=== PATIENT | male | born 1935 | race Caucasian/White ===

== ENCOUNTER 2016-09-13 07:33 | Outpatient (CLI) ==
[2016-09-13 13:35] VITALS: BMI 26.4
== END 2016-09-13 07:34 | disposition home or self-care (01) ==
LOC: AMBL 07:33
PROVIDERS: ATTEND Internal Medicine
DX: R50.9 Fever, unspecified (principal); R11.0 Nausea; R60.0 Localized edema; I48.91 Unspecified atrial fibrillation

== ENCOUNTER 2016-09-13 08:05 | Inpatient (IN) | payer OTHER ==
[2016-09-13 08:40] LABS: BASOPHILS % (AUTO) 0.3 % (0.0-3.0); EOSINOPHILS % (AUTO) 0.3 % (0.0-7.0); HEMATOCRIT 33.7 % (42.0-52.0); HEMOGLOBIN 11.9 g/dl (14.0-18.0); IMMATURE GRANULOCYTE % (AUTO) 0.5 % (0.0-5.0); LYMPHOCYTES # (AUTO) 0.6 K/uL (0.60-3.4); LYMPHOCYTES % (AUTO) 7.7 (10.0-50.0); MEAN CORPUSCULAR HEMOGLOBIN 33.1 pg (27.0-31.0); MEAN CORPUSCULAR HGB CONC 35.3 (31.8-35.4); MEAN CORPUSCULAR VOLUME 93.6 fl (80.0-94.0); MONOCYTES # (AUTO) 0.9 K/uL (0.4-2.0); NEUTROPHILS # (AUTO) 6.4 K/ul (2.0-6.9); NEUTROPHILS % (AUTO) 80.2; PLATELET COUNT 264 10^3/uL (140-440); WHITE BLOOD COUNT 7.94 K/ul (4.2-10.2)
[2016-09-13 08:53] LABS: ABG PCO2 28.3 mmHg (35-45); ABG PH 7.435 (7.35-7.45)
[2016-09-13 08:54] LABS: ABG BASE EXCESS -5 (-2.0-2.0); ABG TCO2 20 (22.0-28.0)
[2016-09-13 09:04] LABS: PARTIAL THROMBOPLASTIN TIME 31.1 SEC (23.9-40.0); PROTHROMBIN TIME 11.3 SEC (9.3-11.0)
--- NOTE | 2016-09-13 09:13 | CT ---
EXAM: CT chest without contrast HISTORY: Cough, chills 1 week, shortness of breath COMPARISON: None TECHNIQUE: CT chest performed without intravenous contrast. Coronal and sagittal reformatted image s obtained. FINDINGS: Thyroid and thoracic inlet appear normal. Heart is mildly enlarged. Evaluation for lymp hadenopathy limited without contrast. No lymphadenopathy identified. Calcified right hilar lymph n odes, consistent with old granulomatous disease. Patulous esophagus. Moderate to large hiatal soraya ia. Aorta normal in caliber. Mild atherosclerosis. Coronary calcifications. Granulomatous calcif ications. No acute abnormalities of the bones. There is degenerative change in the spine. Advanced arthropathy of the shoulders. The central airway patent. Small left pleural effusion. Left lower lobe ground-glass infiltrates and consolidation. Mild right basilar atelectasis. No pneumothorax. Mild centrilobular emphysema. Granulomatous calcification left lung. Chronic elevation right kayla diaphragm. IMPRESSION: 1. Left lower lobe ground-glass infiltrates and consolidation most consistent with pneumonia. Recom mend radiographic follow-up. Small left pleural effusion. 2. Moderate to large hiatal hernia with patulous esophagus. 3. Mild emphysema. 4. Mild cardiomegaly.
[2016-09-13 09:17] LABS: ALBUMIN 2.9 g/dL (3.4-5.0); ALBUMIN/GLOBULIN RATIO 0.73; ANION GAP 15.4; BILIRUBIN,TOTAL 0.96 mg/dL (0.00-1.20); BUN/CREATININE RATIO 16.49; CALCIUM 8.7 mg/dL (8.2-10.2); CREATININE 0.97 mg/dL (0.60-1.10); POTASSIUM 3.4 mmol/L (3.5-5.1); TOTAL PROTEIN 6.9 g/dL (5.8-8.1); TROPONIN I 0.105 ng/ml (0.0000-0.4000)
[2016-09-13 09:18] LABS: CREATINE KINASE MB 2.1 ng/ml (0.0-3.6)
--- NOTE | 2016-09-13 11:21 | CT ---
EXAM: CTA chest for PE HISTORY: Shortness of breath COMPARISON: CT chest 09/13/2016 TECHNIQUE: CTA of the chest was performed from the lung apices to the upper abdomen after 75 ml of Omnipaque IV contrast was administered using PE protocol. 3-D imaging was also provided. FINDINGS: There is no filling defect in the pulmonary arteries to the level of the subsegmental pul monary arteries. The heart is mildly enlarged without signs of ventricular strain. The aorta demons trates mild atherosclerotic disease which is unchanged. There are mediastinal and hilar lymph nodes which are nonpathologically enlarged. The thyroid is unremarkable. There are no enlarged axillary lymph nodes. There is no pneumothorax. There is a small layering left pleural effusion. There is airway thicken ing to the left lower lobe with patchy ground-glass and consolidative opacities. There is scattered emphysematous disease with mild right lower lobe airway thickening. No new consolidation or nodules present. There is unchanged moderate hiatal hernia. The findings in the upper abdomen are unchanged. The os seous structures redemonstrate degenerative disease with no acute abnormality. IMPRESSION: 1. No pulmonary embolism. 2. Bilateral lower lobe airway thickening with ground-glass and consolidative opacities noted in th e left lower lobe suggestive of pneumonia. 3. Small left pleural effusion is redemonstrated. 4. Unchanged mild cardiomegaly, emphysema and hiatal hernia.
--- NOTE | 2016-09-13 11:42 | ED.PDOC ---
General ED Provider: Dr. ESTEE ANDERSON Chief Complaint: Fever Stated Complaint: FEVER , COUGH Time Seen by Physician: 08:00 Mode of Arrival: Ambulance Information Source: Patient Exam Limitations: No limitations Primary Care Provider: SHELBIE GALLOWAY Nursing and Triage Documentation Reviewed and Agree: Yes Respiratory Complaint Exam - Respiratory Complaint/Exam Onset/Duration: 3 DAYS Symptoms Are: Still present Timing: Constant Initial Severity: Moderate Current Severity: Moderate Location: Chest Character: Reports: Non-productive cough Aggravating: Reports: None Alleviating: Reports: Spontaneous resolution Associated Signs and Symptoms: Reports: Nasal congestion. Denies: Rapid breathing, Dyspnea, Fever, Chills, Chest pain, Pleuritic chest pain, Wheezing, Hemoptysis, Dizziness, Calf pain, Calf swelling, Edema, URI, Hoarseness, Sinus discomfort, Vomiting, Sore throat, Weight loss, Decreased oral intake, Increased thirst, Increased appetite, Increased urination History of Healthcare-Acquired Pneumonia: No Related Surgical History: Reports: None Pulmonary Embolism Risk Factors: Bedrest Cardiac Risk Factors: Reports: Hypertension Pseudomonas Risk Factors: Reports: Chronic Lung Disease Status Asthmaticus Risk Factors: Reports: None Home Oxygen Use: No Recent Stress Test: No Recent Echo/LV Function: No Current Antibiotic Use: No Current Asthma Medication Use: No Respiratory Distress: None Inadequate Respiratory Effort: No Dysphagia Present: No Stridor Present: No JVD Present: No Accessory Muscle Use: No Retractions: Not Present Diminished Breath Sounds: Yes (LLL) Sinus Tenderness: None Grunting Respirations: No Kussmaul Respirations: No Differential Diagnoses: Pulmonary Edema, COPD Exacerbation, Pneumonia, Pulmonary Embolism, Bronchitis Review of Systems - Review Of Systems Constitutional: Reports: No symptoms Eyes: Reports: No symptoms Ears, Nose, Mouth, Throat: Reports: No symptoms Respiratory: Reports: Cough Cardiac: Reports: No symptoms GI: Reports: No symptoms : Reports: No symptoms Musculoskeletal: Reports: No symptoms Skin: Reports: No symptoms Neurological: Reports: No symptoms Endocrine: Reports: No symptoms Hematologic/Lymphatic: Reports: No symptoms All Other Systems: Reviewed and Negative Past Medical History - Past Medical History Previously Healthy: No Endocrine: Reports: Hypothyroid, Dyslipidemia Cardiovascular: Reports: Hypertension Respiratory: Reports: None Hematological: Reports: None Gastrointestinal: Reports: None Genitourinary: Reports: None Neuro/Psych: Reports: None Musculoskeletal: Reports: None Cancer: Reports: None - Surgical History General Surgical History: Reports: Unknown - Family History Family History: Reports: Unknown - Social History Smoking Status: Never smoker Hx Substance Use: No Alcohol Screening: None Physical Exam - Physical Exam Appearance: Well-appearing, No pain distress, Well-nourished Eyes: SCAR, EOMI, Conjunctiva clear ENT: Ears normal, Nose normal, Oropharynx normal Respiratory: Airway patent, Breath sounds clear, Breath sounds equal, Respirations nonlabored Cardiovascular: RRR, Pulses normal, No rub, No murmur GI/: Soft, Nontender, No masses, Bowel sounds normal, No Organomegaly Musculoskeletal: Normal strength, ROM intact, No edema, No calf tenderness Skin: Warm, Dry, Normal color Neurological: Sensation intact, Motor intact, Reflexes intact, Cranial nerves intact, Alert, Oriented Psychiatric: Affect appropriate, Mood appropriate Critical Care Note - Critical Care Note Total Time (mins): 0 Course - Course Hematology/Chemistry: 09/13/16 08:25 09/13/16 08:25 Orders, Labs, Meds: Lab Review 09/13/16 09/13/16 08:25 08:50 WBC 7.94 RBC 3.60 L Hgb 11.9 L Hct 33.7 L MCV 93.6 MCH 33.1 H MCHC 35.3 RDW Coeff of Timmy 12.7 Plt Count 264 Immature Gran % (Auto) 0.5 Neut % (Auto) 80.2 Lymph % (Auto) 7.7 L [place] % (Auto) 11.0 H Eos % (Auto) 0.3 Baso % (Auto) 0.3 Immature Gran # (Auto) 0.0 Neut # 6.4 Lymph # 0.6 [place] # 0.9 Eos # 0.0 Baso # 0.0 PT 11.3 H INR 1.10 APTT 31.1 D-Dimer (Manual) 3471.28 Puncture Site R rad O2 Saturation 92.0 L ABG pH 7.435 ABG pCO2 28.3 L ABG pO2 62.0 L ABG HCO3 19.0 L ABG Total CO2 20 L ABG Base Excess -5 L Tyron Test + FiO2 % 21.0 Sodium 137 Potassium 3.4 L Chloride 106 Carbon Dioxide 19 L Anion Gap 15.4 BUN 16 Creatinine 0.97 Estimated GFR (MDRD) 74.00 BUN/Creatinine Ratio 16.49 Glucose 113 Lactic Acid 9.2 Calcium 8.7 Total Bilirubin 0.96 AST 29 ALT 14 Alkaline Phosphatase 78 Total Creatine Kinase 291 CK-MB (CK-2) 2.1 CK-MB (CK-2) % 0.73315 Troponin I 0.1050 Total Protein 6.9 Albumin 2.9 L Globulin 4.0 Albumin/Globulin Ratio 0.73 Procalcitonin 0.33 Orders Category Date Time Status ADMIT PATIENT INPATIENT .TO [facility] (MONITORED BED) ADMISSION 09/13/16 11: 35 Ordered ABG DRAW REQUEST Stat CARDIO 09/13/16 08:07 Completed EKG-(ED ONLY) Stat CARDIO 09/13/16 08:08 Completed EKG-(IP & OP ONLY) DAILY CARDIO 09/14/16 06:00 Ordered EKG-(IP & OP ONLY) DAILY CARDIO 09/15/16 06:00 Ordered EKG-(IP & OP ONLY) DAILY CARDIO 09/16/16 06:00 Ordered OXYGEN Routine CARDIO 09/13/16 11:36 Ordered ACTIVITY .Complete BR CARE 09/13/16 11:35 Ordered INTAKE & OUTPUT Q8HR CARE 09/13/16 11:35 Ordered NPO REMINDER: IMAGING ONCE CARE 09/13/16 10:19 Active TELEMETRY MONITORING TELE CARE 09/13/16 11:36 Ordered VITAL SIGNS Q8HR CARE 09/13/16 11:35 Ordered ABG Stat LAB 09/13/16 08:50 Completed BLOOD CULTURE Stat LAB 09/13/16 08:25 Received CBC W/ AUTO DIFF DAILY@0600 LAB 09/14/16 06:00 Ordered CBC W/ AUTO DIFF DAILY@0600 LAB 09/15/16 06:00 Ordered CBC W/ AUTO DIFF DAILY@0600 LAB 09/16/16 06:00 Ordered CBC W/ AUTO DIFF DAILY@0600 LAB 09/17/16 06:00 Ordered CBC W/ AUTO DIFF DAILY@0600 LAB 09/18/16 06:00 Ordered CBC W/ AUTO DIFF DAILY@0600 LAB 09/19/16 06:00 Ordered CBC W/ AUTO DIFF DAILY@0600 LAB 09/20/16 06:00 Ordered CBC W/ AUTO DIFF DAILY@0600 LAB 09/21/16 06:00 Ordered CBC W/ AUTO DIFF DAILY@0600 LAB 09/22/16 06:00 Ordered CBC W/ AUTO DIFF DAILY@0600 LAB 09/23/16 06:00 Ordered CBC W/ AUTO DIFF DAILY@0600 LAB 09/24/16 06:00 Ordered CBC W/ AUTO DIFF DAILY@0600 LAB 09/25/16 06:00 Ordered CBC W/ AUTO DIFF DAILY@0600 LAB 09/26/16 06:00 Ordered CBC W/ AUTO DIFF DAILY@0600 LAB 09/27/16 06:00 Ordered CBC W/ AUTO DIFF DAILY@0600 LAB 09/28/16 06:00 Ordered CBC W/ AUTO DIFF DAILY@0600 LAB 09/29/16 06:00 Ordered CBC W/ AUTO DIFF DAILY@0600 LAB 09/30/16 06:00 Ordered CBC W/ AUTO DIFF DAILY@0600 LAB 10/01/16 06:00 Ordered CBC W/ AUTO DIFF DAILY@0600 LAB 10/02/16 06:00 Ordered CBC W/ AUTO DIFF DAILY@0600 LAB 10/03/16 06:00 Ordered CBC W/ AUTO DIFF Stat LAB 09/13/16 08:25 Completed COMPREHENSIVE METABOLIC PANEL DAILY@0600 LAB 09/14/16 06:00 Ordered COMPREHENSIVE METABOLIC PANEL DAILY@0600 LAB 09/15/16 06:00 Ordered COMPREHENSIVE METABOLIC PANEL DAILY@0600 LAB 09/16/16 06:00 Ordered COMPREHENSIVE METABOLIC PANEL DAILY@0600 LAB 09/17/16 06:00 Ordered COMPREHENSIVE METABOLIC PANEL DAILY@0600 LAB 09/18/16 06:00 Ordered COMPREHENSIVE METABOLIC PANEL DAILY@0600 LAB 09/19/16 06:00 Ordered COMPREHENSIVE METABOLIC PANEL DAILY@0600 LAB 09/20/16 06:00 Ordered COMPREHENSIVE METABOLIC PANEL DAILY@0600 LAB 09/21/16 06:00 Ordered COMPREHENSIVE METABOLIC PANEL DAILY@0600 LAB 09/22/16 06:00 Ordered COMPREHENSIVE METABOLIC PANEL DAILY@0600 LAB 09/23/16 06:00 Ordered COMPREHENSIVE METABOLIC PANEL DAILY@0600 LAB 09/24/16 06:00 Ordered COMPREHENSIVE METABOLIC PANEL DAILY@0600 LAB 09/25/16 06:00 Ordered COMPREHENSIVE METABOLIC PANEL DAILY@0600 LAB 09/26/16 06:00 Ordered COMPREHENSIVE METABOLIC PANEL DAILY@0600 LAB 09/27/16 06:00 Ordered COMPREHENSIVE METABOLIC PANEL DAILY@0600 LAB 09/28/16 06:00 Ordered COMPREHENSIVE METABOLIC PANEL DAILY@0600 LAB 09/29/16 06:00 Ordered COMPREHENSIVE METABOLIC PANEL DAILY@0600 LAB 09/30/16 06:00 Ordered COMPREHENSIVE METABOLIC PANEL DAILY@0600 LAB 10/01/16 06:00 Ordered COMPREHENSIVE METABOLIC PANEL DAILY@0600 LAB 10/02/16 06:00 Ordered COMPREHENSIVE METABOLIC PANEL DAILY@0600 LAB 10/03/16 06:00 Ordered COMPREHENSIVE METABOLIC PANEL Stat LAB 09/13/16 08:25 Completed CREATINE KINASE Stat LAB 09/13/16 08:25 Completed D-DIMER Stat LAB 09/13/16 08:25 Completed LACTIC ACID Stat LAB 09/13/16 08:25 Completed PARTIAL THROMBOPLASTIN TIME Stat LAB 09/13/16 08:25 Completed PROCALCITONIN Stat LAB 09/13/16 08:25 Completed PT WITH INR Stat LAB 09/13/16 08:25 Completed TROPONIN I Stat LAB 09/13/16 08:25 Completed Atenolol [Atenolol] MEDS 09/14/16 09:00 Ordered 100 mg PO DAILY Azithromycin Inj [Zithromax] 500 mg MEDS 09/13/16 12:00 Ordered 0.9 % Sodium Chloride [Sodium Chloride] 250 ml IV ONCE Ceftriaxone Sodium [Rocephin] 1 gm MEDS 09/13/16 12:00 Ordered 0.9 % Sodium Chloride [Sodium Chloride] 50 ml IV DAILY Clonazepam [Klonopin] MEDS 09/13/16 21:00 Ordered 0.5 mg PO BEDTIME Furosemide [Lasix Tab] MEDS 09/14/16 06:30 Ordered 20 mg PO MOWEFRSA@0630 Levothyroxine Sodium [Synthroid] MEDS 09/14/16 06:30 Ordered 50 mcg PO QDAC Lisinopril [Zestril] MEDS 09/14/16 09:00 Ordered 20 mg PO DAILY Potassium Chloride [Klor-Con 10] MEDS 09/14/16 09:00 Ordered 10 meq PO MOWEFRSA@0900 Simvastatin [Zocor] MEDS 09/14/16 09:00 Ordered 40 mg PO DAILY Sodium Chloride 0.9% [Sodium Chloride] 1,000 ml MEDS 09/13/16 12:00 Ordered IV 75 mls/hr CHEST, 1V AP ONLY DAILY RADS 09/15/16 06:[address] CHEST PE PROTOCOL Stat RADS 09/13/16 10:[address] CHEST W/O CONTRAST Stat RADS 09/13/16 08:07 Completed Medications Generic Name Dose Route Start Last Admin Trade Name Freq PRN Reason Stop Dose Admin Clonazepam 0.5 mg 09/13/16 21:00 Klonopin PO BEDTIME SIDRA Furosemide 20 mg 09/14/16 06:30 Lasix Tab PO MOWEFRSA@0630 SIDRA Ceftriaxone Sodium 1 gm/ 50 mls @ 75 mls/hr 09/13/16 12:00 Sodium Chloride IV DAILY SIDRA Sodium Chloride 1,000 mls @ 75 mls/hr 09/13/16 12:00 Sodium Chloride IV .[id number] SIDRA Azithromycin 500 mg/ Sodium 250 mls @ 125 mls/hr 09/13/16 12:00 Chloride IV ONCE SIDRA Non-Formulary Medication 100 mg 09/14/16 09:00 Atenolol [Atenolol] PO DAILY SIDRA Non-Formulary Medication 20 mg 09/14/16 09:00 Lisinopril [Zestril] PO DAILY SIDRA Non-Formulary Medication 10 meq 09/14/16 09:00 Potassium Chloride [Klor-Con 10] PO MOWEFRSA@0900 SIDRA Simvastatin 40 mg 09/14/16 09:00 Zocor PO DAILY SIDRA Vital Signs: Temp Pulse Resp BP Pulse Ox 09/13/16 08:05 102.1 F H 85 20 134/99 H 95 Departure - Departure Time of Disposition: 11:43 Disposition: HOME SELF-CARE Discharge Problem: Fever Pneumonia Qualifiers: Pneumonia type: due to unspecified organism Laterality: left Lung location: lower lobe of lung Qualifier Code: (J18.1) Lobar pneumonia, unspecified organism Instructions: Pneumonitis (ED) Condition: Good Pt referred to PMD for follow-up: No Additional Instructions: Please call your Family Physician as soon as possible to schedule a follow-up appointment. Allergies/Adverse Reactions: Allergies morphine Adverse Reaction (Verified 09/13/16 08:08) Home Medications: Ambulatory Orders Furosemide [Lasix Tab] 20 mg PO MOWEFRSA@0630 02/19/13 Lisinopril [Zestril] 20 mg PO DAILY 02/19/13 Potassium Chloride [Klor-Con 10] 10 meq PO MOWEFRSA@0900 02/19/13 Simvastatin 40 mg PO DAILY 02/19/13 Clonazepam [Klonopin] 0.5 mg PO BEDTIME #30 tablet 02/23/13 Atenolol 100 mg PO DAILY 01/14/15 Levothyroxine Sodium [Synthroid] 50 mcg PO QDAC 01/14/15 Pantoprazole Sodium 40 mg PO BID 01/14/15 Ferrous Sulfate 325 mg PO DAILY 09/13/16
[2016-09-13] MEDS: ROCEPHIN 1 GM in SODIUM CHLORIDE 50 ML IV SCH (11:58)
[2016-09-13] MEDS ORDERED: ZITHROMAX 500 MG in SODIUM CHLORIDE 250 ML IV SCH (12:00)
[2016-09-13] MEDS ORDERED: SODIUM CHLORIDE 1,000 ML IV SCH (12:00)
[2016-09-13] MEDS ORDERED: ROCEPHIN ONE (12:12)
[2016-09-13] MEDS ORDERED: ZITHROMAX 500 MG in SODIUM CHLORIDE 250 ML IV STA (13:07)
[2016-09-13 13:35] VITALS: BMI 26.4
[2016-09-13] MEDS ORDERED: TORADOL IVP PRN (15:58)
[2016-09-13] MEDS: PROTONIX PO SCH (16:53)
[2016-09-13] MEDS: SOLU-MEDROL 40 MG IVP SCH (20:12)
[2016-09-13] MEDS: SODIUM CHLORIDE 1,000 ML IV SCH (20:13)
[2016-09-13] MEDS: KLONOPIN PO SCH (20:47)
[2016-09-13] MEDS: TYLENOL PO PRN (22:02)
[2016-09-14 04:54] LABS: BASOPHILS % (AUTO) 0.2 % (0.0-3.0); HEMATOCRIT 31.3 % (42.0-52.0); HEMOGLOBIN 10.9 g/dl (14.0-18.0); IMMATURE GRANULOCYTE % (AUTO) 0.4 % (0.0-5.0); LYMPHOCYTES # (AUTO) 0.7 K/uL (0.60-3.4); MEAN CORPUSCULAR HEMOGLOBIN 33.1 pg (27.0-31.0); MEAN CORPUSCULAR HGB CONC 34.8 (31.8-35.4); MEAN CORPUSCULAR VOLUME 95.1 fl (80.0-94.0); MONOCYTES # (AUTO) 0.2 K/uL (0.4-2.0); MONOCYTES % (AUTO) 3.9 (0-10); NEUTROPHILS # (AUTO) 3.8 K/ul (2.0-6.9); NEUTROPHILS % (AUTO) 81.5; PLATELET COUNT 227 10^3/uL (140-440); RED BLOOD COUNT 3.29 10^6/ul (4.70-6.10); WHITE BLOOD COUNT 4.64 K/ul (4.2-10.2)
[2016-09-14 05:12] LABS: ALBUMIN 2.5 g/dL (3.4-5.0); ALBUMIN/GLOBULIN RATIO 0.66; ANION GAP 14.8; BILIRUBIN,TOTAL 0.57 mg/dL (0.00-1.20); BUN/CREATININE RATIO 20.45; CALCIUM 8.5 mg/dL (8.2-10.2); CREATININE 0.88 mg/dL (0.60-1.10); POTASSIUM 3.8 mmol/L (3.5-5.1); TOTAL PROTEIN 6.3 g/dL (5.8-8.1)
[2016-09-14] MEDS: SOLU-MEDROL 40 MG IVP SCH ×3 (05:36→20:10)
[2016-09-14] MEDS: SYNTHROID PO SCH (06:29)
[2016-09-14] MEDS: PROTONIX PO SCH ×2 (06:29→16:41)
[2016-09-14] MEDS: LASIX TAB PO SCH (06:29)
[2016-09-14] MEDS ORDERED: NON-FORMULARY MEDICATION (Atenolol [Atenolol] 100 MG) PO SCH ×22 (09:00)
[2016-09-14] MEDS ORDERED: ZITHROMAX 250 MG in SODIUM CHLORIDE 250 ML IV SCH (09:00)
[2016-09-14] MEDS ORDERED: NON-FORMULARY MEDICATION (Lisinopril [Zestril] 20 MG) PO SCH ×22 (09:00)
[2016-09-14] MEDS ORDERED: NON-FORMULARY MEDICATION (Potassium Chloride [Klor-Con 10] 10 MEQ) PO SCH ×22 (09:00)
[2016-09-14] MEDS: ROCEPHIN 1 GM in SODIUM CHLORIDE 50 ML IV SCH (09:35)
[2016-09-14] MEDS: ZOCOR PO SCH (09:41)
[2016-09-14] MEDS: FERROUS SULFATE PO SCH (09:41)
[2016-09-14] MEDS: TENORMIN PO SCH (09:41)
[2016-09-14] MEDS: MICRO-K CAP PO SCH (09:42)
[2016-09-14] MEDS: ZESTRIL PO SCH (09:42)
[2016-09-14] MEDS: LOVENOX SUBCUT SCH (09:43)
[2016-09-14] MEDS: ZITHROMAX 500 MG in SODIUM CHLORIDE 250 ML IV SCH (10:21)
[2016-09-14] MEDS: DUONEB NEB SCH ×3 (12:45→19:35)
[2016-09-14 20:05] LABS: BILIRUBIN,URINE 1+ (NEGATIVE); KETONES,URINE 1+ (NEGATIVE); LEUKOCYTE ESTERASE ,URINE Negative (NEGATIVE); NITRITE,URINE Negative (NEGATIVE); PH,URINE 5.5 (5-9); PROTEIN,URINE 1+ (NEGATIVE); URINE, BLOOD Trace-lysed (NEGATIVE)
[2016-09-14 20:07] LABS: ADD URINE MICROSCOPIC YES
[2016-09-14] MEDS: KLONOPIN PO SCH (20:07)
[2016-09-14] MEDS: TYLENOL PO PRN (22:10)
[2016-09-15] MEDS ORDERED: SODIUM CHLORIDE 1,000 ML IV ONE (00:02)
[2016-09-15] MEDS: SODIUM CHLORIDE 1,000 ML IV SCH (00:02)
[2016-09-15 04:39] LABS: BASOPHILS % (AUTO) 0.1 % (0.0-3.0); HEMATOCRIT 33.3 % (42.0-52.0); HEMOGLOBIN 11.7 g/dl (14.0-18.0); IMMATURE GRANULOCYTE % (AUTO) 0.8 % (0.0-5.0); LYMPHOCYTES # (AUTO) 0.7 K/uL (0.60-3.4); LYMPHOCYTES % (AUTO) 8.2 (10.0-50.0); MEAN CORPUSCULAR HEMOGLOBIN 32.8 pg (27.0-31.0); MEAN CORPUSCULAR HGB CONC 35.1 (31.8-35.4); MEAN CORPUSCULAR VOLUME 93.3 fl (80.0-94.0); MONOCYTES # (AUTO) 0.4 K/uL (0.4-2.0); MONOCYTES % (AUTO) 4.5 (0-10); NEUTROPHILS # (AUTO) 7.2 K/ul (2.0-6.9); NEUTROPHILS % (AUTO) 86.4; PLATELET COUNT 319 10^3/uL (140-440); RED BLOOD COUNT 3.57 10^6/ul (4.70-6.10); WHITE BLOOD COUNT 8.39 K/ul (4.2-10.2)
[2016-09-15 05:05] LABS: ALBUMIN 2.5 g/dL (3.4-5.0); ALBUMIN/GLOBULIN RATIO 0.68; ANION GAP 13.9; BILIRUBIN,TOTAL 0.37 mg/dL (0.00-1.20); BUN/CREATININE RATIO 23.14; CALCIUM 8.5 mg/dL (8.2-10.2); CREATININE 1.08 mg/dL (0.60-1.10); POTASSIUM 3.9 mmol/L (3.5-5.1); TOTAL PROTEIN 6.2 g/dL (5.8-8.1)
[2016-09-15] MEDS: DUONEB NEB SCH ×4 (05:25→19:55)
[2016-09-15] MEDS: SYNTHROID PO SCH (05:54)
[2016-09-15] MEDS: PROTONIX PO SCH ×2 (05:55→16:31)
[2016-09-15] MEDS: SOLU-MEDROL 40 MG IVP SCH ×3 (05:55→20:47)
[2016-09-15] MEDS: LASIX TAB PO SCH (05:55)
[2016-09-15] MEDS: ZOCOR PO SCH (09:02)
[2016-09-15] MEDS: FERROUS SULFATE PO SCH (09:02)
[2016-09-15] MEDS: ZESTRIL PO SCH (09:02)
[2016-09-15] MEDS: TENORMIN PO SCH (09:03)
[2016-09-15] MEDS: MICRO-K CAP PO SCH (09:03)
[2016-09-15] MEDS: LOVENOX SUBCUT SCH (09:03)
[2016-09-15] MEDS: MUCINEX PO SCH ×2 (09:03→20:29)
[2016-09-15] MEDS: ROCEPHIN 1 GM in SODIUM CHLORIDE 50 ML IV SCH (09:04)
--- NOTE | 2016-09-15 09:25 | DI ---
EXAM: Single view of the chest. History: follow-up pneumonia Findings: Heart remains mildly enlarged. Hiatal hernia again noted. Elevated right hemidiaphragm again noted. Persistent but improving left lower lobe infiltrate. No pneumothorax. Visualized oss eous structures unchanged. Impression: Persistent but improving left lower lobe infiltrate.
[2016-09-15] MEDS: ZITHROMAX 500 MG in SODIUM CHLORIDE 250 ML IV SCH (09:56)
[2016-09-15] MEDS: KLONOPIN PO SCH (20:29)
[2016-09-15] MEDS: TYLENOL PO PRN (20:48)
[2016-09-16] MEDS: SODIUM CHLORIDE 1,000 ML IV SCH (01:43)
[2016-09-16] MEDS ORDERED: SODIUM CHLORIDE 1,000 ML IV ONE (01:43)
[2016-09-16 04:53] LABS: BASOPHILS % (AUTO) 0.2 % (0.0-3.0); HEMATOCRIT 32.9 % (42.0-52.0); HEMOGLOBIN 11.5 g/dl (14.0-18.0); IMMATURE GRANULOCYTE % (AUTO) 0.9 % (0.0-5.0); LYMPHOCYTES # (AUTO) 0.6 K/uL (0.60-3.4); LYMPHOCYTES % (AUTO) 6.2 (10.0-50.0); MEAN CORPUSCULAR VOLUME 94.3 fl (80.0-94.0); MONOCYTES # (AUTO) 0.3 K/uL (0.4-2.0); MONOCYTES % (AUTO) 3.2 (0-10); NEUTROPHILS # (AUTO) 8.5 K/ul (2.0-6.9); NEUTROPHILS % (AUTO) 89.5; PLATELET COUNT 330 10^3/uL (140-440); RED BLOOD COUNT 3.49 10^6/ul (4.70-6.10); WHITE BLOOD COUNT 9.54 K/ul (4.2-10.2)
[2016-09-16] MEDS: SOLU-MEDROL 40 MG IVP SCH ×2 (05:02→13:51)
[2016-09-16] MEDS: DUONEB NEB SCH ×4 (05:10→19:20)
[2016-09-16 05:13] LABS: ALBUMIN 2.5 g/dL (3.4-5.0); ALBUMIN/GLOBULIN RATIO 0.76; ANION GAP 13.8; BILIRUBIN,TOTAL 0.3 mg/dL (0.00-1.20); CALCIUM 8.2 mg/dL (8.2-10.2); CREATININE 1.08 mg/dL (0.60-1.10); POTASSIUM 3.8 mmol/L (3.5-5.1); TOTAL PROTEIN 5.8 g/dL (5.8-8.1)
[2016-09-16] MEDS: PROTONIX PO SCH ×2 (05:33→17:28)
[2016-09-16] MEDS: SYNTHROID PO SCH (05:33)
[2016-09-16] MEDS: FERROUS SULFATE PO SCH (08:11)
[2016-09-16] MEDS: MUCINEX PO SCH ×2 (08:11→20:33)
[2016-09-16] MEDS: ZESTRIL PO SCH (08:11)
[2016-09-16] MEDS: TENORMIN PO SCH (08:11)
[2016-09-16] MEDS: ZOCOR PO SCH (08:11)
[2016-09-16] MEDS: ROCEPHIN 1 GM in SODIUM CHLORIDE 50 ML IV SCH (08:12)
[2016-09-16] MEDS: LOVENOX SUBCUT SCH (08:12)
[2016-09-16] MEDS ORDERED: MEDROL DOSEPAK PO SCH ×4 (13:30→15:00)
[2016-09-16] MEDS: MEDROL DOSEPAK PO SCH ×2 (17:29→20:34)
[2016-09-16] MEDS: KLONOPIN PO SCH (20:33)
[2016-09-16] MEDS: KEFLEX PO SCH (20:33)
[2016-09-16] MEDS ORDERED: SOLU-MEDROL 40 MG IVP ONE (21:00)
[2016-09-17 04:35] LABS: BASOPHILS % (AUTO) 0.2 % (0.0-3.0); HEMOGLOBIN 11.6 g/dl (14.0-18.0); IMMATURE GRANULOCYTE % (AUTO) 2.8 % (0.0-5.0); LYMPHOCYTES # (AUTO) 0.6 K/uL (0.60-3.4); LYMPHOCYTES % (AUTO) 6.2 (10.0-50.0); MEAN CORPUSCULAR HGB CONC 35.2 (31.8-35.4); MONOCYTES # (AUTO) 0.4 K/uL (0.4-2.0); MONOCYTES % (AUTO) 4.5 (0-10); NEUTROPHILS # (AUTO) 7.7 K/ul (2.0-6.9); NEUTROPHILS % (AUTO) 86.3; PLATELET COUNT 339 10^3/uL (140-440); RED BLOOD COUNT 3.51 10^6/ul (4.70-6.10); WHITE BLOOD COUNT 8.91 K/ul (4.2-10.2)
[2016-09-17 04:58] LABS: ALBUMIN 2.6 g/dL (3.4-5.0); ALBUMIN/GLOBULIN RATIO 0.87; ANION GAP 13.1; BILIRUBIN,TOTAL 0.34 mg/dL (0.00-1.20); BUN/CREATININE RATIO 24.21; CALCIUM 8.3 mg/dL (8.2-10.2); CREATININE 0.95 mg/dL (0.60-1.10); POTASSIUM 4.1 mmol/L (3.5-5.1); TOTAL PROTEIN 5.6 g/dL (5.8-8.1)
[2016-09-17] MEDS: DUONEB NEB SCH ×4 (05:05→19:42)
[2016-09-17] MEDS: PROTONIX PO SCH ×2 (05:37→17:34)
[2016-09-17] MEDS: LASIX TAB PO SCH (05:38)
[2016-09-17] MEDS: SYNTHROID PO SCH (05:38)
[2016-09-17] MEDS: MEDROL DOSEPAK PO SCH ×5 (07:20→20:09)
--- NOTE | 2016-09-17 08:56 | PCM.PROG ---
Attending Provider: ATTENDING PROVIDER: Dr. LEANNE FRANZ - seen by Dr. David DATE OF SERVICE: 09/17/16 SUBJECTIVE: This 81 year old WHITE/ M was hospitalized 09/13/16 with fever, cough, congestion and pneumonia. The patient has COPD and condition has steadily improved. REVIEW OF SYSTEMS: CONSTITUTIONAL: No night sweats. No fatigue, malaise, lethargy. No fever or chills. HEENT: Eyes: No visual changes. No eye pain. No eye discharge. ENT: No runny nose. No epistaxis. No sinus pain. No odynophagia. No congestion. RESPIRATORY: No cough, no congestion. No hemoptysis. CARDIOVASCULAR: No angina symptoms. No CHF symptoms. No atypical chest pain for CAD. No palpitations. No shortness of breath. No murmur. GASTROINTESTINAL: Appetite improved. No abdominal pain. No nausea or vomiting. No diarrhea or constipation. No hematemesis. No hematochezia. GENITOURINARY: No urgency. No frequency. No dysuria. No hematuria. No obstructive symptoms. No discharge. No pain. No significant abnormal bleeding. MUSCULOSKELETAL: No musculoskeletal pain; no joint swelling. NEUROLOGICAL: Awake, alert, oriented to time, place and person. No headache. No neck pain. No syncope. No seizures. No dizziness. PSYCHIATRIC: Not anxious. No depression. No suicidal thoughts. No homicidal thoughts. SKIN: No rash. No lesions. No wounds. ENDOCRINE: No unexplained weight loss. No weight gain. HEMATOLOGIC/LYMPHATIC: No anemia. No purpura. No petechiae. No prolonged or excessive bleeding. No palpable lymph nodes. PHYSICAL EXAMINATION: GENERAL: The patient is awake, alert and oriented, lying/sitting in bed in no distress. VITAL SIGNS: Temperature 97.5 F, Pulse 61, Respiratory Rate 18, BP 138/77, Pulse Ox 94% HEENT: Head normocephalic, atraumatic. Eyes: Extraocular muscles are intact. Pupils are equal, round and reactive to light and accommodation. Ears: No lesions. Nose appeared normal. Throat: No exudate or erythema. NECK: Supple. No JVD, no carotid bruit. No lymphadenopathy or thyromegaly. LUNGS: Decreased breath sounds. Clear to auscultation. Percussion note normal. Chest symmetrical. Increased AP diameter. HEART: S1, S2, no S3. No murmurs. No cyanosis or clubbing. No ascites. Pulses: Dorsalis pedis and posterior tibial pulses +1 to +2 both sides. ABDOMEN: Soft. Non-tender. Bowel sounds active. No CVA tenderness. No mass felt. EXTREMITIES: No pedal edema. Full range of motion of all extremities, equal. NEUROLOGIC: No focal deficit. Cranial nerves II through XII are grossly intact. No headache, no double vision or headache. SKIN: Not dry. Intact. Turgor-normal. LYMPHATIC: No palpable lymph nodes/no lymphedema. MUSCULOSKELETAL: Normal joints with no swelling. Muscle tone is normal. LAB REVIEW: 09/17/16 04:33 09/17/16 04:33 09/17/16 04:33: WBC 8.91, RBC 3.51 L, Hgb 11.6 L, Hct 33.0 L, MCV 94.0, MCH 33.0 H, MCHC 35.2, RDW Coeff of Timmy 12.9, Plt Count 339, Immature Gran % (Auto) 2.8, Neut % (Auto) 86.3, Lymph % (Auto) 6.2 L, [place] % (Auto) 4.5, Eos % (Auto) 0.0, Baso % (Auto) 0.2, Immature Gran # (Auto) 0.3, Neut # 7.7 H, Lymph # 0.6, [place] # 0.4, Eos # 0.0, Baso # 0.0, Sodium 139, Potassium 4.1, Chloride 109 H, Carbon Dioxide 21 L, Anion Gap 13.1, BUN 23 H, Creatinine 0.95, Estimated GFR ( MDRD) 76.00, BUN/Creatinine Ratio 24.21, Glucose 141 H, Calcium 8.3, Total Bilirubin 0.34, AST 32, ALT 42, Alkaline Phosphatase 66, Total Protein 5.6 L, Albumin 2.6 L, Globulin 3.0, Albumin/Globulin Ratio 0.87 ASSESSMENT: 1. Pneumonitis resolving 2. Chronic lung disease 3. Depression 4. Hypertension 5. Peripheral arterial disease PLAN: 1. Continue antibiotics 2. Continue steroids 3. Repeat chest x-ray tomorrow 4. Echocardiogram in the a.m. Plan and coordination of the patient's care discussed in the presence of Farm Product Purchaser and nurse. CONDITION: Stable SCRIBED BY: ROSE GARCIA, Aircraft Structure Mechanic scribed while in presence of service performed by Dr. David on 09/17/16 ([id number])
[2016-09-17] MEDS: TENORMIN PO SCH (09:08)
[2016-09-17] MEDS: MICRO-K CAP PO SCH (09:09)
[2016-09-17] MEDS: KEFLEX PO SCH ×2 (09:09→20:10)
[2016-09-17] MEDS: ZESTRIL PO SCH (09:09)
[2016-09-17] MEDS: ZOCOR PO SCH (09:09)
[2016-09-17] MEDS: MUCINEX PO SCH ×2 (09:09→20:10)
[2016-09-17] MEDS: FERROUS SULFATE PO SCH (09:10)
[2016-09-17] MEDS: LOVENOX SUBCUT SCH (09:10)
--- NOTE | 2016-09-17 09:12 | PN ---
DATE OF SERVICE: 09/14/16 SUBJECTIVE: The patient was admitted with pneumonia and fever. The patient's fever has been improved ever since admission. Last time he had fever was 5:00 and 11:00 on the day of admission; 102 and 100 and after that no fever. REVIEW OF SYSTEMS: CONSTITUTIONAL: No fever, no chills. HEENT: Normal. ENDOCRINE: No weight gain, no weight loss. CVS: No angina symptoms. No CHF symptoms. No palpitations. No atypical chest pain for CAD. No shortness of breath. No PND, no orthopnea. RESPIRATORY: Some cough, no hemoptysis. GI: No nausea, no vomiting. No abdominal pain. : No hematuria. No polyuria. MUSCULOSKELETAL:. No joint swelling. PSYCHIATRIC: Not anxious. No depression. No suicidal thoughts. No homicidal thoughts. SKIN: Intact. No rash. PHYSICAL EXAMINATION: V/S: Blood pressure 138/79, respiratory rate 14, heart rate 66, temperature 97.4. HEENT: Normocephalic, atraumatic. Mucosa dry. Pallor positive. NECK: Supple. No JVD, no carotid bruit. No lymphadenopathy. LUNGS: Decreased and basilar crackles. No rales or rhonchi. HEART: S1, S2 normal. No S3. No murmur, gallop or regurgitation. ABDOMEN: Soft, nontender. Bowel sounds active. No rigidity. No rebound or guarding. No CVA tenderness. EXTREMITIES: No clubbing, cyanosis or pedal edema. Left lower extremities swelling and redness is better. MUSCULOSKELETAL: No joint swelling. NEUROLOGIC: Awake, alert, oriented times three. No focal deficit. LYMPHATIC: No lymph nodes palpable. SKIN: Intact. LABS: WBC 4.64, hgb 10.9, hct 31.3, plt count 227, sodium 137, potassium 3.8, chloride 107, bicarb 19, BUN 18, creatinine 0.88, glucose 128. ASSESSMENT: 1. Community acquired pneumonia 2. Anemia 3. Hypertension 4. 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 History of lumbar spine surgery 7. Hypothyroidism PLAN: 1. Continue the Rocephin 2. Azithromycin 3. DUO NEBS 4. Solu- Medrol 5. Daily I&O's TIME SPENT: More than 30 minutes MTDD
--- NOTE | 2016-09-17 11:00 | PN ---
DATE OF SERVICE: 09/16/16 SUBJECTIVE: The patient not coughing, no fever or chills, no PND or Orthopnea. X-ray was done yesterday which did show the betterment of the pneumonia and persistent but improved left lower lobe infiltrate. Vital signs are stable. He insists on staying in the hospital. He says that he doesn't want to go home till Saturday. Trying to explain to him but the patient was argumentative so I told Kalani renal case manager will be talking with the patient in the morning. REVIEW OF SYSTEMS: CONSTITUTIONAL: No fever, no chills. HEENT: Normal. ENDOCRINE: No weight gain, no weight loss. CVS: No angina symptoms. No CHF symptoms. No palpitations. No atypical chest pain for CAD. No shortness of breath. No PND, no orthopnea. RESPIRATORY: No cough, no hemoptysis. GI: No nausea, no vomiting. No abdominal pain. : No hematuria. No polyuria. MUSCULOSKELETAL:. No joint swelling. PSYCHIATRIC: Not anxious. No depression. No suicidal thoughts. No homicidal thoughts. SKIN: Intact. No rash. PHYSICAL EXAMINATION: V/S: blood pressure 120/70, respiratory rate 18, heart rate 82, temperature 98 and saturation is 93%. HEENT: Normocephalic, atraumatic. Mucosa dry. Pallor positive. No icterus. NECK: Supple. No JVD, no carotid bruit. No lymphadenopathy. LUNGS: Decreased and clear to auscultation. No rales or rhonchi. HEART: S1, S2 normal. No S3. No murmur, gallop or regurgitation. ABDOMEN: Soft, nontender. Bowel sounds active. No rigidity. No rebound or guarding. No CVA tenderness. EXTREMITIES: No clubbing, cyanosis. Edema is significant decreased on the lower extremity. MUSCULOSKELETAL: No joint swelling. NEUROLOGIC: Awake, alert, oriented times three. No focal deficit. LYMPHATIC: No lymph nodes palpable. SKIN: Intact. LABS: Sodium 139, potassium 3.8, chloride 109, bicarb 20, BUN 27, creatinine 1.08, WBC 9.58, Hgb 11.5, hct 32.9, plt count 330. ASSESSMENT: 1. Community acquired pneumonia, left lower lobe 2. Anemia secondary to chronic disease 3. Hypertension 4. Dyslipidemia 5. History of surgery forty years ago with the left lower extremity weakness. 6. Osteoarthritis PLAN: 1. Will change the antibiotic Rocephin to the Keflex 500mg twice a day 2. Medrol Dosepak 3. IV fluids at 35ml per hour 4. DUO NEBS 5. Daily I&O's Will follow the patient in daily rounds. TIME SPENT: More than 30 minutes MTDD
[2016-09-17] MEDS: SODIUM CHLORIDE 1,000 ML IV SCH ×2 (14:35→14:37)
[2016-09-17] MEDS ORDERED: SODIUM CHLORIDE 1,000 ML IV ONE (14:37)
[2016-09-17] MEDS: KLONOPIN PO SCH (20:10)
[2016-09-18 04:22] LABS: HEMATOCRIT 32.8 % (42.0-52.0); HEMOGLOBIN 11.3 g/dl (14.0-18.0); MEAN CORPUSCULAR HEMOGLOBIN 32.8 pg (27.0-31.0); MEAN CORPUSCULAR HGB CONC 34.5 (31.8-35.4); MEAN CORPUSCULAR VOLUME 95.3 fl (80.0-94.0); PLATELET COUNT 328 10^3/uL (140-440); RED BLOOD COUNT 3.44 10^6/ul (4.70-6.10); WHITE BLOOD COUNT 8.67 K/ul (4.2-10.2)
[2016-09-18 04:35] LABS: ANISOCYTOSIS NOT PRESENT (NOT PRESENT)
[2016-09-18 04:45] LABS: ALBUMIN 2.5 g/dL (3.4-5.0); ALBUMIN/GLOBULIN RATIO 1.04; ANION GAP 10.9; BILIRUBIN,TOTAL 0.3 mg/dL (0.00-1.20); BUN/CREATININE RATIO 25.8; CREATININE 0.93 mg/dL (0.60-1.10); POTASSIUM 3.9 mmol/L (3.5-5.1); TOTAL PROTEIN 4.9 g/dL (5.8-8.1)
[2016-09-18] MEDS: DUONEB NEB SCH ×2 (05:10→10:15)
[2016-09-18] MEDS: MEDROL DOSEPAK PO SCH (05:44)
[2016-09-18] MEDS: PROTONIX PO SCH (05:45)
[2016-09-18] MEDS: SYNTHROID PO SCH (05:45)
--- NOTE | 2016-09-18 08:16 | CM.DICTOOL ---
ADMISSION: 09/13/16 11:56 DISCHARGE: 09/18/16 DATE OF SERVICE: 09/18/16 FINAL DIAGNOSIS PNEUMONIA AND FEVER LEG EDEMA HYPERTENSION HYPOTHYROID CAD PAD DYSLIPIDEMIA ANEMIA HIATAL HERNIA, PER CT DEPRESSION BACK SURGERY X 2 ENDO, 2013 DR. BOLIVAR LAST VITALS Temp Pulse Resp BP Pulse Ox 97.3 F L 70 20 144/80 H 97 09/18/16 05:25 09/18/16 05:25 09/18/16 05:25 09/18/16 05:25 09/18/16 05:25 ACTIVE MEDICATIONS Atenolol (Tenormin) 100 mg PO DAILY [facility] Last Admin: 09/17/16 09:08 Dose: 100 mg Cephalexin (Keflex) 500 mg PO Q12HR [facility] (NEW PRESCRIPTION) Last Admin: 09/17/16 20:10 Dose: 500 mg Clonazepam (Klonopin) 0.5 mg PO BEDTIME [facility] Last Admin: 09/17/16 20:10 Dose: 0.5 mg Ferrous Sulfate (Ferrous Sulfate) 324 mg PO DAILY [facility] Last Admin: 09/17/16 09:10 Dose: 324 mg Furosemide (Lasix Tab) 20 mg PO MOWEFRSA@0630 [facility] Last Admin: 09/17/16 05:38 Dose: 20 mg Levothyroxine Sodium (Synthroid) 50 mcg PO QDAC [facility] Last Admin: 09/18/16 05:45 Dose: 50 mcg Lisinopril (Zestril) 20 mg PO DAILY [facility] Last Admin: 09/17/16 09:09 Dose: 20 mg Methylprednisolone (Medrol Dosepak) 4 mg PO 0630 [facility] (NEW PRESCRIPTION) PRN Reason: Taper Stop: 09/22/16 09:59 Last Admin: 09/18/16 05:44 Dose: 4 mg Pantoprazole Sodium (Protonix) 40 mg PO BIDAC [facility] Last Admin: 09/18/16 05:45 Dose: 40 mg Potassium Chloride (Micro-K Cap) 10 meq PO MoWeFrSa@0900 [facility] Last Admin: 09/17/16 09:09 Dose: 10 meq Simvastatin (Zocor) 40 mg PO DAILY [facility] Last Admin: 09/17/16 09:09 Dose: 40 mg ALLERGIES morphine Adverse Reaction (Verified 09/13/16 08:08) NEW PRESCRIPTIONS: KEFLEX 500 MG, TAKE ONE CAPSULE BY MOUTH EVERY 12 HOURS FOR 5 (FIVE) DAYS MEDROL DOSEPAK, TAKE PER PACKAGE DIRECTIONS (HOSPITAL SUPPLY) SMOKING: FORMER SMOKER DISEASE SPECIFIC EDUCATION: PNEUMONIA BRONCHITIS DIET ACTIVITY FOLLOW UP LAB REVIEW: 09/18/16 04:19 09/18/16 04:19 09/18/16 04:19: WBC 8.67, RBC 3.44 L, Hgb 11.3 L, Hct 32.8 L, MCV 95.3 H, MCH 32.8 H, MCHC 34.5, RDW Coeff of Timmy 13.0, Plt Count 328, Neutrophils % (Manual) 87.0 H, Lymphocytes % (Manual) 12.0, Eosinophils % (Manual) 1.0, Sodium 140, Potassium 3.9, Chloride 109 H, Carbon Dioxide 24, Anion Gap 10.9, BUN 24 H, Creatinine 0.93, Estimated GFR (MDRD) 78.00, BUN/Creatinine Ratio 25.80, Glucose 122 H, Calcium 8.0 L, Total Bilirubin 0.30, AST 18, ALT 32, Alkaline Phosphatase 67, Total Protein 4.9 L, Albumin 2.5 L, Globulin 2.4, Albumin/ Globulin Ratio 1.04 PLAN: DISCHARGE HOME TODAY RETURN TO SEE DR. GALLOWAY IN ONE WEEK. PLEASE PHONE HIS OFFICE TO SCHEDULE YOUR FOLLOW UP APPOINTMENT. ([phone]) RESUME YOUR HOME MEDICATIONS PER LIST PROVIDED BY THE NURSING STAFF NEW PRESCRIPTIONS KEFLEX 500 MG, TAKE ONE CAPSULE BY MOUTH EVERY 12 HOURS FOR 5 (FIVE) DAYS MEDROL DOSEPAK, TAKE PER PACKAGE DIRECTIONS (HOSPITAL SUPPLY) ACTIVITY: GET PLENTY OF REST AT HOME. GRADUALLY INCREASE YOUR ACTIVITY LEVEL ACCORDING TO YOUR TOLERATION DIET: SOFT HEALTHY HEART SUMMARY: THE PATIENT IS ALERT AND ORIENTED X3. HE CURRENTLY RESIDES AT HOME WITH HIS SISTER. THE TWO OF THEM HAVE AN ARRANGEMENT REGARDING BELT MACHINE OPERATOR THAT WORKS WELL FOR BOTH. MR. CEJA HAS A MOTORIZED SCOOTER, WHEEL CHAIR, ELEVATED COMMODE SEAT AND A RAMP AT THE ENTRANCE OF HIS HOME. HE DESIRES TO RETURN HOME AT DISCHARGE. THE PATIENT'S SKIN TURGOR IS INTACT. HE HAS NO DECUBITUS ULCERS AT DISCHARGE. HIS PRIMARY MODE OF MOBILITY IS THE MOTOR SCOOTER DUE TO NUMBNESS HE FEELS IN HIS LEGS AFTER A PAST HISTORY OF BACK INJURY AND SURGERIES. OTHERWISE MR. CEJA IS INDEPENDENT WITH ADL'S AND CONTINUES TO BE ABLE TO DRIVE A VEHICLE TO PROVIDE HIS OWN TRANSPORTATION. TODAY HE IS AWARE AND AGREEABLE FOR DISCHARGE. SHELBIE GALLOWAY M.D.
[2016-09-18] MEDS: ZOCOR PO SCH (08:21)
[2016-09-18] MEDS: ZESTRIL PO SCH (08:21)
[2016-09-18] MEDS: KEFLEX PO SCH (08:21)
[2016-09-18] MEDS: TENORMIN PO SCH (08:21)
[2016-09-18] MEDS: FERROUS SULFATE PO SCH (08:21)
[2016-09-18] MEDS: MUCINEX PO SCH (08:21)
[2016-09-18] MEDS: LOVENOX SUBCUT SCH (08:22)
[2016-09-18 10:46] VITALS: BP 158/83; TEMP 98.3
--- NOTE | 2016-09-19 13:39 | PN ---
DATE OF SERVICE: 09/18/16 - DISCHARGE NOTE SUBJECTIVE: 81-year-old white male hospitalized with fever, cough, congestion and pneumonia. The patient's condition has improved remarkably. Chest x-ray lags behind his clinical improvement. The patient has been wanting to go home for the past couple of days. REVIEW OF SYSTEMS: CONSTITUTIONAL: No night sweats. No fatigue, malaise, lethargy. No fever or chills. HEENT: Eyes: No visual changes. No eye pain. No eye discharge. ENT: No runny nose. No epistaxis. No sinus pain. No sore throat. No odynophagia. No congestion. RESPIRATORY: Mild cough, no congestion. No hemoptysis. CARDIOVASCULAR: No angina symptoms. No CHF symptoms. No atypical chest pain for CAD. No palpitations. No shortness of breath. No PND, no orthopnea. GASTROINTESTINAL: Appetite has improved. No abdominal pain. No nausea or vomiting. No diarrhea or constipation. No hematemesis. No hematochezia. GENITOURINARY: No urgency. No frequency. No dysuria. No hematuria. No obstructive symptoms. No discharge. No pain. No significant abnormal bleeding. MUSCULOSKELETAL: No musculoskeletal pain; no joint swelling. NEUROLOGICAL: No headache. No neck pain. No syncope. No seizures. No dizziness. PSYCHIATRIC: Not anxious. No depression. No suicidal thoughts. No homicidal thoughts. SKIN: No rash. No lesions. No wounds. ENDOCRINE: No unexplained weight loss. No weight gain. HEMATOLOGIC/LYMPHATIC: No anemia. No purpura. No petechiae. No prolonged or excessive bleeding. No palpable lymph nodes. PHYSICAL EXAMINATION: GENERAL: The patient is oriented to time, place and person. VITAL SIGNS: Temperature 97.3, pulse 70, respiratory rate 20, BP 144/80, pulse ox 97%. HEENT: Head normocephalic, atraumatic. Eyes: Extraocular muscles are intact. Pupils are equal, round and reactive to light and accommodation. Ears: No lesions. Nose appeared normal. Throat: No exudate or erythema. NECK: Supple. No JVD, no carotid bruit. No lymphadenopathy or thyromegaly. LUNGS: Decreased breath sounds. Clear to auscultation. Percussion note normal. Chest symmetrical. HEART: S1, S2, no S3. No murmurs. No cyanosis or clubbing. No ascites. Pulses: Dorsalis pedis and posterior tibial pulses +1 to +2 both sides. ABDOMEN: Soft. Nontender. Bowel sounds active. No CVA tenderness. No mass felt. EXTREMITIES: No edema. Full range of motion of all extremities, equal. NEUROLOGIC: No focal deficit. Cranial nerves II through XII are grossly intact. No headache, no double vision or headache. SKIN: Not dry. Intact. Turgor - normal. LYMPHATIC: No palpable lymph nodes/no lymphedema. MUSCULOSKELETAL: Normal joints with no swelling. Muscle tone is normal. LABS: Hemoglobin 11.3, hematocrit 32, WBC 8,600, normal differential. Creatinine 0.9, BUN 24, potassium 3.9, glucose 122. ASSESSMENT: 1. PNEUMONIA/PNEUMONITIS RESOLVED PLAN: 1. Discharge the patient home with antibiotics. 2. Continue nebs treatment at home. 3. Continue Lasix, Lisinopril, Simvastatin, Clonazepam, Atenolol, Levothyroxine , Pantoprazole, Ferrous Sulfate. CONDITION: Stable. TIME SPENT: More than 30 minutes. Plan and coordination of the patient's care discussed in the presence of nurse. DANIEL
--- NOTE | 2016-09-19 14:25 | DS ---
DATE OF SERVICE: 09/18/16 FINAL DIAGNOSIS: 1. PNEUMONIA AND FEVER 2. LEG EDEMA 3. HYPERTENSION 4. HYPOTHYROID 5. CORONARY ARTERY DISEASE 6. PERIPHERAL ARTERIAL DISEASE 7. DYSLIPIDEMIA 8. ANEMIA 9. HIATAL HERNIA PER CT 10. DEPRESSION 11. BACK SURGERY TIMES TWO 12. ENDOSCOPY 2012, DR. BOLIVAR LAST V/S: Temperature 97.3, pulse 70, respiratory rate 20, BP 144/80, pulse ox 97. DISCHARGE INSTRUCTIONS: Followup appointment with Dr. David in one week. Please phone his office to schedule followup appointment . MEDICATIONS AT DISCHARGE: 1. Simvastatin 40 mg p.o. daily 2. Potassium Chloride 10 mEq p.o. MoweFrSa at 0900 3. Lisinopril 20 mg p.o. daily 4. Furosemide 20 mg p.o. MoWeFrSa @ 0630 5. Clonazepam 0.5 mg p.o. bedtime 6. Levothyroxine 50 mcg p.o. q.d a.c. 7. Atenolol 100 mg p.o. daily 8. Pantoprazole 40 mg p.o. b.i.d. 9. Ferrous Sulfate 325 mg p.o. daily NEW PRESCRIPTIONS: 1. Keflex 500 mg one capsule by mouth every 12 hours for 5 days 2. Medrol Dosepak, take as per package directions (hospital supply) DIET INSTRUCTIONS: Soft, healthy heart. ACTIVITY: Get plenty of rest at home, gradually increase your activity level according to your toleration. SMOKING: Former smoker DISEASE SPECIFIC EDUCATION: 1. Pneumonia 2. Bronchitis 3. Diet 4. Activity 5. Followup HOSPITAL COURSE: 81-year-old white male hospitalized with fever, cough, congestion, pneumonia. The patient was treated with IV antibiotics Rocephin and also was given nebs. Condition improved. The patient was initially dehydrated. Hydration status improved. The appetite improved. Auscultatory findings of lungs at the time of discharged howed good air entry on both lungs with mild wheeze. The patient has history of chronic lung disease. The patient has been in the wheelchair after age 24 because of the injury he had in his back. In any case, the patient was discharged in stable condition on Keflex to be taken for five days. He will be followed as an outpatient. CONDITION AT TIME OF DISCHARGE: Stable. LABS ON DISCHARGE: Hemoglobin 11.3, hematocrit 32.8, WBC 8,500, normal differential. Creatinine 0.9 , BUN 24, potassium 3.9, glucose 122. CONDITION: Stable. TIME SPENT: More than 60 minutes. MTDD
--- NOTE | 2016-09-25 13:10 | HP ---
DATE OF SERVICE: 09/13/2016 CHIEF COMPLAINT: He has been coughing and has fever. HISTORY OF PRESENT ILLNESS: This is an 81 year old male who is mostly nonambulatory after the patient had a back surgery and the left leg has been weaker ever since for almost 30 to 40 years ago. He has been coughing for three to four days, congestion, getting a little green phlegm, sinus drainage and hurting all over. He started having fever and chills. He came to the emergency room and was seen by Dr. Beck in the emergency room. His temperature was 102.1. Labs were showing normal white count with a hemoglobin of 11.9, D Dimer 3400. ABG showed the pH of 7.4, PCO2 28.3, PO2 62. Potassium was 3.4. Dr. Lau ordered a CT of the chest with IV contrast in view of the elevated D Dimer. No pulmonary embolism, bilateral lower lobe airway thickening and ground-glass consolidation. Left lower lobe suggestive of pneumonia. Small left pleural effusion. Cardiomegaly, emphysema and hiatal hernia. At that time, the patient was admitted to the hospital for the IV antibiotics and IV fluids. REVIEW OF SYSTEMS: CONSTITUTIONAL: Weakness, tiredness. Fever and chills. HEENT: Normal. ENDOCRINE: No weight gain; no weight loss. CVS: No chest pain. No PND, no orthopnea. No shortness of breath. No PND, no orthopnea. RESPIRATORY: Cough, congestion. No hemoptysis. GI: No nausea, no vomiting. No abdominal pain. No melena. : No hematuria. No polyuria. MUSCULOSKELETAL: No joint swelling. PSYCHIATRIC: Not anxious. No depression. No suicidal thoughts. No homicidal thoughts. SKIN: Intact, no open lesions. PAST MEDICAL HISTORY: Coronary artery disease with a history of heart attack, not clear on what was done. Hypertension Leg edema, left more than right Spinal cord injury and surgery GERD Hiatal hernia Osteoarthritis DJD of the spine Hypothyroidism Depression Anxiety PAST SURGICAL HISTORY: Spinal surgery times two PERSONAL HISTORY: Does smoke. Completely dependent upon for ADL's. The patient's sister helps him. FAMILY HISTORY: Significant for heart problems and cancer. MEDICATIONS: Simvastatin, Potassium, Zestril, Lasix, Klonopin, Synthroid, Atenolol, Pantoprazole and Ferrous sulfate. ALLERGIES: Morphine. PHYSICAL EXAMINATION: V/S: Temperature 102.1, heart rate 85, respiratory rate 20, saturation 95, blood pressure 134/99. HEENT: Atraumatic, normocephalic. No scleral icterus. Pallor positive. No icterus. Mucosa dry. NECK: Supple. No JVD, no bruit. No lymphadenopathy. No thyromegaly. HEART: S1, S2 normal. No murmur. No cyanosis or clubbing. No ascites. LUNGS: Decreased, basilar crackles bilaterally and decreased air entry. No rales or rhonchi. ABDOMEN: Soft, nontender. Bowel sounds are active. No CVA tenderness. No rigidity or guarding. EXTREMITIES: 2+ edema, left more than the right. No cyanosis, clubbing. MUSCULOSKELETAL: Normal joints, no swelling. NEUROLOGIC: The patient is awake, alert and oriented times three. SKIN: Intact; no open lesions. LYMPHATIC: No lymph nodes palpable. LABS: Sodium 137, potassium 3.4, chloride 106, bicarb 19, BUN 16, creatinine 0.97, white count 7.94, hemoglobin 11.9, hematocrit 33.7, platelet count 264. ASSESSMENT: 1. COMMUNITY ACQUIRED PNEUMONIA, BILATERAL LOWER LOBES 2. HISTORY OF CORONARY ARTERY DISEASE 3. HYPERTENSION 4. DYSLIPIDEMIA 5. HISTORY OF SPINAL SURGERY WITH LEFT LOWER EXTREMITY WEAKNESS 6. DEPRESSION 7. OSTEOARTHRITIS 8. DJD OF THE SPINE PLAN: 1. Admit the patient to the regular floor. 2. CBC and CMP today and daily. 3. Cardiac enzymes and Troponin. 4. Rocephin 1 gram daily. 5. Zithromycin 500 mg daily for three days. 6. DuoNeb four times daily. 7. Solu-Medrol 40 every 8 hours. 8. Lovenox for the DVT prophylaxis. 9. IV fluids at 40 ml per hour. 10. Daily I & O's. Time spent on the patient is more than 70 minutes today. MTDD
--- NOTE | 2016-10-02 15:54 | PN ---
DATE OF SERVICE: 09/15/16 SUBJECTIVE: The patient was admitted with the pneumonia and a lot improved. REVIEW OF SYSTEMS: CONSTITUTIONAL: No fever, no chills. HEENT: Normal. ENDOCRINE: No weight gain, no weight loss. CVS: No angina symptoms. No CHF symptoms. No palpitations. No atypical chest pain for CAD. No shortness of breath. No PND, no orthopnea. RESPIRATORY: Some cough, no hemoptysis. GI: No nausea, no vomiting. No abdominal pain. : No hematuria. No polyuria. MUSCULOSKELETAL:. No joint swelling. PSYCHIATRIC: Not anxious. No depression. No suicidal thoughts. No homicidal thoughts. SKIN: Intact. No rash. PHYSICAL EXAMINATION: V/S: Blood pressure 134/69, respiratory rate 17, heart rate 94, temperature 96.2. HEENT: Normocephalic, atraumatic. Mucosa dry. Pallor positive. No icterus. NECK: Supple. No JVD, no carotid bruit. No lymphadenopathy. LUNGS: Decreased and clear. No rales or rhonchi. HEART: S1, S2 normal. No S3. No murmur, gallop or regurgitation. ABDOMEN: Soft, nontender. Bowel sounds active. No rigidity. No rebound or guarding. No CVA tenderness. EXTREMITIES: No clubbing, cyanosis. Edema is almost resolved. A lot of wrinkled skin on both feet. MUSCULOSKELETAL: No joint swelling. NEUROLOGIC: Awake, alert, oriented times three. No focal deficit. LYMPHATIC: No lymph nodes palpable. SKIN: Intact. LABS: WBC 8.39, hgb 11.7, hct 33.3, plt count 319, sodium 137, potassium 3.9, chloride 106, bicarb 21, BUN 25, creatinine 1.08. ASSESSMENT: 1. Community acquired pneumonia 2. Hypoxemia secondary to the community acquired pneumonia 3. Hypertension 4. Dyslipidemia 5. Osteoarthritis 6. History of spine injury, 40 years ago with left lower extremity weakness. 7. Hypothyroidism PLAN: 1. Continue the Rocephin, Azithromycin and DUO NEBS 2 Will get chest x-ray 3. Solu-Medrol Q 8 4. Mucinex Will follow the patient in daily rounds. TIME SPENT: More than 30 minutes MTDD
== END 2016-09-18 12:00 | disposition home or self-care (01) | DRG 194 ==
LOC: ED 08:05 → MEDSURG B 11:56
PROVIDERS: ADMIT Internal Medicine; ATTEND Internal Medicine
DX: J18.1 Lobar pneumonia, unspecified organism (principal); J91.8 Pleural effusion in other conditions classified elsewhere; R50.9 Fever, unspecified; R09.02 Hypoxemia; I10 Essential (primary) hypertension; R60.0 Localized edema; E03.9 Hypothyroidism, unspecified; I25.10 Atherosclerotic heart disease of native coronary artery without angina pectoris; I73.9 Peripheral vascular disease, unspecified; E78.5 Hyperlipidemia, unspecified; D64.9 Anemia, unspecified; K44.9 Diaphragmatic hernia without obstruction or gangrene; F32.9 Major depressive disorder, single episode, unspecified; R05 Cough; Z79.899 Other long term (current) drug therapy
CPT/HCPCS: 36415; 80053; 81001; 82550; 82553; 82803; 83605; 84145; 84484; 85007; 85025; 85379; 85610; 85730; 87040; 93005; 93010; 94640; 96365; 99284

== ENCOUNTER 2016-12-15 09:51 | Inpatient (IN) ==
[2016-12-15] MEDS ORDERED: VANCOMYCIN 1 GM in SODIUM CHLORIDE 250 ML IV STA (10:17)
--- NOTE | 2016-12-15 10:19 | ED.PDOC ---
General ED Provider: Dr. SNEHA DON Chief Complaint: Wound Check Stated Complaint: Patient is a 81 year old male who lives with his 80 year old sister who comes to the ER with a two week histroy of left buttock wound that is not improving and also some sacral area pain. States he want to get some antibiotics so the can get the wound healed. Time Seen by Physician: 10:00 Mode of Arrival: Ambulance Information Source: Patient, EMT Primary Care Provider: SHELBIE GALLOWAY Nursing and Triage Documentation Reviewed and Agree: Yes Skin Complaint Exam - Skin/Soft Tissue Complaint/Exam Onset/Duration: weeks Symptoms Are: Still present Timing: Constant Initial Severity: Moderate Current Severity: Moderate Location: Left buttock Character: Reports: Painful (when touched ) Aggravating: Reports: Touch Associated Signs and Symptoms: Denies: Fever, Chills, Itching, Drainage, Bruising, Tenderness, Red streaks, Joint swelling Related Surgical History: Reports: None Recent Exposure to Others w/Similar Symptoms: No Skin Findings: Present: Other (Large Regent Ulcer measuring 9 x 3 cm on the left buttock. ) Joint Tenderness Present: No Differential Diagnoses: Abscess, Cellulitis, MRSA, Other (osteomylitis ) Review of Systems - Review Of Systems Constitutional: Reports: No symptoms Eyes: Reports: No symptoms Ears, Nose, Mouth, Throat: Reports: No symptoms Respiratory: Reports: No symptoms Cardiac: Reports: No symptoms GI: Reports: No symptoms : Reports: No symptoms Musculoskeletal: Reports: No symptoms Skin: Reports: Other (pressure ulcer left buttock ) Neurological: Reports: No symptoms Endocrine: Reports: No symptoms Hematologic/Lymphatic: Reports: No symptoms All Other Systems: Reviewed and Negative Past Medical History - Past Medical History Previously Healthy: No Endocrine: Reports: Hypothyroid, Dyslipidemia Cardiovascular: Reports: Hypertension Respiratory: Reports: None Hematological: Reports: None Gastrointestinal: Reports: None Genitourinary: Reports: None Neuro/Psych: Reports: None Musculoskeletal: Reports: None Cancer: Reports: None - Surgical History General Surgical History: Reports: Unknown - Family History Family History: Reports: Unknown - Social History Smoking Status: Never smoker Hx Substance Use: No Alcohol Screening: None Physical Exam - Physical Exam Appearance: Ill-appearing, Thin Ill-appearing: Moderate Pain Distress: Mild Neck: Supple Respiratory: Airway patent, Breath sounds clear, Breath sounds equal, Respirations nonlabored Cardiovascular: Irregular rhythm, Murmur (Grade 4/6 ) GI/: Soft Musculoskeletal: Normal strength, ROM intact, No calf tenderness, Edema Skin: Warm, Dry Neurological: Sensation intact, Motor intact, Reflexes intact, Cranial nerves intact, Alert, Oriented Psychiatric: Anxious Interpretation - Radiology Interpretation Radiology Interpretation By: Radiologist Radiology Results: Negative Exam Interpreted: CT Scan Re-Evaluation - Re-Evaluation Time of Re-Evaluation: 11:54 Status: Improved Vital Signs Stable: Yes (blood presure improving. ) Critical Care Note - Critical Care Note Total Time (mins): 40 Course - Course Hematology/Chemistry: 12/16/16 01:55 12/16/16 01:55 Orders, Labs, Meds: Lab Review 12/15/16 12/15/16 10:35 11:40 WBC 10.76 H RBC 3.33 L Hgb 10.9 L Hct 32.0 L MCV 96.1 H MCH 32.7 H MCHC 34.1 RDW Coeff of Timmy 13.1 Plt Count 292 Immature Gran % (Auto) 0.5 Neut % (Auto) 77.8 Lymph % (Auto) 13.0 [place] % (Auto) 7.6 Eos % (Auto) 0.7 Baso % (Auto) 0.4 Immature Gran # (Auto) 0.1 Neut # 8.4 H Lymph # 1.4 [place] # 0.8 Eos # 0.1 Baso # 0.0 ESR 114 H Puncture Site Rrad O2 Saturation 99.0 ABG pH 7.542 H* ABG pCO2 23.1 L ABG pO2 124.0 H ABG HCO3 19.8 L ABG Total CO2 20 L ABG Base Excess -3 L Tyron Test + O2 Delivery Device Nc Oxygen Liter Flow 2.00 FiO2 % 28.0 Sodium 139 Potassium 3.5 Chloride 105 Carbon Dioxide 21 L Anion Gap 16.5 BUN 11 Creatinine 0.66 Estimated GFR (MDRD) 116.00 BUN/Creatinine Ratio 16.66 Glucose 96 Lactic Acid 9.9 Calcium 9.0 Total Bilirubin 0.91 AST 12 L ALT < 6 L Alkaline Phosphatase 81 Total Protein 6.7 Albumin 2.7 L Globulin 4.0 Albumin/Globulin Ratio 0.68 Procalcitonin 0.15 Orders Category Date Time Status ADMIT PATIENT INPATIENT .TO SCU (MONITORED BED) ADMISSION 12/15/16 11:40 Active ABG DRAW REQUEST Stat CARDIO 12/15/16 11:52 Completed EKG-(IP & OP ONLY) Routine CARDIO 12/15/16 11:50 Completed ACTIVITY .Early Mobilization for VTE Prevention CARE 12/15/16 11:42 Active INCISION/WOUND CARE Q12HR CARE 12/15/16 11:40 Active INTAKE & OUTPUT Q8HR CARE 12/15/16 11:40 Active TELEMETRY MONITORING TELE CARE 12/15/16 11:42 Active VITAL SIGNS Q4HR CARE 12/15/16 11:42 Active REGULAR DIET DIETARY 12/15/16 Lunch Ordered ED IV/MEDIPORT/POWERPORT .ONCE EMERGENCY 12/15/16 10:17 Active ABG Stat LAB 12/15/16 11:40 Completed BASIC METABOLIC PANEL DAILY@0600 LAB 12/16/16 01:55 Completed BASIC METABOLIC PANEL DAILY@0600 LAB 12/17/16 06:00 Ordered BASIC METABOLIC PANEL DAILY@0600 LAB 12/18/16 06:00 Ordered BASIC METABOLIC PANEL DAILY@0600 LAB 12/19/16 06:00 Ordered BASIC METABOLIC PANEL DAILY@0600 LAB 12/20/16 06:00 Ordered BASIC METABOLIC PANEL DAILY@0600 LAB 12/21/16 06:00 Ordered BASIC METABOLIC PANEL DAILY@0600 LAB 12/22/16 06:00 Ordered BASIC METABOLIC PANEL DAILY@0600 LAB 12/23/16 06:00 Ordered BASIC METABOLIC PANEL DAILY@0600 LAB 12/24/16 06:00 Ordered BASIC METABOLIC PANEL DAILY@0600 LAB 12/25/16 06:00 Ordered BASIC METABOLIC PANEL DAILY@0600 LAB 12/26/16 06:00 Ordered BASIC METABOLIC PANEL DAILY@0600 LAB 12/27/16 06:00 Ordered BASIC METABOLIC PANEL DAILY@0600 LAB 12/28/16 06:00 Ordered BASIC METABOLIC PANEL DAILY@0600 LAB 12/29/16 06:00 Ordered BASIC METABOLIC PANEL DAILY@0600 LAB 12/30/16 06:00 Ordered BASIC METABOLIC PANEL DAILY@0600 LAB 12/31/16 06:00 Ordered BASIC METABOLIC PANEL DAILY@0600 LAB 01/01/17 06:00 Ordered BASIC METABOLIC PANEL DAILY@0600 LAB 01/02/17 06:00 Ordered BASIC METABOLIC PANEL DAILY@0600 LAB 01/03/17 06:00 Ordered BASIC METABOLIC PANEL DAILY@0600 LAB 01/04/17 06:00 Ordered BLOOD CULTURE Stat LAB 12/15/16 10:35 Results CBC W/ AUTO DIFF DAILY@0600 LAB 12/16/16 01:55 Completed CBC W/ AUTO DIFF DAILY@0600 LAB 12/17/16 06:00 Ordered CBC W/ AUTO DIFF DAILY@0600 LAB 12/18/16 06:00 Ordered CBC W/ AUTO DIFF DAILY@0600 LAB 12/19/16 06:00 Ordered CBC W/ AUTO DIFF DAILY@0600 LAB 12/20/16 06:00 Ordered CBC W/ AUTO DIFF DAILY@0600 LAB 12/21/16 06:00 Ordered CBC W/ AUTO DIFF DAILY@0600 LAB 12/22/16 06:00 Ordered CBC W/ AUTO DIFF DAILY@0600 LAB 12/23/16 06:00 Ordered CBC W/ AUTO DIFF DAILY@0600 LAB 12/24/16 06:00 Ordered CBC W/ AUTO DIFF DAILY@0600 LAB 12/25/16 06:00 Ordered CBC W/ AUTO DIFF DAILY@0600 LAB 12/26/16 06:00 Ordered CBC W/ AUTO DIFF DAILY@0600 LAB 12/27/16 06:00 Ordered CBC W/ AUTO DIFF DAILY@0600 LAB 12/28/16 06:00 Ordered CBC W/ AUTO DIFF DAILY@0600 LAB 12/29/16 06:00 Ordered CBC W/ AUTO DIFF DAILY@0600 LAB 12/30/16 06:00 Ordered CBC W/ AUTO DIFF DAILY@0600 LAB 12/31/16 06:00 Ordered CBC W/ AUTO DIFF DAILY@0600 LAB 01/01/17 06:00 Ordered CBC W/ AUTO DIFF DAILY@0600 LAB 01/02/17 06:00 Ordered CBC W/ AUTO DIFF DAILY@0600 LAB 01/03/17 06:00 Ordered CBC W/ AUTO DIFF DAILY@0600 LAB 01/04/17 06:00 Ordered CBC W/ AUTO DIFF Stat LAB 12/15/16 10:35 Completed COMPREHENSIVE METABOLIC PANEL Stat LAB 12/15/16 10:35 Completed CREATINE KINASE Q8H LAB 12/15/16 19:05 Completed CREATINE KINASE Q8H LAB 12/16/16 01:55 Completed CRP [C-REACTIVE PROTEIN] Stat LAB 12/15/16 10:35 Received ESR Stat LAB 12/15/16 10:35 Completed LACTIC ACID Stat LAB 12/15/16 10:35 Completed PROCALCITONIN Stat LAB 12/15/16 10:35 Completed TROPONIN I Q8H LAB 12/15/16 19:05 Completed TROPONIN I Q8H LAB 12/16/16 01:55 Completed 0.9 % Sodium Chloride [Saline Flush] MEDS 12/15/16 10:17 Active 1 syr IVF PRN PRN Acetaminophen [Tylenol] MEDS 12/15/16 11:40 Active 650 mg PO Q4H PRN Enoxaparin Sodium [Lovenox] MEDS 12/16/16 09:00 Active 40 mg SUBCUT DAILY Hydrocodone Bit/Acetaminophen [[place] 5-325] MEDS 12/15/16 11:40 Active 1 tab PO Q6H PRN Oxycodone-Acetaminophen 5-325 [Percocet 5-325] MEDS 12/15/16 11:40 Discontinued 1 tab PO Q6H PRN Piperacillin Sodium/Tazobactam [Zosyn 3.375 gm] 3.375 MEDS 12/15/16 12:00 Active gm 0.9 % Sodium Chloride [Sodium Chloride] 100 ml IV Q6HR Sodium Chloride 0.9% [Sodium Chloride] 1,000 ml MEDS 12/15/16 12:00 Discontinued IV 150 mls/hr Sodium Chloride 0.9% [Sodium Chloride] 1,000 ml MEDS 12/15/16 10:32 Discontinued IV BOLUS Vancomycin HCl [Vancomycin] 1 gm MEDS 12/15/16 10:17 Discontinued 0.9 % Sodium Chloride [Sodium Chloride] 250 ml IV ONCE Vancomycin HCl [Vancomycin] 1 gm MEDS 12/15/16 21:00 Discontinued 0.9 % Sodium Chloride [Sodium Chloride] 250 ml IV Q12HR RESUSCITATION STATUS Routine OTHERS 12/15/16 11:[address] PELVIS W/O CONTRAST Stat RADS 12/15/16 10:35 Completed PT CONSULT Routine THERAPIES 12/15/16 Ordered Medications Generic Name Dose Route Start Last Admin Trade Name Freq PRN Reason Stop Dose Admin Acetaminophen 650 mg 12/15/16 11:40 Tylenol PO Q4H PRN Fever > 102 Acetaminophen/Hydrocodone Bitart 1 tab 12/15/16 11:40 12/15/16 18:41 [place] 5-325 PO 1 tab Q6H PRN Administration MODERATE PAIN Atenolol 50 mg 12/16/16 09:00 12/16/16 08:37 Tenormin PO 50 mg DAILY SIDRA Administration Clonazepam 1 mg 12/15/16 21:00 12/15/16 21:42 Klonopin PO 1 mg BEDTIME SIDRA Administration Enoxaparin Sodium 40 mg 12/16/16 09:00 12/16/16 08:37 Lovenox SUBCUT 40 mg DAILY SIDRA Administration Ferrous Sulfate 324 mg 12/16/16 09:00 12/16/16 08:37 Ferrous Sulfate PO 324 mg DAILY SIDRA Administration Furosemide 20 mg 12/15/16 19:00 12/16/16 07:08 Lasix IVP 20 mg QDAC SIDRA Administration Piperacillin Sod/Tazobactam 100 mls @ 100 mls/hr 12/15/16 12:00 12/16/16 18: 59 Sod 3.375 gm/ Sodium Chloride IV 100 mls/hr Q6HR SIDRA Administration Vancomycin HCl 500 mg/ Sodium 100 mls @ 100 mls/hr 12/15/16 21:00 12/16/16 08 :41 Chloride IV 100 mls/hr Q12HR SIDRA Administration Sodium Chloride 1,000 mls @ 75 mls/hr 12/15/16 18:14 12/16/16 05:59 Sodium Chloride IV 75 mls/hr .[id number] SIDRA Administration Levothyroxine Sodium 50 mcg 12/16/16 06:30 12/16/16 06:23 Synthroid PO 50 mcg QDAC SIDRA Administration Lisinopril 10 mg 12/16/16 09:00 12/16/16 08:37 Zestril PO 10 mg DAILY SIDRA Administration Pantoprazole Sodium 40 mg 12/15/16 21:00 12/16/16 16:11 Protonix PO 40 mg BIDAC SIDRA Administration Potassium Chloride 20 meq 12/16/16 09:00 12/16/16 15:15 K-Dur PO 12/16/16 21:01 20 meq TID SIDRA Administration Potassium Chloride 10 meq 12/17/16 09:00 Micro-K Cap PO MoWeFrSa@0900 SIDRA Simvastatin 40 mg 12/16/16 09:00 12/16/16 08:37 Zocor PO 40 mg DAILY SIDRA Administration Sodium Chloride 1 syr 12/15/16 10:17 Saline Flush IVF PRN PRN To flush IV Discontinued Medications Generic Name Dose Route Start Last Admin Trade Name Freq PRN Reason Stop Dose Admin Vancomycin HCl 1 gm/ Sodium 250 mls @ 250 mls/hr 12/15/16 10:17 12/15/16 11: 12 Chloride IV 12/15/16 11:16 250 mls/hr ONCE STA Administration Sodium Chloride 1,000 mls @ 1,000 mls/hr 12/15/16 10:32 12/15/16 10:30 Sodium Chloride IV 12/15/16 11:31 1,000 mls/hr BOLUS STA Administration Sodium Chloride 1,000 mls @ 150 mls/hr 12/15/16 12:00 12/15/16 13:42 Sodium Chloride IV 150 mls/hr .[id number] SIDRA Administration Vancomycin HCl 1 gm/ Sodium 250 mls @ 125 mls/hr 12/15/16 21:00 Chloride IV Q12HR SIDRA Non-Formulary Medication 10 meq 12/17/16 09:00 Potassium Chloride [Klor-Con 10] PO MOWEFRSA@0900 SIDRA Oxycodone/Acetaminophen 1 tab 12/15/16 11:40 12/16/16 02:12 Percocet 5-325 PO 1 tab Q6H PRN Administration severe pain Vital Signs: Temp Pulse Resp BP Pulse Ox 12/15/16 11:05 84/42 L 12/15/16 09:56 97.7 F 72 20 64/44 L 96 Departure - Departure Time of Disposition: 11:53 Disposition: ADMITTED INPATIENT Discharge Problem: Unstageable pressure ulcer of buttock Qualifiers: Laterality: left Qualifier Code: (L89.320) Pressure ulcer of left buttock, unstageable Hypotension Qualifiers: Hypotension type: unspecified hypotension type Qualifier Code: (I95.9) Hypotension, unspecified Condition: Fair Pt referred to PMD for follow-up: No (admitted ) Allergies/Adverse Reactions: Allergies morphine Adverse Reaction (Verified 12/15/16 10:16) Home Medications: Ambulatory Orders Furosemide [Lasix Tab] 20 mg PO MOWEFRSA@0630 02/19/13 Lisinopril [Zestril] 20 mg PO DAILY 02/19/13 Potassium Chloride [Klor-Con 10] 10 meq PO MOWEFRSA@0900 02/19/13 Simvastatin 40 mg PO DAILY 02/19/13 Atenolol 100 mg PO DAILY 01/14/15 Levothyroxine Sodium [Synthroid] 50 mcg PO QDAC 01/14/15 Pantoprazole Sodium 40 mg PO BID 01/14/15 Ferrous Sulfate 325 mg PO DAILY 09/13/16 Clonazepam [Klonopin] 1 mg PO BEDTIME 12/15/16
[2016-12-15] MEDS ORDERED: SODIUM CHLORIDE 1,000 ML IV STA (10:32)
[2016-12-15 10:47] LABS: BASOPHILS % (AUTO) 0.4 % (0.0-3.0); EOSINOPHILS # (AUTO) 0.1 K/ul (0.0-0.7); EOSINOPHILS % (AUTO) 0.7 % (0.0-7.0); HEMOGLOBIN 10.9 g/dl (14.0-18.0); IMMATURE GRANULOCYTE % (AUTO) 0.5 % (0.0-5.0); LYMPHOCYTES # (AUTO) 1.4 K/uL (0.60-3.4); MEAN CORPUSCULAR HEMOGLOBIN 32.7 pg (27.0-31.0); MEAN CORPUSCULAR HGB CONC 34.1 (31.8-35.4); MEAN CORPUSCULAR VOLUME 96.1 fl (80.0-94.0); MONOCYTES # (AUTO) 0.8 K/uL (0.4-2.0); MONOCYTES % (AUTO) 7.6 (0-10); NEUTROPHILS # (AUTO) 8.4 K/ul (2.0-6.9); NEUTROPHILS % (AUTO) 77.8; PLATELET COUNT 292 10^3/uL (140-440); RED BLOOD COUNT 3.33 10^6/ul (4.70-6.10); WHITE BLOOD COUNT 10.76 K/ul (4.2-10.2)
[2016-12-15 11:06] LABS: ALANINE AMINOTRANSFERASE < 6 U/L (12-78); ALBUMIN 2.7 g/dL (3.4-5.0); ALBUMIN/GLOBULIN RATIO 0.68; ALKALINE PHOSPHATASE 81 U/L (56-119); ANION GAP 16.5; ASPARTATE AMINO TRANSFERASE 12 U/L (15-37); BILIRUBIN,TOTAL 0.91 mg/dL (0.00-1.20); BLOOD UREA NITROGEN 11 mg/dL (7-18); BUN/CREATININE RATIO 16.66; CARBON DIOXIDE 21 mmol/L (23-31); CHLORIDE 105 mmol/L (98-107); CREATININE 0.66 mg/dL (0.60-1.10); GLUCOSE 96 mg/dL (82-115); POTASSIUM 3.5 mmol/L (3.5-5.1); SODIUM 139 mmol/L (136-145); TOTAL PROTEIN 6.7 g/dL (5.8-8.1)
--- NOTE | 2016-12-15 11:24 | CT ---
EXAM: CT of the pelvis without contrast. HISTORY: Left buttock ulcers. COMPARISON: CT of the day 01/14/2015. TECHNIQUE: Contiguous axial images were obtained from the lower abdomen to the upper thighs. Study was performed without contrast. Sagittal and coronal reformats were reviewed. FINDINGS: Evaluation is limited without IV contrast. There is diffuse infiltration of the subcutan eous fat, left greater than right. There is a skin defect of the left buttocks with underlying soft tissue density. No organized or drainable abscess is seen. There is no air in the soft tissues. 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 Chronic fracture of the left hip is seen. Ther e is bone on bone articulation. There are degenerative changes spine and sacroiliac joints as well. The bowel is opacified. There are inflammatory change adjacent to the sigmoid colon. No significan t bowel wall thickening or diverticulosis is seen. The bladder is unremarkable. The prostate is no rmal. IMPRESSION: 1. Diffuse infiltration of the subcutaneous fat, left greater than right. There is a soft tissue d efect of the right buttocks with underlying soft tissue density. No organized abscess is identified . There is no air in the soft tissues. 2. Chronic degenerative changes and chronic fracture of the hips. 3. Subtle inflammatory change adjacent to the sigmoid colon. No definite bowel wall thickening is seen. No significant diverticulosis. FINDINGS: Nonspecific but may represent a focal colitis..
[2016-12-15] MEDS ORDERED: PERCOCET 5-325 PO PRN (11:40)
[2016-12-15] MEDS ORDERED: TYLENOL PO PRN (11:40)
[2016-12-15] MEDS ORDERED: SODIUM CHLORIDE 1,000 ML IV SCH (12:00)
[2016-12-15 12:08] LABS: ERYTHROCYTE SEDIMENTATION RATE 114 mm/hr (0-15); ESR INTERNAL QC INTERNAL QC VALID
[2016-12-15 12:36] LABS: ABG BASE EXCESS -3 (-2.0-2.0); ABG HCO3 19.8 (22.0-26.0); ABG PCO2 23.1 mmHg (35-45); ABG PH 7.542 (7.35-7.45); ABG TCO2 20 (22.0-28.0)
[2016-12-15] MEDS: ZOSYN 3.375 GM 3.375 GM in SODIUM CHLORIDE 100 ML IV SCH ×2 (13:42→18:41)
[2016-12-15] MEDS: SODIUM CHLORIDE 1,000 ML IV SCH (18:15)
[2016-12-15] MEDS: LASIX IVP SCH (18:40)
[2016-12-15] MEDS: NORCO 5-325 PO PRN (18:41)
[2016-12-15 19:18] VITALS: BMI 30.2
[2016-12-15 19:41] LABS: CREATINE KINASE 151 U/L; CREATINE KINASE MB 1.3 ng/ml (0.0-3.6)
[2016-12-15] MEDS ORDERED: VANCOMYCIN 1 GM in SODIUM CHLORIDE 250 ML IV SCH (21:00)
[2016-12-15] MEDS: PROTONIX PO SCH (21:41)
[2016-12-15] MEDS: VANCOMYCIN 500 MG in SODIUM CHLORIDE 100 ML IV SCH (21:41)
[2016-12-15] MEDS: KLONOPIN PO SCH (21:42)
[2016-12-16] MEDS: ZOSYN 3.375 GM 3.375 GM in SODIUM CHLORIDE 100 ML IV SCH ×5 (01:40→23:27)
[2016-12-16 01:56] LABS: BASOPHILS % (AUTO) 0.5 % (0.0-3.0); EOSINOPHILS # (AUTO) 0.2 K/ul (0.0-0.7); EOSINOPHILS % (AUTO) 1.8 % (0.0-7.0); IMMATURE GRANULOCYTE % (AUTO) 0.6 % (0.0-5.0); LYMPHOCYTES # (AUTO) 1.7 K/uL (0.60-3.4); MEAN CORPUSCULAR HEMOGLOBIN 32.8 pg (27.0-31.0); MEAN CORPUSCULAR HGB CONC 34.5 (31.8-35.4); MEAN CORPUSCULAR VOLUME 95.1 fl (80.0-94.0); MONOCYTES # (AUTO) 0.7 K/uL (0.4-2.0); MONOCYTES % (AUTO) 8.2 (0-10); NEUTROPHILS # (AUTO) 5.6 K/ul (2.0-6.9); NEUTROPHILS % (AUTO) 67.9; PLATELET COUNT 249 10^3/uL (140-440); RED BLOOD COUNT 3.05 10^6/ul (4.70-6.10); WHITE BLOOD COUNT 8.27 K/ul (4.2-10.2)
[2016-12-16 02:11] LABS: ANION GAP 13.2; BUN/CREATININE RATIO 11.62; CREATININE 0.86 mg/dL (0.60-1.10); POTASSIUM 3.2 mmol/L (3.5-5.1)
[2016-12-16 02:28] LABS: TROPONIN I 0.015 ng/ml (0.0000-0.4000)
[2016-12-16 02:30] LABS: CREATINE KINASE MB 0.9 ng/ml (0.0-3.6)
[2016-12-16] MEDS: SODIUM CHLORIDE 1,000 ML IV SCH ×2 (05:59→23:27)
[2016-12-16] MEDS: SYNTHROID PO SCH (06:23)
[2016-12-16] MEDS: PROTONIX PO SCH ×2 (06:24→16:11)
[2016-12-16] MEDS: LASIX IVP SCH (07:08)
[2016-12-16] MEDS: ZOCOR PO SCH (08:37)
[2016-12-16] MEDS: FERROUS SULFATE PO SCH (08:37)
[2016-12-16] MEDS: TENORMIN PO SCH (08:37)
[2016-12-16] MEDS: ZESTRIL PO SCH (08:37)
[2016-12-16] MEDS: LOVENOX SUBCUT SCH (08:37)
[2016-12-16] MEDS: VANCOMYCIN 500 MG in SODIUM CHLORIDE 100 ML IV SCH ×2 (08:41→20:21)
[2016-12-16] MEDS ORDERED: NON-FORMULARY MEDICATION (Ferrous Sulfate [Ferrous Sulfate] 325 MG) PO SCH ×22 (09:00)
[2016-12-16] MEDS: K-DUR PO SCH ×3 (10:22→20:21)
[2016-12-16] MEDS: KLONOPIN PO SCH (20:20)
[2016-12-17] MEDS: NORCO 5-325 PO PRN ×2 (03:37→23:15)
[2016-12-17 04:58] LABS: BASOPHILS # (AUTO) 0.1 K/uL (0-0.2); BASOPHILS % (AUTO) 0.7 % (0.0-3.0); EOSINOPHILS # (AUTO) 0.2 K/ul (0.0-0.7); EOSINOPHILS % (AUTO) 2.1 % (0.0-7.0); HEMATOCRIT 26.8 % (42.0-52.0); HEMOGLOBIN 9.3 g/dl (14.0-18.0); IMMATURE GRANULOCYTE % (AUTO) 0.5 % (0.0-5.0); LYMPHOCYTES # (AUTO) 1.6 K/uL (0.60-3.4); LYMPHOCYTES % (AUTO) 21.8 (10.0-50.0); MEAN CORPUSCULAR HEMOGLOBIN 32.9 pg (27.0-31.0); MEAN CORPUSCULAR HGB CONC 34.7 (31.8-35.4); MEAN CORPUSCULAR VOLUME 94.7 fl (80.0-94.0); MONOCYTES # (AUTO) 0.7 K/uL (0.4-2.0); MONOCYTES % (AUTO) 8.6 (0-10); NEUTROPHILS % (AUTO) 66.3; PLATELET COUNT 259 10^3/uL (140-440); RED BLOOD COUNT 2.83 10^6/ul (4.70-6.10); WHITE BLOOD COUNT 7.54 K/ul (4.2-10.2)
[2016-12-17] MEDS: ZOSYN 3.375 GM 3.375 GM in SODIUM CHLORIDE 100 ML IV SCH ×3 (05:00→21:00)
[2016-12-17 05:20] LABS: ANION GAP 15.7; BUN/CREATININE RATIO 9.41; CALCIUM 7.9 mg/dL (8.2-10.2); CREATININE 0.85 mg/dL (0.60-1.10); POTASSIUM 3.7 mmol/L (3.5-5.1)
[2016-12-17] MEDS: PROTONIX PO SCH ×2 (05:31→16:06)
[2016-12-17] MEDS: LASIX IVP SCH (05:31)
[2016-12-17] MEDS: SYNTHROID PO SCH (05:31)
[2016-12-17] MEDS ORDERED: LASIX TAB PO SCH (06:30)
[2016-12-17] MEDS ORDERED: NON-FORMULARY MEDICATION (Potassium Chloride [Klor-Con 10] 10 MEQ) PO SCH ×22 (09:00)
[2016-12-17] MEDS: FERROUS SULFATE PO SCH (09:15)
[2016-12-17] MEDS: LOVENOX SUBCUT SCH (09:16)
[2016-12-17] MEDS: TENORMIN PO SCH (09:16)
[2016-12-17] MEDS: ZOCOR PO SCH (09:16)
[2016-12-17] MEDS: MICRO-K CAP PO SCH (09:16)
[2016-12-17] MEDS: ZESTRIL PO SCH (09:16)
[2016-12-17] MEDS: VANCOMYCIN 750 MG in SODIUM CHLORIDE 250 ML IV SCH ×2 (09:47→23:09)
[2016-12-17] MEDS: KLONOPIN PO SCH (21:00)
[2016-12-18] MEDS: ZOSYN 3.375 GM 3.375 GM in SODIUM CHLORIDE 100 ML IV SCH ×4 (01:59→17:02)
[2016-12-18 05:16] LABS: BASOPHILS # (AUTO) 0.1 K/uL (0-0.2); BASOPHILS % (AUTO) 0.6 % (0.0-3.0); EOSINOPHILS # (AUTO) 0.2 K/ul (0.0-0.7); EOSINOPHILS % (AUTO) 1.8 % (0.0-7.0); HEMOGLOBIN 9.7 g/dl (14.0-18.0); IMMATURE GRANULOCYTE % (AUTO) 0.4 % (0.0-5.0); LYMPHOCYTES # (AUTO) 1.7 K/uL (0.60-3.4); LYMPHOCYTES % (AUTO) 20.3 (10.0-50.0); MEAN CORPUSCULAR HEMOGLOBIN 32.7 pg (27.0-31.0); MEAN CORPUSCULAR HGB CONC 34.6 (31.8-35.4); MEAN CORPUSCULAR VOLUME 94.3 fl (80.0-94.0); MONOCYTES # (AUTO) 0.9 K/uL (0.4-2.0); NEUTROPHILS # (AUTO) 5.6 K/ul (2.0-6.9); NEUTROPHILS % (AUTO) 65.9; PLATELET COUNT 283 10^3/uL (140-440); RED BLOOD COUNT 2.97 10^6/ul (4.70-6.10); WHITE BLOOD COUNT 8.49 K/ul (4.2-10.2)
[2016-12-18 05:29] LABS: ANION GAP 16.7; BUN/CREATININE RATIO 9.67; CALCIUM 8.3 mg/dL (8.2-10.2); CREATININE 0.93 mg/dL (0.60-1.10); POTASSIUM 3.7 mmol/L (3.5-5.1)
[2016-12-18] MEDS: PROTONIX PO SCH ×2 (06:11→16:46)
[2016-12-18] MEDS: SYNTHROID PO SCH (06:11)
[2016-12-18] MEDS: LASIX IVP SCH (06:11)
[2016-12-18] MEDS: VANCOMYCIN 500 MG in SODIUM CHLORIDE 100 ML IV SCH (08:27)
[2016-12-18] MEDS: FERROUS SULFATE PO SCH (08:29)
[2016-12-18] MEDS: ZOCOR PO SCH (08:29)
[2016-12-18] MEDS: ZESTRIL PO SCH (08:29)
[2016-12-18] MEDS: TENORMIN PO SCH (08:29)
[2016-12-18] MEDS: LOVENOX SUBCUT SCH (08:29)
[2016-12-18] MEDS: VANCOMYCIN 750 MG in SODIUM CHLORIDE 250 ML IV SCH ×2 (08:30→20:52)
--- NOTE | 2016-12-18 09:11 | PCM.PROG ---
Attending Provider: ATTENDING PROVIDER: Dr. SHELBIE GALLOWAY DATE OF SERVICE: 12/18/16 SUBJECTIVE: This 81 year old WHITE/ M was hospitalized 12/15/16. The patient is seen with Priyanka, Nurse Practitioner. The patient is lying in bed, alert with low grade temperature today. REVIEW OF SYSTEMS: CONSTITUTIONAL: Weakness. No night sweats. No fever or chills. HEENT: Eyes: No visual changes. No eye pain. No eye discharge. ENT: No runny nose. No epistaxis. No sinus pain. No odynophagia. No congestion. RESPIRATORY: No cough, no congestion. No hemoptysis. No shortness of breath. CARDIOVASCULAR: No angina symptoms. No CHF symptoms. No atypical chest pain for CAD. No palpitations. No orthopnea.. GASTROINTESTINAL: No abdominal pain. No nausea or vomiting. No diarrhea or constipation. No hematemesis. No hematochezia. GENITOURINARY: No urgency. No frequency. No dysuria. No hematuria. No obstructive symptoms. No discharge. No pain. No significant abnormal bleeding. MUSCULOSKELETAL: No musculoskeletal pain; no joint swelling. NEUROLOGICAL: Awake, alert, oriented to place and person. No headache. No neck pain. No syncope. No seizures. No dizziness. PSYCHIATRIC: Not anxious. No depression. No suicidal thoughts. No homicidal thoughts. SKIN: Wound on left buttock and left heel. ENDOCRINE: No unexplained weight loss. No weight gain. HEMATOLOGIC/LYMPHATIC: No anemia. No purpura. No petechiae. No prolonged or excessive bleeding. No palpable lymph nodes. PHYSICAL EXAMINATION: GENERAL: The patient is awake, alert and oriented, lying in bed in no distress. VITAL SIGNS: Temperature 100 F, Pulse 74, Respiratory Rate 18, BP 127/54, Pulse Ox 96% HEENT: Head normocephalic, atraumatic. Eyes: Extraocular muscles are intact. Pupils are equal, round and reactive to light and accommodation. Ears: No lesions. Nose appeared normal. Throat: No exudate or erythema. NECK: Supple. No JVD, no carotid bruit. No lymphadenopathy or thyromegaly. LUNGS: Diminished breath sounds bilaterally. Clear to auscultation. Percussion note normal. Chest symmetrical. HEART: S1, S2, no S3. Irregular heartbeat. No cyanosis or clubbing. No ascites. Pulses: Dorsalis pedis and posterior tibial pulses +1 to +2 both sides. ABDOMEN: Soft. Non-tender. Bowel sounds active. No CVA tenderness. No mass felt. EXTREMITIES: No edema. Full range of motion of all extremities, equal. NEUROLOGIC: No focal deficit. Cranial nerves II through XII are grossly intact. No headache, no double vision or headache. SKIN: Intact blister left heel 1" diameter, pressure ulcer left buttock present on admission. LYMPHATIC: No palpable lymph nodes/no lymphedema. MUSCULOSKELETAL: Normal joints with no swelling. Muscle tone is normal. LAB REVIEW: 12/18/16 05:10 12/18/16 05:10 12/18/16 05:10: WBC 8.49, RBC 2.97 L, Hgb 9.7 L, Hct 28.0 L, MCV 94.3 H, MCH 32.7 H, MCHC 34.6, RDW Coeff of Timmy 12.7, Plt Count 283, Immature Gran % (Auto) 0.4, Neut % (Auto) 65.9, Lymph % (Auto) 20.3, [place] % (Auto) 11.0 H, Eos % (Auto ) 1.8, Baso % (Auto) 0.6, Immature Gran # (Auto) 0.0, Neut # 5.6, Lymph # 1.7, [place] # 0.9, Eos # 0.2, Baso # 0.1, Sodium 137, Potassium 3.7, Chloride 103, Carbon Dioxide 21 L, Anion Gap 16.7, BUN 9, Creatinine 0.93, Estimated GFR (MDRD ) 78.00, BUN/Creatinine Ratio 9.67, Glucose 100, Calcium 8.3 12/17/16 08:40: Vancomycin Trough 9.52 L ASSESSMENT: 1. SEPSIS 2. PRESSURE ULCER 3. ATRIAL FIBRILLATION PLAN: 1. Continue wet to dry dressing 2. UA today Plan and coordination of the patient's care discussed in the presence of Fly Raiser Lock[employer]ch and nurse. CONDITION: Stable SCRIBED BY: Suhas SESAYist scribed while in presence of service performed by Dr. SHELBIE GALLOWAY/PRIYANKA SAHU APRN on 12/18/16 ([id number])
--- NOTE | 2016-12-18 09:18 | PN ---
DATE OF SERVICE: 12/16/16 SUBJECTIVE: The patient is an 81 year old white male hospitalized with sepsis with decubitus ulcer. The patient's condition has improved and his hydration status has improved. He is alert. REVIEW OF SYSTEMS: CONSTITUTIONAL: No night sweats. No fatigue, malaise, lethargy. No fever or chills. HEENT: Eyes: No visual changes. No eye pain. No eye discharge. ENT: No runny nose. No epistaxis. No sinus pain. No sore throat. No odynophagia. No congestion. RESPIRATORY: No cough, no congestion. No hemoptysis. No shortness of breath. CARDIOVASCULAR: No angina symptoms. No CHF symptoms. No atypical chest pain for CAD. No palpitations. No orthopnea. GASTROINTESTINAL: No abdominal pain. No nausea or vomiting. No diarrhea or constipation. No hematemesis. No hematochezia. GENITOURINARY: No urgency. No frequency. No dysuria. No hematuria. No obstructive symptoms. No discharge. No pain. No significant abnormal bleeding. MUSCULOSKELETAL: No musculoskeletal pain; no joint swelling. Mild soreness in the left buttock area. NEUROLOGICAL: No headache. No neck pain. No syncope. No seizures. No dizziness. PSYCHIATRIC: Not anxious. No depression. No suicidal thoughts. No homicidal thoughts. SKIN: No rash. No lesions. No wounds. ENDOCRINE: No unexplained weight loss. No weight gain. HEMATOLOGIC/LYMPHATIC: No anemia. No purpura. No petechiae. No prolonged or excessive bleeding. No palpable lymph nodes. PHYSICAL EXAMINATION: GENERAL: The patient is oriented to time, place and person. VITAL SIGNS: Temperature 98, pulse 78, respiratory rate 21, blood pressure 140/ 70 and pulse 94%. HEENT: Head normocephalic, atraumatic. Eyes: Extraocular muscles are intact. Pupils are equal, round and reactive to light and accommodation. Ears: No lesions. Nose appeared normal. Throat: No exudate or erythema. NECK: Supple. No JVD, no carotid bruit. No lymphadenopathy or thyromegaly. LUNGS: Decreased breath sounds but clear to auscultation. Percussion note normal. Chest symmetrical. HEART: S1, S2, no S3. No murmurs. No cyanosis or clubbing. No ascites. Pulses: Dorsalis pedis and posterior tibial pulses +1 to +2 both sides. ABDOMEN: Soft. Nontender. Bowel sounds active. No CVA tenderness. No mass felt. EXTREMITIES: No edema. Full range of motion of all extremities, equal. NEUROLOGIC: No focal deficit. Cranial nerves II through XII are grossly intact. No headache, no double vision or headache. SKIN: Not dry. Intact. Turgor - normal. LYMPHATIC: No palpable lymph nodes/no lymphedema. MUSCULOSKELETAL: Normal joints with no swelling. Muscle tone is normal. LABS: Hgb 10, hct 29, WBC 8,200 normal differential, creatinine 0.8, BUN 10, potassium 3.2. ASSESSMENT: 1. Pressure ulcer decubitus 2. Erythema seems to have subsided 3. Cellulitis seems to be subsiding 4. Dehydration seems to have subsided 5. Hypotension is well controlled. PLAN: 1. Will give K-tab 20 meq PO daily 2. The patient is on Piperacillin and Vancomycin 3. The patient's medications were reduced CONDITION: Stable. TIME SPENT: More than 30 minutes. Plan and coordination of the patient's care discussed in the presence of nurse. DANIEL
--- NOTE | 2016-12-18 13:09 | HP ---
DATE OF SERVICE: 12/15/16 REASON FOR HOSPITALIZATION: Hypotension, pressure ulcer with sepsis. HISTORY OF PRESENT ILLNESS: The patient is an 81 year old white male was brought to the emergency room by the sister because of pressure ulcer. It is [id number] on the left buttock lower area. The patient says that he has been feeling sore in that area for two weeks but refused to come to the hospital. The sister eventually convinced him. The patient's other problem noted in the emergency room with systolic blood pressure of 84. The patient was unkept and looked dehydrated. Was called by ER doctor and eventually I ended up seeing the patient. The patient was hospitalized in special care. REVIEW OF SYSTEMS: CONSTITUTIONAL: No night sweats. No malaise, lethargy. No fever or chills. Weakness and fatigue. HEENT: Eyes: No visual changes. No eye pain. No eye discharge. ENT: No runny nose. No epistaxis. No sinus pain. No sore throat. No odynophagia. No ear pain. No congestion. RESPIRATORY: No cough, no congestion. No hemoptysis. No shortness of breath. CARDIOVASCULAR: No angina symptoms. No CHF symptoms. No atypical chest pain for CAD. No palpitations. No orthopnea. GASTROINTESTINAL: No abdominal pain. No nausea or vomiting. No diarrhea or constipation. No hematemesis. No hematochezia. GENITOURINARY: No urgency. Mild frequency. No dysuria. No hematuria. No obstructive symptoms. No discharge. No pain. No significant abnormal bleeding. MUSCULOSKELETAL: No musculoskeletal pain. No joint swelling. No arthritis. Aches and pains all over, generalized but more soreness in the left buttock area posteriorly on the bottom. The patient is unable to walk since age 27 he has been confined to wheelchair after accident. NEUROLOGICAL: No headache. No neck pain. No syncope. No seizures. No dizziness. PSYCHIATRIC: Not anxious. No depression. No suicidal thoughts. No homicidal thoughts. SKIN: No rash. No lesions. No wounds. ENDOCRINE: No unexplained weight loss. No weight gain. HEMATOLOGIC/LYMPHATIC: No anemia. No purpura. No petechiae. No prolonged or excessive bleeding. No palpable lymph nodes. PERSONAL/FAMILY/SOCIAL HISTORY: Unmarried and lives with sister. Non-smoker and no alcohol abuse. The patient needs help in doing a lot of activity of daily living. 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 VITAL SIGNS: Temperature 97.7, pulse 72, respiratory rate 20, blood pressure 84 /42, pulse ox 96%. HEENT: Head normocephalic, atraumatic. Eyes: Extraocular muscles are intact. Pupils are equal, round and reactive to light and accommodation. Ears: No lesions. Nose appeared normal. Throat: No exudate or erythema. Face: Symmetrical. NECK: Supple. No JVP, no carotid bruit. No lymphadenopathy or thyromegaly. LUNGS: Decreased breath sounds but clear to auscultation. Percussion note normal. Chest symmetrical. HEART: S1, S2, no S3. Grade I/ systolic murmurs. No cyanosis or clubbing. No ascites. Pulses: Dorsalis pedis and posterior tibial pulses +1 to +2 both sides. ABDOMEN: Soft. Nontender. Bowel sounds active. No CVA tenderness. No mass felt. EXTREMITIES: Pitting edema +2 bilaterally at present. Full range of motion of all extremities, equal. Contractures of lower extremities noted. NEUROLOGIC: No focal deficit. Cranial nerves II through XII are grossly intact. No headache, no double vision or headache. Mental status normal. No localizing signs presents. SKIN: Not dry. Intact. Turgor - normal. LYMPHATIC: No palpable lymph nodes/no lymphedema. MUSCULOSKELETAL: Normal joints with no swelling. Muscle tone is normal. LABS: hgb 10.9, hct 32, WBC 10,700 normal differential, creatinine 0.6, BUN 11, liver profile normal, procalcitonin normal. CT of the pelvis shows diffused infiltrations subcutaneous fat left greater than right. Tissue defect noted in the right buttock area underlined soft tissue density, chronic DJD with chronic fractures of the hip, subtle inflammatory changes of the colon. Noted definite bowel problems. ASSESSMENT: 1. Large decubitus [id number] oblong, left postoral lower buttock area with erythema surrounding part. No drainage at present time. 2. Hypertension likely from dehydration 3. History of Hypertension 4. Hypothyroidism 5. 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 Hip fractures, old 7. Gastroesophageal reflux disease 8. Anemia 9. Anxiety syndrome 10.Leg edema, dependant PLAN: 1. IV fluids 2. Elevate the legs 3. IV Lasix would be given 4. Monitor CBC and CMP 5. IV antibiotics; Vancomycin 1gram Q12 hours, Piperacillin/Tazobactam 3.375 Q 6 hour 6. Continue the rest of the medications 7. Decubitus care started with discussion with the nursing staff about how to do the decubitus care with their protocol 8. Will decrease to the dose of Atenolol to 50mg 9. Will decrease the dose of Zestril 10mg daily CONDITION: Stable. The condition steady mcc care for decubitus prevention discussed with the patient. The patient's prognosis for healing is not good considering the patient's inability to walk also the patient needs to improve the nutrition status. The patient lives by himself with sister who has also a lot of medical problems and aging. The patient is incontinent of urine and we have to put Terrell Catheter. TIME SPENT: More than 70 minutes. MTDD
--- NOTE | 2016-12-18 15:22 | PN ---
DATE OF SERVICE: 12/17/16 SUBJECTIVE: The patient is a 81 year old white male hospitalized with sepsis with decubitus ulcer. The patient's erythema around the decubitus on the left buttock seems to be resolving. The patient is feeling better and the patient's appetite has improved. The patient's kidney functions are better and hydration status has improved. The patient is on Piperacillin and Vancomycin. REVIEW OF SYSTEMS: CONSTITUTIONAL: No night sweats. No fatigue, malaise, lethargy. No fever or chills. HEENT: Eyes: No visual changes. No eye pain. No eye discharge. ENT: No runny nose. No epistaxis. No sinus pain. No sore throat. No odynophagia. No congestion. RESPIRATORY: No cough, no congestion. No hemoptysis. No shortness of breath. CARDIOVASCULAR: No angina symptoms. No CHF symptoms. No atypical chest pain for CAD. No palpitations. No orthopnea. GASTROINTESTINAL: No abdominal pain. No nausea or vomiting. No diarrhea or constipation. No hematemesis. No hematochezia. GENITOURINARY: No urgency. No frequency. No dysuria. No hematuria. No obstructive symptoms. No discharge. No pain. No significant abnormal bleeding. MUSCULOSKELETAL: No musculoskeletal pain; no joint swelling. NEUROLOGICAL: No headache. No neck pain. No syncope. No seizures. No dizziness. PSYCHIATRIC: Not anxious. No depression. No suicidal thoughts. No homicidal thoughts. SKIN: No rash. No lesions. No wounds. ENDOCRINE: No unexplained weight loss. No weight gain. HEMATOLOGIC/LYMPHATIC: No anemia. No purpura. No petechiae. No prolonged or excessive bleeding. No palpable lymph nodes. PHYSICAL EXAMINATION: VITAL SIGNS: Temperature 98, pulse 74, respiratory rate 22, Blood pressure 116/ 64 and pulse ox 96%. HEENT: Head normocephalic, atraumatic. Eyes: Extraocular muscles are intact. Pupils are equal, round and reactive to light and accommodation. Ears: No lesions. Nose appeared normal. Throat: No exudate or erythema. NECK: Supple. No JVD, no carotid bruit. No lymphadenopathy or thyromegaly. LUNGS: Decreased breath sounds but clear to auscultation. Percussion note normal. Chest symmetrical. HEART: S1, S2, no S3. No murmurs. No cyanosis or clubbing. No ascites. Pulses: Dorsalis pedis and posterior tibial pulses +1 to +2 both sides. ABDOMEN: Soft. Nontender. Bowel sounds active. No CVA tenderness. No mass felt. EXTREMITIES: No edema. Full range of motion of all extremities, equal. NEUROLOGIC: No focal deficit. Cranial nerves II through XII are grossly intact. No headache, no double vision or headache. Nutritional status seems to be improving. SKIN: Not dry. Intact. Turgor - normal. Eschar noted which seems to be drying up with no surrounding erythema. LYMPHATIC: No palpable lymph nodes/no lymphedema. MUSCULOSKELETAL: Normal joints with no swelling. Muscle tone is normal. ASSESSMENT: 1. Decubitus ulcer seems to be stabilization with infection getting under control 2. Hypotension seems to have resolve with systolic blood pressure of 116. The patient's antihypertensive medication dose have been reduced. 3. Dehydration status seems to be under control 4. Anemia is stable PLAN: 1. Continue IV antibiotics Piperacillin and Vancomycin 2. Nutritional status needs to be monitor with protein intake and Albumin will monitor that. TIME SPENT: More than 30 minutes. Plan and coordination of the patient's care discussed in the presence of nurse. DANIEL
[2016-12-18 19:18] LABS: BILIRUBIN,URINE Negative (NEGATIVE); KETONES,URINE Negative (NEGATIVE); LEUKOCYTE ESTERASE ,URINE Negative (NEGATIVE); NITRITE,URINE Negative (NEGATIVE); PROTEIN,URINE Trace (NEGATIVE); URINE, BLOOD 1+ (NEGATIVE)
[2016-12-18 19:19] LABS: ADD URINE MICROSCOPIC YES
[2016-12-18] MEDS: KLONOPIN PO SCH (20:53)
[2016-12-18] MEDS: NORCO 5-325 PO PRN (21:17)
[2016-12-19] MEDS: ZOSYN 3.375 GM 3.375 GM in SODIUM CHLORIDE 100 ML IV SCH ×3 (00:19→13:41)
[2016-12-19] MEDS: NORCO 5-325 PO PRN (04:56)
[2016-12-19 05:12] LABS: BASOPHILS % (AUTO) 0.4 % (0.0-3.0); EOSINOPHILS # (AUTO) 0.2 K/ul (0.0-0.7); EOSINOPHILS % (AUTO) 2.2 % (0.0-7.0); HEMATOCRIT 29.7 % (42.0-52.0); HEMOGLOBIN 10.3 g/dl (14.0-18.0); IMMATURE GRANULOCYTE % (AUTO) 0.7 % (0.0-5.0); LYMPHOCYTES # (AUTO) 1.3 K/uL (0.60-3.4); LYMPHOCYTES % (AUTO) 14.7 (10.0-50.0); MEAN CORPUSCULAR HEMOGLOBIN 32.5 pg (27.0-31.0); MEAN CORPUSCULAR HGB CONC 34.7 (31.8-35.4); MEAN CORPUSCULAR VOLUME 93.7 fl (80.0-94.0); MONOCYTES # (AUTO) 1.1 K/uL (0.4-2.0); MONOCYTES % (AUTO) 11.7 (0-10); NEUTROPHILS # (AUTO) 6.4 K/ul (2.0-6.9); NEUTROPHILS % (AUTO) 70.3; PLATELET COUNT 296 10^3/uL (140-440); RED BLOOD COUNT 3.17 10^6/ul (4.70-6.10); WHITE BLOOD COUNT 9.09 K/ul (4.2-10.2)
[2016-12-19 05:41] LABS: ANION GAP 17.6; BUN/CREATININE RATIO 10.98; CALCIUM 8.5 mg/dL (8.2-10.2); CREATININE 0.91 mg/dL (0.60-1.10); POTASSIUM 3.6 mmol/L (3.5-5.1)
[2016-12-19 06:08] VITALS: TEMP 99.3
[2016-12-19] MEDS: PROTONIX PO SCH (06:17)
[2016-12-19] MEDS: LASIX IVP SCH (06:18)
[2016-12-19] MEDS: SYNTHROID PO SCH (06:22)
[2016-12-19] MEDS: VANCOMYCIN 750 MG in SODIUM CHLORIDE 250 ML IV SCH (08:25)
[2016-12-19] MEDS: LOVENOX SUBCUT SCH (08:25)
[2016-12-19] MEDS: FERROUS SULFATE PO SCH (08:26)
[2016-12-19] MEDS: MICRO-K CAP PO SCH (08:26)
[2016-12-19] MEDS: TENORMIN PO SCH (08:26)
[2016-12-19] MEDS: ZESTRIL PO SCH (08:26)
[2016-12-19] MEDS: ZOCOR PO SCH (08:27)
--- NOTE | 2016-12-19 09:50 | PN ---
DATE OF SERVICE: 12/18/16 SUBJECTIVE: The patient was hospitalized with cellulitis. The patient's Decubitus is drying up and the cellulitis is under control. The patient's hydration status has improved. The patient is living by himself and unable to take care of himself. The sister who takes care of him has multiple medical problems and she needs help too. The patient is being treated with IV antibiotics and we will continue to do that. Nutritional status seems to be improving some. Explained about decubitus care in detail. The patient was seen and examined with Nurse Practitioner. CONDITION: Stable. TIME SPENT: More than 30 minutes. Plan and coordination of the patient's care discussed in the presence of nurse. DANIEL
[2016-12-19] MEDS ORDERED: DECADRON 4 MG/ML SDV IM STA (13:03)
--- NOTE | 2016-12-19 13:17 | PCM.PROG ---
Attending Provider: ATTENDING PROVIDER: Dr. SHELBIE GALLOWAY DATE OF SERVICE: 12/19/16 SUBJECTIVE: This 81 year old WHITE/ M was hospitalized 12/15/16. The patient is seen with Priyanka, Nurse Practitioner. The patient is sitting in bed, alert, states he feels good. He has a low grade fever. REVIEW OF SYSTEMS: CONSTITUTIONAL: Fever, weakness. No night sweats. No fever or chills. HEENT: Eyes: No visual changes. No eye pain. No eye discharge. ENT: No runny nose. No epistaxis. No sinus pain. No odynophagia. No congestion. RESPIRATORY: No cough, no congestion. No hemoptysis. No shortness of breath. CARDIOVASCULAR: No angina symptoms. No CHF symptoms. No atypical chest pain for CAD. No palpitations. No orthopnea.. GASTROINTESTINAL: No abdominal pain. No nausea or vomiting. No diarrhea or constipation. No hematemesis. No hematochezia. GENITOURINARY: No urgency. No frequency. No dysuria. No hematuria. No obstructive symptoms. No discharge. No pain. No significant abnormal bleeding. MUSCULOSKELETAL: Generalized aches and pains. Left elbow is swollen with mild tenderness. NEUROLOGICAL: Awake, alert, oriented to time, place and person. No headache. No neck pain. No syncope. No seizures. No dizziness. PSYCHIATRIC: Not anxious. No depression. No suicidal thoughts. No homicidal thoughts. SKIN: Wound on buttock and left heel. Redness to skin of left elbow. ENDOCRINE: No unexplained weight loss. No weight gain. HEMATOLOGIC/LYMPHATIC: No anemia. No purpura. No petechiae. No prolonged or excessive bleeding. No palpable lymph nodes. PHYSICAL EXAMINATION: GENERAL: The patient is awake, alert and oriented, lying in bed in no distress. VITAL SIGNS: Temperature 99.3 F, Pulse 79, Respiratory Rate 19, BP 131/63, Pulse Ox 94% HEENT: Head normocephalic, atraumatic. Eyes: Extraocular muscles are intact. Pupils are equal, round and reactive to light and accommodation. Ears: No lesions. Nose appeared normal. Throat: No exudate or erythema. NECK: Supple. No JVD, no carotid bruit. No lymphadenopathy or thyromegaly. LUNGS: Diminished breath sounds bilaterally. Clear to auscultation. Percussion note normal. Chest symmetrical. HEART: S1, S2, no S3. No murmurs. No cyanosis or clubbing. No ascites. Pulses: Dorsalis pedis and posterior tibial pulses +1 to +2 both sides. ABDOMEN: Soft. Non-tender. Bowel sounds active. No CVA tenderness. No mass felt. EXTREMITIES: No edema. Full range of motion of all extremities, equal. Left elbow swelling with redness and tenderness. NEUROLOGIC: No focal deficit. Cranial nerves II through XII are grossly intact. No headache, no double vision or headache. SKIN: Intact blister left heel 1" diameter, pressure ulcer left buttock present on admission measures 7.5 cm x 6.5 cm weepy - yellow drainage. LYMPHATIC: No palpable lymph nodes/no lymphedema. MUSCULOSKELETAL: Normal joints with no swelling. Muscle tone is normal. LAB REVIEW: 12/19/16 04:20 12/19/16 04:20 12/19/16 04:20: WBC 9.09, RBC 3.17 L, Hgb 10.3 L, Hct 29.7 L, MCV 93.7, MCH 32.5 H, MCHC 34.7, RDW Coeff of Timmy 12.6, Plt Count 296, Immature Gran % (Auto) 0.7, Neut % (Auto) 70.3, Lymph % (Auto) 14.7, [place] % (Auto) 11.7 H, Eos % (Auto ) 2.2, Baso % (Auto) 0.4, Immature Gran # (Auto) 0.1, Neut # 6.4, Lymph # 1.3, [place] # 1.1, Eos # 0.2, Baso # 0.0, Sodium 136, Potassium 3.6, Chloride 100, Carbon Dioxide 22 L, Anion Gap 17.6, BUN 10, Creatinine 0.91, Estimated GFR ( MDRD) 80.00, BUN/Creatinine Ratio 10.98, Glucose 100, Calcium 8.5 12/18/16 19:00: Urine Color Yellow, Urine Clarity Clear, Urine pH 7.0, Ur Specific [place] 1.020, Urine Protein Trace, Urine Glucose (UA) Negative, Urine Ketones Negative, Urine Blood 1+, Urine Nitrite Negative, Urine Bilirubin Negative, Urine Urobilinogen >=8.0, Ur Leukocyte Esterase Negative, Urine Microscopic RBC 5-10, Urine Microscopic WBC 0-2, Ur Squamous Epith Cells Not present ASSESSMENT: 1. SEPSIS 2. PRESSURE ULCER 3. ATRIAL FIBRILLATION 4. SWELLING AND REDNESS OF LEFT ELBOW PLAN: 1. 1 cc Decadron today 2. X-ray of left elbow 3. Chest x-ray if not done Plan and coordination of the patient's care discussed in the presence of Oven Attendant and nurse. CONDITION: Stable SCRIBED BY: Suhas SESAYist scribed while in presence of service performed by Dr. SHELBIE GALLOWAY/PRIYANKA SAHU APRN on 12/19/16 ([id number])
[2016-12-19 14:17] VITALS: BP 160/86
--- NOTE | 2016-12-19 15:57 | DI ---
EXAM: Single AP view of the chest HISTORY: Congestion. COMPARISON: Chest x-ray 09/15/[address] chest 09/13/2016 and multiple priors FINDINGS: Cardiomediastinal silhouette is unremarkable. There is no pneumothorax or pleural effusio n. There is no consolidation, nodule or mass. There is degenerative disease of the shoulders. IMPRESSION: No acute cardiopulmonary process or consolidation.
--- NOTE | 2016-12-19 16:04 | DI ---
EXAM: Left elbow three-view HISTORY: Swelling COMPARISON: None TECHNIQUE: Three views left elbow were performed FINDINGS: No fracture visualized. There is moderate osteoarthritis about the elbow with joint spac e narrowing osteophyte formation. Several calcifications about the elbow may represent loose body f ormation. No osseous destruction identified. Joint effusion. Mild posterior calcaneal enthesopathy. Soft tissue swelling about the elbow. IMPRESSION: No fracture visualized.Osteoarthritis with suggestion of loose body formation. No osseo us destruction identified. Joint effusion and soft tissue swelling about the elbow. Recommend clin ical correlation for infectious process. Findings can be correlated with MRI.
--- NOTE | 2016-12-21 11:02 | PN ---
DATE OF SERVICE: 12/19/16 SUBJECTIVE: 81-year-old white male hospitalized with decubitus ulcer. The patient was seen and examined with nurse practitioner. The patient is being treated with antibiotics, Vancomycin and Piperacillin. Condition seems to have improved. The patient still is running a low grade fever, which could be from infection but again we are also looking for kidney infection and other sources. PHYSICAL EXAMINATION: HEENT: Head normocephalic, atraumatic. Eyes: Extraocular muscles are intact. Pupils are equal, round and reactive to light and accommodation. Ears: No lesions. Nose appeared normal. Throat: No exudate or erythema. NECK: Supple. No JVD, no carotid bruit. No lymphadenopathy or thyromegaly. LUNGS: Decreased breath sounds but clear to auscultation. Percussion note normal. Chest symmetrical. HEART: S1, S2, no S3. No murmurs. No cyanosis or clubbing. No ascites. Pulses: Dorsalis pedis and posterior tibial pulses +1 to +2 both sides. ABDOMEN: Soft. Nontender. Bowel sounds active. No CVA tenderness. No mass felt. EXTREMITIES: No edema. Full range of motion of all extremities, equal. NEUROLOGIC: No focal deficit. Cranial nerves II through XII are grossly intact. No headache, no double vision or headache. SKIN: Not dry. Intact. Turgor - normal. LYMPHATIC: No palpable lymph nodes/no lymphedema. MUSCULOSKELETAL: Normal joints with no swelling. Muscle tone is normal. LABS: WBC count is normal. PLAN: 1. The patient's appetite has improved. 2. Will do chest x-ray. 3. Also may do uric acid level with swollen left elbow. 4. The patient is going to be transferred to Swing Bed for further antibiotic therapy. The patient is agreeable. The swing bed committee has accepted the patient. TIME SPENT: More than 30 minutes. CONDITION: Stable. Plan and coordination of the patient's care discussed in the presence of nurse. DANIEL
--- NOTE | 2016-12-24 09:46 | DS ---
DATE OF SERVICE: 12/19/16 -DISCHARGED FROM ACUTE AND ADMITTED TO SWING BED FINAL DIAGNOSIS: 1. DISCHARGE INSTRUCTIONS: Followup appointment in days with . MEDICATIONS AT DISCHARGE: NEW PRESCRIPTIONS: DIET INSTRUCTIONS: ACTIVITY: SMOKING: DISEASE SPECIFIC EDUCATION: HOSPITAL COURSE: This is an 81-year-old male who currently lives with his sister. He was admitted through the emergency room for low grade fever, nausea and a large sore on his bottom. It was found that he has a Stage 2, pressure ulcer, which is approximately 7.5 x 6.5 cm which had serosanquenous drainage. It seem to be improving since admission. He was placed on IV Zosyn as well as Vancomycin. A wound culture was done which showed that he grew Proteus and Klebsiella which are both sensitive to Vancomycin and Zosyn. He had has had oxygen p.r.n. during his hospital stay with oxygen saturations down into 86 or 87. He denies any shortness of breath or coughing however and his chest x-ray was normal. His Vancomycin troughs have been within normal limits. The last one was today at 15. They are doing wet to dry dressing b.i.d. This is a Stage 2 pressure ulcer and he also has an intact blister approximately 1" diameter on his left heel. Over the course of the past several days after keeping his legs elevated and pressure off the heel it seem to be drying up or resolving on its own. Despite being on IV antibiotics since 12/15 he has still had a low grade fever over the past several days. T Max 100.1. A UA was done yesterday which was normal. Today the sed rate is 114 and CRP 198. He does have some redness and swelling of the left elbow. We are going to a uric acid level and an x-ray of the left elbow, continue his IV antibiotics. We will discharge him from acute care and place him in a swing bed as it is anticipated his stay may be quite long due to the healing of the pressure ulcer and lack of care at home. TIME SPENT: More than 60 minutes. DANIEL
== END 2016-12-19 15:18 | disposition swing bed (61) | DRG 872 ==
LOC: ED 09:51 → SCU 11:44 → MEDSURG B 12-17 14:01
PROVIDERS: ADMIT Internal Medicine; ATTEND Internal Medicine
DX: A41.9 Sepsis, unspecified organism (principal); L89.322 Pressure ulcer of left buttock, stage 2; L89.152 Pressure ulcer of sacral region, stage 2; I95.9 Hypotension, unspecified; R01.1 Cardiac murmur, unspecified; R60.0 Localized edema; I10 Essential (primary) hypertension; M47.9 Spondylosis, unspecified; M19.022 Primary osteoarthritis, left elbow; M25.422 Effusion, left elbow; B96.4 Proteus (mirabilis) (morganii) as the cause of diseases classified elsewhere; B96.5 Pseudomonas (aeruginosa) (mallei) (pseudomallei) as the cause of diseases classified elsewhere; S90.822A Blister (nonthermal), left foot, initial encounter; R50.9 Fever, unspecified; I48.91 Unspecified atrial fibrillation; K52.9 Noninfective gastroenteritis and colitis, unspecified; I25.10 Atherosclerotic heart disease of native coronary artery without angina pectoris; I73.9 Peripheral vascular disease, unspecified; E78.5 Hyperlipidemia, unspecified; D64.9 Anemia, unspecified; K44.9 Diaphragmatic hernia without obstruction or gangrene; F32.9 Major depressive disorder, single episode, unspecified; E03.9 Hypothyroidism, unspecified; M84.459S Pathological fracture, hip, unspecified, sequela; Z99.3 Dependence on wheelchair; Z79.899 Other long term (current) drug therapy
CPT/HCPCS: 36415; 80048; 80053; 80202; 81001; 82550; 82553; 82803; 83605; 84145; 84484; 84550; 85025; 85651; 86140; 87040; 87070; 87186; 93005; 93010; 96365; 96372; 97802; 99223; 99232; 99239; 99284

== ENCOUNTER 2016-12-19 15:32 | Inpatient (IN) ==
[2016-12-19 16:16] VITALS: BMI 28.6
[2016-12-19] MEDS ORDERED: TYLENOL PO PRN (16:36)
[2016-12-19] MEDS: ZOSYN 3.375 GM 3.375 GM in SODIUM CHLORIDE 100 ML IV SCH (18:30)
[2016-12-19] MEDS: PROTONIX PO SCH (18:31)
[2016-12-19] MEDS ORDERED: VANCOMYCIN 750 MG in SODIUM CHLORIDE 250 ML IV SCH (21:00)
[2016-12-19] MEDS: NORCO 5-325 PO PRN (21:09)
[2016-12-19] MEDS: KLONOPIN PO SCH (21:09)
[2016-12-20] MEDS: ZOSYN 3.375 GM 3.375 GM in SODIUM CHLORIDE 100 ML IV SCH ×5 (00:31→23:26)
[2016-12-20 04:42] LABS: BASOPHILS % (AUTO) 0.1 % (0.0-3.0); HEMATOCRIT 27.1 % (42.0-52.0); HEMOGLOBIN 9.2 g/dl (14.0-18.0); IMMATURE GRANULOCYTE % (AUTO) 0.6 % (0.0-5.0); LYMPHOCYTES # (AUTO) 0.8 K/uL (0.60-3.4); LYMPHOCYTES % (AUTO) 10.4 (10.0-50.0); MEAN CORPUSCULAR HEMOGLOBIN 32.2 pg (27.0-31.0); MEAN CORPUSCULAR HGB CONC 33.9 (31.8-35.4); MEAN CORPUSCULAR VOLUME 94.8 fl (80.0-94.0); MONOCYTES # (AUTO) 0.7 K/uL (0.4-2.0); MONOCYTES % (AUTO) 8.6 (0-10); NEUTROPHILS # (AUTO) 6.2 K/ul (2.0-6.9); NEUTROPHILS % (AUTO) 80.3; PLATELET COUNT 280 10^3/uL (140-440); RED BLOOD COUNT 2.86 10^6/ul (4.70-6.10); WHITE BLOOD COUNT 7.77 K/ul (4.2-10.2)
[2016-12-20 05:00] LABS: ALBUMIN 1.9 g/dL (3.4-5.0); ALBUMIN/GLOBULIN RATIO 0.49; ANION GAP 12.6; BILIRUBIN,TOTAL 0.57 mg/dL (0.00-1.20); BUN/CREATININE RATIO 13.82; CALCIUM 8.5 mg/dL (8.2-10.2); CREATININE 0.94 mg/dL (0.60-1.10); POTASSIUM 3.6 mmol/L (3.5-5.1); TOTAL PROTEIN 5.8 g/dL (5.8-8.1)
[2016-12-20] MEDS: SYNTHROID PO SCH (05:31)
[2016-12-20] MEDS: PROTONIX PO SCH ×2 (05:31→17:16)
[2016-12-20] MEDS: LASIX IVP SCH (05:45)
[2016-12-20] MEDS ORDERED: NON-FORMULARY MEDICATION (Atenolol [Atenolol] 100 MG) PO SCH ×22 (09:00)
[2016-12-20] MEDS ORDERED: NON-FORMULARY MEDICATION (Ferrous Sulfate [Ferrous Sulfate] 325 MG) PO SCH ×22 (09:00)
[2016-12-20] MEDS: ZOCOR PO SCH (09:19)
[2016-12-20] MEDS: TENORMIN PO SCH (09:19)
[2016-12-20] MEDS: LOVENOX SUBCUT SCH (09:19)
[2016-12-20] MEDS: ZESTRIL PO SCH (09:19)
[2016-12-20] MEDS: FERROUS SULFATE PO SCH (09:19)
--- NOTE | 2016-12-20 09:44 | PCM.PROG ---
Attending Provider: ATTENDING PROVIDER: Dr. SHELBIE GALLOWAY DATE OF SERVICE: 12/20/16 SUBJECTIVE: This 81 year old WHITE/ M was hospitalized 12/19/16. The patient is seen with Priyanka, Nurse Practitioner The patient is alert, lying in bed. Improved redness and swelling of left elbow. Uric acid normal. X-ray of left elbow showed effusion. No fever today. REVIEW OF SYSTEMS: CONSTITUTIONAL: Weakness. No night sweats. No fever or chills. HEENT: Eyes: No visual changes. No eye pain. No eye discharge. ENT: No runny nose. No epistaxis. No sinus pain. No odynophagia. No congestion. RESPIRATORY: No cough, no congestion. No hemoptysis. No shortness of breath. CARDIOVASCULAR: No angina symptoms. No CHF symptoms. No atypical chest pain for CAD. No palpitations. No orthopnea.. GASTROINTESTINAL: No abdominal pain. No nausea or vomiting. No diarrhea or constipation. No hematemesis. No hematochezia. GENITOURINARY: No urgency. No frequency. No dysuria. No hematuria. No obstructive symptoms. No discharge. No pain. No significant abnormal bleeding. MUSCULOSKELETAL: Left elbow pain. NEUROLOGICAL: Awake, alert, oriented to time, place and person. No headache. No neck pain. No syncope. No seizures. No dizziness. PSYCHIATRIC: Not anxious. No depression. No suicidal thoughts. No homicidal thoughts. SKIN: Pressure ulcer on left buttock; blister on left heel, intact. ENDOCRINE: No unexplained weight loss. No weight gain. HEMATOLOGIC/LYMPHATIC: No anemia. No purpura. No petechiae. No prolonged or excessive bleeding. No palpable lymph nodes. PHYSICAL EXAMINATION: GENERAL: The patient is awake, alert and oriented, lying in bed in no distress. VITAL SIGNS: Temperature 96.3 F, Pulse 95, Respiratory Rate 16, BP 144/76, Pulse Ox 95% HEENT: Head normocephalic, atraumatic. Eyes: Extraocular muscles are intact. Pupils are equal, round and reactive to light and accommodation. Ears: No lesions. Nose appeared normal. Throat: No exudate or erythema. NECK: Supple. No JVD, no carotid bruit. No lymphadenopathy or thyromegaly. LUNGS: Clear to auscultation. Percussion note normal. Chest symmetrical. HEART: S1, S2, no S3. No murmurs. No cyanosis or clubbing. No ascites. Pulses: Dorsalis pedis and posterior tibial pulses +1 to +2 both sides. ABDOMEN: Soft. Non-tender. Bowel sounds active. No CVA tenderness. No mass felt. EXTREMITIES: Left elbow swelling, redness and tenderness, improving. No edema. Full range of motion of all extremities, equal. NEUROLOGIC: No focal deficit. Cranial nerves II through XII are grossly intact. No headache, no double vision or headache. SKIN: Intact blister left heel 1" diameter. Pressure ulcer left buttock present on admission measuring 7.5 cm x 6.5 cm weepy, serous drainage. LYMPHATIC: No palpable lymph nodes/no lymphedema. MUSCULOSKELETAL: Normal joints with no swelling. Muscle tone is normal. LAB REVIEW: 12/20/16 04:30 12/20/16 04:30 12/20/16 04:30: WBC 7.77, RBC 2.86 L, Hgb 9.2 L, Hct 27.1 L, MCV 94.8 H, MCH 32.2 H, MCHC 33.9, RDW Coeff of Timmy 12.6, Plt Count 280, Immature Gran % (Auto) 0.6, Neut % (Auto) 80.3, Lymph % (Auto) 10.4, [place] % (Auto) 8.6, Eos % (Auto) 0.0, Baso % (Auto) 0.1, Immature Gran # (Auto) 0.1, Neut # 6.2, Lymph # 0.8, [place] # 0.7, Eos # 0.0, Baso # 0.0, Sodium 136, Potassium 3.6, Chloride 102, Carbon Dioxide 25, Anion Gap 12.6, BUN 13, Creatinine 0.94, Estimated GFR (MDRD ) 77.00, BUN/Creatinine Ratio 13.82, Glucose 143 H, Calcium 8.5, Total Bilirubin 0.57, AST 27, ALT 19, Alkaline Phosphatase 71, Total Protein 5.8, Albumin 1.9 L, Globulin 3.9, Albumin/Globulin Ratio 0.49 ASSESSMENT: 1. SEPSIS 2. PRESSURE ULCER 3. ATRIAL FIBRILLATION 4. SWELLING AND REDNESS OF LEFT ELBOW, IMPROVING PLAN: 1. 1 cc Decadron today 2. Continue to monitor elbow 3. Continue Zosyn 4. Vanco discontinued yesterday Plan and coordination of the patient's care discussed in the presence of Hydrologic Modeler and nurse. CONDITION: Stable SCRIBED BY: ROSE GARCIA Race Relations Professor scribed while in presence of service performed by Dr. SHELBIE GALLOWAY/PRIYANKA SAHU APRN on 12/20/16 ([id number])
[2016-12-20] MEDS: VITAMIN C PO SCH (12:31)
[2016-12-20] MEDS ORDERED: DECADRON 4 MG/ML SDV IM STA (13:43)
--- NOTE | 2016-12-20 15:09 | RS.OTINEVL ---
Subjective - Patient information Date of Evaluation: 12/20/16 Date of Arrival on Unit: 12/19/16 Admitted From:: Emergency Dept Usual Living Arrangement: With Others Living Arrangement Comments: lives with sister, who does most cooking, but sisters health is declining. Mgmt Analyst comes weekly. Pt can fix own sandwich, use microwave. Uses motorized W/C. Uses shower chair. 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 Pt has had 2 spine surgeries since. Pt has had an MO, hypercholesterolemia, HTN, depression anxiety , genetic disorder. Pt reports he is not able to walk. Surgical History Comments:: 2 spinal cord surgeries. Subjective Information/ Patient Comments:: "I can't walk." "I was driving until last Saturday." "I live with my sister." - Level of function Prior to this admission, the patient could do the following:: Independent Selfcare Abilities prior to this admission: Pt was living at home with his sister. Pt was taking sponge baths, using an electrical scooter, was able to dress himself until last Saturday. Pt's sister shops for them and cooks for them. A solutions executive security comes every Saturday. Current Level of Function: Partially Dependent Current Equipment Used at Home: electric scooter, BSC, ramp, oxygen 2 liters. Pain Assessment - Pain Pain Score: 7 (When moved to sitting up his back hurt him and he yelled.) Pain Location Body Site: Hip Pain Aggravating Factors: ADL's, Changing Position, Sitting Pain Alleviating Factors: Medication Interventions - Objective Patient Orientation: Person, Place, Time, Situation Current Interventions: IV's, Oxygen, Telemetry, Terrell Catheter Observation: Pt wears glasses and has difficulty with all ADLS. Pt has edema of BLE. Pt has orange peal look to BLE feet. Interventions - ROM Right Upper Extremity AROM: Marked limitation Left Upper Extremity AROM: Slight limitation - Strength Right Upper Extremity Strength: Severe Weakness Left Upper Extremity Strength: Severe Weakness - Sensation Right Upper Extremity Sensation: Intact/Normal Left Upper Extremity Sensation: Intact/Normal Balance - Sitting Balance Static Sitting Balance: Fair Dynamic Sitting Balance: Fair - Standing Balance Static Standing Balance: Zero Dynamic Standing Balance: Zero ADL Skills - Self Feeding Self Feeding: Independent - Grooming Grooming: Min Assist - Dressing Dressing UE: Set Up Only Dressing LE: Min Assist - Toilet Management Toileting Management: Max Assist, 2 person assist Functional Mobility - Bed Mobility Rolling R/L: Mod Assist Scooting: Mod Assist Supine to Sit: Mod Assist Sit to Supine: Mod Assist - Transfers Sit to Stand: Not Tested Stand to Sit: Not Tested Stand Pivot Transfers: Not Tested - Ambulation Weight Bearing Status: NWB Assistance needed with Ambulation: Not Tested - Safety Awareness Safety Awareness: Fair Additional Treatment Performed - Time with patient Total treatment time: 26 (Eval, Moderate) Activities Patient Interests:: Watching Television Patient Education Patient Education: Education of diagnosis, Body/Joint mechanics, Home Safety, Education of Plan of Care Teaching Recipient: Patient Teaching Methods: Teach Back Method Used, Discussion Assessment Problem List:: Decreased level of function, Decreased safety/Risk of falls, Weakness, Pain limits previous level of function Rehab Potential: Good Further Therapy Indicated?: Yes Comments: Pt reports he did have a few falls. Short Term Goals - Goals GOAL 1: To increase AROM of RUE shoulders to be 0-90 deg. Goal to be met by: 12/27/16 GOAL 2: To increase strength of BUE to be 4/5 Goal to be met by: 12/27/16 GOAL 3: To increase activity tolerance to 15 minutes with rests PRN. Goal to be met by: 12/27/16 Senior Accountant Cpa Goals GOAL 1: To increase AROM of RUE shoulders to be 0-125 deg. Goal to be met by: 01/03/17 GOAL 2: To increase strength of BUE to be 4+/5 Goal to be met by: 01/03/17 GOAL 3: To increase activity tolerance to 20 minutes with rests PRN. Goal to be met by: 01/03/17 Plan Plan of Care: Therapeutic EX, Neuromuscular Re-Educ Modalities: Hot Pack, Cold Pack/Cryotherapy, Ultrasound, Electrical Stimulation Frequency of Treatment: 1-2 X day, as tolerated Duration of Treatment: 2 Weeks Anticipated Discharge Destination: Home
[2016-12-20] MEDS: ZINC-220 PO SCH (21:27)
[2016-12-20] MEDS: KLONOPIN PO SCH (21:27)
[2016-12-20] MEDS: NORCO 5-325 PO PRN (21:27)
[2016-12-21] MEDS: PROTONIX PO SCH ×2 (05:35→17:19)
[2016-12-21] MEDS: LASIX IVP SCH (05:35)
[2016-12-21] MEDS: SYNTHROID PO SCH (05:35)
[2016-12-21] MEDS: ZOSYN 3.375 GM 3.375 GM in SODIUM CHLORIDE 100 ML IV SCH ×3 (05:41→17:19)
[2016-12-21] MEDS ORDERED: LASIX IVP STA (08:23)
[2016-12-21] MEDS ORDERED: NON-FORMULARY MEDICATION (Potassium Chloride [Klor-Con 10] 10 MEQ) PO SCH ×22 (09:00)
--- NOTE | 2016-12-21 09:23 | PCM.PROG ---
Attending Provider: ATTENDING PROVIDER: Dr. SHELBIE GALLOWAY DATE OF SERVICE: 12/21/16 SUBJECTIVE: This 81 year old WHITE/ M was hospitalized 12/19/16. The patient is seen with Priyanka, Nurse Practitioner. The patient is lying in bed, alert, states he has been sleeping well and feels better. He has been afebrile for past 48 hours. REVIEW OF SYSTEMS: CONSTITUTIONAL: Weakness. Poor nutritional intake. No night sweats. No fever or chills. HEENT: Eyes: No visual changes. No eye pain. No eye discharge. ENT: No runny nose. No epistaxis. No sinus pain. No odynophagia. No congestion. RESPIRATORY: No cough, no congestion. No hemoptysis. No shortness of breath. CARDIOVASCULAR: No angina symptoms. No CHF symptoms. No atypical chest pain for CAD. No palpitations. No orthopnea.. GASTROINTESTINAL: No abdominal pain. No nausea or vomiting. No diarrhea or constipation. No hematemesis. No hematochezia. GENITOURINARY: No urgency. No frequency. No dysuria. No hematuria. No obstructive symptoms. No discharge. No pain. No significant abnormal bleeding. MUSCULOSKELETAL: No musculoskeletal pain; no joint swelling. NEUROLOGICAL: Awake, alert, oriented to time, place and person. No headache. No neck pain. No syncope. No seizures. No dizziness. PSYCHIATRIC: Not anxious. No depression. No suicidal thoughts. No homicidal thoughts. SKIN: Pressure ulcer. ENDOCRINE: No unexplained weight loss. No weight gain. HEMATOLOGIC/LYMPHATIC: No anemia. No purpura. No petechiae. No prolonged or excessive bleeding. No palpable lymph nodes. PHYSICAL EXAMINATION: GENERAL: The patient is awake, alert and oriented, lying in bed in no distress. VITAL SIGNS: Temperature 97.1 F, Pulse 53, Respiratory Rate 16, BP 124/60, Pulse Ox 96% HEENT: Head normocephalic, atraumatic. Eyes: Extraocular muscles are intact. Pupils are equal, round and reactive to light and accommodation. Ears: No lesions. Nose appeared normal. Throat: No exudate or erythema. NECK: Supple. No JVD, no carotid bruit. No lymphadenopathy or thyromegaly. LUNGS: Clear to auscultation. Percussion note normal. Chest symmetrical. HEART: Heart beat is irregular. S1, S2, no S3. No murmurs. No cyanosis or clubbing. No ascites. Pulses: Dorsalis pedis and posterior tibial pulses +1 to +2 both sides. ABDOMEN: Soft. Non-tender. Bowel sounds active. No CVA tenderness. No mass felt. EXTREMITIES: 1+ edema lower extremities. Full range of motion of all extremities, equal. NEUROLOGIC: No focal deficit. Cranial nerves II through XII are grossly intact. No headache, no double vision or headache. SKIN: Intact blister left heel 1" diameter. Pressure ulcer left buttock present on admission measuring 7.5 cm x 6.5 cm weepy, serous drainage, necrotic tissue - unchanged. LYMPHATIC: No palpable lymph nodes/no lymphedema. MUSCULOSKELETAL: Normal joints with no swelling. Muscle tone is normal. LAB REVIEW: 12/20/16 04:30 12/20/16 04:30 ASSESSMENT: 1. SEPSIS 2. PRESSURE ULCER 3. ATRIAL FIBRILLATION 4. SWELLING AND REDNESS OF LEFT ELBOW, IMPROVING PLAN: 1. D/C telemetry 2. Continue IV antibiotics 3. Lasix 20 mg IV push today 4. High protein diet Plan and coordination of the patient's care discussed in the presence of Filleter and nurse. CONDITION: Stable SCRIBED BY: Shelli SESAY scribed while in presence of service performed by Dr. SHELBIE GALLOWAY/PRIYANKA SAHU APRN on 12/21/16 ([id number])
[2016-12-21] MEDS: MICRO-K CAP PO SCH (10:17)
[2016-12-21] MEDS: VITAMIN C PO SCH (10:17)
[2016-12-21] MEDS: ZOCOR PO SCH (10:17)
[2016-12-21] MEDS: FERROUS SULFATE PO SCH (10:17)
[2016-12-21] MEDS: TENORMIN PO SCH (10:18)
[2016-12-21] MEDS: LOVENOX SUBCUT SCH (10:18)
[2016-12-21] MEDS: ZINC-220 PO SCH ×2 (10:18→20:28)
[2016-12-21] MEDS: ZESTRIL PO SCH (10:18)
--- NOTE | 2016-12-21 11:52 | PN ---
DATE OF SERVICE: 12/20/16 SUBJECTIVE: The patient was seen and examined with nurse practitioner and nurse outreach case manager. 81- year-old white male hospitalized with decubitus ulcer, dehydration. The patient' s renal azotemia has resolved. His kidney functions are now 0.9 and 13. His hemoglobin is 9.2, hematocrit 27, WBC 7,700 with normal differential. The patient's elbow has improved. Redness has disappered. Uric acid is normal. PHYSICAL EXAMINATION: HEENT: Head normocephalic, atraumatic. Eyes: Extraocular muscles are intact. Pupils are equal, round and reactive to light and accommodation. Ears: No lesions. Nose appeared normal. Throat: No exudate or erythema. NECK: Supple. No JVD, no carotid bruit. No lymphadenopathy or thyromegaly. LUNGS: Clear to auscultation. Percussion note normal. Chest symmetrical. HEART: S1, S2, no S3. No murmurs. No cyanosis or clubbing. No ascites. Pulses: Dorsalis pedis and posterior tibial pulses +1 to +2 both sides. ABDOMEN: Soft. Nontender. Bowel sounds active. No CVA tenderness. No mass felt. EXTREMITIES: No edema. Full range of motion of all extremities, equal. NEUROLOGIC: No focal deficit. Cranial nerves II through XII are grossly intact. No headache, no double vision or headache. SKIN: Improvement in the left buttock decubitus with less erythema. The scar is getting harder, more healthy looking. LYMPHATIC: No palpable lymph nodes/no lymphedema. MUSCULOSKELETAL: Normal joints with no swelling. Muscle tone is normal. CONDITION: Stable. PROGNOSIS: Guarded. TIME SPENT: More than 30 minutes. Plan and coordination of the patient's care discussed in the presence of nurse. DANIEL
[2016-12-21] MEDS: KLONOPIN PO SCH (20:28)
[2016-12-21] MEDS: NORCO 5-325 PO PRN (20:32)
[2016-12-22] MEDS: ZOSYN 3.375 GM 3.375 GM in SODIUM CHLORIDE 100 ML IV SCH ×4 (00:45→17:02)
[2016-12-22] MEDS: PROTONIX PO SCH ×2 (05:35→17:02)
[2016-12-22] MEDS: SYNTHROID PO SCH (05:36)
[2016-12-22] MEDS: LASIX IVP SCH (05:38)
[2016-12-22] MEDS: VITAMIN C PO SCH (08:32)
[2016-12-22] MEDS: LOVENOX SUBCUT SCH ×3 (08:32→21:26)
[2016-12-22] MEDS: TENORMIN PO SCH (08:33)
[2016-12-22] MEDS: MICRO-K CAP PO SCH (08:33)
[2016-12-22] MEDS: ZINC-220 PO SCH ×2 (08:33→21:27)
[2016-12-22] MEDS: ZOCOR PO SCH (08:33)
[2016-12-22] MEDS: ZESTRIL PO SCH (08:33)
[2016-12-22] MEDS: FERROUS SULFATE PO SCH (08:33)
[2016-12-22] MEDS: NORCO 5-325 PO PRN (08:39)
[2016-12-22] MEDS: KLONOPIN PO SCH (21:26)
[2016-12-22] MEDS: CALMOSEPTINE OINTMENT TP SCH (21:26)
[2016-12-23] MEDS: ZOSYN 3.375 GM 3.375 GM in SODIUM CHLORIDE 100 ML IV SCH ×5 (00:08→23:46)
[2016-12-23 05:22] LABS: BASOPHILS # (AUTO) 0.1 K/uL (0-0.2); BASOPHILS % (AUTO) 0.6 % (0.0-3.0); EOSINOPHILS # (AUTO) 0.3 K/ul (0.0-0.7); HEMATOCRIT 29.9 % (42.0-52.0); HEMOGLOBIN 10.3 g/dl (14.0-18.0); IMMATURE GRANULOCYTE % (AUTO) 1.1 % (0.0-5.0); LYMPHOCYTES % (AUTO) 20.8 (10.0-50.0); MEAN CORPUSCULAR HGB CONC 34.4 (31.8-35.4); MEAN CORPUSCULAR VOLUME 95.8 fl (80.0-94.0); MONOCYTES # (AUTO) 0.8 K/uL (0.4-2.0); MONOCYTES % (AUTO) 8.3 (0-10); NEUTROPHILS # (AUTO) 6.4 K/ul (2.0-6.9); NEUTROPHILS % (AUTO) 66.2; PLATELET COUNT 392 10^3/uL (140-440); RED BLOOD COUNT 3.12 10^6/ul (4.70-6.10); WHITE BLOOD COUNT 9.68 K/ul (4.2-10.2)
[2016-12-23] MEDS: SYNTHROID PO SCH (05:37)
[2016-12-23] MEDS: PROTONIX PO SCH ×2 (05:37→17:22)
[2016-12-23] MEDS: LASIX IVP SCH (05:37)
[2016-12-23 05:46] LABS: ALBUMIN 2.1 g/dL (3.4-5.0); ALBUMIN/GLOBULIN RATIO 0.6; ANION GAP 7.4; BILIRUBIN,TOTAL 0.28 mg/dL (0.00-1.20); BUN/CREATININE RATIO 19.35; CALCIUM 8.3 mg/dL (8.2-10.2); CREATININE 0.93 mg/dL (0.60-1.10); POTASSIUM 3.4 mmol/L (3.5-5.1); TOTAL PROTEIN 5.6 g/dL (5.8-8.1)
[2016-12-23] MEDS: ZINC-220 PO SCH ×2 (08:24→20:50)
[2016-12-23] MEDS: ZESTRIL PO SCH (08:24)
[2016-12-23] MEDS: VITAMIN C PO SCH (08:24)
[2016-12-23] MEDS: ZOCOR PO SCH (08:25)
[2016-12-23] MEDS: LOVENOX SUBCUT SCH ×2 (08:25→20:49)
[2016-12-23] MEDS: TENORMIN PO SCH (08:25)
[2016-12-23] MEDS: FERROUS SULFATE PO SCH (08:25)
[2016-12-23] MEDS: CALMOSEPTINE OINTMENT TP SCH ×2 (09:59→20:48)
[2016-12-23] MEDS: NYSTOP POWDER TP SCH ×2 (11:10→20:48)
[2016-12-23] MEDS: K-DUR PO SCH (17:23)
[2016-12-23] MEDS: KLONOPIN PO SCH (20:49)
[2016-12-23] MEDS: NORCO 5-325 PO PRN (22:50)
[2016-12-24] MEDS: ZOSYN 3.375 GM 3.375 GM in SODIUM CHLORIDE 100 ML IV SCH ×3 (05:01→18:14)
[2016-12-24] MEDS: PROTONIX PO SCH ×2 (05:55→16:48)
[2016-12-24] MEDS: LASIX IVP SCH (05:55)
[2016-12-24] MEDS: SYNTHROID PO SCH (05:56)
[2016-12-24] MEDS ORDERED: LASIX TAB PO STA (08:24)
[2016-12-24] MEDS: FERROUS SULFATE PO SCH (08:48)
[2016-12-24] MEDS: CALMOSEPTINE OINTMENT TP SCH ×2 (08:48→20:43)
[2016-12-24] MEDS: NYSTOP POWDER TP SCH ×2 (08:48→20:47)
[2016-12-24] MEDS: ZINC-220 PO SCH ×2 (08:50→20:45)
[2016-12-24] MEDS: LOVENOX SUBCUT SCH ×2 (08:50→20:44)
[2016-12-24] MEDS: TENORMIN PO SCH (08:50)
[2016-12-24] MEDS: ZOCOR PO SCH (08:50)
[2016-12-24] MEDS: VITAMIN C PO SCH (08:50)
[2016-12-24] MEDS: ZESTRIL PO SCH (08:50)
[2016-12-24] MEDS: K-DUR PO SCH ×3 (09:30→16:47)
--- NOTE | 2016-12-24 10:39 | HP ---
DATE OF SERVICE: 12/19/16 - SWING BED HISTORY OF PRESENT ILLNESS: The patient is an 81 year old white male was brought to the emergency room by the sister because of pressure ulcer. It is [id number] on the left buttock lower area. The patient says that he has been feeling sore in that area for two weeks but refused to come to the hospital. The sister eventually convinced him. The patient's other problem noted in the emergency room with systolic blood pressure of 84. The patient was unkept and looked dehydrated. Was called by ER doctor and eventually I ended up seeing the patient. The patient was hospitalized in special care. REVIEW OF SYSTEMS: CONSTITUTIONAL: Weakness and fatigue. Low grade fever. No night sweats. No malaise, lethargy. HEENT: Eyes: No visual changes. No eye pain. No eye discharge. ENT: No runny nose. No epistaxis. No sinus pain. No sore throat. No odynophagia. No ear pain. No congestion. RESPIRATORY: No cough, no congestion. No hemoptysis. No shortness of breath. CARDIOVASCULAR: No angina symptoms. No CHF symptoms. No atypical chest pain for CAD. No palpitations. No orthopnea. GASTROINTESTINAL: No abdominal pain. No nausea or vomiting. No diarrhea or constipation. No hematemesis. No hematochezia. GENITOURINARY: No urgency. Mild frequency. No dysuria. No hematuria. No obstructive symptoms. No discharge. No pain. No significant abnormal bleeding. MUSCULOSKELETAL: No musculoskeletal pain. No joint swelling. No arthritis. Aches and pains all over, generalized but more soreness in the left buttock area posteriorly on the bottom. The patient is unable to walk since age 27 he has been confined to wheelchair after accident. NEUROLOGICAL: No headache. No neck pain. No syncope. No seizures. No dizziness. PSYCHIATRIC: Not anxious. No depression. No suicidal thoughts. No homicidal thoughts. SKIN: No rash. Breakdown on bottom and left heel. ENDOCRINE: No unexplained weight loss. No weight gain. HEMATOLOGIC/LYMPHATIC: Anemia. No purpura. No petechiae. No prolonged or excessive bleeding. No palpable lymph nodes. PERSONAL/FAMILY/SOCIAL HISTORY: Unmarried and lives with sister. Non-smoker and no alcohol abuse. The patient needs help in doing a lot of activity of daily living. PAST MEDICAL/SURGICAL PROBLEMS: The patient has severe DJD spine confined to the bed with a lot of injuries in the lower extremities and areas Hypertension Dyslipidemia Hypothyroidism Reflux disease Anemia MEDICATIONS: [place] 5/325 q.6hr p.r.n. Tenormin 50 mg daily Klonopin 1 mg at bedtime Lovenox 40 mg SQ daily Ferrous Sulfate 324 mg daily Lasix 20 mg IV daily Zosyn 3.375 gm q.6hr Vancomycin 750 mg daily q.12hr Synthroid 50 mcg daily Zestril 10 mg daily Protonix 40 mg b.i.d. Potassium 10 mEq Saturday, Saturday, Saturday and Saturday Zocor 40 mg daily ALLERGIES: Morphine PHYSICAL EXAMINATION: GENERAL: The patient is oriented to time, place and person. VITAL SIGNS: (first day of swing bed) Temperature 99.3, pulse 79, respiratory rate 19, blood pressure 131/63, pulse ox 94%. HEENT: Head normocephalic, atraumatic. NECK: Supple. No JVP, no carotid bruit. No lymphadenopathy or thyromegaly. LUNGS: Clear with diminished breath sounds bilaterally. Percussion note normal. Chest symmetrical. HEART: Irregular rate and rhythm due to atrial fibrillation. S1, S2, no S3. Grade I/ systolic murmurs. No cyanosis or clubbing. No ascites. Pulses: Dorsalis pedis and posterior tibial pulses +1 to +2 both sides. ABDOMEN: Soft. Nontender. Bowel sounds active times four quadrants. No CVA tenderness. No mass felt. EXTREMITIES: The patient has mild erythema and swelling of the left elbow otherwise unremarkable. NEUROLOGIC: The patient is alert and oriented. SKIN: 7.5 x 6.5 cm pressure ulcer on his sacrum which has serous drainage which seems to be improving. It does not have any surrounding cellulitis. He has a drying blister on his left heel approximately 1" diameter which is resolving. LYMPHATIC: No palpable lymph nodes/no lymphedema. MUSCULOSKELETAL: Normal joints with no swelling. Muscle tone is normal. LABS: Hemoglobin 10.3, hematocrit 29.7, sodium 136, potassium 3.6, BUN 10, creatinine 0.9, CRP 198, sed rate 114. ASSESSMENT: 1. Pressure ulcer on sacrum, pressure blister on left heel, swelling of left elbow, low grade fever. 2. Hypertension likely from dehydration 3. History of Hypertension 4. Hypothyroidism 5. 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 Hip fractures, old 7. Gastroesophageal reflux disease 8. Anemia 9. Anxiety syndrome 10.Leg edema, dependant PLAN: 1. Source of fever may be due to pressure ulcer, may be due to swelling of the left elbow. We will further investigate this with an x-ray of the left elbow today. We will continue the wet to dry dressings b.i.d. on the sacrum. 2. Continue to keep legs elevated. 3. Continue IV Zosyn and Vancomycin as this is consistent with treatment given the sensitivity for Proteus and Klebsiella for wound culture. 4. He will receive Tylenol p.r.n. 5. We will continue the Lovenox due to his persistent atrial fibrillation. 6. Will follow him closely. TIME SPENT: More than 70 minutes. DANIEL
--- NOTE | 2016-12-24 11:25 | PCM.PROG ---
Attending Provider: ATTENDING PROVIDER: Dr. SHELBIE GALLOWAY DATE OF SERVICE: 12/24/16 SUBJECTIVE: This 81 year old WHITE/ M was hospitalized 12/19/16. The patient is seen with Priyanka, Nurse Practitioner. He is alert, lying in bed complains of pain from osteoarthritis. REVIEW OF SYSTEMS: CONSTITUTIONAL: Weakness. No night sweats. No fever or chills. HEENT: Eyes: No visual changes. No eye pain. No eye discharge. ENT: No runny nose. No epistaxis. No sinus pain. No odynophagia. No congestion. RESPIRATORY: No cough, no congestion. No hemoptysis. No shortness of breath. CARDIOVASCULAR: No angina symptoms. No CHF symptoms. No atypical chest pain for CAD. No palpitations. No orthopnea.. GASTROINTESTINAL: No abdominal pain. No nausea or vomiting. No diarrhea or constipation. No hematemesis. No hematochezia. GENITOURINARY: No urgency. No frequency. No dysuria. No hematuria. No obstructive symptoms. No discharge. No pain. No significant abnormal bleeding. MUSCULOSKELETAL: generalized osteoarthritic pain. NEUROLOGICAL: Awake, alert, oriented to time, place and person. No headache. No neck pain. No syncope. No seizures. No dizziness. PSYCHIATRIC: Not anxious. No depression. No suicidal thoughts. No homicidal thoughts. SKIN: Intact blister 1" in diameter left heel. Pressure ulcer on left buttock present on admission. ENDOCRINE: No unexplained weight loss. No weight gain. HEMATOLOGIC/LYMPHATIC: No anemia. No purpura. No petechiae. No prolonged or excessive bleeding. No palpable lymph nodes. PHYSICAL EXAMINATION: GENERAL: The patient is awake, alert and oriented, lying in bed in no distress. VITAL SIGNS: Temperature 98.5 F, Pulse 74, Respiratory Rate 17, BP 113/77, Pulse Ox 94% HEENT: Head normocephalic, atraumatic. Eyes: Extraocular muscles are intact. Pupils are equal, round and reactive to light and accommodation. Ears: No lesions. Nose appeared normal. Throat: No exudate or erythema. NECK: Supple. No JVD, no carotid bruit. No lymphadenopathy or thyromegaly. LUNGS: Clear to auscultation. Percussion note normal. Chest symmetrical. HEART: S1, S2, no S3. No murmurs. No cyanosis or clubbing. No ascites. Pulses: Dorsalis pedis and posterior tibial pulses +1 to +2 both sides. ABDOMEN: Soft. Non-tender. Bowel sounds active. No CVA tenderness. No mass felt. EXTREMITIES: No edema. Full range of motion of all extremities, equal. NEUROLOGIC: No focal deficit. Cranial nerves II through XII are grossly intact. No headache, no double vision or headache. SKIN: Intact blister left heel 1" diameter. Pressure ulcer left buttock present on admission measuring 7.5 cm x 6.5 cm weepy, serous drainage, necrotic tissue - unchanged. LYMPHATIC: No palpable lymph nodes/no lymphedema. MUSCULOSKELETAL: Normal joints with no swelling. Muscle tone is normal. LAB REVIEW: 12/23/16 05:00 12/23/16 05:00 ASSESSMENT: 1. SEPSIS 2. PRESSURE ULCER 3. ATRIAL FIBRILLATION 5. HYPOKALEMIA PLAN: 1. Consult Dr. Vizcaino tomorrow 2. Change potassium to 40 mEq p.o. b.i.d. 3. Continue Zosyn 4. Lasix 40 mg b.i.d. daily Plan and coordination of the patient's care discussed in the presence of Mobile Tester and nurse. CONDITION: Stable SCRIBED BY: Shelli SESAY scribed while in presence of service performed by Dr. SHELBIE GALLOWAY/PRIYANKA SAHU APRN on 12/24/16 ([id number])
--- NOTE | 2016-12-24 13:17 | PN ---
DATE OF SERVICE: 12/21/16 SUBJECTIVE: The patient is an 81 year old white male hospitalized with pressure ulcer left buttock. The patient's condition has steadily improved and his kidney functions are a lot better. He is eating better. The patient's cardiovascular status is stable. PHYSICAL EXAMINATION: HEENT: Normocephalic, atraumatic. Mucosa . NECK: Supple. No JVD, no carotid bruit. No lymphadenopathy. LUNGS: Clear to auscultation. No rales or rhonchi. HEART: S1, S2 normal. No S3. No murmur, gallop or regurgitation. ABDOMEN: Soft, nontender. Bowel sounds active. No rigidity. No rebound or guarding. No CVA tenderness. Nutritional status is not up to par and poor care because he has nobody to help him. EXTREMITIES: No clubbing, cyanosis or pedal edema. MUSCULOSKELETAL: No joint swelling. NEUROLOGIC: Awake, alert, oriented times three. No focal deficit. LYMPHATIC: No lymph nodes palpable. SKIN: Intact. Decubitus ulcer contained now but needs to be healed which is going to take a long time because of patient's inability to ambulate, this is for past 50 years. LABS: EGFR 77 cc per minute. hgb and hct are stable. PLAN: 1. The patient was strongly advised to go to the Nurse Home, declined. The sister has taken care of him for number of years who also has a lot of medical problems and she is also more or less a couple of years older then him. 2. The patient is on Piperacillin and Vancomycin The patient was seen and examined with Nurse Practitioner. TIME SPENT: More than 30 minutes MTDD
--- NOTE | 2016-12-24 15:16 | PN ---
DATE OF SERVICE: 12/22/16 SUBJECTIVE: 81 year old white male hospitalized with decubitus ulcer. The patient's condition has steadily improved. The patient is looking a lot better today. He has a lot of family member, cousins visiting him. REVIEW OF SYSTEMS: CONSTITUTIONAL: No night sweats. No fatigue, malaise, lethargy. No fever or chills. HEENT: Eyes: No visual changes. No eye pain. No eye discharge. ENT: No runny nose. No epistaxis. No sinus pain. No sore throat. No odynophagia. No congestion. RESPIRATORY: No cough, no congestion. No hemoptysis. No shortness of breath. CARDIOVASCULAR: No angina symptoms. No CHF symptoms. No atypical chest pain for CAD. No palpitations. No orthopnea. GASTROINTESTINAL: No abdominal pain. No nausea or vomiting. No diarrhea or constipation. No hematemesis. No hematochezia. GENITOURINARY: No urgency. No frequency. No dysuria. No hematuria. No obstructive symptoms. No discharge. No pain. No significant abnormal bleeding. MUSCULOSKELETAL: No musculoskeletal pain; no joint swelling. NEUROLOGICAL: No headache. No neck pain. No syncope. No seizures. No dizziness. PSYCHIATRIC: Not anxious. No depression. No suicidal thoughts. No homicidal thoughts. SKIN: No rash. No lesions. No wounds. ENDOCRINE: No unexplained weight loss. No weight gain. HEMATOLOGIC/LYMPHATIC: No anemia. No purpura. No petechiae. No prolonged or excessive bleeding. No palpable lymph nodes. PHYSICAL EXAMINATION: GENERAL: The patient is VITAL SIGNS: Temperature 97.7, pulse 62, respiratory rate 12, blood pressure 115/57 and pulse ox 94%. HEENT: Head normocephalic, atraumatic. Eyes: Extraocular muscles are intact. Pupils are equal, round and reactive to light and accommodation. Ears: No lesions. Nose appeared normal. Throat: No exudate or erythema. NECK: Supple. No JVD, no carotid bruit. No lymphadenopathy or thyromegaly. LUNGS: Decreased breath sounds but clear to auscultation. Percussion note normal. Chest symmetrical. HEART: S1, S2, no S3. No murmurs. No cyanosis or clubbing. No ascites. Pulses: Dorsalis pedis and posterior tibial pulses +1 to +2 both sides. ABDOMEN: Soft. Nontender. Bowel sounds active. No CVA tenderness. No mass felt. Terrell Catheter draining clear urine. EXTREMITIES: No edema. Full range of motion of all extremities, equal. NEUROLOGIC: No focal deficit. Cranial nerves II through XII are grossly intact. No headache, no double vision or headache. SKIN: Not dry. Intact. Turgor - normal. Decubitus ulcer on the left buttocks seems to he healing fully. LYMPHATIC: No palpable lymph nodes/no lymphedema. MUSCULOSKELETAL: Normal joints with no swelling. Muscle tone is normal. LABS: Hgb 9.2, hct 27, WBC normal with creatinine of 0.9, BUN 13. ASSESSMENT: 1. Decubitus ulcer, healing 2. Nutritional status needs to be improved, discussed with the patient and the patient is intelligent and oriented to time, place and person. PLAN: 1. Put patient on Lovenox because he is in the bed all the time and there is question of his rhythm being atrial fibrillation. Going to be telemetry back and monitor the rhythm again and see what exactly he is in 2. He is encouraged to move from side to side when he is at home and advised to get up, sit up, use donuts. Explained about the healing process, sheering force of bed sheets. 3. Discussed the protein contents of the meals PROGNOSIS: Guarded as patient is living wit the sister who is very likely older than him and as multiple medical problems and she is also unable to take care of herself and he depends on the sister to take care of him. TIME SPENT: More than 30 minutes. Plan and coordination of the patient's care discussed in the presence of nurse. DANIEL
--- NOTE | 2016-12-24 16:09 | RS.CSNOTE ---
PT Case Note Title of document: PT evaluation Note: Patient seen this afternoon for evaluation. Mr. Mendez required mod- max assist of 2-3 to sit on edge of bed. Attempts at stand-pivot transfer were unsuccessful. Patient required mod-max of 2 to try to get onto his feet. He complains of pain with movement and when bearing weight, and reports being unable to move or pivot his feet to transfer to wheelchair. Patient sat on bedside to work with HENSON and back to bed with Max of 2. Patient demonstrates the need for [facility] care as he shows no potential to be able to return home in the near future based on his level of dependence.
[2016-12-24] MEDS: LASIX TAB PO SCH (16:47)
[2016-12-24] MEDS: NORCO 5-325 PO PRN (20:44)
[2016-12-24] MEDS: KLONOPIN PO SCH (20:45)
[2016-12-25] MEDS: ZOSYN 3.375 GM 3.375 GM in SODIUM CHLORIDE 100 ML IV SCH ×5 (00:26→23:22)
[2016-12-25] MEDS: LASIX TAB PO SCH ×2 (05:45→17:23)
[2016-12-25] MEDS: PROTONIX PO SCH ×2 (05:45→17:23)
[2016-12-25] MEDS: SYNTHROID PO SCH (05:45)
[2016-12-25] MEDS: NYSTOP POWDER TP SCH ×2 (08:01→20:29)
[2016-12-25] MEDS: FERROUS SULFATE PO SCH (08:01)
[2016-12-25] MEDS: LOVENOX SUBCUT SCH ×2 (08:02→20:30)
[2016-12-25] MEDS: ZOCOR PO SCH (08:02)
[2016-12-25] MEDS: ZINC-220 PO SCH ×2 (08:02→20:31)
[2016-12-25] MEDS: TENORMIN PO SCH (08:02)
[2016-12-25] MEDS: VITAMIN C PO SCH (08:02)
[2016-12-25] MEDS: K-DUR PO SCH ×2 (08:02→17:23)
[2016-12-25] MEDS: ZESTRIL PO SCH (08:02)
[2016-12-25] MEDS: CALMOSEPTINE OINTMENT TP SCH ×2 (08:02→20:30)
[2016-12-25 08:11] LABS: ALBUMIN 2.2 g/dL (3.4-5.0); ALBUMIN/GLOBULIN RATIO 0.55; BILIRUBIN,TOTAL 0.46 mg/dL (0.00-1.20); BUN/CREATININE RATIO 16.12; CALCIUM 8.8 mg/dL (8.2-10.2); CREATININE 0.93 mg/dL (0.60-1.10); TOTAL PROTEIN 6.2 g/dL (5.8-8.1)
[2016-12-25] MEDS ORDERED: DULCOLAX PO STA (08:29)
--- NOTE | 2016-12-25 11:55 | PN ---
DATE OF SERVICE: 12/24/16 SUBJECTIVE: The patient was seen with Nurse Practitioner and Popcorn Vendor. The patient is doing well. Decubitus is healing. Cardiovascular status is stable but patient has PAC's sometimes atrial bigeminy. Condition is stable. Again explained about healing factors and that could contribute towards overall well being of his overall health status but it is going to be hard as patient has to depend on the sister who is already sick and as old as he is almost. He declined to go to the Nurse Home. Have to arrange for Home Health Care for him to be taken care of and also for the Wound Care to take care of his decubitus ulcer. We will do echocardiogram to evaluate his LV function, valves etc. TIME SPENT: More than 30 minutes. Plan and coordination of the patient's care discussed in the presence of nurse. DANIEL
[2016-12-25] MEDS: KLONOPIN PO SCH (20:30)
[2016-12-26 04:49] LABS: BASOPHILS # (AUTO) 0.1 K/uL (0-0.2); BASOPHILS % (AUTO) 0.6 % (0.0-3.0); EOSINOPHILS # (AUTO) 0.3 K/ul (0.0-0.7); EOSINOPHILS % (AUTO) 3.3 % (0.0-7.0); HEMATOCRIT 30.9 % (42.0-52.0); HEMOGLOBIN 10.2 g/dl (14.0-18.0); IMMATURE GRANULOCYTE % (AUTO) 1.3 % (0.0-5.0); LYMPHOCYTES # (AUTO) 2.1 K/uL (0.60-3.4); MEAN CORPUSCULAR HEMOGLOBIN 31.7 pg (27.0-31.0); MONOCYTES # (AUTO) 0.9 K/uL (0.4-2.0); MONOCYTES % (AUTO) 9.8 (0-10); NEUTROPHILS # (AUTO) 5.6 K/ul (2.0-6.9); PLATELET COUNT 405 10^3/uL (140-440); RED BLOOD COUNT 3.22 10^6/ul (4.70-6.10); WHITE BLOOD COUNT 8.97 K/ul (4.2-10.2)
[2016-12-26 05:10] LABS: ALBUMIN 2.2 g/dL (3.4-5.0); ALBUMIN/GLOBULIN RATIO 0.52; BILIRUBIN,TOTAL 0.45 mg/dL (0.00-1.20); BUN/CREATININE RATIO 17.77; CREATININE 0.9 mg/dL (0.60-1.10); TOTAL PROTEIN 6.4 g/dL (5.8-8.1)
[2016-12-26] MEDS: ZOSYN 3.375 GM 3.375 GM in SODIUM CHLORIDE 100 ML IV SCH ×4 (05:34→23:35)
[2016-12-26] MEDS: PROTONIX PO SCH ×2 (05:34→17:32)
[2016-12-26] MEDS: LASIX TAB PO SCH ×2 (05:34→17:35)
[2016-12-26] MEDS: SYNTHROID PO SCH (05:34)
--- NOTE | 2016-12-26 09:21 | PN ---
DATE OF SERVICE: 12/25/16 SUBJECTIVE: The patient was seen and examined with the Nurse Practitioner and [employer] Operator. The patient's condition is stable and he is eating much better. Appetite has improved. Decubitus ulcer seems to be healing. We are going to put Dr. Vizcaino on surgical consultation. His cardiovascular status is stable. PHYSICAL EXAMINATION: HEENT: Head normocephalic, atraumatic. Eyes: Extraocular muscles are intact. Pupils are equal, round and reactive to light and accommodation. Ears: No lesions. Nose appeared normal. Throat: No exudate or erythema. NECK: Supple. No JVD, no carotid bruit. No lymphadenopathy or thyromegaly. LUNGS: Decreased breath sounds but clear to auscultation. Percussion note normal. Chest symmetrical. HEART: S1, S2, no S3. No murmurs. No cyanosis or clubbing. No ascites. Pulses: Dorsalis pedis and posterior tibial pulses +1 to +2 both sides. Rhythm is sinus with PAC's. He doesn't have any atrial fibrillation. ABDOMEN: Soft. Nontender. Bowel sounds active. No CVA tenderness. No mass felt. EXTREMITIES: No edema. Full range of motion of all extremities, equal. NEUROLOGIC: No focal deficit. Cranial nerves II through XII are grossly intact. No headache, no double vision or headache. SKIN: Not dry. Intact. Turgor - normal. LYMPHATIC: No palpable lymph nodes/no lymphedema. MUSCULOSKELETAL: Normal joints with no swelling. Muscle tone is normal. PLAN: 1. Will do Holter and Echo TIME SPENT: More than 30 minutes. Plan and coordination of the patient's care discussed in the presence of nurse. DANIEL
[2016-12-26] MEDS: LASIX IVP SCH (09:30)
[2016-12-26] MEDS: CALMOSEPTINE OINTMENT TP SCH ×2 (09:31→20:14)
[2016-12-26] MEDS: ZOCOR PO SCH (09:31)
[2016-12-26] MEDS: FERROUS SULFATE PO SCH (09:31)
[2016-12-26] MEDS: TENORMIN PO SCH (09:31)
[2016-12-26] MEDS: ZINC-220 PO SCH ×2 (09:31→20:14)
[2016-12-26] MEDS: NYSTOP POWDER TP SCH ×2 (09:32→20:13)
[2016-12-26] MEDS: VITAMIN C PO SCH (09:32)
[2016-12-26] MEDS: K-DUR PO SCH ×2 (09:32→17:32)
[2016-12-26] MEDS: LOVENOX SUBCUT SCH (09:32)
[2016-12-26] MEDS: ZESTRIL PO SCH (09:33)
[2016-12-26] MEDS: NORCO 5-325 PO PRN ×2 (09:33→20:15)
--- NOTE | 2016-12-26 11:29 | PCM.PROG ---
Attending Provider: ATTENDING PROVIDER: Dr. SHELBIE GALLOWAY DATE OF SERVICE: 12/26/16 SUBJECTIVE: This 81 year old WHITE/ M was hospitalized 12/19/16. The patient is hospitalized with pressure ulcer and infection. The patient's infection is controlled. Decubitus is confined now to the site it is. No cellulitis. Overall status is stable. He is not in distress. He is oriented times three. REVIEW OF SYSTEMS: CONSTITUTIONAL: Weakness. No night sweats. No fatigue, malaise, lethargy. No fever or chills. HEENT: Eyes: No visual changes. No eye pain. No eye discharge. ENT: No runny nose. No epistaxis. No sinus pain. No odynophagia. No congestion. RESPIRATORY: No cough, no congestion. No hemoptysis. No shortness of breath. CARDIOVASCULAR: No angina symptoms. No CHF symptoms. No atypical chest pain for CAD. No palpitations. No orthopnea.. GASTROINTESTINAL: No abdominal pain. No nausea or vomiting. No diarrhea or constipation. No hematemesis. No hematochezia. GENITOURINARY: No urgency. No frequency. No dysuria. No hematuria. No obstructive symptoms. No discharge. No pain. No significant abnormal bleeding. MUSCULOSKELETAL: No musculoskeletal pain; no joint swelling. NEUROLOGICAL: Awake, alert, oriented to time, place and person. No headache. No neck pain. No syncope. No seizures. No dizziness. PSYCHIATRIC: Not anxious. No depression. No suicidal thoughts. No homicidal thoughts. SKIN: No rash. ENDOCRINE: No unexplained weight loss. No weight gain. HEMATOLOGIC/LYMPHATIC: No anemia. No purpura. No petechiae. No prolonged or excessive bleeding. No palpable lymph nodes. PHYSICAL EXAMINATION: GENERAL: The patient is awake, alert and oriented, lying in bed in no distress. VITAL SIGNS: Temperature 98.9 F, Pulse 71, Respiratory Rate 20, BP 134/75, Pulse Ox 94% HEENT: Head normocephalic, atraumatic. Eyes: Extraocular muscles are intact. Pupils are equal, round and reactive to light and accommodation. Ears: No lesions. Nose appeared normal. Throat: No exudate or erythema. NECK: Supple. No JVD, no carotid bruit. No lymphadenopathy or thyromegaly. LUNGS: Decreased brearh sounds. Clear to auscultation. Percussion note normal. Chest symmetrical. HEART: S1, S2, no S3. No murmurs. No cyanosis or clubbing. No ascites. Pulses: Dorsalis pedis and posterior tibial pulses +1 to +2 both sides. ABDOMEN: Soft. Non-tender. Bowel sounds active. No CVA tenderness. No mass felt. EXTREMITIES: Upper extremity edema. Full range of motion of all extremities, equal. NEUROLOGIC: No focal deficit. Cranial nerves II through XII are grossly intact. No headache, no double vision or headache. SKIN: Warm and dry. Intact. Turgor-normal. LYMPHATIC: No palpable lymph nodes/no lymphedema. MUSCULOSKELETAL: Normal joints with no swelling. Muscle tone is normal. LAB REVIEW: 12/26/16 04:30 12/26/16 04:30 12/26/16 04:30: Sodium 137, Potassium 4.0, Chloride 103, Carbon Dioxide 25, Anion Gap 13.0, BUN 16, Creatinine 0.90, Estimated GFR (MDRD) 81.00, BUN/ Creatinine Ratio 17.77, Glucose 100, Calcium 9.0, Total Bilirubin 0.45, AST 29, ALT 35, Alkaline Phosphatase 62, Total Protein 6.4, Albumin 2.2 L, Globulin 4.2 , Albumin/Globulin Ratio 0.52 12/26/16 04:30: WBC 8.97, RBC 3.22 L, Hgb 10.2 L, Hct 30.9 L, MCV 96.0 H, MCH 31.7 H, MCHC 33.0, RDW Coeff of Timmy 13.1, Plt Count 405, Immature Gran % (Auto) 1.3, Neut % (Auto) 62.0, Lymph % (Auto) 23.0, Deuel % (Auto) 9.8, Eos % (Auto) 3.3, Baso % (Auto) 0.6, Immature Gran # (Auto) 0.1, Neut # 5.6, Lymph # 2.1, Deuel # 0.9, Eos # 0.3, Baso # 0.1 12/25/16 07:40: Sodium 137, Potassium 4.0, Chloride 103, Carbon Dioxide 25, Anion Gap 13.0, BUN 15, Creatinine 0.93, Estimated GFR (MDRD) 78.00, BUN/ Creatinine Ratio 16.12, Glucose 99, Calcium 8.8, Total Bilirubin 0.46, AST 22, ALT 31, Alkaline Phosphatase 61, Total Protein 6.2, Albumin 2.2 L, Globulin 4.0 , Albumin/Globulin Ratio 0.55 ASSESSMENT: 1. Decubitus ulcer with history of cellulitis which has resolved. Decubitus ulcer is healing slowly. The patient is to be referred to wound care. Dr. Vizcaino, surgical consult to see. 2. Weakness 3. Edema PLAN: 1. Continue antibiotics encourage the patient to eat. 2. IV Lasix for edema. 3. Inactivity with inability to walk, aging process, low albumin and poor compliance will make it difficult for the decubitus to heal. 4. Discontinue telemetry 5. Decrease Lovenox to 40 mg once a day Plan and coordination of the patient's care discussed in the presence of Sleeping Car Conductor and nurse. CONDITION: Stable SCRIBED BY: ROSE GARCIA Insurance Professional scribed while in presence of service performed by Dr. SHELBIE GALLOWAY on 12/26/16 ([id number])
--- NOTE | 2016-12-26 13:59 | PN ---
DATE OF SERVICE: 12/23/16 SUBJECTIVE: The patient's was put on telemetry because there was question of the patient being in atrial fibrillation. The patient has never been in atrial fibrillation. He has multiple PAC's. The patient also has atrial bigeminy but the patient is always in sinus rhythm. It is to be noted that all the nursing staff rhythm strips lists that he is in atrial fibrillation but it was misinterpretation. We will do echocardiogram to evaluation LV function and LA cavity and also valvular. We will also do Holter Monitor CONDITION: Stable. TIME SPENT: More than 30 minutes. Plan and coordination of the patient's care discussed in the presence of nurse. DANIEL
[2016-12-26] MEDS: KLONOPIN PO SCH (20:14)
[2016-12-27] MEDS: ZOSYN 3.375 GM 3.375 GM in SODIUM CHLORIDE 100 ML IV SCH ×3 (05:08→17:14)
[2016-12-27] MEDS: PROTONIX PO SCH ×2 (06:18→17:14)
[2016-12-27] MEDS: LASIX TAB PO SCH ×2 (06:18→17:14)
[2016-12-27] MEDS: SYNTHROID PO SCH (06:19)
[2016-12-27] MEDS: LASIX IVP SCH (06:42)
[2016-12-27] MEDS: FERROUS SULFATE PO SCH (09:14)
[2016-12-27] MEDS: TENORMIN PO SCH (09:14)
[2016-12-27] MEDS: VITAMIN C PO SCH (09:14)
[2016-12-27] MEDS: NORCO 5-325 PO PRN ×2 (09:15→21:30)
[2016-12-27] MEDS: ZESTRIL PO SCH (09:15)
[2016-12-27] MEDS: ZINC-220 PO SCH ×2 (09:15→21:30)
[2016-12-27] MEDS: CALMOSEPTINE OINTMENT TP SCH ×2 (09:15→21:31)
[2016-12-27] MEDS: LOVENOX SUBCUT SCH (09:15)
[2016-12-27] MEDS: K-DUR PO SCH ×2 (09:15→17:14)
[2016-12-27] MEDS: ZOCOR PO SCH (09:15)
[2016-12-27] MEDS: NYSTOP POWDER TP SCH ×2 (09:16→21:30)
[2016-12-27] MEDS: SANTYL TP SCH (09:18)
--- NOTE | 2016-12-27 10:03 | HOLTER ---
PATIENT INFORMATION AND COMMENTS Attending Physician: SHELBIE GALLOWAY Indications: ATRIAL ARRHYTHMIAS __ Patient Medications: TENORMIN, KLONOPIN, LOVENOX, FERROUS SULFATE, LASIX, SYNTHROID, ZESTRIL, PROTONIX, ZOCOR __ Pre-procedure Summary: Protocol: Standard Heart Rate Started: 12/25/16 1312 Minimum: 54 BPM Weight: 210 LBS Ended: 12/26/16 1310 Maximum: 168 BPM Height: 74" Duration: 24 HOURS Average: 69 BPM _ INTERPRETATIONS/OBSERVATIONS: 1. BASIC RHYTHM: SINUS, RATE 54 BPM TO 120 BPM, AVERAGE 70 BPM 2. PREMATURE ATRIAL CONTRACTIONS-FREQUENT, TOTAL OF 13% OF BEATS SCANNED 3. INFREQUENT PREMATURE VENTRICULAR CONTRACTIONS 4. NO TACHYARRHYTHMIAS 5. NO ST-T WAVE CHANGES FROM BASELINE MTDD
--- NOTE | 2016-12-27 10:57 | ECHO2D ---
Date of Exam: 12/25/16 Ordering Physician: SHELBIE GALLOWAY Room #: 120 Reason for Echo: ATRIAL FIBRILLATION, SHORT OF BREATH M-Mode Normal Adult Results LV Dimensions Normal Adult Results AoV Opening excursions >1.6 1.5 LVEDD-base- 3.5-5.8 4.7 Ao root dimensions 2.0-3.7 3.9 LVESD-base- 3.1-4.6 L. Atrium dimensions 1.9-3.8 5.9 Post. Wall thickness 0.8-1.1 1.4 IV septum (thickness) 0.7-1.2 1.2 Post. Wall excursion 0.72-1.3 NORMAL Septal motion NORMAL Systolic motion R. Ventricular cavity 1.5-2.0 NORMAL LVEF 60% 57% Paradoxical septal wall motion NORMAL 2-D : MARKED ENLARGED LEFT ATRIAL AND RIGHT ATRIAL CAVITIES/ NORMAL LEFT VENTRICULAR CONTRACTILITY, MITRAL VALVE PROLAPSE NOTED LEFT PARASTERNAL LONG AXIS AND APICAL FOUR CHAMBER VIEW, NO EFFUSION, NO THROMBUS M-MODE: MV: MITRAL VALVE PROLAPSE NOTED AV: NORMAL TV: NORMAL PV: CHAMBER SIZE: ENLARGED LEFT ATRIAL AND RIGHT ATRIAL CAVITY WALL MOTION: NORMAL PERICARDIUM: NORMAL INTERPRETATION: 1. LEFT VENTRICULAR HYPERTROPHY WITH MARKEDLY ENLARGED LEFT ATRIAL CAVITY 2. ENLARGED RIGHT ATRIAL CAVITY 3. NORMAL LEFT VENTRICULAR CONTRACTILITY 4. MITRAL VALVE PROLAPSE MTDD
[2016-12-27] MEDS: SILVADENE CREAM TP SCH ×2 (17:13→21:31)
[2016-12-27] MEDS: KLONOPIN PO SCH (21:30)
[2016-12-28] MEDS: ZOSYN 3.375 GM 3.375 GM in SODIUM CHLORIDE 100 ML IV SCH ×2 (00:23→05:50)
[2016-12-28] MEDS: PROTONIX PO SCH ×2 (05:50→16:33)
[2016-12-28] MEDS: LASIX TAB PO SCH ×2 (05:51→16:34)
[2016-12-28] MEDS: SYNTHROID PO SCH (05:51)
[2016-12-28] MEDS ORDERED: DECADRON 4 MG/ML SDV IM STA (07:40)
[2016-12-28] MEDS: SANTYL TP SCH (10:05)
[2016-12-28] MEDS: NYSTOP POWDER TP SCH ×2 (10:05→21:01)
[2016-12-28] MEDS: ZESTRIL PO SCH (10:06)
[2016-12-28] MEDS: FERROUS SULFATE PO SCH (10:06)
[2016-12-28] MEDS: TENORMIN PO SCH (10:06)
[2016-12-28] MEDS: CALMOSEPTINE OINTMENT TP SCH ×2 (10:06→21:02)
[2016-12-28] MEDS: SILVADENE CREAM TP SCH ×2 (10:06→21:02)
[2016-12-28] MEDS: K-DUR PO SCH ×2 (10:06→16:33)
[2016-12-28] MEDS: VITAMIN C PO SCH (10:07)
[2016-12-28] MEDS: ZINC-220 PO SCH ×2 (10:07→21:04)
[2016-12-28] MEDS: ZOCOR PO SCH (10:07)
[2016-12-28] MEDS: LOVENOX SUBCUT SCH (10:07)
--- NOTE | 2016-12-28 11:02 | RS.PTINEVL ---
Subjective - Patient information Date of Evaluation: 12/24/16 Date of Arrival on Unit: 12/19/16 Admitted From:: In-House Transfer Living Arrangement Comments: with sister Medical History Comments:: Patient currently has pressure ulcers to left buttocks and pressure ulcer at bottom of coccyx, stage III, blister on left heel. HTN, Hypothyroidism, CAD PAD, Dyslipidemia, anemia, hiatal hernia, depression. LATEX ALLERGY?: No Surgical History Comments:: Lumbar surgery X2 Subjective Information/ Patient Comments:: Patient uses a power wheelchair at home. He was able to transfer himself to and from [facility]. Reports pain all over, especially hips and feet. - Level of function Prior to this admission, the patient could do the following:: Independent Selfcare, Independent ADL's (transfers) Current Level of Function: Partially Dependent Current Equipment Used at Home: electric scooter, BSC, ramp, oxygen 2 liters. Interventions - Objective Patient Orientation: Person, Place, Time, Situation Current Interventions: IV's, Oxygen Observation: Left foot very swollen. Range of Motion - ROM Comments:: Patient demonstrates limited AROM of bilateral LE's due to reports of pain and weakness. Crepitus is noted with movement of the LE's. Muscle Strength - Muscle Strength Comments:: Patient demonstrates generalized weakness. Bilateral LE strength is at least 3+/5. Balance - Sitting Balance and Reactions Static Sitting Balance: Fair Dynamic Sitting Balance: Fair - Standing Balance and Reactions Static Standing Balance: Poor Dynamic Standing Balance: Poor Functional Mobility - Bed Mobility Supine to Sit: Mod Assist, Max Assist, 2 person assist Sit to Supine: Max Assist, 2 person assist - Transfers Sit to Stand: Mod Assist, Max Assist, 2 person assist, Verbal Cues, Tactile Cues Comments:: Attempted to perform stand-pivot transfer to wheelchair. Patient unable to take his full weight on his LE's due to reports of pain and also exhibits significant weakness. Patient unable to pivot his feet or picker operator his feet to transfer to the wheelchair. patient required so much assistance to stand, it was decided to be too unsafe to continue with stand-pivot transfer. - Safety Awareness Safety Awareness: Poor Treatment time - Time with patient Total treatment time: 25 (mins) Assessment - Assessment Problem List:: Decreased level of function, Decreased safety/Risk of falls, Weakness, Pain limits previous level of function Rehab Potential: Poor Comments: Patient demonstrates poor rehab potential at this time. If he is more willing and able to participate as his condition improves, he may be a candidate for therapy. Plan Duration of Treatment: One Time Treatment
--- NOTE | 2016-12-28 11:15 | RS.PTINEVL ---
Subjective - Patient information Date of Evaluation: 12/28/16 Date of Arrival on Unit: 12/19/16 Living Arrangement Comments: with sister Medical History Comments:: Patient currently has pressure ulcers to left buttocks and pressure ulcer at bottom of coccyx, stage III, blister on left heel. HTN, Hypothyroidism, CAD PAD, Dyslipidemia, anemia, hiatal hernia, depression. LATEX ALLERGY?: No Surgical History Comments:: Lumbar surgery X2 Subjective Information/ Patient Comments:: Occupational therapy states patient is more able to assist with bed mobility and stood on his feet yesterday. Nursing states Dr. Vizcaino wants him to have daily showers to help keep wounds clean. Patient will need to be transferred to a shower chair. Patient reports bilateral foot pain. Patient agrees to stand for BSC to be removed and shower chair put underneath him. - Level of function Prior to this admission, the patient could do the following:: Independent Selfcare, Independent ADL's (transfers) Current Equipment Used at Home: electric scooter, BSC, ramp, oxygen 2 liters. Interventions - Objective Patient Orientation: Person, Place, Time, Situation Range of Motion - ROM Comments:: Bilateral LE AROM limited due to reports of pain. Ankle ROM is approximately 50% or normal. DF to neutral passively. Crepitus noted with all movement of UE and LE's. Muscle Strength - Muscle Strength Comments:: General weakness of the trunk and LE's. LE strength presents to be at least 3+/5 of hips and knees. right ankle 3/5, Left ankle 2/5. Sensation - Sensation Comments: Left foot sensation impaired from subj. reports. Balance - Sitting Balance and Reactions Static Sitting Balance: Fair Dynamic Sitting Balance: Fair - Standing Balance and Reactions Static Standing Balance: Poor Dynamic Standing Balance: Poor Functional Mobility - Transfers Sit to Stand: Mod Assist, 2 person assist, Verbal Cues, Tactile Cues Stand to Sit: Mod Assist, 2 person assist, Verbal Cues, Tactile Cues Comments:: Patient takes his weight on his feet and stands up much better than when first assessed on 12/24/16. Stand-pivot was not attempted at this time. While patient stood with assistance from the BSC, nursing removed the BSC and moved in the mobile shower chair. - Safety Awareness Safety Awareness: Poor Treatment time - Time with patient Total treatment time: 25 (mins) Assessment - Assessment Problem List:: Decreased level of function, Requires training/education, Decreased safety/Risk of falls, Pain limits previous level of function Rehab Potential: Good Further Therapy Indicated?: Yes Comments: Patient demonstrates potential at this time to gain increased independence with mobility, as he will need to be able to perform transfers independently when he returns home. Short Term Goals GOAL #1: Supine to sit with mod asst of one. Goal to be met by: 12/31/16 GOAL #2: Sit to supine with mod assit of one. Goal to be met by: 12/31/16 GOAL #3: Sit to stand with Min assist of one. Goal to be met by: 12/31/16 Group Home Goals GOAL #1: Bed mobility independent. Goal to be met by: 01/07/17 GOAL #2: Sit to stand transfers with supvn-independent, w/ good safety. Goal to be met by: 01/07/17 GOAL #3: Stand pivot transfers with supvn-independent, w/ good safety. Goal to be met by: 01/07/17 Plan Plan of Care: Therapeutic EX, Neuromuscular Re-Educ, Therapeutic Activity Frequency of Treatment: 1-2 X day, as tolerated Duration of Treatment: 10 days Anticipated Discharge Destination: Home
--- NOTE | 2016-12-28 13:16 | PCM.PROG ---
Attending Provider: ATTENDING PROVIDER: Dr. SHELBIE GALLOWAY DATE OF SERVICE: 12/28/16 SUBJECTIVE: This 81 year old WHITE/ M was hospitalized 12/19/16. The patient is seen with Priyanka, Nurse Practitioner. The patient is alert, lying in bed. Dr. Vizcaino saw the wound yesterday and will debride at later date. Low grade fever since yesterday, temperature max 100.6. Denies chills or cough. REVIEW OF SYSTEMS: CONSTITUTIONAL: Fever, weakness. No night sweats. No chills. HEENT: Eyes: No visual changes. No eye pain. No eye discharge. ENT: No runny nose. No epistaxis. No sinus pain. No odynophagia. No congestion. RESPIRATORY: No cough, no congestion. No hemoptysis. No shortness of breath. CARDIOVASCULAR: No angina symptoms. No CHF symptoms. No atypical chest pain for CAD. No palpitations. No orthopnea.. GASTROINTESTINAL: No abdominal pain. No nausea or vomiting. No diarrhea or constipation. No hematemesis. No hematochezia. GENITOURINARY: Terrell in place. No urgency. No frequency. No dysuria. No hematuria. No obstructive symptoms. No discharge. No pain. No significant abnormal bleeding. MUSCULOSKELETAL: Pain in shoulder and knees. NEUROLOGICAL: Awake, alert, oriented to time, place and person. No headache. No neck pain. No syncope. No seizures. No dizziness. PSYCHIATRIC: Not anxious. No depression. No suicidal thoughts. No homicidal thoughts. SKIN: No rash. Pressure ulcer on left buttock present on admission. Intact blister 1" in diameter, left heel present on admission. ENDOCRINE: No unexplained weight loss. No weight gain. HEMATOLOGIC/LYMPHATIC: No anemia. No purpura. No petechiae. No prolonged or excessive bleeding. No palpable lymph nodes. PHYSICAL EXAMINATION: GENERAL: The patient is awake, alert and oriented, lying in bed in no distress. VITAL SIGNS: Temperature 99.5 F, Pulse 66, Respiratory Rate 24, BP 115/62, Pulse Ox 94% HEENT: Head normocephalic, atraumatic. Eyes: Extraocular muscles are intact. Pupils are equal, round and reactive to light and accommodation. Ears: No lesions. Nose appeared normal. Throat: No exudate or erythema. NECK: Supple. No JVD, no carotid bruit. No lymphadenopathy or thyromegaly. LUNGS: Diminished breath sounds. Clear to auscultation. Percussion note normal. Chest symmetrical. HEART: S1, S2, no S3. No murmurs. No cyanosis or clubbing. No ascites. Pulses: Dorsalis pedis and posterior tibial pulses +1 to +2 both sides. ABDOMEN: Soft. Non-tender. Bowel sounds active. No CVA tenderness. No mass felt. Pressure ulcer left buttock presence on admission measuring 7.5 cm x 6.5 cm serous drainage, weepy, necrotic tissue, unchanged. Blister left heel, 1 " in diameter present since admission. EXTREMITIES: No edema. Full range of motion of all extremities, equal. NEUROLOGIC: No focal deficit. Cranial nerves II through XII are grossly intact. No headache, no double vision or headache. SKIN: Warm and dry. Intact. Turgor-normal. LYMPHATIC: No palpable lymph nodes/no lymphedema. MUSCULOSKELETAL: Normal joints with no swelling. Muscle tone is normal. LAB REVIEW: 12/26/16 04:30 12/26/16 04:30 ASSESSMENT: 1. Fever 2. Decubitus ulcer with history of cellulitis which has resolved. Decubitus ulcer is healing slowly. The patient is to be referred to wound care. Dr. Vizcaino, surgical consult to see. 3. Weakness 4. Edema improving left lower extremity PLAN: 1. Dr. Vizcaino to continue to follow. 2. UA 3. Chest x-ray. 4. Blood culture today Plan and coordination of the patient's care discussed in the presence of Dry Cure Worker and nurse. CONDITION: Stable SCRIBED BY: ROSE GARCIA, Event Specialist Food Demonstrator scribed while in presence of service performed by Dr. SHELBIE GALLOWAY/PRIYANKA SAHU, RENE on 12/28/16 ([id number])
--- NOTE | 2016-12-28 13:37 | DI ---
Exam: Single x-ray of the chest. Comparison: 12/19/2016. Reason for exam: Fever, shortness of breath. FINDINGS: No pneumothorax, pleural effusion, or focal consolidation. The cardiac silhouette is unch anged. The imaged osseous structures appear grossly unremarkable without acute fracture. Degenerati ve changes are seen in the right shoulder. Impression: No acute cardiopulmonary process
--- NOTE | 2016-12-28 14:45 | CONS ---
DATE OF CONSULTATION: 12/27/16 @ 1:45 p.m.(SCRIBED BY NANCY RAYO) REASON FOR CONSULTATION: Mr. Mendez was seen at the request of his family physician, Dr. David, due to having two ulcerated areas to the coccyx and left inferior buttock. The areas were inspected. The patient has a superficial decubitus at the coccyx area measuring approximately 6 cm x 6 cm and deep tissue involvement in the posterior left inferior buttock measuring approximately 7 cm by 7 cm. RECOMMENDATIONS: 1. Side lying, left or right only; never back. 2. Warm, moist compresses to the inferior left buttock b.i.d. and p.r.n. 3. Apply Silvadene to the coccyx area after cleaning with soap and water b.i.d. and p.r.n. 4. Shower the patient every other day. If the areas are kept clean and the patient kept off his back, the areas will likely heal. Debridement may be accomplished at a later date as the areas are now too painful to the patient. MTDRylee
[2016-12-28 19:34] LABS: BILIRUBIN,URINE Negative (NEGATIVE); KETONES,URINE Negative (NEGATIVE); LEUKOCYTE ESTERASE ,URINE Trace (NEGATIVE); NITRITE,URINE Negative (NEGATIVE); PROTEIN,URINE Trace (NEGATIVE); URINE, BLOOD Negative (NEGATIVE)
[2016-12-28 19:41] LABS: ADD URINE MICROSCOPIC YES
[2016-12-28] MEDS: CIPRO PO SCH (21:03)
[2016-12-28] MEDS: KLONOPIN PO SCH (21:03)
[2016-12-29 05:35] LABS: BASOPHILS % (AUTO) 0.5 % (0.0-3.0); EOSINOPHILS # (AUTO) 0.1 K/ul (0.0-0.7); EOSINOPHILS % (AUTO) 1.1 % (0.0-7.0); HEMATOCRIT 29.9 % (42.0-52.0); HEMOGLOBIN 9.8 g/dl (14.0-18.0); IMMATURE GRANULOCYTE % (AUTO) 1.5 % (0.0-5.0); LYMPHOCYTES # (AUTO) 1.7 K/uL (0.60-3.4); LYMPHOCYTES % (AUTO) 19.8 (10.0-50.0); MEAN CORPUSCULAR HGB CONC 32.8 (31.8-35.4); MEAN CORPUSCULAR VOLUME 97.7 fl (80.0-94.0); MONOCYTES # (AUTO) 0.7 K/uL (0.4-2.0); MONOCYTES % (AUTO) 8.2 (0-10); NEUTROPHILS # (AUTO) 5.9 K/ul (2.0-6.9); NEUTROPHILS % (AUTO) 68.9; PLATELET COUNT 411 10^3/uL (140-440); RED BLOOD COUNT 3.06 10^6/ul (4.70-6.10); WHITE BLOOD COUNT 8.54 K/ul (4.2-10.2)
[2016-12-29] MEDS: PROTONIX PO SCH ×2 (05:55→16:39)
[2016-12-29] MEDS: LASIX TAB PO SCH ×2 (05:55→16:39)
[2016-12-29] MEDS: SYNTHROID PO SCH (05:55)
[2016-12-29 06:02] LABS: ALBUMIN 2.3 g/dL (3.4-5.0); ALBUMIN/GLOBULIN RATIO 0.53; ANION GAP 13.3; BILIRUBIN,TOTAL 0.31 mg/dL (0.00-1.20); BUN/CREATININE RATIO 25.71; CALCIUM 9.4 mg/dL (8.2-10.2); CREATININE 1.05 mg/dL (0.60-1.10); POTASSIUM 4.3 mmol/L (3.5-5.1); TOTAL PROTEIN 6.6 g/dL (5.8-8.1)
[2016-12-29] MEDS: CIPRO PO SCH ×2 (07:08→21:13)
[2016-12-29] MEDS: LOVENOX SUBCUT SCH (08:02)
[2016-12-29] MEDS: ZINC-220 PO SCH ×2 (08:03→21:13)
[2016-12-29] MEDS: VITAMIN C PO SCH (08:03)
[2016-12-29] MEDS: TENORMIN PO SCH (08:03)
[2016-12-29] MEDS: ZOCOR PO SCH (08:03)
[2016-12-29] MEDS: ZESTRIL PO SCH (08:04)
[2016-12-29] MEDS: FERROUS SULFATE PO SCH (08:04)
[2016-12-29] MEDS: K-DUR PO SCH ×2 (08:06→16:39)
[2016-12-29] MEDS: SANTYL TP SCH (08:09)
[2016-12-29] MEDS: CALMOSEPTINE OINTMENT TP SCH ×2 (08:09→21:16)
[2016-12-29] MEDS: SILVADENE CREAM TP SCH ×2 (08:10→21:17)
[2016-12-29] MEDS: NYSTOP POWDER TP SCH ×2 (08:10→21:16)
[2016-12-29] MEDS: NORCO 5-325 PO PRN (21:13)
[2016-12-29] MEDS: KLONOPIN PO SCH (21:13)
[2016-12-30] MEDS: CIPRO PO SCH ×2 (05:39→20:41)
[2016-12-30] MEDS: SYNTHROID PO SCH (05:40)
[2016-12-30] MEDS: PROTONIX PO SCH ×2 (05:40→16:36)
[2016-12-30] MEDS: LASIX TAB PO SCH ×2 (05:40→16:36)
[2016-12-30] MEDS: ZINC-220 PO SCH ×2 (08:08→20:42)
[2016-12-30] MEDS: K-DUR PO SCH ×2 (08:08→16:36)
[2016-12-30] MEDS: LOVENOX SUBCUT SCH (08:08)
[2016-12-30] MEDS: SILVADENE CREAM TP SCH ×2 (08:09→20:44)
[2016-12-30] MEDS: VITAMIN C PO SCH (08:09)
[2016-12-30] MEDS: ZESTRIL PO SCH (08:09)
[2016-12-30] MEDS: TENORMIN PO SCH (08:09)
[2016-12-30] MEDS: ZOCOR PO SCH (08:09)
[2016-12-30] MEDS: FERROUS SULFATE PO SCH (08:09)
[2016-12-30] MEDS: CALMOSEPTINE OINTMENT TP SCH ×2 (08:10→20:45)
[2016-12-30] MEDS: SANTYL TP SCH (08:10)
[2016-12-30] MEDS: NYSTOP POWDER TP SCH ×2 (08:10→20:44)
[2016-12-30] MEDS: KLONOPIN PO SCH (20:41)
[2016-12-30] MEDS: NORCO 5-325 PO PRN (20:42)
[2016-12-31] MEDS: PROTONIX PO SCH (05:34)
[2016-12-31] MEDS: LASIX TAB PO SCH (05:34)
[2016-12-31] MEDS: SYNTHROID PO SCH (05:34)
[2016-12-31] MEDS: CIPRO PO SCH (05:34)
[2016-12-31 05:47] VITALS: BP 111/64; TEMP 97
[2016-12-31] MEDS: LOVENOX SUBCUT SCH (08:35)
[2016-12-31] MEDS: TENORMIN PO SCH (08:36)
[2016-12-31] MEDS: VITAMIN C PO SCH (08:36)
[2016-12-31] MEDS: ZINC-220 PO SCH (08:36)
[2016-12-31] MEDS: K-DUR PO SCH (08:36)
[2016-12-31] MEDS: ZESTRIL PO SCH (08:36)
[2016-12-31] MEDS: FERROUS SULFATE PO SCH (08:36)
[2016-12-31] MEDS: ZOCOR PO SCH (08:36)
[2016-12-31] MEDS: CALMOSEPTINE OINTMENT TP SCH (08:37)
[2016-12-31] MEDS: NYSTOP POWDER TP SCH (08:37)
[2016-12-31] MEDS: SILVADENE CREAM TP SCH (08:37)
[2016-12-31] MEDS: SANTYL TP SCH (08:38)
--- NOTE | 2016-12-31 10:34 | CONS ---
DATE OF CONSULTATION: 12/28/16 @ 1600 (SCRIBED BY NANCY RAYO) The ulcer beneath the left buttock continues to have superficial irritation. The assessment is the same as yesterday. I will attempt debridement in a couple of days. The decubitus ulcer to the coccyx is pink and clean. The patient continues to reposition himself on his back. I have spoken to him to explain that because of his decubitus ulcers, he should never be positioned on his back. The patient is agreeable. The nursing staff have been instructed to cleanse the area and dry with a blow dryer several times daily, then when dry, apply the Santyl to the area b.i.d. Again, the patient should be showered frequently. He may participate in PT/OT modalities but sitting on his bottom only for short periods of time. DANIEL
--- NOTE | 2016-12-31 10:39 | CM.DICTOOL ---
ADMISSION: 12/19/16 15:32 FINAL DIAGNOSIS SEPSIS PRESSURE ULCER LEFT BUTTOX, UNSTAGEABLE (PSEUDOMAS AERUGINOSA + PROTEUS MIRABILIS) ON ADMISSION PRESSURE ULCER AT BOTTOM OF COCCYX, STAGE II (PRESENT ON ADMISSION) DECUBITUS ULCER LEFT HEEL, UNSTAGEABLE (PRESENT ON ADMISSION) COLITIS (CT PELVIS 12/15/16) OSTEOARTHRITIS AND JOINT EFFUSION OF THE LEFT ELBOW (X-RAY 12/19/16) DEPENDENT LEG EDEMA HYPERTENSION HYPOTHYROIDISM CAD PAD DYSLIPIDEMIA ANEMIA HIATAL HERNIA DEPRESSION BACK SURGERIES X 2 ENDOSCOPY, 2013 DR. BOLIVAR LAST VITALS Temp Pulse Resp BP Pulse Ox 97.0 F L 57 L 16 111/64 99 12/31/16 05:47 12/31/16 05:47 12/31/16 05:47 12/31/16 05:47 12/31/16 05:47 ACTIVE HOME MEDICATIONS Atenolol (Tenormin) 50 mg PO DAILY SIDRA (DECREASED FROM 100 MG DAILY) Last Admin: 12/31/16 08:36 Dose: 50 mg Calamine/Phenol (Calmoseptine Ointment) 1 applic TP BID SIDRA (NEW PRESCRIPTION ) Last Admin: 12/31/16 08:37 Dose: 1 applic Ciprofloxacin (Cipro) 750 mg PO BIDCIPRO X 4 DAYS SIDRA (NEW PRESCRIPTION) Last Admin: 12/31/16 05:34 Dose: 750 mg Clonazepam (Klonopin) 1 mg PO BEDTIME SIDRA Last Admin: 12/30/16 20:41 Dose: 1 mg Collagenase (Santyl) 1 applic TP DAILY SIDRA Last Admin: 12/31/16 08:38 Dose: 1 applic Ferrous Sulfate (Ferrous Sulfate) 324 mg PO DAILY SIDRA Last Admin: 12/31/16 08:36 Dose: 324 mg Furosemide (Lasix Tab) 40 mg PO DAILYAC SIDRA (INCREASED FROM 20 MG M,W,F SA) Last Admin: 12/31/16 05:34 Dose: 40 mg Levothyroxine Sodium (Synthroid) 50 mcg PO QDAC SIDRA Last Admin: 12/31/16 05:34 Dose: 50 mcg Lisinopril (Zestril) 10 mg PO DAILY SIDRA (DECREASED FROM 20 MG DAILY) Last Admin: 12/31/16 08:36 Dose: 10 mg Pantoprazole Sodium (Protonix) 40 mg PO BIDAC SIDRA Last Admin: 12/31/16 05:34 Dose: 40 mg Potassium Chloride (K-Dur) 40 meq PO BIDWM SIDRA (INCREASED FROM 10 MEQ M,W,F, SA) Last Admin: 12/31/16 08:36 Dose: 40 meq Silver Sulfadiazine (Silvadene Cream) 1 applic TP BID SIDRA (PRESCRIPTION) Last Admin: 12/31/16 08:37 Dose: 1 applic Simvastatin (Zocor) 40 mg PO DAILY SIDRA Last Admin: 12/31/16 08:36 Dose: 40 mg ALLERGIES morphine Adverse Reaction (Verified 12/15/16 10:16) NEW PRESCRIPTIONS: PLEASE NOTE THE DECREASE IN YOUR LISINOPRIL (ZESTRIL) TO 10 MG DAILY PLEASE NOTE THE THE INCREASE IN YOUR LASIX 40 MG DAILY PLEASE NOTE THE INCREASE IN YOUR POTASSIUM TO 40 MG DAILY PLEASE NOTE THE DECREASE IN YOUR ATENOLOL (TENORMIN) TO 50 MG DAILY NEW PRESCRIPTIONS: CIPRO 750 MG, TAKE ONE TABLET BY MOUTH TWICE DAILY FOR 4 DAYS ONLY K-DUR 40 MEQ, TAKE ONE TABLET BY MOUTH DAILY LASIX 40 MG, TAKE ONE TABLET BY MOUTH DAILY SILVER SULFADIAZINE CREAM TP TO CLEANSED AND DRIED GLUTEAL FOLDS TWICE DAILY AND NEEDED CALAMINE/PHENOL OINTMENT TP TO CLEANSED AND DRIED COCCYX DECUB TWICE DAILY AND NEEDED SMOKING: NONSMOKER LAB REVIEW: 12/29/16 05:31 12/29/16 05:31 PLAN: DISCHARGE HOME TODAY RETURN TO SEE DR. GALLOWAY IN HIS OFFICE IN 5-7 DAYS. PLEASE PHONE HIS OFFICE TO SCHEDULE YOUR FOLLOW UP APPOINTMENT [phone] RETURN TO [facility] FOR WOUND CARE BY LORI ON 01/02/17 AT 9 A.M. [facility] WILL PHONE YOU AT HOME TO SCHEDULE VISITS [phone] MALAWIAN PULLMAN PATIENT WILL DELIVER YOUR HOSPITAL BED WITH TRAPEZE BAR AND WHEEL CHAIR CUSHION [phone] RESUME YOUR HOME MEDICATIONS PER LIST PROVIDED BY THE NURSING STAFF PLEASE NOTE THE DECREASE IN YOUR LISINOPRIL (ZESTRIL) TO 10 MG DAILY PLEASE NOTE THE THE INCREASE IN YOUR LASIX 40 MG DAILY PLEASE NOTE THE INCREASE IN YOUR POTASSIUM TO 40 MG DAILY PLEASE NOTE THE DECREASE IN YOUR ATENOLOL (TENORMIN) TO 50 MG DAILY NEW PRESCRIPTIONS: CIPRO 750 MG, TAKE ONE TABLET BY MOUTH TWICE DAILY FOR 4 DAYS ONLY K-DUR 40 MEQ, TAKE ONE TABLET BY MOUTH DAILY LASIX 40 MG, TAKE ONE TABLET BY MOUTH DAILY WOUND CARE: CLEANSE AREA TO LEFT BUTTOCK TWICE DAILY AND NEEDED. DRY THOROUGHLY. APPLY SANTYL OINTMENT DAILY. NEVER POSITION PATIENT ON HIS BACK, ONLY ON RIGHT OR LEFT SIDES CLEANSE AREA TO COCCYX TWICE DAILY AND NEEDED. DRY THOROUGHLY. APPLY CALMOSEPTIN OINTMENT. APPLY SILVADENE TO GLUTEAL FOLDS AT EXCORIATED AREAS TWICE DAILY AND NEEDED AFTER CLEANSING AND DRYING THE AREAS CLEANSE AREA TO LEFT HEEL. DRY THOROUGHLY FOLLOW INSTRUCTIONS PROVIDED BY [facility] AFTER APPOINTMENT ON 01/02/17 DIET: HIGH PROTEIN FOR WOUND HEALING SUMMARY: THE PATIENT IS ALERT AND ORIENTED X3. HE CURRENTLY RESIDES AT HOME WITH HIS SISTER, MARIAJOSE TAYLOR. SHE HAS PROVIDED CARE AND ASSISTANCE NEEDED FOR THE PATIENT FOR MANY YEARS. MR. CEJA HAS A POWER CHAIR FOR MOBILITY AT HOME. HE HAS A WHEEL CHAIR AND AN ELEVATED COMMODE SEAT AT HOME WELL. WE HAVE ARRANGED FOR [facility] TO PROVIDE GENERALIZED ASSESSMENT BY NURSING, BATH AIDE ASSISTANCE, PT/OT FOR REHAB IN THE HOME SETTING. MR. CEJA AND HIS SISTER ARE AGREEABLE AND HAVE REQUESTED THESE SERVICES FOR DISCHARGE. ON SEVERAL OCCASIONS DURING THIS STAY WE HAVE RECOMMENDED TO THE PATIENT AND HIS SISTER THAT PERHAPS [facility] ADMISSION FOR WOUND CARE AND TO CONTINUE REHAB MAY BE MORE APPROPRIATE CONSIDERING THE LIMITED ABILITIES OF BOTH HE AND MS. TAYLOR. AT EACH SUGGESTION FOR THIS DISCHARGE PLAN WE WERE MET WITH GREAT RESISTANCE. BOTH ARE VERY ADAMANT THAT [facility] PLACEMENT IS NOT AN OPTION EVEN FOR SHORT TERM PLACEMENT. WE WILL ABIDE BY THE WISHES OF THIS PATIENT AND HIS SISTER. WE HAVE ARRANGED WITH [facility] FOR [facility] WITH A TRAPEZE BAR FOR BED MOBILITY AND A CUSHION FOR THE WHEEL CHAIR DUE TO THE DECUBITUS ULCERS AND REQUIRED POSITIONING OFF MR. CEJA'S BACK/BUTTOCKS TO ASSIST IN HEALING. WE HAVE ARRANGED FOR HOME HEALTH TO DO WOUND CARE AND SCHEDULED FOLLOW UP APPOINTMENT WITH [facility] TO FOLLOW THE PATIENT'S WOUND CARE. MR. CEJA WILL ALSO CONTINUE TO BE FOLLOWED THROUGH THE OFFICE FOR MEDICAL NEEDS. SKIN CONDITION AT DISCHARGE: POOR TO FAIR DECUBITUS ULCERS PRESENT ON ADMISSION TO THE COCCYX, STAGE 2; BENEATH THE LEFT BUTTOCK, UNSTAGEABLE; AND TO THE LEFT HEEL, UNSTAGEABLE CODE STATUS AT DISCHARGE: FULL CODE LONG SAHU APRN SHELBIE GALLOWAY M.D.
--- NOTE | 2016-12-31 12:57 | PCM.PROG ---
Attending Provider: ATTENDING PROVIDER: Dr. SHELBIE GALLOWAY DATE OF SERVICE: 12/31/16 SUBJECTIVE: This 81 year old WHITE/ M was hospitalized 12/19/16. The patient is seen with Priyanka, Nurse Practitioner. He is lying in bed, alert. states he is ready to go home. He has been getting up to shower sit in chair. REVIEW OF SYSTEMS: CONSTITUTIONAL: Generalized weakness. No night sweats. No fever or chills. HEENT: Eyes: No visual changes. No eye pain. No eye discharge. ENT: No runny nose. No epistaxis. No sinus pain. No odynophagia. No congestion. RESPIRATORY: No cough, no congestion. No hemoptysis. No shortness of breath. CARDIOVASCULAR: No angina symptoms. No CHF symptoms. No atypical chest pain for CAD. No palpitations. No orthopnea.. GASTROINTESTINAL: No abdominal pain. No nausea or vomiting. No diarrhea or constipation. No hematemesis. No hematochezia. GENITOURINARY: No urgency. No frequency. No dysuria. No hematuria. No obstructive symptoms. No discharge. No pain. No significant abnormal bleeding. MUSCULOSKELETAL: No musculoskeletal pain; no joint swelling. NEUROLOGICAL: Awake, alert, oriented to time, place and person. No headache. No neck pain. No syncope. No seizures. No dizziness. PSYCHIATRIC: Not anxious. No depression. No suicidal thoughts. No homicidal thoughts. SKIN: No rash. Wound left buttock. Blister on left heel. ENDOCRINE: No unexplained weight loss. No weight gain. HEMATOLOGIC/LYMPHATIC: No anemia. No purpura. No petechiae. No prolonged or excessive bleeding. No palpable lymph nodes. PHYSICAL EXAMINATION: GENERAL: The patient is awake, alert and oriented, lying in bed in no distress. VITAL SIGNS: Temperature 97.0 F, Pulse 57, Respiratory Rate 16, BP 111/64, Pulse Ox 99% HEENT: Head normocephalic, atraumatic. Eyes: Extraocular muscles are intact. Pupils are equal, round and reactive to light and accommodation. Ears: No lesions. Nose appeared normal. Throat: No exudate or erythema. NECK: Supple. No JVD, no carotid bruit. No lymphadenopathy or thyromegaly. LUNGS: Diminished breath sounds bilaterally. Clear to auscultation. Percussion note normal. Chest symmetrical. HEART: S1, S2, no S3. No murmurs. No cyanosis or clubbing. No ascites. Pulses: Dorsalis pedis and posterior tibial pulses +1 to +2 both sides. ABDOMEN: Soft. Non-tender. Bowel sounds active. No CVA tenderness. No mass felt. EXTREMITIES: No edema. Full range of motion of all extremities, equal. NEUROLOGIC: No focal deficit. Cranial nerves II through XII are grossly intact. No headache, no double vision or headache. SKIN: Pressure ulcer left buttock presence on admission measuring 7.5 cm x 6.5 cm serous drainage, weepy, necrotic tissue, unchanged. Blister left heel, 1 " in diameter present since admission. LYMPHATIC: No palpable lymph nodes/no lymphedema. MUSCULOSKELETAL: Normal joints with no swelling. Muscle tone is normal. LAB REVIEW: 12/29/16 05:31 12/29/16 05:31 ASSESSMENT: 1. Fever, resolved 2. Decubitus ulcer with history of cellulitis which has resolved; decubitus ulcer is healing slowly (present since admission). The patient is to be referred to wound care. Dr. Vizcaino, surgical consult to see. 3. Weakness 4. Edema improving left lower extremity PLAN: 1. Anticipate discharge today. 2. Home Health 3. Cipro times four days 4. Hospital bed 5. prison placement discussed with both patient and sister, both adamantly refused. Plan and coordination of the patient's care discussed in the presence of Career Coordinator and nurse. CONDITION: Stable SCRIBED BY: ROSE GARCIA Fur Blower Operator scribed while in presence of service performed by Dr. SHELBIE GALLOWAY/PRIYANKA SAHU APRN on 12/31/16 ([id number])
--- NOTE | 2017-01-01 15:25 | PN ---
DATE OF SERVICE: 12/28/16 SUBJECTIVE: I had a talk with the sister who lives with the patient. According to the sister the patient never told her about having a sore in the left buttock, probably the duration of that sore is nearly 6 weeks before he brought it to her attention and the patient was hospitalized because he was running fever with it. The patient's condition has stabilized, he is still running low grade fever. The patient is going to be on oral antibiotics. Zosyn will be discontinued. The patient's decubitus ulcer is relatively superficial and I don' t think it is contributing towards fever. The patient has already been seen by Dr. Vizcaino for debridement and also has been referred to Wound Management. The patient's condition otherwise is stable. The patient was seen and examined with Nurse Practitioner. TIME SPENT: More than 30 minutes. Plan and coordination of the patient's care discussed in the presence of nurse. DANIEL
--- NOTE | 2017-01-03 13:00 | PN ---
DATE OF SERVICE: 12/29/16 SUBJECTIVE: 81 year old white male hospitalized with fever and pressure sores, cellulitis, dehydration. The patient's condition has improved. The patient is being seen by Dr. Vizcaino certified ophthalmic surgical assistant for the left decubitus buttock ulcer. Left buttock has decubitus ulcer which is oblong [id number] relatively superficial. It is not muscle deep. At present time according to the certified ophthalmic surgical assistant the ulcer is not ready to be debrided. REVIEW OF SYSTEMS: CONSTITUTIONAL: No night sweats. No fatigue, malaise, lethargy. No fever or chills. HEENT: Eyes: No visual changes. No eye pain. No eye discharge. ENT: No runny nose. No epistaxis. No sinus pain. No sore throat. No odynophagia. No congestion. RESPIRATORY: No cough, no congestion. No hemoptysis. No shortness of breath. CARDIOVASCULAR: No angina symptoms. No CHF symptoms. No atypical chest pain for CAD. No palpitations. No orthopnea. GASTROINTESTINAL: No abdominal pain. No nausea or vomiting. No diarrhea or constipation. No hematemesis. No hematochezia. GENITOURINARY: No urgency. No frequency. No dysuria. No hematuria. No obstructive symptoms. No discharge. No pain. No significant abnormal bleeding. MUSCULOSKELETAL: No musculoskeletal pain; no joint swelling. NEUROLOGICAL: No headache. No neck pain. No syncope. No seizures. No dizziness. PSYCHIATRIC: Not anxious. No depression. No suicidal thoughts. No homicidal thoughts. SKIN: No rash. No lesions. No wounds. ENDOCRINE: No unexplained weight loss. No weight gain. HEMATOLOGIC/LYMPHATIC: No anemia. No purpura. No petechiae. No prolonged or excessive bleeding. No palpable lymph nodes. PHYSICAL EXAMINATION: GENERAL: The patient is oriented to time, place and person. VITAL SIGNS: Temperature 97.7, pulse 60, respiratory rate 20, blood pressure 108/67 and pulse ox 97%. HEENT: Head normocephalic, atraumatic. Eyes: Extraocular muscles are intact. Pupils are equal, round and reactive to light and accommodation. Ears: No lesions. Nose appeared normal. Throat: No exudate or erythema. NECK: Supple. No JVD, no carotid bruit. No lymphadenopathy or thyromegaly. LUNGS: Decreased breath sounds but clear to auscultation. Percussion note normal. Chest symmetrical. HEART: S1, S2, no S3. No murmurs. No cyanosis or clubbing. No ascites. Pulses: Dorsalis pedis and posterior tibial pulses +1 to +2 both sides. ABDOMEN: Soft. Nontender. Bowel sounds active. No CVA tenderness. No mass felt. EXTREMITIES: No edema. Full range of motion of all extremities, equal. NEUROLOGIC: No focal deficit. Cranial nerves II through XII are grossly intact. No headache, no double vision or headache. SKIN: Not dry. Intact. Turgor - normal. LYMPHATIC: No palpable lymph nodes/no lymphedema. MUSCULOSKELETAL: Normal joints with no swelling. Muscle tone is normal. LABS: hgb 9.8, hct 29, WBC 8,500 normal differential, creatinine 1, BUN 27, potassium 4 ASSESSMENT: 1. Decubitus ulcer with cellulitis under control 2. PAC's 3. CHF 4. Hypertension all under control PLAN: 1. Continue antibiotics 2. Continue care for the decubitus ulcer 3. The patient is advised to change the sides frequently. It is going to be difficult to heal this ulcer because the patient is practically bed ridden, not walked since age 24. He doesn't have much help at home at all and he doesn't want to go to the [facility]. He is food intake is also poor in a way because there is nobody to prepare the food and his appetite has been declining. TIME SPENT: More than 30 minutes. Plan and coordination of the patient's care discussed in the presence of nurse. DANIEL
--- NOTE | 2017-01-03 14:35 | DS ---
DATE OF SERVICE: 12/31/16 FINAL DIAGNOSIS: 1. SEPSIS 2. PRESSURE ULCER LEFT BUTTOCK, UNSTAGEABLE (PSEUDOMONAS AERUGINOSA + PROTEUS MIRABILIS) ON ADMISSION 3. PRESSURE ULCER AT BOTTOM OF COCCYX STAGE II )PRESENT ON ADMISSION) 4. DECUBITUS ULCER LEFT HEEL, UNSTAGEABLE (PRESENT ON ADMISSION) 5. COLITIS (CT PELVIS 12/15/16) 6. OSTEOARTHRITIS AND JOINT EFFUSION OF THE LEFT ELBOW (X-RAY 12/18/16) 7. HYPERTENSION 8. HYPOTHYROIDISM 9. CAD 10. PAD 11. DYSLIPIDEMIA 12. ANEMIA 13. HIATAL HERNIA 14. DEPRESSION 15. LEG EDEMA, DEPENDENT 16. BACK SURGERIES TIMES TWO 17. ENDOSCOPY, 2012, DR. BOLIVAR DISCHARGE INSTRUCTIONS: 1. Return to see Dr. David in his office in 5 to 7 days. 2. Return to [facility] for wound care by Chris on 01/02/17 at 9 a.m. 3. [facility] will phone you at home to schedule visits [phone] 4. [facility] patient will deliver your hospital bed with trapeze bar and wheel chair cushion [phone] MEDICATIONS AT DISCHARGE: 1. Atenolol 50 mg p.o. daily SIDRA (Decreased from 100 mg daily 2. Calamine/Phenol (Calmoseptine Ointment) one application TP b.i.d. SIDRA (NEW PRESCRIPTION) 3. Ciprofloxacin (Cipro) 750 mg p.o. b.i.d. Cipro times four days SIDRA (NEW PRESCRIPTION) 4. Clonazepam (Klonopin) 1 mg p.o. bedtime SIDRA 5. Collagenase (Santyl) one application TP daily SIDRA 6. Ferrous Sulfate 324 mg p.o. daily SIDRA 7. Furosemide (Lasix) 40 mg p.o. daily a.c. SIDRA (INCREASED FROM 20 mg , , , Sa) 8. Levothyroxine (Synthroid) 50 mg p.o. q.d a.c. SIDRA 9. Lisinopril (Zestril) 10 mg p.o. daily SIDRA (DECREASED FROM 20 MG DAILY) 10. Pantoprazole Sodium (Protonix) 40 mg p.o. b.i.d. a.c. SIDRA 11. Potassium Chloride (K-Dur) 40 mEq b.i.d. with meal SIDRA (INCREASED FROM 10 MEQ , , F, SA) 12. Silver Sulfadiazine (Silvadene cream) application TP b.i.d. [facility] 13. Simvastatin (Zocor) 40 mg p.o. daily [facility] NEW PRESCRIPTIONS: 1. Please note the decrease in your Lisinopril (Zestril) to 10 mg daily 2. Please note the increase in your Lasix 40 mg daily 3. Please note the increase in your potassium to 40 mg daily 4. Please note the decrease in your Atenolol (Tenormin) to 50 mg daily 5. Cipro 75 mg take one tablet by mouth twice daily for 4 days only 6. K-Dur 40 mEq take one tablet by mouth daily 7. Lasix 40 mg take one tablet by mouth daily 8. Silver Sulfadiazine cream TP to cleansed and dried coccyx decub twice daily and as needed WOUND CARE: Cleanse area to left buttock twice daily and as needed. Dry thoroughly. Apply Santyl ointment daily. Never position on his back only on right or left side. Cleanse area to coccyx twice daily and as needed. Dry thoroughly. Apply Calmoseptine ointment. Apply Silvadene to gluteal folds at excoriated areas twice daily and as needed after cleansing and drying his areas. Cleanse area to the left heel. Dry thoroughly. Follow instructions provided by [facility] after appointment on 01/02/17. DIET INSTRUCTIONS: High protein for wound healing ACTIVITY: As patient tolerates SMOKING: Nonsmoker DISEASE SPECIFIC EDUCATION: Wound care Medications Follow up appointments Diet Home Health/PT/OT HOSPITAL COURSE: This is an 81-year-old male who presented over the weekend to [facility] complaining of fever, cough and weakness. He was found to have sepsis due to a pressure ulcer on the left buttock which was cultured and later grew Pseudomonas and Proteus. He also had a pressure ulcer on admission at the bottom of the coccyx which was a Stage II along with an ulcer on the left heel. On admission he had a fever up to 101. Blood cultures were done which ended up being negative. He is hypotensive, weak, confused, he was not eating well for several days. He was placed on IV antibiotics, Zosyn and Vancomycin. Over the course, he had a negative chest x-ray, negative urine. Approximately the third or fourth day of admission he developed redness and swelling of the left elbow. A workup was done and he was negative for osteomyelitis. X-ray showed only joint effusion and osteoarthritis of the left elbow with two days of IM Decadron 4 mg. The swelling and pain resolved. The patient continued to have a low grade temp for several days with a T max of 100.6. His UA was normal. Chest x-ray was normal. Blood cultures were normal. This was all thought to be due to his multiple wounds. After change to p.o. antibiotics due to the pressure ulcer , [facility]. He was then seen by Wound Care at [facility] as well as Dr. Vizcaino was consulted. Dr. Vizcaino debrided the wound and provided recommendations regarding antibiotic treatment. The patient has limited mobility due to osteoarthritis, advanced age, dementia. He refuses to go to a usp. For several days, he refused to get up from the bed due to pain. He refused to do Physical Therapy in the hospital. He currently lives at home with his sister who also uses the assistance of a walker and has advanced age. Both refuse usp placement for Mr. Mendez. He says he would like to go home today. I do believe he has reached his maximal improvement while in the hospital. He has agreed to see Wound Care as an outpatient as well as to have home health follow him. He will continue with Cipro 750 mg for the next four days. We have also decreased his blood pressure medications while he is in the hospital due to hypotension, decreased appetite. His Lisinopril was decreased to 10 mg daily from 20 due to increased swelling in his lower extremities basically due to immobility. His Lasix was increased to 40 mg daily and we subsequently increased his potassium to 40 mg daily as well. His Atenolol was decreased to 50 mg daily due to hypotension. We will continue treatment with Silver Sulfadiazine cream and Santyl to his buttocks wounds. Home Health will also follow these. The patient has been afebrile now for the past four to five days. He is eating approximately 50 to 75% of his meals. He has been up and about with assistance of a walker and sat in the chair. Home Health will do PT and OT in the home setting. He and his sister are both agreeable to this. He is instructed to continue with a high protein diet for wound healing. He has an appointment with Wound Care on 01/02 at 9 a.m. We will see him in the office as well later this week. Again, it was encouraged due to the deteriorating health of both he and his sister, that he be put in a usp for chcf care at least for temporary time; however, he and his sister both have refused. He will be discharged in stable condition with negative growth on a repeat wound culture of the buttock wound. We will continue to follow him closely. Today, on day of discharge, his hemoglobin has remained stable at 9.8, hematocrit 29.9, white count 8.5. Kidney function has remained stable. BUN 27, creatinine 1.05, sodium 138, potassium 4.3. Vital signs have been steady and stable. Temperature 97, heart rate 57, respirations 16, BP 111/64, pulse ox 99%. TIME SPENT: More than 60 minutes. MTDD
--- NOTE | 2017-01-03 15:50 | PN ---
DATE OF SERVICE: 12/31/16 SUBJECTIVE: 81 year old white male hospitalized with cellulitis with decubitus ulcer. The patient's cellulitis and decubitus ulcer is being treated with help of Wound Care and surgical instrument technician and antibiotics. Also the patient has been educated about it in the Swing Bed; How to turn and what kind of precautions to take. The patient is oriented to time, place and person. The patient is strongly advised to go to the Retirement but he is going to stay with his sister who is also to some extent handicap with multiple medical problems but sister says that she is going to take care of him the best she could. The patient's nutritional status is borderline. At home I don't know how he is going to manage food because sister cooks at times. He is bed ridden and has been in the wheelchair since age 24. Decubitus ulcer superficial to some extent with the membrane. The patient is going to be on Cipro, Home Health Care along with Wound Care is going to follow him along with me. PROGNOSIS: Guarded The patient was seen and examined with Nurse Practitioner and In House Cra. TIME SPENT: More than 30 minutes. Plan and coordination of the patient's care discussed in the presence of nurse. DANIEL
== END 2016-12-31 13:44 | disposition home or self-care (01) | DRG 872 ==
LOC: MEDSURG B 15:32
PROVIDERS: ADMIT Internal Medicine; ATTEND Internal Medicine
DX: A41.9 Sepsis, unspecified organism (principal); L89.329 Pressure ulcer of left buttock, unspecified stage; L89.152 Pressure ulcer of sacral region, stage 2; M47.9 Spondylosis, unspecified; I10 Essential (primary) hypertension; E78.5 Hyperlipidemia, unspecified; E03.9 Hypothyroidism, unspecified; R60.0 Localized edema; M25.422 Effusion, left elbow; M19.022 Primary osteoarthritis, left elbow; I51.7 Cardiomegaly; B96.5 Pseudomonas (aeruginosa) (mallei) (pseudomallei) as the cause of diseases classified elsewhere; B96.4 Proteus (mirabilis) (morganii) as the cause of diseases classified elsewhere; I49.1 Atrial premature depolarization; K52.9 Noninfective gastroenteritis and colitis, unspecified; I25.10 Atherosclerotic heart disease of native coronary artery without angina pectoris; I73.9 Peripheral vascular disease, unspecified; D64.9 Anemia, unspecified; K44.9 Diaphragmatic hernia without obstruction or gangrene; F32.9 Major depressive disorder, single episode, unspecified; F03.90 Unspecified dementia, unspecified severity, without behavioral disturbance, psychotic disturbance, mood disturbance, and anxiety; I95.9 Hypotension, unspecified; E87.6 Hypokalemia; S90.822A Blister (nonthermal), left foot, initial encounter; E86.0 Dehydration; E46 Unspecified protein-calorie malnutrition; Z99.3 Dependence on wheelchair; Z79.899 Other long term (current) drug therapy
CPT/HCPCS: 36415; 80053; 81001; 85025; 87040; 93005; 93010; 93227; 97802

== ENCOUNTER 2016-12-26 10:47 | Outpatient (CLI) | END 2016-12-26 10:48 | disposition home or self-care (01) | LOC: WOUND 10:47 | PROVIDERS: ATTEND Nurse Practitioner Family | DX: L89.153 Pressure ulcer of sacral region, stage 3 (principal); L89.620 Pressure ulcer of left heel, unstageable; L89.320 Pressure ulcer of left buttock, unstageable; I10 Essential (primary) hypertension; E78.5 Hyperlipidemia, unspecified ==

== ENCOUNTER 2017-01-09 11:00 | Outpatient (CLI) | END 2017-01-09 11:01 | disposition home or self-care (01) | LOC: WOUND 11:00 | PROVIDERS: ATTEND Nurse Practitioner Family | DX: L89.153 Pressure ulcer of sacral region, stage 3 (principal); L89.620 Pressure ulcer of left heel, unstageable; L89.320 Pressure ulcer of left buttock, unstageable; I10 Essential (primary) hypertension; E78.5 Hyperlipidemia, unspecified | CPT/HCPCS: 11042; 11045; 99213 ==

== ENCOUNTER 2017-01-09 16:36 | Outpatient (CLI) | END 2017-01-09 16:37 | disposition left against medical advice (07) | LOC: AMBL 16:36 | PROVIDERS: ATTEND Internal Medicine | DX: Z04.3 Encounter for examination and observation following other accident (principal); W05.0XXA Fall from non-moving wheelchair, initial encounter ==

== ENCOUNTER → 2017-01-23 | Outpatient (CLI) | payer OTHER | LOC: EDSTATUS 06:04 → WOUND 11:28 | PROVIDERS: ATTEND Nurse Practitioner Family | DX: L89.153 Pressure ulcer of sacral region, stage 3 (principal); L89.620 Pressure ulcer of left heel, unstageable; L89.320 Pressure ulcer of left buttock, unstageable; I10 Essential (primary) hypertension; E78.5 Hyperlipidemia, unspecified | CPT/HCPCS: 87070; 87186 ==

== ENCOUNTER 2017-01-30 12:38 | Inpatient (IN) ==
[2017-01-30] MEDS ORDERED: ZOFRAN 4 MG/2 ML IVP STA (13:14)
[2017-01-30 13:25] VITALS: BMI 21.6
[2017-01-30 13:36] LABS: BASOPHILS % (AUTO) 0.4 % (0.0-3.0); EOSINOPHILS # (AUTO) 0.1 K/ul (0.0-0.7); EOSINOPHILS % (AUTO) 1.2 % (0.0-7.0); HEMATOCRIT 30.7 % (42.0-52.0); HEMOGLOBIN 10.2 g/dl (14.0-18.0); IMMATURE GRANULOCYTE % (AUTO) 0.9 % (0.0-5.0); LYMPHOCYTES # (AUTO) 2.5 K/uL (0.60-3.4); LYMPHOCYTES % (AUTO) 23.5 (10.0-50.0); MEAN CORPUSCULAR HEMOGLOBIN 32.3 pg (27.0-31.0); MEAN CORPUSCULAR HGB CONC 33.2 (31.8-35.4); MEAN CORPUSCULAR VOLUME 97.2 fl (80.0-94.0); MONOCYTES # (AUTO) 0.8 K/uL (0.4-2.0); MONOCYTES % (AUTO) 7.4 (0-10); NEUTROPHILS % (AUTO) 66.6; PLATELET COUNT 252 10^3/uL (140-440); RED BLOOD COUNT 3.16 10^6/ul (4.70-6.10); WHITE BLOOD COUNT 10.45 K/ul (4.2-10.2)
[2017-01-30 14:03] LABS: ALBUMIN/GLOBULIN RATIO 0.67; ANION GAP 12.9; BILIRUBIN,TOTAL 0.64 mg/dL (0.00-1.20); CALCIUM 9.8 mg/dL (8.2-10.2); CREATININE 1.8 mg/dL (0.60-1.10); POTASSIUM 4.9 mmol/L (3.5-5.1); TOTAL PROTEIN 7.5 g/dL (5.8-8.1)
[2017-01-30] MEDS: DEXTROSE 5%-1/2NS IV SOLUTION 1,000 ML IV SCH (15:43)
[2017-01-30] MEDS: TORADOL IVP SCH ×2 (15:43→21:21)
[2017-01-30] MEDS: PROTONIX PO SCH (17:39)
[2017-01-30] MEDS: ROCEPHIN 1 GM in SODIUM CHLORIDE 50 ML IV SCH (20:57)
[2017-01-30] MEDS: CALMOSEPTINE OINTMENT TP SCH (20:57)
[2017-01-30] MEDS: KLONOPIN PO SCH (20:57)
[2017-01-30] MEDS: SILVADENE CREAM TP SCH (20:58)
[2017-01-31] MEDS: DEXTROSE 5%-1/2NS IV SOLUTION 1,000 ML IV SCH ×2 (05:29→20:22)
[2017-01-31] MEDS: PROTONIX PO SCH ×2 (05:53→17:55)
[2017-01-31] MEDS: LASIX TAB PO SCH (05:53)
[2017-01-31] MEDS: TORADOL IVP SCH ×3 (05:53→20:21)
[2017-01-31 06:05] LABS: BASOPHILS % (AUTO) 0.3 % (0.0-3.0); EOSINOPHILS # (AUTO) 0.2 K/ul (0.0-0.7); EOSINOPHILS % (AUTO) 2.4 % (0.0-7.0); HEMATOCRIT 26.4 % (42.0-52.0); HEMOGLOBIN 8.6 g/dl (14.0-18.0); IMMATURE GRANULOCYTE % (AUTO) 0.6 % (0.0-5.0); LYMPHOCYTES # (AUTO) 1.5 K/uL (0.60-3.4); LYMPHOCYTES % (AUTO) 18.3 (10.0-50.0); MEAN CORPUSCULAR HEMOGLOBIN 31.7 pg (27.0-31.0); MEAN CORPUSCULAR HGB CONC 32.6 (31.8-35.4); MEAN CORPUSCULAR VOLUME 97.4 fl (80.0-94.0); MONOCYTES # (AUTO) 0.6 K/uL (0.4-2.0); MONOCYTES % (AUTO) 7.8 (0-10); NEUTROPHILS # (AUTO) 5.7 K/ul (2.0-6.9); NEUTROPHILS % (AUTO) 70.6; PLATELET COUNT 216 10^3/uL (140-440); RED BLOOD COUNT 2.71 10^6/ul (4.70-6.10); WHITE BLOOD COUNT 7.99 K/ul (4.2-10.2)
[2017-01-31 06:31] LABS: ALANINE AMINOTRANSFERASE < 6 U/L (12-78); ALBUMIN 2.5 g/dL (3.4-5.0); ALBUMIN/GLOBULIN RATIO 0.66; ALKALINE PHOSPHATASE 83 U/L (56-119); ANION GAP 14.7; ASPARTATE AMINO TRANSFERASE 9 U/L (15-37); BILIRUBIN,TOTAL 0.38 mg/dL (0.00-1.20); BLOOD UREA NITROGEN 48 mg/dL (7-18); BUN/CREATININE RATIO 23.88; CALCIUM 8.9 mg/dL (8.2-10.2); CARBON DIOXIDE 19 mmol/L (23-31); CHLORIDE 111 mmol/L (98-107); CREATININE 2.01 mg/dL (0.60-1.10); GLUCOSE 109 mg/dL (82-115); POTASSIUM 4.7 mmol/L (3.5-5.1); SODIUM 140 mmol/L (136-145); TOTAL PROTEIN 6.3 g/dL (5.8-8.1)
[2017-01-31] MEDS: CALMOSEPTINE OINTMENT TP SCH ×2 (08:36→20:30)
[2017-01-31] MEDS: K-DUR PO SCH (08:36)
[2017-01-31] MEDS: TENORMIN PO SCH (08:36)
[2017-01-31] MEDS: SILVADENE CREAM TP SCH ×2 (08:36→20:30)
[2017-01-31] MEDS: ZESTRIL PO SCH (08:36)
[2017-01-31] MEDS: ZOCOR PO SCH (08:36)
[2017-01-31] MEDS: FERROUS SULFATE PO SCH (08:36)
[2017-01-31] MEDS ORDERED: NON-FORMULARY MEDICATION (Ferrous Sulfate [Ferrous Sulfate] 325 MG) PO SCH ×22 (09:00)
--- NOTE | 2017-01-31 11:37 | DI ---
Exam: Single x-ray of the chest. Comparison: 12/28/2016. Reason for exam: Short of breath. FINDINGS: Pneumothorax. There are patchy airspace opacities seen in both lung bases. The cardiac s ilhouette remains prominent in size. Image interpretation is somewhat limited by low lung volumes. De generative changes are seen in both shoulders. Impression: Patchy airspace opacities in both lung bases consistent with atelectasis or pneumonia.
--- NOTE | 2017-01-31 11:44 | PCM.PROG ---
Attending Provider: ATTENDING PROVIDER: Dr. SHELBIE GALLOWAY This patient is seen with Priyanka Coyne, Nurse Practitioner. DATE OF SERVICE: 01/31/17 SUBJECTIVE: This 81 year old WHITE/ M was hospitalized 01/30/17. The patient is lying in bed, is alert. Shortness of breath has improved. REVIEW OF SYSTEMS: CONSTITUTIONAL: Weakness. No night sweats. No fever or chills. HEENT: Eyes: No visual changes. No eye pain. No eye discharge. ENT: No runny nose. No epistaxis. No sinus pain. No odynophagia. No congestion. RESPIRATORY: No cough, no congestion. No hemoptysis. No shortness of breath. CARDIOVASCULAR: No angina symptoms. No CHF symptoms. No atypical chest pain for CAD. No palpitations. No orthopnea.. GASTROINTESTINAL: No abdominal pain. No nausea or vomiting. No diarrhea or constipation. No hematemesis. No hematochezia. GENITOURINARY: No urgency. No frequency. No dysuria. No hematuria. No obstructive symptoms. No discharge. No pain. No significant abnormal bleeding. MUSCULOSKELETAL: No musculoskeletal pain; no joint swelling. NEUROLOGICAL: Awake, alert. No headache. No neck pain. No syncope. No seizures. No dizziness. PSYCHIATRIC: Not anxious. No depression. No suicidal thoughts. No homicidal thoughts. SKIN: No rash. Multiple pressure ulcers. ENDOCRINE: No unexplained weight loss. No weight gain. HEMATOLOGIC/LYMPHATIC: No anemia. No purpura. No petechiae. No prolonged or excessive bleeding. No palpable lymph nodes. PHYSICAL EXAMINATION: GENERAL: The patient is awake, alert in bed in no distress. VITAL SIGNS: Temperature 98.3 F, Pulse 63, Respiratory Rate 16, BP 89/50, Pulse Ox 97% HEENT: Head normocephalic, atraumatic. Eyes: Extraocular muscles are intact. Pupils are equal, round and reactive to light and accommodation. Ears: No lesions. Nose appeared normal. Throat: No exudate or erythema. NECK: Supple. No JVD, no carotid bruit. No lymphadenopathy or thyromegaly. LUNGS: Diminished breath sounds. Clear to auscultation. Percussion note normal. Chest symmetrical. HEART: Heart rate irregular. S1, S2, no S3. No murmurs. No cyanosis or clubbing. No ascites. Pulses: Dorsalis pedis and posterior tibial pulses +1 to +2 both sides. ABDOMEN: Soft. Non-tender. Bowel sounds active. No CVA tenderness. No mass felt. EXTREMITIES: No edema. Full range of motion of all extremities, equal. NEUROLOGIC: No focal deficit. Cranial nerves II through XII are grossly intact. No headache, no double vision or headache. SKIN: Stage 2 ulcers left heel, left upper leg and coccyx. LYMPHATIC: No palpable lymph nodes/no lymphedema. MUSCULOSKELETAL: Normal joints with no swelling. Muscle tone is normal. LAB REVIEW: 01/31/17 05:20 01/31/17 05:20 01/31/17 05:20: Sodium 140, Potassium 4.7, Chloride 111 H, Carbon Dioxide 19 L, Anion Gap 14.7, BUN 48 H, Creatinine 2.01 H, Estimated GFR (MDRD) 32.00, BUN/ Creatinine Ratio 23.88, Glucose 109, Calcium 8.9, Total Bilirubin 0.38, AST 9 L , ALT < 6 L, Alkaline Phosphatase 83, Total Protein 6.3, Albumin 2.5 L, Globulin 3.8, Albumin/Globulin Ratio 0.66 01/31/17 05:20: WBC 7.99, RBC 2.71 L, Hgb 8.6 L, Hct 26.4 L, MCV 97.4 H, MCH 31.7 H, MCHC 32.6, RDW Coeff of Timmy 14.4, Plt Count 216, Immature Gran % (Auto) 0.6, Neut % (Auto) 70.6, Lymph % (Auto) 18.3, [place] % (Auto) 7.8, Eos % (Auto) 2.4, Baso % (Auto) 0.3, Immature Gran # (Auto) 0.1, Neut # 5.7, Lymph # 1.5, [place] # 0.6, Eos # 0.2, Baso # 0.0 01/30/17 13:25: Sodium 141, Potassium 4.9, Chloride 110 H, Carbon Dioxide 23, Anion Gap 12.9, BUN 45 H, Creatinine 1.80 H, Estimated GFR (MDRD) 36.00, BUN/ Creatinine Ratio 25.00, Glucose 123 H, Calcium 9.8, Total Bilirubin 0.64, AST 10 L, ALT 6 L, Alkaline Phosphatase 100, Total Protein 7.5, Albumin 3.0 L, Globulin 4.5, Albumin/Globulin Ratio 0.67 01/30/17 13:25: WBC 10.45 H, RBC 3.16 L, Hgb 10.2 L, Hct 30.7 L, MCV 97.2 H, MCH 32.3 H, MCHC 33.2, RDW Coeff of Timmy 14.3, Plt Count 252, Immature Gran % ( Auto) 0.9, Neut % (Auto) 66.6, Lymph % (Auto) 23.5, [place] % (Auto) 7.4, Eos % ( Auto) 1.2, Baso % (Auto) 0.4, Immature Gran # (Auto) 0.1, Neut # 7.0 H, Lymph # 2.5, [place] # 0.8, Eos # 0.1, Baso # 0.0 01/30/17 13:25: TSH 2.512, Free T4 0.96 ASSESSMENT: 1. Severe back pain 2. Dehydration 3. Multiple decubitus ulcers 4. CKD 5. Anemia PLAN: 1. Chest x-ray 2. Continue IV fluids Plan and coordination of the patient's care discussed in the presence of Railroad Track Repair Supervisor and nurse. CONDITION: Stable SCRIBED BY: ROSE GARCIA Contract Processor scribed while in presence of service performed by Dr. Galloway/Priyanka Coyne APRN on 01/31/17 ([id number])
--- NOTE | 2017-01-31 14:00 | HP ---
DATE OF SERVICE: 01/30/17 HISTORY OF PRESENT ILLNESS: This is an 81-year-old male who complains of shortness of breath and fatigue. He has severe back pain 2 to 9 on a scale of 1 to 10. Appetite is poor. Unable to take care of himself and sister is getting mad at him. No symptoms of CHF. PAST MEDICAL/SURGICAL HISTORY: Decubitus ulcers, left buttock, coccyx, left heel Osteoarthritis Dependent leg edema Hypertension Hypothyroidism Coronary artery disease Peripheral arterial disease Dyslipidemia Anemia Hiatal hernia Depression Several back surgeries REVIEW OF SYSTEMS: CONSTITUTIONAL: Fatigue. No fever, no fatigue. HEENT: No sinus drainage, no sore throat. RESPIRATORY: No cough, no congestion. CARDIOVASCULAR: No atypical chest pain for coronary artery disease. No angina , CHF symptoms, palpitations or shortness of breath. GASTROINTESTINAL: No melena or abdominal pain. No GERD. GENITOURINARY: No hematuria, no prostatism, no polyuria. INTERNATIONAL REPRESENTATIVE: No blackout, no dizziness, no headache, no double vision. MUSCULOSKELETAL: Osteoarthritis pain. ENDOCRINE: No weight loss, no weight gain. SKIN: Dry, no rash. PSYCHIATRIC: Not anxious, no depression, no suicidal thoughts, no homicidal thoughts. SOCIAL HISTORY: Nonsmoker. . No alcohol use. Lives with sister. The patient needs help in doing a lot of activity of daily living. MEDICATIONS: Clonazepam 0.5 mg one daily Klor-Con 10 mEq four a week Protonix 40 mg plus daily Atenolol 100 mg one daily Lasix 20 mg four times a week Simvastatin 40 mg one daily Levothyroxine 0.05 mg one daily Lisinopril 20 mg one daily Ferrous Sulfate 325 one daily Clonazepam 1 mg h.s. Lasix 40 mg one daily ALLERGIES: MORPHINE PHYSICAL EXAMINATION: V/S: Pulse 60, BP 110/70, 02 sat 98%. Unable to get weight. GENERAL APPEARANCE: Oriented times three. Pallor positive. Skin dry. HEENT: Normal. NECK: No JVP, no bruits. RESPIRATORY: Lungs are clear. CARDIOVASCULAR: S1, S2, no S3, no murmurs. No cyanosis, clubbing. No ascites. GI/ABDOMEN: No tenderness. Bowel sounds are active. EXTREMITIES: edema, pulses +1, equal. INTERNATIONAL REPRESENTATIVE: Deep tendon reflexes, sensory, motor and gait all normal. RECTAL/PROSTATE: .12/14 (0.9). Refused colonoscopy screening. Refused colocare. ASSESSMENT: 1. MODERATE TO SEVERE BACK PAIN 2. SHORTNESS OF BREATH 3. DEHYDRATION 4. DECUBITUS ULCERS, LEFT HEEL, COCCYX, ISCHIAL TUBEROSITY 5. MULTIPLE BACK SURGERIES 6. SHORTNESS OF BREATH 7. LEFT KNEE OSTEOARTHRITIS 8. HYPERTENSION 9. DYSLIPIDEMIA 10. OSTEOARTHRITIS 11. SCIATICA 12. SPINE SURGERY, AGE 24 13. B12 DEFICIENCY 14. METABOLIC SYNDROME 15. HYPOTHYROIDISM 16. 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 Admit 2. Routine telemetry orders 3. No carotid markers 4. Toradol 30 mg IV now and 8 hourly 5. Zofran 4 mg IV now times one 6. 1000 cc D5 1/2 NS 12 hourly 7. Decubitus care 8. T4 and TSH 9. Daily CBC and CMP 10. Continue all home medications TIME SPENT: More than 70 minutes. MTDD
[2017-01-31] MEDS: KLONOPIN PO SCH (20:30)
[2017-01-31] MEDS: ROCEPHIN 1 GM in SODIUM CHLORIDE 50 ML IV SCH (20:30)
[2017-02-01] MEDS: TORADOL IVP SCH ×3 (04:19→21:10)
[2017-02-01] MEDS: PROTONIX PO SCH ×2 (05:36→16:57)
[2017-02-01] MEDS: LASIX TAB PO SCH (05:36)
[2017-02-01 05:47] LABS: BASOPHILS % (AUTO) 0.2 % (0.0-3.0); EOSINOPHILS # (AUTO) 0.2 K/ul (0.0-0.7); EOSINOPHILS % (AUTO) 2.6 % (0.0-7.0); HEMATOCRIT 25.2 % (42.0-52.0); HEMOGLOBIN 8.2 g/dl (14.0-18.0); IMMATURE GRANULOCYTE % (AUTO) 0.5 % (0.0-5.0); LYMPHOCYTES # (AUTO) 0.9 K/uL (0.60-3.4); LYMPHOCYTES % (AUTO) 10.2 (10.0-50.0); MEAN CORPUSCULAR HEMOGLOBIN 31.8 pg (27.0-31.0); MEAN CORPUSCULAR HGB CONC 32.5 (31.8-35.4); MEAN CORPUSCULAR VOLUME 97.7 fl (80.0-94.0); MONOCYTES # (AUTO) 0.5 K/uL (0.4-2.0); MONOCYTES % (AUTO) 5.9 (0-10); NEUTROPHILS # (AUTO) 6.8 K/ul (2.0-6.9); NEUTROPHILS % (AUTO) 80.6; PLATELET COUNT 198 10^3/uL (140-440); RED BLOOD COUNT 2.58 10^6/ul (4.70-6.10); WHITE BLOOD COUNT 8.44 K/ul (4.2-10.2)
[2017-02-01 06:08] LABS: ALBUMIN 2.3 g/dL (3.4-5.0); ALBUMIN/GLOBULIN RATIO 0.64; ANION GAP 14.6; BILIRUBIN,TOTAL 0.33 mg/dL (0.00-1.20); BUN/CREATININE RATIO 22.79; CALCIUM 8.3 mg/dL (8.2-10.2); CREATININE 2.15 mg/dL (0.60-1.10); POTASSIUM 4.6 mmol/L (3.5-5.1); TOTAL PROTEIN 5.9 g/dL (5.8-8.1)
[2017-02-01] MEDS: ZESTRIL PO SCH (08:41)
[2017-02-01] MEDS: K-DUR PO SCH (08:42)
[2017-02-01] MEDS: ZOCOR PO SCH (08:42)
[2017-02-01] MEDS: FERROUS SULFATE PO SCH (08:42)
[2017-02-01] MEDS: SILVADENE CREAM TP SCH ×2 (08:42→21:11)
[2017-02-01] MEDS: CALMOSEPTINE OINTMENT TP SCH ×2 (08:42→21:11)
[2017-02-01] MEDS: TENORMIN PO SCH (08:42)
--- NOTE | 2017-02-01 09:03 | PCM.PROG ---
Attending Provider: ATTENDING PROVIDER: Dr. SHELBIE DAVID This patient is seen with Priyanka Coyne, Nurse Practitioner. DATE OF SERVICE: 02/01/17 SUBJECTIVE: This 81 year old WHITE/ M was hospitalized 01/30/17. The patient is lying in bed, alert, oriented to person and place with bouts of confusion. Complaining of joint pain pain as usual. REVIEW OF SYSTEMS: CONSTITUTIONAL: Weakness. No night sweats. No fever or chills. HEENT: Eyes: No visual changes. No eye pain. No eye discharge. ENT: No runny nose. No epistaxis. No sinus pain. No odynophagia. No congestion. RESPIRATORY: No cough, no congestion. No hemoptysis. No shortness of breath. CARDIOVASCULAR: No angina symptoms. No CHF symptoms. No atypical chest pain for CAD. No palpitations. No orthopnea.. GASTROINTESTINAL: No abdominal pain. No nausea or vomiting. No diarrhea or constipation. No hematemesis. No hematochezia. GENITOURINARY: No urgency. No frequency. No dysuria. No hematuria. No obstructive symptoms. No discharge. No pain. No significant abnormal bleeding. MUSCULOSKELETAL: Joint pain. NEUROLOGICAL: Awake, alert, oriented to time, place and person. No headache. No neck pain. No syncope. No seizures. No dizziness. PSYCHIATRIC: Not anxious. No depression. No suicidal thoughts. No homicidal thoughts. SKIN: No rash. Multiple pressure ulcers. ENDOCRINE: No unexplained weight loss. No weight gain. HEMATOLOGIC/LYMPHATIC: No anemia. No purpura. No petechiae. No prolonged or excessive bleeding. No palpable lymph nodes. PHYSICAL EXAMINATION: GENERAL: The patient is awake, alert and oriented, lying in bed in no distress. VITAL SIGNS: Temperature 98.5 F, Pulse 76, Respiratory Rate 20, BP 100/56, Pulse Ox 97% HEENT: Head normocephalic, atraumatic. Eyes: Extraocular muscles are intact. Pupils are equal, round and reactive to light and accommodation. Ears: No lesions. Nose appeared normal. Throat: No exudate or erythema. NECK: Supple. No JVD, no carotid bruit. No lymphadenopathy or thyromegaly. LUNGS: Diminished breath sounds bilaterally. Clear to auscultation. Percussion note normal. Chest symmetrical. HEART: S1, S2, no S3. No murmurs. No cyanosis or clubbing. No ascites. Pulses: Dorsalis pedis and posterior tibial pulses +1 to +2 both sides. ABDOMEN: Soft. Non-tender. Bowel sounds active. No CVA tenderness. No mass felt. EXTREMITIES: No edema. Full range of motion of all extremities, equal. NEUROLOGIC: No focal deficit. Cranial nerves II through XII are grossly intact. No headache, no double vision or headache. SKIN: Stage 2 ulcers left heel, left upper leg and coccyx. LYMPHATIC: No palpable lymph nodes/no lymphedema. MUSCULOSKELETAL: Normal joints with no swelling. Muscle tone is normal. LAB REVIEW: 02/01/17 04:55 02/01/17 04:55 02/01/17 04:55: Sodium 138, Potassium 4.6, Chloride 110 H, Carbon Dioxide 18 L, Anion Gap 14.6, BUN 49 H, Creatinine 2.15 H, Estimated GFR (MDRD) 30.00, BUN/ Creatinine Ratio 22.79, Glucose 117 H, Calcium 8.3, Total Bilirubin 0.33, AST 11 L, ALT 6 L, Alkaline Phosphatase 85, Total Protein 5.9, Albumin 2.3 L, Globulin 3.6, Albumin/Globulin Ratio 0.64 02/01/17 04:55: WBC 8.44, RBC 2.58 L, Hgb 8.2 L, Hct 25.2 L, MCV 97.7 H, MCH 31.8 H, MCHC 32.5, RDW Coeff of Timmy 14.5, Plt Count 198, Immature Gran % (Auto) 0.5, Neut % (Auto) 80.6, Lymph % (Auto) 10.2, [place] % (Auto) 5.9, Eos % (Auto) 2.6, Baso % (Auto) 0.2, Immature Gran # (Auto) 0.0, Neut # 6.8, Lymph # 0.9, [place] # 0.5, Eos # 0.2, Baso # 0.0 ASSESSMENT: 1. Severe back pain 2. Dehydration 3. Multiple decubitus ulcers 4. CKD 5. Anemia PLAN: 1. Consult with Dr. Vizcaino 2. Continue IV fluids Plan and coordination of the patient's care discussed in the presence of Coal Hauler Operator and nurse. CONDITION: Stable SCRIBED BY: ROSE GARCIA Compound Specialist scribed while in presence of service performed by Dr. David/Priyanka Coyne APRN on 02/01/17 ([id number])
[2017-02-01] MEDS: DEXTROSE 5%-1/2NS IV SOLUTION 1,000 ML IV SCH ×3 (11:44→23:30)
--- NOTE | 2017-02-01 13:55 | PN ---
DATE OF SERVICE: 01/31/17 SUBJECTIVE: 81-year-old white male hospitalized with moderate to severe back pain. The patient was also dehydrated. The patient has several decubitus ulcers was treated by Wound Care. The patient is going to have Dr. Vizcaino in consultation. The patient is already getting Rocephin 1 gm per recommendation from Wound Care. The patient's hemoglobin is 8.6 with hematocrit of 26 which may require blood transfusions. His kidney functions 2 potassium, BUN 48. The patient is on IV fluids. PHYSICAL EXAMINATION: HEENT: Head normocephalic, atraumatic. Eyes: Extraocular muscles are intact. Pupils are equal, round and reactive to light and accommodation. Ears: No lesions. Nose appeared normal. Throat: No exudate or erythema. NECK: Supple. No JVD, no carotid bruit. No lymphadenopathy or thyromegaly. LUNGS: Clear to auscultation. Percussion note normal. Chest symmetrical. HEART: S1, S2, no S3. No murmurs. No cyanosis or clubbing. No ascites. Pulses: Dorsalis pedis and posterior tibial pulses +1 to +2 both sides. ABDOMEN: Soft. Nontender. Bowel sounds active. No CVA tenderness. No mass felt. EXTREMITIES: No edema. Full range of motion of all extremities, equal. NEUROLOGIC: No focal deficit. Cranial nerves II through XII are grossly intact. No headache, no double vision or headache. SKIN: Not dry. Intact. Turgor - normal. LYMPHATIC: No palpable lymph nodes/no lymphedema. MUSCULOSKELETAL: Normal joints with no swelling. Muscle tone is normal. GENERAL: He is feeling better. Hydration status seems to have improved. The patient was seen and examined with the nurse practitioner and outsole caser. The patient's prognosis for healing decubitus ulcer is poor because the patient is almost bedridden, very poorly motivated and nutritional status is questionable again because there is no one at home to cook for him. He lives with the sister but they don't get along and she also has multiple medical problems. TIME SPENT: More than 30 minutes. Plan and coordination of the patient's care discussed in the presence of nurse. DANIEL
--- NOTE | 2017-02-01 15:32 | PN ---
DATE OF SERVICE: 02/01/17 SUBJECTIVE: 81 year old white male was hospitalized with moderate to severe back pain, dehydration and shortness of breath. The patient also has decubitus ulcer and severe anemia which chronic kidney disease. The patient's condition has steadily improved and her hydration status has improved. He is feeling better but he is noncooperative. The patient is already been seen by Dr. Vizcaino for decubitus ulcer and management for decubitus discussed with the loan consultant. PHYSICAL EXAMINATION: HEENT: Head normocephalic, atraumatic. Eyes: Extraocular muscles are intact. Pupils are equal, round and reactive to light and accommodation. Ears: No lesions. Nose appeared normal. Throat: No exudate or erythema. NECK: Supple. No JVD, no carotid bruit. No lymphadenopathy or thyromegaly. LUNGS: Decreased breath sounds. Clear to auscultation. Percussion note normal. Chest symmetrical. HEART: S1, S2, no S3. No murmurs. No cyanosis or clubbing. No ascites. Pulses: Dorsalis pedis and posterior tibial pulses +1 to +2 both sides. ABDOMEN: Soft. Nontender. Bowel sounds active. No CVA tenderness. No mass felt. EXTREMITIES: No edema. Full range of motion of all extremities, equal. NEUROLOGIC: No focal deficit. Cranial nerves II through XII are grossly intact. No headache, no double vision or headache. SKIN: Not dry. Intact. Turgor - normal. LYMPHATIC: No palpable lymph nodes/no lymphedema. MUSCULOSKELETAL: Normal joints with no swelling. Muscle tone is normal. ASSESSMENT: 1. Anemia is nutritional as well as from chronic kidney disease. PLAN: 1. Continue to monitor CBC and CMP and if it goes below 8 we will given him 2 units of packed red cells. He needs it because of shortness of breath, failure to thrive also has poor nutritional status and has decubitus that needs to be healed. The patient's prognosis for healing is poor because of the factors mentioned earlier in the notes prior to this note. Like aging process, inability to move and uncooperativeness and poor nutritional 2. The patient is strongly advised to go to the [facility], the sister who has taken care of him at home for all these years she is unable to do it because of her medical problems. She wants the brother to go to the [facility]. Clearly indicated to the conversation with my office that she hasn't been able to do anything for him anymore. The patient was seen and examined with Nurse Practitioner. TIME SPENT: More than 30 minutes. Plan and coordination of the patient's care discussed in the presence of nurse. DANIEL
[2017-02-01] MEDS: ROCEPHIN 1 GM in SODIUM CHLORIDE 50 ML IV SCH (21:10)
[2017-02-01] MEDS: KLONOPIN PO SCH (21:10)
[2017-02-02] MEDS: DEXTROSE 5%-1/2NS IV SOLUTION 1,000 ML IV SCH ×3 (00:32→16:12)
[2017-02-02] MEDS: TORADOL IVP SCH ×3 (05:38→20:22)
[2017-02-02] MEDS: PROTONIX PO SCH ×2 (05:39→17:13)
[2017-02-02] MEDS: LASIX TAB PO SCH (05:39)
[2017-02-02 05:45] LABS: BASOPHILS % (AUTO) 0.3 % (0.0-3.0); EOSINOPHILS # (AUTO) 0.3 K/ul (0.0-0.7); EOSINOPHILS % (AUTO) 3.3 % (0.0-7.0); HEMATOCRIT 24.5 % (42.0-52.0); HEMOGLOBIN 8.3 g/dl (14.0-18.0); IMMATURE GRANULOCYTE % (AUTO) 0.7 % (0.0-5.0); LYMPHOCYTES % (AUTO) 12.9 (10.0-50.0); MEAN CORPUSCULAR HEMOGLOBIN 32.5 pg (27.0-31.0); MEAN CORPUSCULAR HGB CONC 33.9 (31.8-35.4); MEAN CORPUSCULAR VOLUME 96.1 fl (80.0-94.0); MONOCYTES # (AUTO) 0.6 K/uL (0.4-2.0); MONOCYTES % (AUTO) 7.3 (0-10); NEUTROPHILS # (AUTO) 5.7 K/ul (2.0-6.9); NEUTROPHILS % (AUTO) 75.5; PLATELET COUNT 191 10^3/uL (140-440); RED BLOOD COUNT 2.55 10^6/ul (4.70-6.10); WHITE BLOOD COUNT 7.57 K/ul (4.2-10.2)
[2017-02-02 06:25] LABS: ALBUMIN 2.2 g/dL (3.4-5.0); ALBUMIN/GLOBULIN RATIO 0.59; ANION GAP 12.5; BILIRUBIN,TOTAL 0.28 mg/dL (0.00-1.20); BUN/CREATININE RATIO 26.02; CALCIUM 8.5 mg/dL (8.2-10.2); CREATININE 1.46 mg/dL (0.60-1.10); POTASSIUM 4.5 mmol/L (3.5-5.1); TOTAL PROTEIN 5.9 g/dL (5.8-8.1)
[2017-02-02] MEDS: TENORMIN PO SCH (08:50)
[2017-02-02] MEDS: CALMOSEPTINE OINTMENT TP SCH ×2 (08:50→20:21)
[2017-02-02] MEDS: ZESTRIL PO SCH (08:50)
[2017-02-02] MEDS: K-DUR PO SCH (08:50)
[2017-02-02] MEDS: ZOCOR PO SCH (08:50)
[2017-02-02] MEDS: FERROUS SULFATE PO SCH (08:50)
[2017-02-02] MEDS: SILVADENE CREAM TP SCH ×2 (08:51→20:22)
[2017-02-02] MEDS: ROCEPHIN 1 GM in SODIUM CHLORIDE 50 ML IV SCH (20:22)
[2017-02-02] MEDS: KLONOPIN PO SCH (20:22)
[2017-02-03] MEDS: DEXTROSE 5%-1/2NS IV SOLUTION 1,000 ML IV SCH ×2 (02:22→19:40)
[2017-02-03 05:11] LABS: BASOPHILS % (AUTO) 0.3 % (0.0-3.0); EOSINOPHILS # (AUTO) 0.3 K/ul (0.0-0.7); EOSINOPHILS % (AUTO) 3.6 % (0.0-7.0); HEMOGLOBIN 7.7 g/dl (14.0-18.0); IMMATURE GRANULOCYTE % (AUTO) 0.8 % (0.0-5.0); LYMPHOCYTES # (AUTO) 1.2 K/uL (0.60-3.4); LYMPHOCYTES % (AUTO) 16.3 (10.0-50.0); MEAN CORPUSCULAR HEMOGLOBIN 32.1 pg (27.0-31.0); MEAN CORPUSCULAR HGB CONC 33.5 (31.8-35.4); MEAN CORPUSCULAR VOLUME 95.8 fl (80.0-94.0); MONOCYTES # (AUTO) 0.5 K/uL (0.4-2.0); NEUTROPHILS # (AUTO) 5.3 K/ul (2.0-6.9); PLATELET COUNT 186 10^3/uL (140-440); WHITE BLOOD COUNT 7.41 K/ul (4.2-10.2)
[2017-02-03 05:34] LABS: ALBUMIN/GLOBULIN RATIO 0.59; ANION GAP 11.3; BILIRUBIN,TOTAL 0.23 mg/dL (0.00-1.20); BUN/CREATININE RATIO 23.57; CALCIUM 8.2 mg/dL (8.2-10.2); CREATININE 1.4 mg/dL (0.60-1.10); POTASSIUM 4.3 mmol/L (3.5-5.1); TOTAL PROTEIN 5.4 g/dL (5.8-8.1)
[2017-02-03] MEDS: TORADOL IVP SCH ×3 (05:39→20:24)
[2017-02-03] MEDS: PROTONIX PO SCH ×2 (05:39→16:55)
[2017-02-03] MEDS: LASIX TAB PO SCH (05:40)
[2017-02-03] MEDS: ZESTRIL PO SCH (08:24)
[2017-02-03] MEDS: K-DUR PO SCH (08:24)
[2017-02-03] MEDS: SILVADENE CREAM TP SCH ×2 (08:25→20:25)
[2017-02-03] MEDS: TENORMIN PO SCH (08:25)
[2017-02-03] MEDS: FERROUS SULFATE PO SCH (08:25)
[2017-02-03] MEDS: ZOCOR PO SCH (08:25)
[2017-02-03] MEDS: CALMOSEPTINE OINTMENT TP SCH ×2 (08:25→20:25)
[2017-02-03] MEDS ORDERED: DULCOLAX RC STA (08:56)
[2017-02-03] MEDS: ZOSYN 3.375 GM 3.375 GM in SODIUM CHLORIDE 100 ML IV SCH ×3 (13:33→23:08)
[2017-02-03] MEDS: KLONOPIN PO SCH (20:25)
[2017-02-04] MEDS: TORADOL IVP SCH ×3 (04:21→21:02)
[2017-02-04 05:42] LABS: BASOPHILS % (AUTO) 0.4 % (0.0-3.0); EOSINOPHILS # (AUTO) 0.3 K/ul (0.0-0.7); EOSINOPHILS % (AUTO) 4.2 % (0.0-7.0); HEMATOCRIT 26.8 % (42.0-52.0); HEMOGLOBIN 9.1 g/dl (14.0-18.0); IMMATURE GRANULOCYTE % (AUTO) 0.9 % (0.0-5.0); LYMPHOCYTES # (AUTO) 1.3 K/uL (0.60-3.4); LYMPHOCYTES % (AUTO) 19.3 (10.0-50.0); MEAN CORPUSCULAR VOLUME 91.2 fl (80.0-94.0); MONOCYTES # (AUTO) 0.6 K/uL (0.4-2.0); MONOCYTES % (AUTO) 8.8 (0-10); NEUTROPHILS # (AUTO) 4.5 K/ul (2.0-6.9); NEUTROPHILS % (AUTO) 66.4; PLATELET COUNT 182 10^3/uL (140-440); RED BLOOD COUNT 2.94 10^6/ul (4.70-6.10)
[2017-02-04 06:04] LABS: ALBUMIN/GLOBULIN RATIO 0.59; ANION GAP 12.9; BILIRUBIN,TOTAL 0.53 mg/dL (0.00-1.20); BUN/CREATININE RATIO 22.4; CALCIUM 8.3 mg/dL (8.2-10.2); CREATININE 1.25 mg/dL (0.60-1.10); POTASSIUM 3.9 mmol/L (3.5-5.1); TOTAL PROTEIN 5.4 g/dL (5.8-8.1)
[2017-02-04] MEDS: LASIX TAB PO SCH (06:11)
[2017-02-04] MEDS: PROTONIX PO SCH ×2 (06:11→17:17)
[2017-02-04] MEDS: ZOSYN 3.375 GM 3.375 GM in SODIUM CHLORIDE 100 ML IV SCH ×4 (06:11→23:29)
[2017-02-04] MEDS: CALMOSEPTINE OINTMENT TP SCH ×2 (08:48→21:02)
[2017-02-04] MEDS: SILVADENE CREAM TP SCH ×2 (08:48→21:02)
[2017-02-04] MEDS: ZOCOR PO SCH (08:49)
[2017-02-04] MEDS: TENORMIN PO SCH (08:51)
[2017-02-04] MEDS: FERROUS SULFATE PO SCH (08:51)
[2017-02-04] MEDS: ZESTRIL PO SCH (08:51)
[2017-02-04] MEDS: K-DUR PO SCH (08:51)
[2017-02-04] MEDS ORDERED: DULCOLAX RC PRN (09:00)
--- NOTE | 2017-02-04 09:49 | PCM.PROG ---
Attending Provider: ATTENDING PROVIDER: Dr. SHELBIE GALLOWAY This patient is seen with Priyanka Coyne, Nurse Practitioner. DATE OF SERVICE: 02/04/17 SUBJECTIVE: This 81 year old WHITE/ M was hospitalized 01/30/17. The patient is alert, lying in bed. The patient received 2 units of blood yesterdayand feeling better. Positive ESBL in wound on coccyx, started Zosyn yesterday. REVIEW OF SYSTEMS: CONSTITUTIONAL: No night sweats. No fatigue, malaise, lethargy. No fever or chills. HEENT: Eyes: No visual changes. No eye pain. No eye discharge. ENT: No runny nose. No epistaxis. No sinus pain. No odynophagia. No congestion. RESPIRATORY: No cough, no congestion. No hemoptysis. No shortness of breath. CARDIOVASCULAR: No angina symptoms. No CHF symptoms. No atypical chest pain for CAD. No palpitations. No orthopnea.. GASTROINTESTINAL: No abdominal pain. No nausea or vomiting. No diarrhea or constipation. No hematemesis. No hematochezia. GENITOURINARY: No urgency. No frequency. No dysuria. No hematuria. No obstructive symptoms. No discharge. No pain. No significant abnormal bleeding. MUSCULOSKELETAL: Osteoarthritis lidya n. NEUROLOGICAL: Awake, alert, oriented to person and place. No headache. No neck pain. No syncope. No seizures. No dizziness. PSYCHIATRIC: Not anxious. No depression. No suicidal thoughts. No homicidal thoughts. SKIN: No rash. Multiple pressure ulcers. ENDOCRINE: No unexplained weight loss. No weight gain. HEMATOLOGIC/LYMPHATIC: No anemia. No purpura. No petechiae. No prolonged or excessive bleeding. No palpable lymph nodes. PHYSICAL EXAMINATION: GENERAL: The patient is awake, alert and oriented lying in bed in no distress. VITAL SIGNS: Temperature 97.9 F, Pulse 63, Respiratory Rate 18, BP 90/56, Pulse Ox 97% HEENT: Head normocephalic, atraumatic. Eyes: Extraocular muscles are intact. Pupils are equal, round and reactive to light and accommodation. Ears: No lesions. Nose appeared normal. Throat: No exudate or erythema. NECK: Supple. No JVD, no carotid bruit. No lymphadenopathy or thyromegaly. LUNGS: Diminished breath sounds. Clear to auscultation. Percussion note normal. Chest symmetrical. HEART: S1, S2, no S3. No murmurs. No cyanosis or clubbing. No ascites. Pulses: Dorsalis pedis and posterior tibial pulses +1 to +2 both sides. ABDOMEN: Soft. Non-tender. Bowel sounds active. No CVA tenderness. No mass felt. EXTREMITIES: No edema. Full range of motion of all extremities, equal. NEUROLOGIC: No focal deficit. Cranial nerves II through XII are grossly intact. No headache, no double vision or headache. SKIN: Two ulcers left heel, left upper leg and coccyx. LYMPHATIC: No palpable lymph nodes/no lymphedema. MUSCULOSKELETAL: Normal joints with no swelling. Muscle tone is normal. LAB REVIEW: 02/04/17 05:05 02/04/17 05:05 02/04/17 05:05: Sodium 140, Potassium 3.9, Chloride 112 H, Carbon Dioxide 19 L, Anion Gap 12.9, BUN 28 H, Creatinine 1.25 H, Estimated GFR (MDRD) 55.00, BUN/ Creatinine Ratio 22.40, Glucose 97, Calcium 8.3, Total Bilirubin 0.53, AST 15, ALT 14, Alkaline Phosphatase 65, Total Protein 5.4 L, Albumin 2.0 L, Globulin 3.4, Albumin/Globulin Ratio 0.59 02/04/17 05:05: WBC 6.70, RBC 2.94 L, Hgb 9.1 L, Hct 26.8 L, MCV 91.2, MCH 31.0 , MCHC 34.0, RDW Coeff of Timmy 15.9 H, Plt Count 182, Immature Gran % (Auto) 0.9 , Neut % (Auto) 66.4, Lymph % (Auto) 19.3, [place] % (Auto) 8.8, Eos % (Auto) 4.2, Baso % (Auto) 0.4, Immature Gran # (Auto) 0.1, Neut # 4.5, Lymph # 1.3, [place] # 0.6, Eos # 0.3, Baso # 0.0 02/03/17 18:35: Blood Type O POSITIVE, Antibody Screen Negative, Crossmatch (AHG ) See Detail ASSESSMENT: 1. Severe back pain 2. Dehydration 3. Multiple decubitus ulcers 4. CKD 5. Anemia improved PLAN: 1. Continue IV Zosyn 2. Will monitor hemoglobin Plan and coordination of the patient's care discussed in the presence of Office Assistant and nurse. CONDITION: Stable SCRIBED BY: ROSE GARCIA Welder Apprentice Combination scribed while in presence of service performed by Dr. Galloway/Priyanka Coyne APRN on 02/04/17 ([id number])
--- NOTE | 2017-02-04 13:39 | PN ---
DATE OF SERVICE: 02/02/17 SUBJECTIVE: 81 year old white male hospitalized with moderate to severe back pain which is practically subsided. The patient's decubitus ulcer under care with surgical clinical reviewer and Wound Care. The patient's kidney functions are improving. Hgb and hct seems to be climbing. Hgb is 8.3, hct 24 now, creatinine 1.4 and BUN 38. REVIEW OF SYSTEMS: CONSTITUTIONAL: No night sweats. No fatigue, malaise, lethargy. No fever or chills. HEENT: Eyes: No visual changes. No eye pain. No eye discharge. ENT: No runny nose. No epistaxis. No sinus pain. No sore throat. No odynophagia. No congestion. RESPIRATORY: No cough, no congestion. No hemoptysis. No shortness of breath. CARDIOVASCULAR: No angina symptoms. No CHF symptoms. No atypical chest pain for CAD. No palpitations. No orthopnea. No PND. GASTROINTESTINAL: No abdominal pain. No nausea or vomiting. No diarrhea or constipation. No hematemesis. No hematochezia. GENITOURINARY: No urgency. No frequency. No dysuria. No hematuria. No obstructive symptoms. No discharge. No pain. No significant abnormal bleeding. MUSCULOSKELETAL: No musculoskeletal pain; no joint swelling. NEUROLOGICAL: No headache. No neck pain. No syncope. No seizures. No dizziness. PSYCHIATRIC: Not anxious. No depression. No suicidal thoughts. No homicidal thoughts. SKIN: No rash. No lesions. No wounds. ENDOCRINE: No unexplained weight loss. No weight gain. HEMATOLOGIC/LYMPHATIC: No anemia. No purpura. No petechiae. No prolonged or excessive bleeding. No palpable lymph nodes. PHYSICAL EXAMINATION: GENERAL: The patient is oriented to time, place and person. VITAL SIGNS: Temperature 98.4, pulse 60, respiratory rate 20, Blood pressure 107/58 and pulse ox 95%. HEENT: Head normocephalic, atraumatic. Eyes: Extraocular muscles are intact. Pupils are equal, round and reactive to light and accommodation. Ears: No lesions. Nose appeared normal. Throat: No exudate or erythema. NECK: Supple. No JVD, no carotid bruit. No lymphadenopathy or thyromegaly. LUNGS: Decreased breath sounds but clear to auscultation. Percussion note normal. Chest symmetrical. HEART: S1, S2, no S3. No murmurs. No cyanosis or clubbing. No ascites. Pulses: Dorsalis pedis and posterior tibial pulses +1 to +2 both sides. ABDOMEN: Soft. Nontender. Bowel sounds active. No CVA tenderness. No mass felt. EXTREMITIES: No edema. Full range of motion of all extremities, equal. NEUROLOGIC: No focal deficit. Cranial nerves II through XII are grossly intact. No headache, no double vision or headache. SKIN: Not dry. Intact. Turgor - normal. LYMPHATIC: No palpable lymph nodes/no lymphedema. MUSCULOSKELETAL: Normal joints with no swelling. Muscle tone is normal. ASSESSMENT: 1. Back pain, under control 2. Dehydration, seems to be resolving 3. Chronic kidney disease 4. Chronic anemia 5. Decubitus ulcer seems to be healing with non good prognosis for multiple reason mentioned in earlier notes. The patient explained about decubitus ulcer and how to help himself by turning himself in the bed periodically relieving the pressure. Because after all these are pressure sores. PLAN: 1. The patient's sister doesn't want him back in the house because she is unable to take care of him and he is reluctant to go to the [facility] but he says that he may not have choice. TIME SPENT: More than 30 minutes. Plan and coordination of the patient's care discussed in the presence of nurse. DANIEL
--- NOTE | 2017-02-04 13:47 | PN ---
DATE OF SERVICE: 02/03/17 SUBJECTIVE: 81-year-old white male hospitalized with severe back pain, which has subsided. His problem is chronic kidney disease, anemia. Hemoglobin and hematocrit has dropped to 7.7 with hematocrit of 23. REVIEW OF SYSTEMS: CONSTITUTIONAL: No night sweats. No fatigue, malaise, lethargy. No fever or chills. HEENT: Eyes: No visual changes. No eye pain. No eye discharge. ENT: No runny nose. No epistaxis. No sinus pain. No sore throat. No odynophagia. No congestion. RESPIRATORY: No cough, no congestion. No hemoptysis. No shortness of breath. CARDIOVASCULAR: No angina symptoms. No CHF symptoms. No atypical chest pain for CAD. No palpitations. No orthopnea. GASTROINTESTINAL: No abdominal pain. No nausea or vomiting. No diarrhea or constipation. No hematemesis. No hematochezia. GENITOURINARY: No urgency. No frequency. No dysuria. No hematuria. No obstructive symptoms. No discharge. No pain. No significant abnormal bleeding. MUSCULOSKELETAL: No musculoskeletal pain; no joint swelling. NEUROLOGICAL: No headache. No neck pain. No syncope. No seizures. No dizziness. PSYCHIATRIC: Not anxious. No depression. No suicidal thoughts. No homicidal thoughts. SKIN: No rash. ENDOCRINE: No unexplained weight loss. No weight gain. HEMATOLOGIC/LYMPHATIC: No anemia. No purpura. No petechiae. No prolonged or excessive bleeding. No palpable lymph nodes. PHYSICAL EXAMINATION: GENERAL: The patient is oriented to time, place and person. VITAL SIGNS: Temperature 98, pulse 72, respiratory rate 18, BP 103/62, pulse ox 95%. HEENT: Head normocephalic, atraumatic. Eyes: Extraocular muscles are intact. Pupils are equal, round and reactive to light and accommodation. Ears: No lesions. Nose appeared normal. Throat: No exudate or erythema. NECK: Supple. No JVD, no carotid bruit. No lymphadenopathy or thyromegaly. LUNGS: Decreased breath sounds. Clear to auscultation. Percussion note normal. Chest symmetrical. HEART: S1, S2, no S3. No murmurs. No cyanosis or clubbing. No ascites. Pulses: Dorsalis pedis and posterior tibial pulses +1 to +2 both sides. ABDOMEN: Soft. Nontender. Bowel sounds active. No CVA tenderness. No mass felt. EXTREMITIES: No edema. Full range of motion of all extremities, equal. NEUROLOGIC: No focal deficit. Cranial nerves II through XII are grossly intact. No headache, no double vision or headache. SKIN: Not dry. Intact. Turgor - normal. LYMPHATIC: No palpable lymph nodes/no lymphedema. MUSCULOSKELETAL: Normal joints with no swelling. Muscle tone is normal. ASSESSMENT: 1. SEVERE BACK PAIN WITH DJD SEEMS TO HAVE SUBSIDED 2. DEHYDRATION SEEMS TO BE BETTER WITH BETTER KIDNEY FUNCTION 3. DECUBITUS ULCERS SEEMS TO BE STABLE UNDER CARE OF SURGEON AND ALSO WOUND CARE 4. ANEMIA, CHRONIC (NUTRITIONAL WELL CHRONIC KIDNEY DISEASE) PLAN: 1. Type and crossmatch 2 units and transfuse patient. 2. Continue antibiotics. The patient grew ESBL from the wound. Of course the wound is superficial. Will put the patient on Piperacillin. TIME SPENT: More than 30 minutes. Plan and coordination of the patient's care discussed in the presence of nurse. DANIEL
[2017-02-04] MEDS: DEXTROSE 5%-1/2NS IV SOLUTION 1,000 ML IV SCH ×2 (14:29→21:28)
[2017-02-04] MEDS: KLONOPIN PO SCH (21:01)
[2017-02-05] MEDS: DEXTROSE 5%-1/2NS IV SOLUTION 1,000 ML IV SCH ×2 (03:16→15:19)
[2017-02-05 04:39] LABS: BASOPHILS % (AUTO) 0.3 % (0.0-3.0); EOSINOPHILS # (AUTO) 0.3 K/ul (0.0-0.7); EOSINOPHILS % (AUTO) 3.7 % (0.0-7.0); HEMATOCRIT 27.6 % (42.0-52.0); HEMOGLOBIN 9.5 g/dl (14.0-18.0); IMMATURE GRANULOCYTE % (AUTO) 0.7 % (0.0-5.0); LYMPHOCYTES # (AUTO) 1.1 K/uL (0.60-3.4); LYMPHOCYTES % (AUTO) 16.7 (10.0-50.0); MEAN CORPUSCULAR HEMOGLOBIN 31.1 pg (27.0-31.0); MEAN CORPUSCULAR HGB CONC 34.4 (31.8-35.4); MEAN CORPUSCULAR VOLUME 90.5 fl (80.0-94.0); MONOCYTES # (AUTO) 0.6 K/uL (0.4-2.0); MONOCYTES % (AUTO) 8.4 (0-10); NEUTROPHILS # (AUTO) 4.7 K/ul (2.0-6.9); NEUTROPHILS % (AUTO) 70.2; PLATELET COUNT 197 10^3/uL (140-440); RED BLOOD COUNT 3.05 10^6/ul (4.70-6.10)
[2017-02-05 05:05] LABS: ALBUMIN/GLOBULIN RATIO 0.57; ANION GAP 12.9; BILIRUBIN,TOTAL 0.44 mg/dL (0.00-1.20); BUN/CREATININE RATIO 21.05; CALCIUM 8.2 mg/dL (8.2-10.2); CREATININE 1.14 mg/dL (0.60-1.10); POTASSIUM 3.9 mmol/L (3.5-5.1); TOTAL PROTEIN 5.5 g/dL (5.8-8.1)
[2017-02-05] MEDS: TORADOL IVP SCH ×3 (05:10→20:36)
[2017-02-05] MEDS: ZOSYN 3.375 GM 3.375 GM in SODIUM CHLORIDE 100 ML IV SCH ×3 (05:10→17:13)
[2017-02-05] MEDS: LASIX TAB PO SCH (05:45)
[2017-02-05] MEDS: PROTONIX PO SCH ×2 (05:45→17:13)
[2017-02-05] MEDS: SILVADENE CREAM TP SCH ×2 (08:32→20:35)
[2017-02-05] MEDS: CALMOSEPTINE OINTMENT TP SCH ×2 (08:32→20:35)
[2017-02-05] MEDS: FERROUS SULFATE PO SCH (08:33)
[2017-02-05] MEDS: TENORMIN PO SCH (08:33)
[2017-02-05] MEDS: ZOCOR PO SCH (08:33)
[2017-02-05] MEDS: K-DUR PO SCH (08:33)
[2017-02-05] MEDS: ZESTRIL PO SCH (08:33)
[2017-02-05] MEDS: MIRALAX PO SCH ×2 (09:55→20:35)
--- NOTE | 2017-02-05 11:20 | PCM.PROG ---
Attending Provider: ATTENDING PROVIDER: Dr. SHELBIE GALLOWAY This patient is seen with Priyanka Coyne, Nurse Practitioner. DATE OF SERVICE: 02/05/17 SUBJECTIVE: This 81 year old WHITE/ M was hospitalized 01/30/17. The patient is lying in bed, alert. Discussed wound care, possible [facility] placement due to inability for sister to care for him at home. The patient stated he would consider chcf placement for wound care. REVIEW OF SYSTEMS: CONSTITUTIONAL: No night sweats. No fatigue, malaise, lethargy. No fever or chills. HEENT: Eyes: No visual changes. No eye pain. No eye discharge. ENT: No runny nose. No epistaxis. No sinus pain. No odynophagia. No congestion. RESPIRATORY: No cough, no congestion. No hemoptysis. No shortness of breath. CARDIOVASCULAR: No angina symptoms. No CHF symptoms. No atypical chest pain for CAD. No palpitations. No orthopnea.. GASTROINTESTINAL: No abdominal pain. No nausea or vomiting. No diarrhea or constipation. No hematemesis. No hematochezia. GENITOURINARY: No urgency. No frequency. No dysuria. No hematuria. No obstructive symptoms. No discharge. No pain. No significant abnormal bleeding. MUSCULOSKELETAL: No musculoskeletal pain; no joint swelling. NEUROLOGICAL: Awake, alert, oriented to time, place and person. No headache. No neck pain. No syncope. No seizures. No dizziness. PSYCHIATRIC: Not anxious. No depression. No suicidal thoughts. No homicidal thoughts. SKIN: No rash. Multiple pressure ulcers. ENDOCRINE: No unexplained weight loss. No weight gain. HEMATOLOGIC/LYMPHATIC: No anemia. No purpura. No petechiae. No prolonged or excessive bleeding. No palpable lymph nodes. PHYSICAL EXAMINATION: GENERAL: The patient is awake, alert and oriented, lying in bed in no distress. VITAL SIGNS: Temperature 96.8 F, Pulse 74, Respiratory Rate 20, BP 96/67, Pulse Ox 98% HEENT: Head normocephalic, atraumatic. Eyes: Extraocular muscles are intact. Pupils are equal, round and reactive to light and accommodation. Ears: No lesions. Nose appeared normal. Throat: No exudate or erythema. NECK: Supple. No JVD, no carotid bruit. No lymphadenopathy or thyromegaly. LUNGS: Clear to auscultation. Percussion note normal. Chest symmetrical. HEART: S1, S2, no S3. No murmurs. No cyanosis or clubbing. No ascites. Pulses: Dorsalis pedis and posterior tibial pulses +1 to +2 both sides. ABDOMEN: Soft. Non-tender. Bowel sounds active. No CVA tenderness. No mass felt. EXTREMITIES: No edema. Full range of motion of all extremities, equal. NEUROLOGIC: No focal deficit. Cranial nerves II through XII are grossly intact. No headache, no double vision or headache. SKIN: Warm and dry. Two ulcers left heel, left upper and coccyx. LYMPHATIC: No palpable lymph nodes/no lymphedema. MUSCULOSKELETAL: Normal joints with no swelling. Muscle tone is normal. LAB REVIEW: 02/05/17 04:38 02/05/17 04:38 02/05/17 04:38: Sodium 140, Potassium 3.9, Chloride 113 H, Carbon Dioxide 18 L, Anion Gap 12.9, BUN 24 H, Creatinine 1.14 H, Estimated GFR (MDRD) 61.00, BUN/ Creatinine Ratio 21.05, Glucose 112, Calcium 8.2, Total Bilirubin 0.44, AST 23, ALT 24, Alkaline Phosphatase 75, Total Protein 5.5 L, Albumin 2.0 L, Globulin 3.5, Albumin/Globulin Ratio 0.57 02/05/17 04:38: WBC 6.70, RBC 3.05 L, Hgb 9.5 L, Hct 27.6 L, MCV 90.5, MCH 31.1 H, MCHC 34.4, RDW Coeff of Timmy 16.1 H, Plt Count 197, Immature Gran % (Auto) 0.7 , Neut % (Auto) 70.2, Lymph % (Auto) 16.7, [place] % (Auto) 8.4, Eos % (Auto) 3.7, Baso % (Auto) 0.3, Immature Gran # (Auto) 0.1, Neut # 4.7, Lymph # 1.1, [place] # 0.6, Eos # 0.3, Baso # 0.0 ASSESSMENT: 1. Severe back pain 2. Dehydration 3. Multiple decubitus ulcers 4. CKD 5. Anemia improved 6. Constipation PLAN: 1. Miralax twice a day Plan and coordination of the patient's care discussed in the presence of Digital Advertising Analyst and nurse CONDITION: Stable SCRIBED BY: ROSE GARCIA, Lie Detector Operator scribed while in presence of service performed by Dr. Galloway/Priyanka Coyne APRN on 02/05/17 ([id number])
--- NOTE | 2017-02-05 14:17 | CONS ---
DATE OF CONSULTATION: 02/01/17 REASON FOR CONSULTATION/HISTORY OF PRESENT ILLNESS: 81 year old male , a patient of Dr. David's, is seen by me at the request of Dr. David because of decubitus ulcerations. Coccyx, left anterior buttocks and also left heel. Decubitus ulcer in the coccyx and sacrum pressure like areas instead of large ulcer. The patient area on the anterior buttocks is wide and deep. This area could probably approximated however the patient could never be sitting in the chair or could never be on supine posterior to produce pressure. This also includes the area in the heel, left side. ASSESSMENT: 1. Decubitus ulcer involving the coccyx, left anterior buttocks and left heel. RECOMMENDATION: 1. Continue with the dressing 2. Never put to the patient on his back; he should be on either left or right side and also heel should never have any contact with the bed. Obtain a Styrofoam type support to prevent the heel from touching the bed. 3. The patient should probably see Wound Care and approximation of the area in the anterior buttocks, upper thigh is possible however the approximation or closure would probably not be successful if the patient would not be able to follow very strict observation of not on his buttock at all meaning not sitting and if he is up then he should be moving and should be on the side all the time. Thank you for allowing me to participate in his care. DANIEL
[2017-02-05] MEDS: KLONOPIN PO SCH (20:36)
[2017-02-06] MEDS: ZOSYN 3.375 GM 3.375 GM in SODIUM CHLORIDE 100 ML IV SCH ×5 (00:16→23:59)
[2017-02-06 04:32] LABS: BASOPHILS % (AUTO) 0.3 % (0.0-3.0); EOSINOPHILS # (AUTO) 0.3 K/ul (0.0-0.7); EOSINOPHILS % (AUTO) 4.8 % (0.0-7.0); HEMATOCRIT 27.1 % (42.0-52.0); HEMOGLOBIN 9.1 g/dl (14.0-18.0); IMMATURE GRANULOCYTE % (AUTO) 0.8 % (0.0-5.0); LYMPHOCYTES # (AUTO) 1.8 K/uL (0.60-3.4); LYMPHOCYTES % (AUTO) 28.2 (10.0-50.0); MEAN CORPUSCULAR HEMOGLOBIN 30.8 pg (27.0-31.0); MEAN CORPUSCULAR HGB CONC 33.6 (31.8-35.4); MEAN CORPUSCULAR VOLUME 91.9 fl (80.0-94.0); MONOCYTES # (AUTO) 0.6 K/uL (0.4-2.0); NEUTROPHILS # (AUTO) 3.6 K/ul (2.0-6.9); NEUTROPHILS % (AUTO) 56.9; PLATELET COUNT 219 10^3/uL (140-440); RED BLOOD COUNT 2.95 10^6/ul (4.70-6.10); WHITE BLOOD COUNT 6.31 K/ul (4.2-10.2)
[2017-02-06] MEDS: TORADOL IVP SCH ×3 (04:54→21:18)
[2017-02-06 04:59] LABS: ALBUMIN 1.9 g/dL (3.4-5.0); ALBUMIN/GLOBULIN RATIO 0.56; ANION GAP 13.1; BILIRUBIN,TOTAL 0.46 mg/dL (0.00-1.20); BUN/CREATININE RATIO 17.92; CALCIUM 8.3 mg/dL (8.2-10.2); CREATININE 1.06 mg/dL (0.60-1.10); POTASSIUM 4.1 mmol/L (3.5-5.1); TOTAL PROTEIN 5.3 g/dL (5.8-8.1)
[2017-02-06] MEDS: DEXTROSE 5%-1/2NS IV SOLUTION 1,000 ML IV SCH ×2 (05:21→21:20)
[2017-02-06] MEDS: LASIX TAB PO SCH (05:38)
[2017-02-06] MEDS: PROTONIX PO SCH ×2 (05:38→17:51)
[2017-02-06] MEDS ORDERED: ZESTRIL PO SCH (08:08)
[2017-02-06] MEDS: MIRALAX PO SCH ×2 (08:37→21:19)
[2017-02-06] MEDS: TYLENOL PO PRN (08:38)
[2017-02-06] MEDS: ZOCOR PO SCH (08:38)
[2017-02-06] MEDS: TENORMIN PO SCH (08:38)
[2017-02-06] MEDS: FERROUS SULFATE PO SCH (08:38)
[2017-02-06] MEDS: K-DUR PO SCH (08:38)
[2017-02-06] MEDS: ZESTRIL PO SCH (08:38)
[2017-02-06] MEDS: SILVADENE CREAM TP SCH ×2 (08:42→21:20)
[2017-02-06] MEDS: CALMOSEPTINE OINTMENT TP SCH ×2 (08:42→21:19)
--- NOTE | 2017-02-06 09:41 | PCM.PROG ---
Attending Provider: ATTENDING PROVIDER: Dr. SHELBIE GALLOWAY DATE OF SERVICE: 02/06/17 SUBJECTIVE: This 81 year old WHITE/ M was hospitalized 01/30/17. The patient is hospitalized with severe back pain and dehydration. The patient has decubitus ulcer which is healing slowly and prognosis for complete healing is not good considering nutritional status, inability to walk and uncooperativeness. uncooperativeness. Kidney function is better. REVIEW OF SYSTEMS: CONSTITUTIONAL: No night sweats. No fatigue, malaise, lethargy. No fever or chills. HEENT: Eyes: No visual changes. No eye pain. No eye discharge. ENT: No runny nose. No epistaxis. No sinus pain. No odynophagia. No congestion. RESPIRATORY: No cough, no congestion. No hemoptysis. No shortness of breath. CARDIOVASCULAR: No angina symptoms. No CHF symptoms. No atypical chest pain for CAD. No palpitations. No orthopnea.. GASTROINTESTINAL: No abdominal pain. No nausea or vomiting. No diarrhea or constipation. No hematemesis. No hematochezia. GENITOURINARY: No urgency. No frequency. No dysuria. No hematuria. No obstructive symptoms. No discharge. No pain. No significant abnormal bleeding. MUSCULOSKELETAL: Arthritic pain. NEUROLOGICAL: Awake, alert, oriented to time, place and person. No headache. No neck pain. No syncope. No seizures. No dizziness. PSYCHIATRIC: Not anxious. No depression. No suicidal thoughts. No homicidal thoughts. SKIN: No rash. Decubitus ulcer. ENDOCRINE: No unexplained weight loss. No weight gain. HEMATOLOGIC/LYMPHATIC: No anemia. No purpura. No petechiae. No prolonged or excessive bleeding. No palpable lymph nodes. PHYSICAL EXAMINATION: GENERAL: The patient is awake, alert and oriented, lying in bed in no distress. VITAL SIGNS: Temperature 97.9 F, Pulse 79, Respiratory Rate 20, BP 98/48, Pulse Ox 98% HEENT: Head normocephalic, atraumatic. Eyes: Extraocular muscles are intact. Pupils are equal, round and reactive to light and accommodation. Ears: No lesions. Nose appeared normal. Throat: No exudate or erythema. NECK: Supple. No JVD, no carotid bruit. No lymphadenopathy or thyromegaly. LUNGS: Decreased breath sounds. Clear to auscultation. Percussion note normal. Chest symmetrical. HEART: S1, S2, no S3. No murmurs. No cyanosis or clubbing. No ascites. Pulses: Dorsalis pedis and posterior tibial pulses +1 to +2 both sides. ABDOMEN: Soft. Non-tender. Bowel sounds active. No CVA tenderness. No mass felt. EXTREMITIES: No edema. Full range of motion of all extremities, equal. NEUROLOGIC: No focal deficit. Cranial nerves II through XII are grossly intact. No headache, no double vision or headache. SKIN: Warm and dry. Intact. Turgor-normal. LYMPHATIC: No palpable lymph nodes/no lymphedema. MUSCULOSKELETAL: Normal joints with no swelling. Muscle tone is normal. LAB REVIEW: 02/06/17 04:28 02/06/17 04:28 02/06/17 04:28: Sodium 141, Potassium 4.1, Chloride 114 H, Carbon Dioxide 18 L, Anion Gap 13.1, BUN 19 H, Creatinine 1.06, Estimated GFR (MDRD) 67.00, BUN/ Creatinine Ratio 17.92, Glucose 93, Calcium 8.3, Total Bilirubin 0.46, AST 22, ALT 26, Alkaline Phosphatase 70, Total Protein 5.3 L, Albumin 1.9 L, Globulin 3.4, Albumin/Globulin Ratio 0.56 02/06/17 04:28: WBC 6.31, RBC 2.95 L, Hgb 9.1 L, Hct 27.1 L, MCV 91.9, MCH 30.8 , MCHC 33.6, RDW Coeff of Timmy 15.7 H, Plt Count 219, Immature Gran % (Auto) 0.8 , Neut % (Auto) 56.9, Lymph % (Auto) 28.2, [place] % (Auto) 9.0, Eos % (Auto) 4.8, Baso % (Auto) 0.3, Immature Gran # (Auto) 0.1, Neut # 3.6, Lymph # 1.8, [place] # 0.6, Eos # 0.3, Baso # 0.0 ASSESSMENT: 1. DJD spine under control 2. Dehydration resolved with normalization of kidney function 3. Anemia stable. No active GI bleed given 2 units PRBC 4. Wound healing under care of Wound Care - patient is on Piperacillin and Silvadene cream. PLAN: 1. Will decrease Zestril to 5 mg daily as patient is running low blood pressure 2. Tylenol two tabs t.i.d. for heal pain p.r.n. 3. Encouraged to eat. Plan and coordination of the patient's care discussed in the presence of Net Finisher and nurse. CONDITION: Stable SCRIBED BY: ROSE GARCIA Solution Specialist scribed while in presence of service performed by Dr. SHELBIE GALLOWAY on 02/06/17 ([id number])
[2017-02-06] MEDS ORDERED: MILK OF MAGNESIA PO PRN (10:45)
--- NOTE | 2017-02-06 13:37 | PN ---
DATE OF SERVICE: 02/04/17 SUBJECTIVE: The patient is an 81 year old white male seen with moderate to severe back pain which has subsided. His new problems is ESBL grew from his decubitus. The patient is on Piperacillin besides that the patient had hgb of 7.7 with symptomatic anemia with dizziness, not feeling good, failure to thrive. The patient is given two units of packed red cell; hgb is 9 with hct of 26. PHYSICAL EXAMINATION: GENERAL: The patient has no evidence of active GI bleed HEENT: Head normocephalic, atraumatic. Eyes: Extraocular muscles are intact. Pupils are equal, round and reactive to light and accommodation. Ears: No lesions. Nose appeared normal. Throat: No exudate or erythema. NECK: Supple. No JVD, no carotid bruit. No lymphadenopathy or thyromegaly. LUNGS: Decreased breath sounds but clear to auscultation. Percussion note normal. Chest symmetrical. HEART: S1, S2, no S3. No murmurs. No cyanosis or clubbing. No ascites. Pulses: Dorsalis pedis and posterior tibial pulses +1 to +2 both sides. ABDOMEN: Soft. Nontender. Bowel sounds active. No CVA tenderness. No mass felt. EXTREMITIES: No edema. Full range of motion of all extremities, equal. NEUROLOGIC: No focal deficit. Cranial nerves II through XII are grossly intact. No headache, no double vision or headache. SKIN: Not dry. Intact. Turgor - normal. LYMPHATIC: No palpable lymph nodes/no lymphedema. MUSCULOSKELETAL: Normal joints with no swelling. Muscle tone is normal. LABS: Creatinine 1.2, BUN 28. ASSESSMENT: 1. Decubitus ulcer 2. Severe DJD of the spine 3. Anemia, symptomatic which seems to be better PLAN: 1. Given Piperacillin 2. Continue decubitus care by Dr. Vizcaino who is a surgical services assistant along with Wound Care. CONDITION: Stable The patient was seen and examined with Nurse Practitioner. TIME SPENT: More than 30 minutes. Plan and coordination of the patient's care discussed in the presence of nurse. MTDD
[2017-02-06] MEDS: KLONOPIN PO SCH (21:19)
[2017-02-07 04:39] LABS: BASOPHILS % (AUTO) 0.6 % (0.0-3.0); EOSINOPHILS # (AUTO) 0.4 K/ul (0.0-0.7); EOSINOPHILS % (AUTO) 5.6 % (0.0-7.0); HEMATOCRIT 28.4 % (42.0-52.0); HEMOGLOBIN 9.6 g/dl (14.0-18.0); IMMATURE GRANULOCYTE % (AUTO) 0.7 % (0.0-5.0); LYMPHOCYTES # (AUTO) 1.7 K/uL (0.60-3.4); LYMPHOCYTES % (AUTO) 25.1 (10.0-50.0); MEAN CORPUSCULAR HEMOGLOBIN 31.2 pg (27.0-31.0); MEAN CORPUSCULAR HGB CONC 33.8 (31.8-35.4); MEAN CORPUSCULAR VOLUME 92.2 fl (80.0-94.0); MONOCYTES # (AUTO) 0.6 K/uL (0.4-2.0); MONOCYTES % (AUTO) 9.2 (0-10); NEUTROPHILS % (AUTO) 58.8; PLATELET COUNT 224 10^3/uL (140-440); RED BLOOD COUNT 3.08 10^6/ul (4.70-6.10); WHITE BLOOD COUNT 6.77 K/ul (4.2-10.2)
[2017-02-07 05:01] LABS: ALBUMIN 1.7 g/dL (3.4-5.0); ALBUMIN/GLOBULIN RATIO 0.49; ANION GAP 11.9; BILIRUBIN,TOTAL 0.39 mg/dL (0.00-1.20); BUN/CREATININE RATIO 15.88; CALCIUM 8.2 mg/dL (8.2-10.2); CREATININE 1.07 mg/dL (0.60-1.10); POTASSIUM 3.9 mmol/L (3.5-5.1); TOTAL PROTEIN 5.2 g/dL (5.8-8.1)
[2017-02-07] MEDS: ZOSYN 3.375 GM 3.375 GM in SODIUM CHLORIDE 100 ML IV SCH ×2 (05:51→13:16)
[2017-02-07] MEDS: TORADOL IVP SCH ×2 (06:17→13:17)
[2017-02-07] MEDS: LASIX TAB PO SCH (06:17)
[2017-02-07] MEDS: PROTONIX PO SCH (06:17)
[2017-02-07] MEDS ORDERED: LASIX IVP STA (08:00)
[2017-02-07] MEDS: SILVADENE CREAM TP SCH (09:00)
[2017-02-07] MEDS: CALMOSEPTINE OINTMENT TP SCH (09:00)
[2017-02-07] MEDS: ZOCOR PO SCH (09:01)
[2017-02-07] MEDS: ZESTRIL PO SCH (09:01)
[2017-02-07] MEDS: K-DUR PO SCH (09:01)
[2017-02-07] MEDS: TENORMIN PO SCH (09:01)
[2017-02-07] MEDS: FERROUS SULFATE PO SCH (09:01)
[2017-02-07] MEDS: MIRALAX PO SCH (09:02)
--- NOTE | 2017-02-07 09:27 | PCM.PROG ---
Attending Provider: ATTENDING PROVIDER: Dr. SHELBIE GALLOWAY This patient is seen with Priyanka Coyne, Nurse Practitioner. DATE OF SERVICE: 02/07/17 SUBJECTIVE: This 81 year old WHITE/ M was hospitalized 01/30/17. The patient is lying in bed, is alert. He is ready for discharge and will be going to go to [facility] today. The patient is agreeable and understands. REVIEW OF SYSTEMS: CONSTITUTIONAL: No night sweats. No fatigue, malaise, lethargy. No fever or chills. HEENT: Eyes: No visual changes. No eye pain. No eye discharge. ENT: No runny nose. No epistaxis. No sinus pain. No odynophagia. No congestion. RESPIRATORY: No cough, no congestion. No hemoptysis. No shortness of breath. CARDIOVASCULAR: No angina symptoms. No CHF symptoms. No atypical chest pain for CAD. No palpitations. No orthopnea.. GASTROINTESTINAL: No abdominal pain. No nausea or vomiting. No diarrhea or constipation. No hematemesis. No hematochezia. GENITOURINARY: No urgency. No frequency. No dysuria. No hematuria. No obstructive symptoms. No discharge. No pain. No significant abnormal bleeding. MUSCULOSKELETAL: Osteoarthriic pain. NEUROLOGICAL: Awake, alert, oriented to time, place and person. No headache. No neck pain. No syncope. No seizures. No dizziness. PSYCHIATRIC: Not anxious. No depression. No suicidal thoughts. No homicidal thoughts. SKIN: No rash. Multiple wounds. ENDOCRINE: No unexplained weight loss. No weight gain. HEMATOLOGIC/LYMPHATIC: No anemia. No purpura. No petechiae. No prolonged or excessive bleeding. No palpable lymph nodes. PHYSICAL EXAMINATION: GENERAL: The patient is awake, alert and oriented, lying in bed in no distress. VITAL SIGNS: Temperature 97.4 F, Pulse 56, Respiratory Rate 18, BP 122/69, Pulse Ox 97% HEENT: Head normocephalic, atraumatic. Eyes: Extraocular muscles are intact. Pupils are equal, round and reactive to light and accommodation. Ears: No lesions. Nose appeared normal. Throat: No exudate or erythema. NECK: Supple. No JVD, no carotid bruit. No lymphadenopathy or thyromegaly. LUNGS: Decreased breath sounds bilaterally. Clear to auscultation. Percussion note normal. Chest symmetrical. HEART: S1, S2, no S3. No murmurs. No cyanosis or clubbing. No ascites. Pulses: Dorsalis pedis and posterior tibial pulses +1 to +2 both sides. ABDOMEN: Soft. Non-tender. Bowel sounds active. No CVA tenderness. No mass felt. EXTREMITIES: +1 to +2 left lower extremity edema. Full range of motion of all extremities, equal. NEUROLOGIC: No focal deficit. Cranial nerves II through XII are grossly intact. No headache, no double vision or headache. SKIN: Warm and dry. Two ulcers left heel, left ischium and coccyx. LYMPHATIC: No palpable lymph nodes/no lymphedema. MUSCULOSKELETAL: Normal joints with no swelling. Muscle tone is normal. LAB REVIEW: 02/07/17 04:35 02/07/17 04:35 02/07/17 04:35: Sodium 139, Potassium 3.9, Chloride 112 H, Carbon Dioxide 19 L, Anion Gap 11.9, BUN 17, Creatinine 1.07, Estimated GFR (MDRD) 66.00, BUN/ Creatinine Ratio 15.88, Glucose 135 H, Calcium 8.2, Total Bilirubin 0.39, AST 16 , ALT 22, Alkaline Phosphatase 69, Total Protein 5.2 L, Albumin 1.7 L, Globulin 3.5, Albumin/Globulin Ratio 0.49 02/07/17 04:35: WBC 6.77, RBC 3.08 L, Hgb 9.6 L, Hct 28.4 L, MCV 92.2, MCH 31.2 H, MCHC 33.8, RDW Coeff of Timmy 15.5 H, Plt Count 224, Immature Gran % (Auto) 0.7 , Neut % (Auto) 58.8, Lymph % (Auto) 25.1, [place] % (Auto) 9.2, Eos % (Auto) 5.6, Baso % (Auto) 0.6, Immature Gran # (Auto) 0.1, Neut # 4.0, Lymph # 1.7, [place] # 0.6, Eos # 0.4, Baso # 0.0 ASSESSMENT: 1. DJD spine under control 2. Dehydration resolved with normalization of kidney function 3. Anemia stable. No active GI bleed given 2 units PRBC 4. Wound healing under care of Wound Care - patient is on Piperacillin and Silvadene cream. PLAN: 1. Lasix 20 mg IV - extra dose 2. D/C to [facility] 3. Tramadol 50 mg b.i.d. 4. Augmentin 875 b.i.d. for 3 days 5. Wound Care weekly 6. PT/OT 7. CBC, CMP in one week then q.3months 8. Lipids, TSH q.6m 9. Will followup on Saturday or Saturday at [place] Plan and coordination of the patient's care discussed in the presence of Motorcycle Delivery Driver and nurse. CONDITION: Stable SCRIBED BY: ROSE GARCIA Experimental Machining Lab Manager scribed while in presence of service performed by Dr. Galloway/Priyanka Coyne APRN on 02/07/17 ([id number])
--- NOTE | 2017-02-07 09:45 | CM.DICTOOL ---
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 HYPERTENSION HYPOTHYROIDISM CAD PAD DYSLIPIDEMIA ANEMIA, TRANSFUSED 2 UNITS PRBCS 02/04/17 HIATAL HERNIA DEPRESSION LAST VITALS Temp Pulse Resp BP Pulse Ox 97.4 F L 56 L 18 122/69 97 02/07/17 05:35 02/07/17 05:35 02/07/17 05:35 02/07/17 05:35 02/07/17 05:35 ACTIVE HOME MEDICATIONS Acetaminophen (Tylenol) 650 mg PO Q8H PRN (NEW) PRN Reason: pain Last Admin: 02/06/17 08:38 Dose: 650 mg Atenolol (Tenormin) 50 mg PO DAILY [facility] Last Admin: 02/06/17 08:38 Dose: 50 mg Calamine/Phenol (Calmoseptine Ointment) 1 applic TP BID [facility] Last Admin: 02/06/17 21:19 Dose: 1 applic Clonazepam (Klonopin) 1 mg PO BEDTIME [facility] Last Admin: 02/06/17 21:19 Dose: 1 mg Ferrous Sulfate (Ferrous Sulfate) 324 mg PO DAILY [facility] Last Admin: 02/06/17 08:38 Dose: 324 mg Furosemide (Lasix Tab) 40 mg PO QDAC [facility] Last Admin: 02/07/17 06:17 Dose: 40 mg Lisinopril (Zestril) 5 mg PO DAILY [facility] (DOSE DECREASED FROM 20 MG PO DAILY) Last Admin: 02/06/17 08:38 Dose: 5 mg Pantoprazole Sodium (Protonix) 40 mg PO BIDAC [facility] Last Admin: 02/07/17 06:17 Dose: 40 mg Polyethylene Glycol (Miralax) 17 gm PO BID [facility] (NEW) Last Admin: 02/06/17 21:19 Dose: 17 gm Potassium Chloride (K-Dur) 40 meq PO DAILYWM [facility] Last Admin: 02/06/17 08:38 Dose: 40 meq Silver Sulfadiazine (Silvadene Cream) 1 applic TP BID [facility] Last Admin: 02/06/17 21:20 Dose: 1 applic Simvastatin (Zocor) 40 mg PO DAILY [facility] Last Admin: 02/06/17 08:38 Dose: 40 mg ALLERGIES morphine Adverse Reaction (Verified 12/15/16 10:16) NEW PRESCRIPTIONS: POLYETHYLENE GLYCOL (MIRALAX) 17 GRAMS PO BID PLEASE NOTE THE CHANGE IN THE ZESTRIL FROM 20 MG PO DAILY TO 5 MG PO DAILY ACETAMINOPHEN (TYLENOL) 650 MG PO Q 8 HOURS PRN FEVER/PAIN TRAMADOL 50 MG PO BID AUGMENTIN 875 MG PO BID X 3 DAYS SMOKING: NONSMOKER DISEASE SPECIFIC EDUCATION: GROUP HOME PLACEMENT WOUND [facility] MEDICATIONS NEW MEDICATIONS PAIN MEDICATIONS ANEMIA BLOOD TRANSFUSION FOLLOW UP AT THE GROUP HOME NUTIRITONAL NEEDS LAB REVIEW: 02/07/17 04:35 02/07/17 04:35 02/07/17 04:35: Sodium 139, Potassium 3.9, Chloride 112 H, Carbon Dioxide 19 L, Anion Gap 11.9, BUN 17, Creatinine 1.07, Estimated GFR (MDRD) 66.00, BUN/ Creatinine Ratio 15.88, Glucose 135 H, Calcium 8.2, Total Bilirubin 0.39, AST 16 , ALT 22, Alkaline Phosphatase 69, Total Protein 5.2 L, Albumin 1.7 L, Globulin 3.5, Albumin/Globulin Ratio 0.49 02/07/17 04:35: WBC 6.77, RBC 3.08 L, Hgb 9.6 L, Hct 28.4 L, MCV 92.2, MCH 31.2 H, MCHC 33.8, RDW Coeff of Timmy 15.5 H, Plt Count 224, Immature Gran % (Auto) 0.7 , Neut % (Auto) 58.8, Lymph % (Auto) 25.1, [place] % (Auto) 9.2, Eos % (Auto) 5.6, Baso % (Auto) 0.6, Immature Gran # (Auto) 0.1, Neut # 4.0, Lymph # 1.7, [place] # 0.6, Eos # 0.4, Baso # 0.0 PLAN: DISCHARGE TO [facility] DR. GALLOWAY/LONG SAHU, LAUNDRY BAG PUNCH OPERATOR, WILL SEE THE PATIENT DURING USUAL GROUP HOME ROUNDS IN APPROXIMATELY ONE WEEK RESUME HOME MEDICATIONS AT THE GROUP HOME PER LIST PROVIDED BY THE NURSING STAFF NEW MEDICATIONS POLYETHYLENE GLYCOL (MIRALAX) 17 GRAMS PO BID PLEASE NOTE THE CHANGE IN THE ZESTRIL FROM 20 MG PO DAILY TO 5 MG PO DAILY ACETAMINOPHEN (TYLENOL) 650 MG PO Q 8 HOURS PRN FEVER/PAIN TRAMADOL 50 MG PO BID AUGMENTIN 875 MG PO BID X 3 DAYS LABS CBC WITH DIFF AND CMP IN ONE WEEK, THEN Q 3 MONTHS LIPID PROFILE, TSH AND FREE T4 Q 6 MONTHS ACTIVITY PT/OT PLEASE EVALUATE AND TREAT INDICATED MAY PARTICIPATE IN GROUP HOME ACTIVITY PROGRAM TOLERATED DIET REGULAR MEDIA INTERN PLEASE CONSULT TO PROVIDE FOR OPTIMAL NUTRITIONAL NEEDS TO THE DINING ROOM FOR ALL MEALS TOLERATED WOUND CARE PLEASE FOLLOW [facility] INSTRUCTIONS ([facility]) WOUND CARE WILL CONTACT YOU TO SET UP WOUND CARE APPOINTMENTS ([phone]) APPLY WOUND VAC ORDERED BY WOUND CARE ([facility], [facility], PH# [phone]) SUMMARY THE PATIENT IS ALERT AND ORIENTED X3. HE CURRENTLY RESIDES AT HOME WITH HIS ELDERLY SISTER. SHE HAS BEEN PROVIDING CARE AT HOME FOR HIS NEEDS. WITH HIS DECUBITUS ULCERS BECOMING PROGRESSIVELY WORSE, SHE IS NO LONGER ABLE TO PROVIDE THE LEVEL OF CARE HE REQUIRES. BOTH HE AND HIS SISTER ARE AGREEABLE FOR GROUP HOME PLACEMENT AT [facility]. HE USES A MOTORIZED CHAIR FOR MOBILITY DUE TO A SPINAL/BACK INJURY IN HIS YOUNG ADULT AGE. UNTIL RECENTLY, HE HAS BEEN ABLE TO MANAGE FAIRLY WELL FOR ADL'S AND HAS BEEN ABLE TO TRANSFER FROM CHAIR TO BED INDEPENDENTLY. HE HAS BECOME MORE WEAK AND NOW REQUIRES MORE ASSISTANCE. HE HAS A KELLY CATHETER IN PLACE TO PREVENT FURTHER SKIN BREAKDOWN. THE PATIENT HAS REQUESTED THE KELLY CATHETER BE LEFT IN PLACE. THE ULCER TO THE INNERGLUTEAL CLEFT IS A STAGE II. IT HAS MINIMAL SEROUS DRAINAGE PRESENT. SURROUNDING TISSUE IS REG AND MACERATED. THE WOUND IS INFECTED WITH E-COLI ORGANISM. THE STAGE II PRESSURE ULCER TO THE LEFT ISCHIUM MEASURES 5 X 6.5 CM AND HAS MILD TUNNELING AT THE LOWER EDGE. THE AREA IS BRIGHT RED AND HAS MINIMAL DRAINAGE. THE LEFT HEEL HAS A STAGE II PRESSURE ULCER AND PARTIALLY COVERED WITH ESCHAR. THERE IS SLOUGHING OF THE SKIN AND MACERATION OTHERWISE. [facility] ([facility]) HAS BEEN PROVIDING WOUND CARE IN THE OUTPATIENT SETTING AND WILL CONTINUE WITH TREATMENT AT THE GROUP HOME. THEY WILL CONTACT THE GROUP HOME TO SCHEDULE WEEKLY VISITS FOR FURTHER TREATMENT. A WOUND VAC HAS BEEN ORDERED BY THE WOUND CARE CLINIC. WE HAVE PROVIDED THIS INFORMATION TO THE GROUP HOME WELL. CURRENT CODE STATUS: FULL CODE LONG SAHU APRN SHELBIE GALLOWAY M.D.
[2017-02-07] MEDS: TYLENOL PO PRN (09:58)
--- NOTE | 2017-02-07 13:48 | DS ---
DATE OF SERVICE: FINAL DIAGNOSIS: 1. MODERATE TO SEVERE BACK PAIN, IMPROVED 2. DEHYDRATION, RESOLVED (NORMAL KIDNEY FUNCTION) 3. SHORTNESS OF BREATH, RESOLVED 4. DECUBITUS ULCERS a) LEFT INTER-GLUTEAL CREASE, STAGE III B) LEFT ISCHIUM, STAGE II TO III C) LEFT HEEL, STAGE II AND ESCHAR 5. OSTEOARTHRITIS 6. DJD OF THE SPINE 7. DEPENDENT LEG EDEMA LEFT GREATER THAN RIGHT 8. 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 HYPERTENSION 10. HYPOTHYROIDISM 11. CORONARY ARTERY DISEASE 12. PERIPHERAL ARTERIAL DISEASE 13. DYSLIPIDEMIA 14. ANEMIA, TRANSFUSED 2 UNITS PRBCS 02/04/17 15. HIATAL HERNIA 16. DEPRESSION DISCHARGE INSTRUCTIONS: 1. Discharge to [facility] 2. Dr. David/Priynaka Coyne APRN, will see the patient during usual chcf rounds in approximately one week. MEDICATIONS AT DISCHARGE: Acetaminophen (Tylenol) 650 mg p.o. q.8h p.r.n. (new) Atenolol (Tenormin) 50 mg p.o. daily [facility] Calamine (Calmoseptine Ointment) one application TP b.i.d. [facility] Clonazepam (Klonopin) 1 mg p.o. bedtime [facility] Ferrous Sulfate 324 mg p.o. daily [facility] Furosemide 40 mg p.o. q.d a.c. [facility] Lisinopril (Zestril) 5 mg p.o. daily [facility] (dose decreased from 20 mg p.o. daily) Pantoprazole (Protonix) 40 mg p.o .b.i.d. a.c. [facility] Polyethylene Glycol (Miralax) 17 gm p.o. b.i.d. [facility] (new) Potassium Chloride (K-Dur) 40 mEq p.o. daily with meal [facility] Silver Sulfadiazine (Silvadene Cream) one application TP b.i.d. [facility] Simvastatin (Zocor) 40 mg p.o. daily [facility] NEW PRESCRIPTIONS: Polyethylene Glycol (Miralax) 17 gm p.o. b.i.d. Please note the change in the Zestril from 20 mg p.o. daily to 5 mg p.o. daily Acetaminophen (Tylenol) 650 mg p.o. q.8hr p.r.n. fever/pain Tramadol 50 mg p.o. b.i.d. Augmentin 875 mg p.o. b.i.d. times 3 days DIET INSTRUCTIONS: Regular Filter Tank Tender please consult to provide for optimal nutritional needs To the dining room for all meals as tolerated ACTIVITY: PT/OT please evaluate and treat as indicated May participate in chcf activity program as tolerated WOUND CARE: Please follow [facility] instructions ([facility]) Wound care will contact you to set up wound care appointments Apply Wound Vac as ordered by Wound Care ([facility]# [phone]) LABS: CBC with diff and CMP in one week, then q.3 months Lipid profile, TSH and free T4 q.6 months SMOKING: Nonsmoker DISEASE SPECIFIC EDUCATION: correction placement Wound half-way medications New medications Pain medications Anemia Blood transfusion Follow up at the chcf Nutritional needs HOSPITAL COURSE: This is an 81-year-old white male who is a direct admit from our office. He had previously been hospitalized several months ago with severe back pain, dehydration and infected decubitus ulcers on his coccyx and ischium. Since that hospitalization he has been seeing Wound Care. He was supposed to be seeing Wound Care weekly although he has been unable to get there and has been seeing him only every other week. He currently resides at home with his sister, who is also in poor health and is not able to take great care of him and he has been in a wheelchair for some time now. At the office, he appeared mildly short of breath, he was in moderate distress. He was subsequently admitted, placed on IV fluids, placed on Rocephin 1 gm. Since going home he has now developed an ulcer on his left heel along with the one on the coccyx and ischium. He was placed on IV Rocephin, Toradol 30 mg IV q.8hr. His home medications were continued. Over the course of several days, his kidney function slowly improved. Today, on day of discharge, BUN 17, creatinine 1.07. He was given an extra 20 mg of IV Lasix on the second day of admission. The first day his blood pressure was too low at 90/57. Since staying his appetite and strength have slowly improved. The past two days he has been eating 75 to 100% of his meals. Dr. Vizcaino was consulted regarding his wounds while he was here. His instructions were to put Silvadene cream on the wounds. The wound cultures were done and he was changed to Zosyn IV q.6hr after positive wound cultures. Due to his inability to care for himself and his sister states that she is unable to care for him as well, he has agreed during this hospitalization to go to [facility] for PT and OT as well as wound care. Today, on day of discharge he is feeling remarkably well. We will place him on Augmentin 875 mg b.i.d. for the next three days. We will give him Ultram 50 mg b.i.d. for osteoarthritis pain. He does have detention history of degenerative joint disease with history of old compression fractures in his back. Over the course of the weekend, on the , his hemoglobin dropped to 7.7. He was given 2 units of packed red cells. He does have a long history of anemia due to poor nutrition, chronic kidney disease and aging process. After the two units he states that he felt remarkably better. His shortness of breath had improved as well after the blood. He has been steady at 9.5 and 9.6. He does have some edema of the left foot today, will give him 20 of IV Lasix prior to discharge. He will be discharged to [facility] and they will arrange for transportation to Wound Care weekly at [facility] and Dr. Vizcaino will continue to follow him there. Again, will put him on Augmentin for the next three days, try to control his pain with Ultram. I will follow him closely at the chcf. He is discharged in stable condition with hemoglobin 9.6, hematocrit 28.4, white count 6.7, sodium 39, potassium 3.9, BUN 17, creatinine 1.07. Vital signs: Temperature 97.4, heart rate 56, BP 122/69 and pulse ox 97%. TIME SPENT: More than 60 minutes. DANIEL
[2017-02-07 15:06] VITALS: BP 102/52; TEMP 97.8
== END 2017-02-07 15:10 | DRG 551 ==
LOC: MEDSURG B 12:38
PROVIDERS: ADMIT Internal Medicine; ATTEND Internal Medicine
PROC: 30233N1 Transfusion of Nonautologous Red Blood Cells into Peripheral Vein, Percutaneous Approach (ICD-10-PCS; principal; 2017-02-03)
PROC: 30233N1 Transfusion of Nonautologous Red Blood Cells into Peripheral Vein, Percutaneous Approach (ICD-10-PCS; 2017-02-04)
DX: M54.9 Dorsalgia, unspecified (principal); L89.323 Pressure ulcer of left buttock, stage 3; L89.223 Pressure ulcer of left hip, stage 3; L89.622 Pressure ulcer of left heel, stage 2; L89.222 Pressure ulcer of left hip, stage 2; N18.9 Chronic kidney disease, unspecified; D53.9 Nutritional anemia, unspecified; D63.1 Anemia in chronic kidney disease; M17.12 Unilateral primary osteoarthritis, left knee; M47.9 Spondylosis, unspecified; R60.0 Localized edema; R27.0 Ataxia, unspecified; E86.0 Dehydration; R06.02 Shortness of breath; I10 Essential (primary) hypertension; E03.9 Hypothyroidism, unspecified; I25.10 Atherosclerotic heart disease of native coronary artery without angina pectoris; I73.9 Peripheral vascular disease, unspecified; E78.5 Hyperlipidemia, unspecified; K44.9 Diaphragmatic hernia without obstruction or gangrene; F32.9 Major depressive disorder, single episode, unspecified; B96.20 Unspecified Escherichia coli [E. coli] as the cause of diseases classified elsewhere; K59.00 Constipation, unspecified; Z16.12 Extended spectrum beta lactamase (ESBL) resistance; Z79.899 Other long term (current) drug therapy
CPT/HCPCS: 36415; 36430; 80053; 84439; 84443; 85025; 86850; 86900; 86922; 87070; 87081; 87186

== ENCOUNTER 2017-02-20 08:34 | Outpatient (CLI) | END 2017-02-20 08:35 | disposition home or self-care (01) | LOC: WOUND 08:34 | PROVIDERS: ATTEND Nurse Practitioner Family | DX: L89.323 Pressure ulcer of left buttock, stage 3 (principal); L89.152 Pressure ulcer of sacral region, stage 2; I10 Essential (primary) hypertension; E78.5 Hyperlipidemia, unspecified; L89.620 Pressure ulcer of left heel, unstageable | CPT/HCPCS: 11042; 11045; 99212 ==

== ENCOUNTER 2017-02-27 08:22 | Outpatient (CLI) | END 2017-02-27 08:23 | disposition home or self-care (01) | LOC: WOUND 08:22 | DX: L89.323 Pressure ulcer of left buttock, stage 3 (principal); L89.152 Pressure ulcer of sacral region, stage 2; I10 Essential (primary) hypertension; E78.5 Hyperlipidemia, unspecified; L89.620 Pressure ulcer of left heel, unstageable | CPT/HCPCS: 11042; 11045; 87070; 87186; 99214 ==

== ENCOUNTER 2017-03-13 09:42 | Outpatient (CLI) | END 2017-03-13 09:43 | disposition home or self-care (01) | LOC: WOUND 09:42 | PROVIDERS: ATTEND Nurse Practitioner Family | DX: L89.323 Pressure ulcer of left buttock, stage 3 (principal); L89.152 Pressure ulcer of sacral region, stage 2; I10 Essential (primary) hypertension; E78.5 Hyperlipidemia, unspecified; L89.620 Pressure ulcer of left heel, unstageable ==

== ENCOUNTER 2017-04-25 12:24 | Outpatient (CLI) ==
[2017-04-25 15:33] VITALS: BMI 29.3
== END 2017-04-25 12:25 | disposition home or self-care (01) ==
LOC: AMBL 12:24
PROVIDERS: ATTEND Emergency Medicine
DX: D64.9 Anemia, unspecified (principal); Z96.0 Presence of urogenital implants; L89.309 Pressure ulcer of unspecified buttock, unspecified stage; L89.209 Pressure ulcer of unspecified hip, unspecified stage

== ENCOUNTER 2017-04-25 13:03 | Inpatient (IN) ==
[2017-04-25 15:33] VITALS: BMI 29.3
--- NOTE | 2017-04-25 16:01 | DI ---
EXAM: CHEST FRONTAL VIEW HISTORY: Cough. COMPARISON: 01/31/2017 FINDINGS: Heart size approaching upper limit normal, stable. Chronically elevated right hemidiaphra gm. No obvious consolidated pneumonia. Normal vascularity. No pleural fluid. Severe arthropathy o f the shoulders. IMPRESSION: No definite acute process.
--- NOTE | 2017-04-25 16:03 | DI ---
EXAM: Pelvis AP view, bilateral hips lateral views HISTORY: Wound. FINDINGS: No comparison radiography. There is severe arthropathy of both hips. General bone densit y appears decreased. No joint dislocation or acute fracture is seen. Sacroiliac joints are relative ly unremarkable. Degenerative changes of the lower spine. Soft tissues are poorly seen. IMPRESSION: Severe bilateral hip arthropathy. No definite acute fracture. If there is a high clinical suspicio n for fracture or infection, consider correlation with MRI.
[2017-04-25] MEDS ORDERED: VANCOMYCIN 1 GM in SODIUM CHLORIDE 250 ML IV STA (16:36)
[2017-04-25] MEDS: DEXTROSE 5%-1/2NS IV SOLUTION 1,000 ML IV SCH (17:59)
[2017-04-25] MEDS: CLEOCIN 300 MG in SODIUM CHLORIDE 50 ML IV SCH ×2 (17:59→22:09)
[2017-04-25] MEDS: PROTONIX PO SCH (18:00)
[2017-04-25] MEDS: TORADOL IVP SCH ×2 (18:00→22:09)
[2017-04-25] MEDS: ZINC-220 PO SCH (20:29)
[2017-04-25] MEDS: VITAMIN C PO SCH (20:30)
[2017-04-25] MEDS: MIRALAX PO SCH (20:30)
[2017-04-25] MEDS: KLONOPIN PO SCH (20:30)
[2017-04-26] MEDS: CLEOCIN 300 MG in SODIUM CHLORIDE 50 ML IV SCH ×2 (04:44→13:02)
[2017-04-26] MEDS: TORADOL IVP SCH ×3 (04:44→21:32)
[2017-04-26] MEDS: PROTONIX PO SCH ×2 (05:42→16:43)
[2017-04-26] MEDS: LASIX TAB PO SCH (05:42)
[2017-04-26] MEDS ORDERED: K-DUR PO SCH (08:00)
[2017-04-26] MEDS ORDERED: NON-FORMULARY MEDICATION (Ferrous Sulfate [Ferrous Sulfate] 325 MG) PO SCH (09:00)
[2017-04-26] MEDS: ZINC-220 PO SCH ×2 (09:22→21:32)
[2017-04-26] MEDS: VITAMIN C PO SCH ×2 (09:22→21:32)
[2017-04-26] MEDS: MIRALAX PO SCH ×2 (09:22→21:32)
[2017-04-26] MEDS: ZOCOR PO SCH (09:22)
[2017-04-26] MEDS: K-DUR PO SCH ×2 (09:22→16:43)
[2017-04-26] MEDS: ZESTRIL PO SCH (09:22)
[2017-04-26] MEDS: VANCOMYCIN 500 MG in SODIUM CHLORIDE 100 ML IV SCH (09:22)
[2017-04-26] MEDS: FERROUS SULFATE PO SCH (09:22)
[2017-04-26] MEDS: TENORMIN PO SCH (09:22)
--- NOTE | 2017-04-26 09:59 | PCM.PROG ---
Attending Provider: ATTENDING PROVIDER: Dr. SHELBIE DAVID This patient is seen with Priyanka Coyne, Nurse Practitioner. DATE OF SERVICE: 04/26/17 SUBJECTIVE: This 81 year old WHITE/ M was hospitalized 04/25/17. The patient is lying in bed complaining of pain in hips. Dr. Vizcaino saw the patient yesterday and plans on debriding decubitus on coccyx. The patient has lost weight, doesn' t want to eat much. He does not want to be positioned off his wound; the patient is very stubborn. REVIEW OF SYSTEMS: CONSTITUTIONAL: Weakness. No night sweats. No fever or chills. HEENT: Eyes: No visual changes. No eye pain. No eye discharge. ENT: No runny nose. No epistaxis. No sinus pain. No odynophagia. No congestion. RESPIRATORY: No cough, no congestion. No hemoptysis. Mild shortness of breath. CARDIOVASCULAR: No angina symptoms. No CHF symptoms. No atypical chest pain for CAD. No palpitations. No orthopnea.. GASTROINTESTINAL: No abdominal pain. No nausea or vomiting. No diarrhea or constipation. No hematemesis. No hematochezia. GENITOURINARY: No urgency. No frequency. No dysuria. No hematuria. No obstructive symptoms. No discharge. No pain. No significant abnormal bleeding. MUSCULOSKELETAL: Generalized weakness and pain. NEUROLOGICAL: Awake, alert, oriented to time, place and person. No headache. No neck pain. No syncope. No seizures. No dizziness. PSYCHIATRIC: Not anxious. No depression. No suicidal thoughts. No homicidal thoughts. SKIN: Wound on coccyx and heel. ENDOCRINE: No unexplained weight loss. No weight gain. HEMATOLOGIC/LYMPHATIC: No anemia. No purpura. No petechiae. No prolonged or excessive bleeding. No palpable lymph nodes. PHYSICAL EXAMINATION: GENERAL: The patient is awake, alert and oriented, cachexic, pale, lying in bed in no distress. VITAL SIGNS: Temperature 97.4 F, Pulse 61, Respiratory Rate 16, BP 108/58, Pulse Ox 97% HEENT: Head normocephalic, atraumatic. Eyes: Extraocular muscles are intact. Pupils are equal, round and reactive to light and accommodation. Ears: No lesions. Nose appeared normal. Throat: No exudate or erythema. NECK: Supple. No JVD, no carotid bruit. No lymphadenopathy or thyromegaly. LUNGS: Diminished breath sounds. Clear to auscultation. Percussion note normal. Chest symmetrical. HEART: S1, S2, no S3. No murmurs. No cyanosis or clubbing. No ascites. Pulses: Dorsalis pedis and posterior tibial pulses +1 to +2 both sides. ABDOMEN: Soft. Non-tender. Bowel sounds active. No CVA tenderness. No mass felt. EXTREMITIES: No edema. Full range of motion of all extremities, equal. NEUROLOGIC: No focal deficit. Cranial nerves II through XII are grossly intact. No headache, no double vision or headache. SKIN: Stage 3 decubitus ulcer on left heel. Coccyx Stage 4 or worse 3.5 inches deep with necrotic tissue. LYMPHATIC: No palpable lymph nodes/no lymphedema. MUSCULOSKELETAL: Normal joints with no swelling. Muscle tone is normal. LAB REVIEW: 04/26/17 04:30 04/26/17 04:30 04/26/17 04:30: Sodium 135 L, Potassium 3.4 L, Chloride 102, Carbon Dioxide 29, Anion Gap 7.4, BUN 16, Creatinine 0.79, Estimated GFR (MDRD) 94.00, BUN/ Creatinine Ratio 20.25, Glucose 121 H, Calcium 8.0 L, Total Bilirubin 0.4, AST 33, ALT 34, Alkaline Phosphatase 85, Total Protein 5.8, Albumin 1.5 L, Globulin 4.3, Albumin/Globulin Ratio 0.35 04/26/17 04:30: WBC 8.08, RBC 2.48 L, Hgb 7.5 L, Hct 23.9 L, MCV 96.4 H, MCH 30.2, MCHC 31.4 L, RDW Coeff of Timmy 15.6 H, Plt Count 387, Immature Gran % (Auto ) 0.9, Neut % (Auto) 65.0, Lymph % (Auto) 21.8, [place] % (Auto) 7.9, Eos % (Auto) 4.0, Baso % (Auto) 0.4, Immature Gran # (Auto) 0.1, Neut # 5.3, Lymph # 1.8, [place] # 0.6, Eos # 0.3, Baso # 0.0 04/25/17 14:00: Sodium 135 L, Potassium 3.6, Chloride 101, Carbon Dioxide 30, Anion Gap 7.6, BUN 14, Creatinine 0.74, Estimated GFR (MDRD) 101.00, BUN/ Creatinine Ratio 18.91, Glucose 105, Calcium 8.2, Total Bilirubin 0.4, AST 40 H , ALT 36, Alkaline Phosphatase 96, Total Protein 6.5, Albumin 1.6 L, Globulin 4.9, Albumin/Globulin Ratio 0.33 04/25/17 14:00: WBC 9.23, RBC 2.79 L, Hgb 8.6 L, Hct 26.4 L, MCV 94.6 H, MCH 30.8, MCHC 32.6, RDW Coeff of Timmy 15.7 H, Plt Count 430, Immature Gran % (Auto) 0.4, Neut % (Auto) 67.8, Lymph % (Auto) 21.9, [place] % (Auto) 6.7, Eos % (Auto) 2.7, Baso % (Auto) 0.5, Immature Gran # (Auto) 0.0, Neut # 6.3, Lymph # 2.0, [place] # 0.6, Eos # 0.3, Baso # 0.1 ASSESSMENT: 1. ANEMIA 2. STAGE IV COCCYX ULCER WORSENING 3. MALNUTRITION 4. WEIGHT LOSS 5. WHEEL CHAIR BOUND PLAN: 1. [place] 7.5 mg t.i.d. p.r.n. 2. Two units PRBCs - transfuse 3. Encouraged to eat 4. Regular diet 5. Potassium [address] Vizcaino to continue following Prognosis is poor due to poor appetite. The patient had been refusing wound care at [facility]. Prognosis discussed with patient, outlook is poor. Plan and coordination of the patient's care discussed in the presence of Hurl Shaker and nurse. CONDITION: Stable; PROGNOSIS: Poor. SCRIBED BY: ROSE GARCIA, Wind Up Worker scribed while in presence of service performed by Dr. David/Priyanka Coyne APRN on 04/26/17 ([id number])
[2017-04-26] MEDS: NORCO 7.5-325 PO SCH ×3 (10:35→21:32)
[2017-04-26] MEDS: KLONOPIN PO SCH (21:32)
[2017-04-27] MEDS: TYLENOL PO PRN (01:14)
[2017-04-27] MEDS: CLEOCIN 300 MG in SODIUM CHLORIDE 50 ML IV SCH ×4 (01:14→21:51)
[2017-04-27] MEDS: VANCOMYCIN 500 MG in SODIUM CHLORIDE 100 ML IV SCH ×3 (03:03→23:24)
[2017-04-27] MEDS: DEXTROSE 5%-1/2NS IV SOLUTION 1,000 ML IV SCH ×3 (03:32→21:58)
[2017-04-27] MEDS: PROTONIX PO SCH ×2 (06:37→16:29)
[2017-04-27] MEDS: LASIX TAB PO SCH (06:37)
[2017-04-27] MEDS: TORADOL IVP SCH ×4 (06:37→23:50)
[2017-04-27] MEDS: ZINC-220 PO SCH ×2 (08:13→21:54)
[2017-04-27] MEDS: FERROUS SULFATE PO SCH (08:14)
[2017-04-27] MEDS: K-DUR PO SCH ×2 (08:14→16:29)
[2017-04-27] MEDS: MIRALAX PO SCH ×2 (08:14→22:02)
[2017-04-27] MEDS: VITAMIN C PO SCH ×2 (08:14→21:54)
[2017-04-27] MEDS: ZESTRIL PO SCH (08:14)
[2017-04-27] MEDS: ZOCOR PO SCH (08:14)
[2017-04-27] MEDS: TENORMIN PO SCH (08:14)
[2017-04-27] MEDS: NORCO 7.5-325 PO SCH ×4 (08:20→21:54)
[2017-04-27] MEDS: CALMOSEPTINE OINTMENT TP SCH ×2 (13:33→22:01)
[2017-04-27] MEDS: ROCEPHIN 1 GM in SODIUM CHLORIDE 50 ML IV SCH ×2 (13:34→14:07)
[2017-04-27] MEDS: ROCEPHIN ONE ×2 (13:34→14:07)
[2017-04-27] MEDS ORDERED: SODIUM CHLORIDE 50 ML IV ONE (14:07)
[2017-04-27] MEDS: KLONOPIN PO SCH (21:54)
[2017-04-28] MEDS: DEXTROSE 5%-1/2NS IV SOLUTION 1,000 ML IV SCH ×3 (00:51→17:28)
[2017-04-28] MEDS: TORADOL IVP SCH ×3 (05:32→18:29)
[2017-04-28] MEDS: PROTONIX PO SCH ×2 (05:32→17:28)
[2017-04-28] MEDS: CLEOCIN 300 MG in SODIUM CHLORIDE 50 ML IV SCH ×3 (05:32→20:25)
[2017-04-28] MEDS: LASIX TAB PO SCH (05:32)
[2017-04-28] MEDS: ROCEPHIN 1 GM in SODIUM CHLORIDE 50 ML IV SCH (09:00)
[2017-04-28] MEDS: K-DUR PO SCH ×2 (09:00→17:28)
[2017-04-28] MEDS: TENORMIN PO SCH (09:00)
[2017-04-28] MEDS: VITAMIN C PO SCH ×2 (09:08→20:26)
[2017-04-28] MEDS: FERROUS SULFATE PO SCH (09:08)
[2017-04-28] MEDS: ZOCOR PO SCH (09:08)
[2017-04-28] MEDS: ZESTRIL PO SCH (09:08)
[2017-04-28] MEDS: ZINC-220 PO SCH ×2 (09:08→20:26)
[2017-04-28] MEDS: NORCO 7.5-325 PO SCH ×4 (09:08→20:26)
[2017-04-28] MEDS: CALMOSEPTINE OINTMENT TP SCH ×2 (09:09→20:26)
[2017-04-28] MEDS: MIRALAX PO SCH ×2 (09:09→20:27)
[2017-04-28] MEDS: VANCOMYCIN 500 MG in SODIUM CHLORIDE 100 ML IV SCH ×2 (09:53→22:01)
[2017-04-28] MEDS: KLONOPIN PO SCH (20:26)
[2017-04-29] MEDS: TORADOL IVP SCH ×5 (00:24→23:20)
[2017-04-29] MEDS: PROTONIX PO SCH ×2 (05:55→17:47)
[2017-04-29] MEDS: LASIX TAB PO SCH (05:55)
[2017-04-29] MEDS ORDERED: K-DUR PO SCH (08:30)
[2017-04-29] MEDS: ROCEPHIN 1 GM in SODIUM CHLORIDE 50 ML IV SCH (09:03)
[2017-04-29] MEDS: TENORMIN PO SCH (09:03)
[2017-04-29] MEDS: K-DUR PO SCH ×2 (09:03→09:05)
[2017-04-29] MEDS: NORCO 7.5-325 PO SCH ×4 (09:03→21:39)
[2017-04-29] MEDS: VITAMIN C PO SCH ×2 (09:03→21:39)
[2017-04-29] MEDS: ZESTRIL PO SCH (09:04)
[2017-04-29] MEDS: ZINC-220 PO SCH ×2 (09:04→21:39)
[2017-04-29] MEDS: ZOCOR PO SCH (09:04)
[2017-04-29] MEDS: MIRALAX PO SCH ×2 (09:04→23:39)
[2017-04-29] MEDS: FERROUS SULFATE PO SCH (09:04)
[2017-04-29] MEDS: CALMOSEPTINE OINTMENT TP SCH ×2 (09:04→21:38)
[2017-04-29] MEDS: VANCOMYCIN 500 MG in SODIUM CHLORIDE 100 ML IV SCH ×2 (10:04→21:39)
--- NOTE | 2017-04-29 11:24 | PCM.PROG ---
Attending Provider: ATTENDING PROVIDER: Dr. SHELBIE DAVID This patient is seen with Priyanka Coyne, Nurse Practitioner. DATE OF SERVICE: 04/29/17 SUBJECTIVE: This 81 year old WHITE/ M was hospitalized 04/25/17. The patient is lying in bed, alert. He says he is hurting as usual. Pain medicine increased. Dr. Vizcaino has debrided the wound on the buttock twice over the weekend. REVIEW OF SYSTEMS: CONSTITUTIONAL: No night sweats. Weakness. No fever or chills. HEENT: Eyes: No visual changes. No eye pain. No eye discharge. ENT: No runny nose. No epistaxis. No sinus pain. No odynophagia. No congestion. RESPIRATORY: No cough, no congestion. No hemoptysis. No shortness of breath. CARDIOVASCULAR: No angina symptoms. No CHF symptoms. No atypical chest pain for CAD. No palpitations. No orthopnea.. GASTROINTESTINAL: No abdominal pain. No nausea or vomiting. No diarrhea or constipation. No hematemesis. No hematochezia. GENITOURINARY: No urgency. No frequency. No dysuria. No hematuria. No obstructive symptoms. No discharge. No pain. No significant abnormal bleeding. MUSCULOSKELETAL: Complains of pain. NEUROLOGICAL: Awake, alert, oriented to person and place. No headache. No neck pain. No syncope. No seizures. No dizziness. PSYCHIATRIC: Not anxious. No depression. No suicidal thoughts. No homicidal thoughts. SKIN: No rash. Decubitus to left heel and buttocks. ENDOCRINE: No unexplained weight loss. No weight gain. HEMATOLOGIC/LYMPHATIC: No anemia. No purpura. No petechiae. No prolonged or excessive bleeding. No palpable lymph nodes. PHYSICAL EXAMINATION: GENERAL: The patient is awake, alert and oriented, lying/sitting in bed in no distress. VITAL SIGNS: Temperature 97.9 F, Pulse 67, Respiratory Rate 20, BP 88/47, Pulse Ox 97% HEENT: Head normocephalic, atraumatic. Eyes: Extraocular muscles are intact. Pupils are equal, round and reactive to light and accommodation. Ears: No lesions. Nose appeared normal. Throat: No exudate or erythema. NECK: Supple. No JVD, no carotid bruit. No lymphadenopathy or thyromegaly. LUNGS: Diminished breath sounds. Clear to auscultation. Percussion note normal. Chest symmetrical. HEART: S1, S2, no S3. No murmurs. No cyanosis or clubbing. No ascites. Pulses: Dorsalis pedis and posterior tibial pulses +1 to +2 both sides. ABDOMEN: Soft. Non-tender. Bowel sounds active. No CVA tenderness. No mass felt. EXTREMITIES: No edema. Full range of motion of all extremities, equal. NEUROLOGIC: No focal deficit. Cranial nerves II through XII are grossly intact. No headache, no double vision or headache. SKIN: Warm and dry. Decubitus Stage 4 ulcer to buttock; Stage 3 to left heel. Turgor-normal. LYMPHATIC: No palpable lymph nodes/no lymphedema. MUSCULOSKELETAL: Normal joints with no swelling. Muscle tone is normal. LAB REVIEW: 04/29/17 04:30 04/29/17 04:30 04/29/17 04:30: Sodium 136, Potassium 4.7, Chloride 108 H, Carbon Dioxide 23, Anion Gap 9.7, BUN 15, Creatinine 0.81, Estimated GFR (MDRD) 91.00, BUN/ Creatinine Ratio 18.51, Glucose 96, Calcium 8.0 L, Total Bilirubin 0.3, AST 20, ALT 20, Alkaline Phosphatase 90, Total Protein 5.5 L, Albumin 1.4 L, Globulin 4.1, Albumin/Globulin Ratio 0.34 04/29/17 04:30: WBC 10.65 H, RBC 3.06 L, Hgb 9.2 L, Hct 29.1 L, MCV 95.1 H, MCH 30.1, MCHC 31.6 L, RDW Coeff of Timmy 16.8 H, Plt Count 430, Immature Gran % (Auto ) 0.8, Neut % (Auto) 72.1, Lymph % (Auto) 17.0, [place] % (Auto) 5.7, Eos % (Auto) 3.7, Baso % (Auto) 0.7, Immature Gran # (Auto) 0.1, Neut # 7.7 H, Lymph # 1.8, [place] # 0.6, Eos # 0.4, Baso # 0.1 04/28/17 08:35: Vancomycin Trough 17.01 ASSESSMENT: 1. ANEMIA 2. STAGE IV COCCYX ULCER WORSENING 3. MALNUTRITION 4. WEIGHT LOSS 5. WHEEL CHAIR BOUND PLAN: 1. Decrease Potassium 20 mEq daily 2. Stop IV fluids 3. Continue IV antibiotics Plan and coordination of the patient's care discussed in the presence of Repairing Calibrator and nurse. CONDITION: Stable SCRIBED BY: ROSE GARCIA Geek Squad Manager scribed while in presence of service performed by Dr. David/Priyanka Coyne APRN on 04/29/17 ([id number])
--- NOTE | 2017-04-29 11:34 | PN ---
Mr. Mendez's note 04/27/17: Extensive. MTDD
[2017-04-29] MEDS: KLONOPIN PO SCH (21:43)
[2017-04-30] MEDS: SILVADENE CREAM TP SCH ×3 (00:48→22:13)
[2017-04-30] MEDS: TYLENOL PO PRN (04:57)
[2017-04-30] MEDS: TORADOL IVP SCH ×3 (05:42→18:02)
[2017-04-30] MEDS: LASIX TAB PO SCH (05:42)
[2017-04-30] MEDS: PROTONIX PO SCH ×2 (05:42→18:02)
[2017-04-30] MEDS ORDERED: TENORMIN PO SCH (09:09)
--- NOTE | 2017-04-30 10:35 | PCM.PROG ---
Attending Provider: ATTENDING PROVIDER: Dr. SHELBIE DAVID This patient is seen with Priyanka Coyne, Nurse Practitioner. DATE OF SERVICE: 04/30/17 SUBJECTIVE: This 81 year old WHITE/ M was hospitalized 04/25/17. Lying in bed, alert. Dr. Vizcaino debrided again yesterday. REVIEW OF SYSTEMS: CONSTITUTIONAL: No night sweats. No fatigue, malaise, lethargy. No fever or chills. HEENT: Eyes: No visual changes. No eye pain. No eye discharge. ENT: No runny nose. No epistaxis. No sinus pain. No odynophagia. No congestion. RESPIRATORY: No cough, no congestion. No hemoptysis. No shortness of breath. CARDIOVASCULAR: No angina symptoms. No CHF symptoms. No atypical chest pain for CAD. No palpitations. No orthopnea.. GASTROINTESTINAL: No abdominal pain. No nausea or vomiting. No diarrhea or constipation. No hematemesis. No hematochezia. GENITOURINARY: No urgency. No frequency. No dysuria. No hematuria. No obstructive symptoms. No discharge. No pain. No significant abnormal bleeding. MUSCULOSKELETAL: No musculoskeletal pain; no joint swelling. NEUROLOGICAL: Awake, alert, oriented to time, place and person. No headache. No neck pain. No syncope. No seizures. No dizziness. PSYCHIATRIC: Not anxious. No depression. No suicidal thoughts. No homicidal thoughts. SKIN: No rash. Left heel decubitus, buttock decubitus. ENDOCRINE: No unexplained weight loss. No weight gain. HEMATOLOGIC/LYMPHATIC: No anemia. No purpura. No petechiae. No prolonged or excessive bleeding. No palpable lymph nodes. PHYSICAL EXAMINATION: GENERAL: The patient is awake, alert and oriented, lying in bed in no distress. VITAL SIGNS: Temperature 97.6 F, Pulse 68, Respiratory Rate 20, BP 82/43, Pulse Ox 95% HEENT: Head normocephalic, atraumatic. Eyes: Extraocular muscles are intact. Pupils are equal, round and reactive to light and accommodation. Ears: No lesions. Nose appeared normal. Throat: No exudate or erythema. NECK: Supple. No JVD, no carotid bruit. No lymphadenopathy or thyromegaly. LUNGS: Diminished breath sounds. Clear to auscultation. Percussion note normal. Chest symmetrical. HEART: S1, S2, no S3. No murmurs. No cyanosis or clubbing. No ascites. Pulses: Dorsalis pedis and posterior tibial pulses +1 to +2 both sides. ABDOMEN: Soft. Non-tender. Bowel sounds active. No CVA tenderness. No mass felt. EXTREMITIES: Left heel decubitus, no drainage. Buttock decubtus. No edema. Full range of motion of all extremities, equal. NEUROLOGIC: No focal deficit. Cranial nerves II through XII are grossly intact. No headache, no double vision or headache. SKIN: Not dry. Intact. Turgor-normal. LYMPHATIC: No palpable lymph nodes/no lymphedema. MUSCULOSKELETAL: Normal joints with no swelling. Muscle tone is normal. LAB REVIEW: 04/30/17 03:45 04/30/17 03:45 04/30/17 03:45: Sodium 138, Potassium 4.3, Chloride 110 H, Carbon Dioxide 23, Anion Gap 9.3, BUN 16, Creatinine 0.75, Estimated GFR (MDRD) 100.00, BUN/ Creatinine Ratio 21.33, Glucose 86, Calcium 8.1 L, Total Bilirubin 0.3, AST 18, ALT 18, Alkaline Phosphatase 84, Total Protein 5.6 L, Albumin 1.4 L, Globulin 4.2, Albumin/Globulin Ratio 0.33 04/30/17 03:45: WBC 10.86 H, RBC 3.16 L, Hgb 9.5 L, Hct 30.0 L, MCV 94.9 H, MCH 30.1, MCHC 31.7 L, RDW Coeff of Timmy 16.7 H, Plt Count 434, Immature Gran % (Auto ) 0.8, Neut % (Auto) 71.9, Lymph % (Auto) 17.1, [place] % (Auto) 5.5, Eos % (Auto) 4.1, Baso % (Auto) 0.6, Immature Gran # (Auto) 0.1, Neut # 7.8 H, Lymph # 1.9, [place] # 0.6, Eos # 0.5, Baso # 0.1 ASSESSMENT: 1. ANEMIA 2. STAGE IV COCCYX ULCER 3. MALNUTRITION 4. WEIGHT LOSS 5. WHEEL CHAIR BOUND PLAN: 1. Stop Vancomycin tomorrow - Saturday morning 2. Wound Care appointment on Saturday 3. Decrease Tenormin to 25 mg daily Plan and coordination of the patient's care discussed in the presence of Scenic Designer and nurse. CONDITION: Stable SCRIBED BY: ROSE GARCIA Fortune Teller scribed while in presence of service performed by Dr. David/Priyanka Coyne APRN on 04/30/17 ([id number])
[2017-04-30] MEDS: MIRALAX PO SCH ×2 (10:48→22:11)
[2017-04-30] MEDS: ROCEPHIN 1 GM in SODIUM CHLORIDE 50 ML IV SCH (10:48)
[2017-04-30] MEDS: TENORMIN PO SCH ×2 (10:48→11:43)
[2017-04-30] MEDS: K-DUR PO SCH (10:49)
[2017-04-30] MEDS: ZINC-220 PO SCH ×2 (10:49→22:11)
[2017-04-30] MEDS: ZESTRIL PO SCH (10:49)
[2017-04-30] MEDS: VITAMIN C PO SCH ×2 (10:49→22:11)
[2017-04-30] MEDS: NORCO 7.5-325 PO SCH ×4 (10:49→22:10)
[2017-04-30] MEDS: FERROUS SULFATE PO SCH (10:49)
[2017-04-30] MEDS: ZOCOR PO SCH (10:50)
[2017-04-30] MEDS: CALMOSEPTINE OINTMENT TP SCH ×2 (10:50→22:12)
[2017-04-30] MEDS: VANCOMYCIN 500 MG in SODIUM CHLORIDE 100 ML IV SCH ×2 (11:43→20:42)
[2017-04-30] MEDS: KLONOPIN PO SCH (22:11)
[2017-05-01] MEDS: TORADOL IVP SCH ×4 (00:35→19:47)
[2017-05-01] MEDS: PROTONIX PO SCH ×2 (06:10→17:27)
[2017-05-01] MEDS: LASIX TAB PO SCH (06:10)
[2017-05-01] MEDS: VANCOMYCIN 500 MG in SODIUM CHLORIDE 100 ML IV SCH (09:00)
[2017-05-01] MEDS: ROCEPHIN 1 GM in SODIUM CHLORIDE 50 ML IV SCH (09:52)
[2017-05-01] MEDS: FERROUS SULFATE PO SCH (09:52)
[2017-05-01] MEDS: VITAMIN C PO SCH ×2 (09:53→21:50)
[2017-05-01] MEDS: ZESTRIL PO SCH (09:53)
[2017-05-01] MEDS: ZOCOR PO SCH (09:53)
[2017-05-01] MEDS: K-DUR PO SCH (09:53)
[2017-05-01] MEDS: TENORMIN PO SCH (09:53)
[2017-05-01] MEDS: CALMOSEPTINE OINTMENT TP SCH ×2 (09:53→21:49)
[2017-05-01] MEDS: ZINC-220 PO SCH ×2 (09:53→21:50)
[2017-05-01] MEDS: SILVADENE CREAM TP SCH ×2 (09:53→21:49)
[2017-05-01] MEDS: MIRALAX PO SCH ×2 (09:54→21:50)
[2017-05-01] MEDS: NORCO 7.5-325 PO SCH ×4 (10:00→21:50)
--- NOTE | 2017-05-01 14:46 | PN ---
DATE OF SERVICE: 04/29/17 SUBJECTIVE: 81-year-old white male hospitalized with decubitus ulcer infected and anemia. The patient's hemoglobin and hematocrit stable at 9.4, 29. Decubitus ulcer is being seen by programmer analyst consultant and being packed with Iodine. Left heel ulcer seems to be healing some and edema surrounding part is less. The patient was seen and examined with the nurse practitioner. The patient's prognosis is poor. Prognosis for healing ulcer is poor. TIME SPENT: More than 30 minutes. DANIEL
--- NOTE | 2017-05-01 14:51 | PN ---
DATE OF SERVICE: 04/30/17 SUBJECTIVE: The patient was seen with the nurse practitioner. The patient's condition is improving some with improvement in the decubitus ulcer status. It still is Stage 4 but has healthy granulation tissue. The edges are more healthy looking on the left heel and on the coccygeal side. The patient is being treated with IV antibiotics, Rocephin, Clindamycin and Vancomycin. Prognosis for healing is poor. The patient's hemoglobin is steady at 9.2, hematocrit 29. CONDITION: Stable. TIME SPENT: More than 30 minutes. Plan and coordination of the patient's care discussed in the presence of nurse. DANIEL
--- NOTE | 2017-05-01 15:02 | PN ---
DATE OF SERVICE: 04/28/17 SUBJECTIVE: This is an 81-year-old white male hospitalized with anemia, end-stage for decubitus on the coccygeal area which seems to be infected. The patient's coccygeal area and decubitus is almost 1 1/2 cm deep to the bone with clear margins. Practically not much drainage. Also the left heel ulcer seems to be looking better with 3/4 of a centimeter depth with base being granulated by almost normal granulation tissue. The patient's cultures on the decubitus has grown staph and Proteus. The patient is being given Rocephin and Clindamycin along with Vancomycin. The patient says he is feeling somewhat better. The decubitus looks a lot better. The patient's decubitus is being followed by Dr. Vizcaino. PHYSICAL EXAMINATION: V/S: Temperature 97.8, pulse 79, respiratory rate 20, BP 100/50, pulse ox 98%. HEENT: Head normocephalic, atraumatic. Eyes: Extraocular muscles are intact. Pupils are equal, round and reactive to light and accommodation. Ears: No lesions. Nose appeared normal. Throat: No exudate or erythema. NECK: Supple. No JVD, no carotid bruit. No lymphadenopathy or thyromegaly. LUNGS: Decreased breath sounds but clear to auscultation. Percussion note normal. Chest symmetrical. HEART: S1, S2, no S3. No murmurs. No cyanosis or clubbing. No ascites. Pulses: Dorsalis pedis and posterior tibial pulses +1 to +2 both sides. ABDOMEN: Soft. Nontender. Bowel sounds active. No CVA tenderness. No mass felt. EXTREMITIES: No edema. Full range of motion of all extremities, equal. NEUROLOGIC: Oriented to time, place and person. No focal deficit. Cranial nerves II through XII are grossly intact. No headache, no double vision or headache. SKIN: Not dry. Intact. Turgor - normal. LYMPHATIC: No palpable lymph nodes/no lymphedema. MUSCULOSKELETAL: Normal joints with no swelling. Muscle tone is normal. LABS: Hemoglobin 9.4, hematocrit 29, WBC 11,500, normal differential. Creatinine 0.7, BUN 15, potassium 4.8. ASSESSMENT: 1. DECUBITUS ULCER INFECTED, COCCYGEAL AND LEFT HEEL AREA 2. MALNUTRITION 3. HYPOPROTEINEMIA 4. ANEMIA REQUIRING 2 UNITS OF PACKED RED CELLS; THE HEMOGLOBIN IS 9.4, HEMATOCRIT 29. 5. THE PATIENT'S OVERALL MEDICAL CONDITION IS STABLE BUT THE PATIENT IS BEDRIDDEN, INABILITY TO EVEN CHANGE SIDES ON HIS OWN REQUIRING HELP HOURLY. SHEARING FORCE WITH POOR SKIN TEXTURE, HYPOPROTEINEMIA, ANEMIA AND MALNUTRITION IS GOING TO COMPLICATE HIS HEALING. PROGNOSIS: Poor. Explained to the patient. The patient is advised to cooperate and go to the Wound Care as instructed without a break. correction is already instructed to do the same in case the patient does not go to let us know and keep us informed. Also, decubitus ulcer is going to be taken care of decubitus team at [facility]. CONDITION: STABLE PROGNOSIS: POOR TIME SPENT: More than 30 minutes. Plan and coordination of the patient's care discussed in the presence of nurse. DANIEL
[2017-05-01] MEDS: KLONOPIN PO SCH (21:50)
[2017-05-02] MEDS: TORADOL IVP SCH ×3 (01:14→13:28)
[2017-05-02] MEDS: PROTONIX PO SCH (06:43)
[2017-05-02] MEDS: LASIX TAB PO SCH (06:43)
[2017-05-02] MEDS ORDERED: DAKIN'S SOLUTION TP STA (08:49)
[2017-05-02] MEDS: ROCEPHIN 1 GM in SODIUM CHLORIDE 50 ML IV SCH (09:55)
[2017-05-02] MEDS: MIRALAX PO SCH (09:55)
[2017-05-02] MEDS: TENORMIN PO SCH (09:56)
[2017-05-02] MEDS: ZESTRIL PO SCH (09:56)
[2017-05-02] MEDS: ZOCOR PO SCH (09:56)
[2017-05-02] MEDS: FERROUS SULFATE PO SCH (09:56)
[2017-05-02] MEDS: K-DUR PO SCH (09:56)
[2017-05-02] MEDS: VITAMIN C PO SCH (09:56)
[2017-05-02] MEDS: ZINC-220 PO SCH (09:56)
[2017-05-02] MEDS: CALMOSEPTINE OINTMENT TP SCH (09:57)
[2017-05-02] MEDS: SILVADENE CREAM TP SCH (09:58)
--- NOTE | 2017-05-02 10:03 | PCM.PROG ---
Attending Provider: ATTENDING PROVIDER: Dr. SHELBIE DAVID This patient is seen with Priyanka Coyne, Nurse Practitioner. DATE OF SERVICE: 05/02/17 SUBJECTIVE: This 81 year old WHITE/ M was hospitalized 04/25/17. Lying in bed, alert. Dr. Vizcaino is supposed to see today to pack with Dakin's solution. He has an appointment with [facility] tomorrow. REVIEW OF SYSTEMS: CONSTITUTIONAL: Weakness with decreased mobility. No night sweats. No fever or chills. HEENT: Eyes: No visual changes. No eye pain. No eye discharge. ENT: No runny nose. No epistaxis. No sinus pain. No odynophagia. No congestion. RESPIRATORY: No cough, no congestion. No hemoptysis. No shortness of breath. CARDIOVASCULAR: No angina symptoms. No CHF symptoms. No atypical chest pain for CAD. No palpitations. No orthopnea.. GASTROINTESTINAL: No abdominal pain. No nausea or vomiting. No diarrhea or constipation. No hematemesis. No hematochezia. GENITOURINARY: No urgency. No frequency. No dysuria. No hematuria. No obstructive symptoms. No discharge. No pain. No significant abnormal bleeding. MUSCULOSKELETAL: No musculoskeletal pain; no joint swelling. NEUROLOGICAL: Awake, alert, oriented to time, place and person. No headache. No neck pain. No syncope. No seizures. No dizziness. PSYCHIATRIC: Not anxious. No depression. No suicidal thoughts. No homicidal thoughts. SKIN: No rash. Decubitus of the coccyx and left heel. ENDOCRINE: No unexplained weight loss. No weight gain. HEMATOLOGIC/LYMPHATIC: No anemia. No purpura. No petechiae. No prolonged or excessive bleeding. No palpable lymph nodes. PHYSICAL EXAMINATION: GENERAL: The patient is awake, alert and oriented, lying/sitting in bed in no distress. VITAL SIGNS: Temperature 97.4 F, Pulse 70, Respiratory Rate 20, BP 83/43, Pulse Ox 92% HEENT: Head normocephalic, atraumatic. Eyes: Extraocular muscles are intact. Pupils are equal, round and reactive to light and accommodation. Ears: No lesions. Nose appeared normal. Throat: No exudate or erythema. NECK: Supple. No JVD, no carotid bruit. No lymphadenopathy or thyromegaly. LUNGS: Diminished breath sounds bilaterally. Clear to auscultation. Percussion note normal. Chest symmetrical. HEART: S1, S2, no S3. No murmurs. No cyanosis or clubbing. No ascites. Pulses: Dorsalis pedis and posterior tibial pulses +1 to +2 both sides. ABDOMEN: Soft. Non-tender. Bowel sounds active. No CVA tenderness. No mass felt. EXTREMITIES: No edema. Full range of motion of all extremities, equal. NEUROLOGIC: No focal deficit. Cranial nerves II through XII are grossly intact. No headache, no double vision or headache. SKIN: Warm and dry. Intact. Turgor-normal. Stage IV decubitus on coccyx with necrotic tissue removed; some pink skin noted; less redness and less odor. Stage III, left heel unchanged, LYMPHATIC: No palpable lymph nodes/no lymphedema. MUSCULOSKELETAL: Normal joints with no swelling. Muscle tone is normal. LAB REVIEW: 05/02/17 04:30 05/02/17 04:30 05/02/17 04:30: Sodium 136, Potassium 3.9, Chloride 105, Carbon Dioxide 23, Anion Gap 11.9, BUN 16, Creatinine 0.80, Estimated GFR (MDRD) 93.00, BUN/ Creatinine Ratio 20.00, Glucose 101, Calcium 7.7 L, Total Bilirubin 0.3, AST 13 L, ALT 13, Alkaline Phosphatase 90, Total Protein 5.5 L, Albumin 2.2 L, Globulin 3.3, Albumin/Globulin Ratio 0.67 05/02/17 04:30: WBC 9.30, RBC 3.07 L, Hgb 9.3 L, Hct 29.1 L, MCV 94.8 H, MCH 30.3, MCHC 32.0, RDW Coeff of Timmy 16.4 H, Plt Count 408, Immature Gran % (Auto) 0.6, Neut % (Auto) 67.7, Lymph % (Auto) 18.8, [place] % (Auto) 8.2, Eos % (Auto) 4.2, Baso % (Auto) 0.5, Immature Gran # (Auto) 0.1, Neut # 6.3, Lymph # 1.8, [place] # 0.8, Eos # 0.4, Baso # 0.1 05/01/17 08:25: Vancomycin Trough 20.78 H ASSESSMENT: 1. ANEMIA 2. STAGE IV COCCYX ULCER ON BUTTOCK, STAGE III LEFT HEEL 3. MALNUTRITION 4. WEIGHT LOSS 5. WHEEL CHAIR BOUND PLAN: 1. Dr. Vizcaino to continue to see. 2. Will see if the patient qualifies for swing bed for IV antibiotics 3. Will attend appointment with [facility] on Saturday Plan and coordination of the patient's care discussed in the presence of Animal Nurse and nurse. CONDITION: Stable SCRIBED BY: ROSE GARCIA Beauty Parlor Cleaner scribed while in presence of service performed by Dr. David/Priyanka Coyne APRN on 05/02/17 ([id number])
[2017-05-02] MEDS: NORCO 7.5-325 PO SCH ×2 (10:05→13:28)
--- NOTE | 2017-05-02 10:23 | PN ---
DATE OF SERVICE: 04/27/17 SUBJECTIVE: 81-year-old white male hospitalized with severe anemia and infected decubitus ulcer, one in the coccyx, the other one on the left heel. The left heel ulcer is nonhealing like 1" in diameter. The ulcer on the coccygeal area is 3", almost bone deep, necrotic area. The patient had declined to go to Wound Care. Nurse Practitioner had made visit to the residential where she found out that the patient had decubitus ulcer and had declined to go to Wound Care. After examining the decubitus ulcer, she reported to me and we advised the patient to be hospitalized with pneumonia and decubitus ulcers. The pateint has back pain and according to him he rates this very high. On scale of 1 to 10 it is 7 or 8. The [place] and Toradol IV are not helping. We will increase Toradol to 4 times a day, 30 mg and [place] to 4 times a day. The patient's appetite is not up to par. He hasn't been eating even in the residential. His oral intake is poor. Lately he has lost a lot of weight and his overall condition has deteriorated. REVIEW OF SYSTEMS: CONSTITUTIONAL: No night sweats. No fatigue, malaise, lethargy. No fever or chills. HEENT: Eyes: No visual changes. No eye pain. No eye discharge. ENT: No runny nose. No epistaxis. No sinus pain. No sore throat. No odynophagia. No congestion. RESPIRATORY: No cough, no congestion. No hemoptysis. No shortness of breath. CARDIOVASCULAR: No angina symptoms. No CHF symptoms. No atypical chest pain for CAD. No palpitations. No orthopnea. GASTROINTESTINAL: No abdominal pain. No nausea or vomiting. No diarrhea or constipation. No hematemesis. No hematochezia. GENITOURINARY: No urgency. No frequency. No dysuria. No hematuria. No obstructive symptoms. No discharge. No pain. No significant abnormal bleeding. MUSCULOSKELETAL: Back pain. NEUROLOGICAL: No headache. No neck pain. No syncope. No seizures. No dizziness. PSYCHIATRIC: Not anxious. No depression. No suicidal thoughts. No homicidal thoughts. SKIN: No rash. No lesions. No wounds. ENDOCRINE: No unexplained weight loss. No weight gain. HEMATOLOGIC/LYMPHATIC: No anemia. No purpura. No petechiae. No prolonged or excessive bleeding. No palpable lymph nodes. PHYSICAL EXAMINATION: GENERAL: The patient seems to be oriented to person and place. Sleepy. VITAL SIGNS: Temperature 97.7, pulse 80, respiratory rate 16, BP 108/70, pulse ox 95%. HEENT: Head normocephalic, atraumatic. Eyes: Extraocular muscles are intact. Pupils are equal, round and reactive to light and accommodation. Ears: No lesions. Nose appeared normal. Throat: No exudate or erythema. NECK: Supple. No JVD, no carotid bruit. No lymphadenopathy or thyromegaly. LUNGS: Decreased breath sounds. Clear to auscultation. Percussion note normal. Chest symmetrical. HEART: S1, S2, no S3. No murmurs. No cyanosis or clubbing. No ascites. Pulses: Dorsalis pedis and posterior tibial pulses +1 to +2 both sides. ABDOMEN: Soft. Nontender. Bowel sounds active. No CVA tenderness. No mass felt. EXTREMITIES: Emaciated. No edema. Full range of motion of all extremities, equal. NEUROLOGIC: No focal deficit. Cranial nerves II through XII are grossly intact. No headache, no double vision or headache. SKIN: Dry. Intact. Turgor - normal. LYMPHATIC: No palpable lymph nodes/no lymphedema. MUSCULOSKELETAL: Very poor. LABS: Hemoglobin 9.2, hematocrit 28, WBC 9,000, normal differential. Creatinine 0.9, BUN 18, potassium 4.2. The patient's albumins and proteins are low. ASSESSMENT: 1. Decubitus ulcers, coccygeal area which is Stage IV. The left heel ulcer is also Stage II to III. Prognosis for healing is very poor considering patient's age, immobility, unable to walk or move. The patient has to be turned every couple of hours. He has to be helped. 2. Also patient has very poor nutritional status and losing muscle mass with hypoalbuminemia and proteinemia. 3. Also has anemia of chronic disorder. The patient is unable to undergo any workup for GI blood loss. He doesn't have active GI blood loss. PLAN: The patient was given 2 units of packed red cells as his anemia was symptomatic. The patient was given one unit and his hemoglobin is 9.2 with hematocrit of 28. The patient had decubitus ulcer growing Proteus Mirabilis and Staphylococcus. The antibiotic Rocephin and Clindamycin covers both of them. Vanco is also added because the patient has MRSA. microsoft dynamics ax consultant on the case. PROGNOSIS: Overall poor. TIME SPENT: More than 30 minutes. Plan and coordination of the patient's care discussed in the presence of nurse. DANIEL
[2017-05-02 11:22] VITALS: BP 89/52; TEMP 97.6
--- NOTE | 2017-05-02 11:33 | PN ---
DATE OF SERVICE: 04/26/17 SUBJECTIVE: 81-year-old white male hospitalized with severe anemia, malnutrition and decubitus ulcer which is Stage III to Stage IV on sacral coccygeal area. He has another decubitus on the left heel which is nonhealing. The patient was emaciated, lost a lot of muscle as the appetite has been poor. He has been in the correction. The patient had declined to go to wound care and had missed an appointment with [facility] program. He had another appointment today but patient ended up in the hospital because of need for patient to be on antibiotics for his decubitus ulcer and probably debridement. Surgical consultation has been made. His prognosis for healing the ulcers are extremely poor because of #1 bedridden; #2 mild dementia; #3 poor nutritional status; #4 shearing force because of the patient's immobility; #5 severe anemia; # hypoproteinemia. PLAN: The patient is symptomatic with shortness of breath. He has symptomatic anemia, will be typed and crossmatched 2 units and transfuse him which may help the healing part and make him feel better and improve his overall appetite. Reason for transfusion is symptomatic anemia with decubitus ulcers and also poor nutritional status. The patient was seen and examined with the nurse practitioner. TIME SPENT: More than 30 minutes. Plan and coordination of the patient's care discussed in the presence of nurse. DANIEL
--- NOTE | 2017-05-02 12:57 | CM.DICTOOL ---
ADMISSION: 04/25/17 13:03 DISCHARGE: 2017 DATE OF SERVICE: 05/02/17 FINAL DIAGNOSIS ANEMIA, TRANSFUSION OF 2 UNITS PACKED CELLS DECUBITUS ULCERS, STAGE 4 (LEFT BUTTOCK) DECUBITUS ULCER, STAGE 3 ( LEFT HEEL) DECUBITUS ULCER, STAGE 2 LEFT HIP MALNUTRITION HYPERTENSION CAD PERIPHERAL ARTERY DISEASE OSTEOARTHRITIS HIATAL HERNIA BACK SURGERY DYSLIPIDEMIA LAST VITALS Temp Pulse Resp BP Pulse Ox 97.6 F 74 18 89/52 L 99 05/02/17 10:00 05/02/17 10:00 05/02/17 10:00 05/02/17 10:00 05/02/17 10:00 ACTIVE HOME MEDICATIONS Acetaminophen (Tylenol) 650 mg PO Q8H PRN PRN Reason: pain Last Admin: 04/30/17 04:57 Dose: 650 mg Acetaminophen/Hydrocodone Bitart ([place] 7.5-325) 1 tab PO QID [facility] Last Admin: 05/02/17 10:05 Dose: 1 tab (NEW) Ascorbic Acid (Vitamin C) 500 mg PO BID [facility] Last Admin: 05/02/17 09:56 Dose: 500 mg (NEW) Atenolol (Tenormin) 25 mg PO DAILYWM [facility] (DOSE CHANGE) Last Admin: 05/02/17 09:56 Dose: 25 mg Clonazepam (Klonopin) 1 mg PO BEDTIME [facility] Last Admin: 05/01/17 21:50 Dose: 1 mg Ferrous Sulfate (Ferrous Sulfate) 324 mg PO DAILY [facility] Last Admin: 05/02/17 09:56 Dose: 324 mg Furosemide (Lasix Tab) 40 mg PO QDAC [facility] Last Admin: 05/02/17 06:43 Dose: 40 mg Lisinopril (Zestril) 5 mg PO DAILY [facility] Last Admin: 05/02/17 09:56 Dose: 5 mg Pantoprazole Sodium (Protonix) 40 mg PO BIDAC [facility] Last Admin: 05/02/17 06:43 Dose: 40 mg Polyethylene Glycol (Miralax) 17 gm PO BID [facility] Last Admin: 05/02/17 09:55 Dose: 17 gm Potassium Chloride (K-Dur) 20 meq PO DAILYWM [facility] Last Admin: 05/02/17 09:56 Dose: 20 meq Simvastatin (Zocor) 40 mg PO DAILY [facility] Last Admin: 05/02/17 09:56 Dose: 40 mg Zinc Sulfate (Zinc-220) 220 mg PO BID [facility] Last Admin: 05/02/17 09:56 Dose: 220 mg (NEW) ALLERGIES morphine Adverse Reaction (Verified 12/15/16 10:16) NEW PRESCRIPTIONS: Rocephin 1 gram IM daily, beginning on the for 10 days [place] 7.5-325 take 1 tablet every QID around the clock Slivadene cream to the left heel BID, unless new orders by [facility] are received Vitamin C 500 mg BID Zinc Sulfate 220 mg BID Clindamycin 150 mg every 8 hours SMOKING: Not Applicable DISEASE SPECIFIC EDUCATION: Importance of increasing protein sources Importance of turning frequently to avoid pressure to coccyx LAB REVIEW: 05/02/17 04:30 05/02/17 04:30 05/02/17 04:30: Sodium 136, Potassium 3.9, Chloride 105, Carbon Dioxide 23, Anion Gap 11.9, BUN 16, Creatinine 0.80, Estimated GFR (MDRD) 93.00, BUN/ Creatinine Ratio 20.00, Glucose 101, Calcium 7.7 L, Total Bilirubin 0.3, AST 13 L, ALT 13, Alkaline Phosphatase 90, Total Protein 5.5 L, Albumin 2.2 L, Globulin 3.3, Albumin/Globulin Ratio 0.67 05/02/17 04:30: WBC 9.30, RBC 3.07 L, Hgb 9.3 L, Hct 29.1 L, MCV 94.8 H, MCH 30.3, MCHC 32.0, RDW Coeff of Timmy 16.4 H, Plt Count 408, Immature Gran % (Auto) 0.6, Neut % (Auto) 67.7, Lymph % (Auto) 18.8, [place] % (Auto) 8.2, Eos % (Auto) 4.2, Baso % (Auto) 0.5, Immature Gran # (Auto) 0.1, Neut # 6.3, Lymph # 1.8, [place] # 0.8, Eos # 0.4, Baso # 0.1 PLAN: Discharge to [facility] Diet: Regular diet, with extra protein at each meal Milk twice daily Dietitian to see for optimal nutritional intake and wound healing Activity: turn every 1-2 hours. Avoid prolonged pressure to coccyx decubitus An appointment is scheduled with [facility] at 8:30 on , please make sure the patient goes to this appointment. Follow wound care instructions given by [facility]. The coccyx decubitus was debrided by Dr. Vizcaino several times during this hospital stay. All necrotic tissue was removed. The dressing was changed today using Dakin Solution to pack the wound. Silvadene applied to left heel and covered with steffanie dressing Medication change: DECREASE Atenolol to 25 mg daily Vital Signs daily for 1 week, then weekly CBC, CMP on the and the Bello catheter care every shift Mr. Mendez is alert and oriented x 3. He is dependent on the nursing staff for personal care, assistance with turning, meal preparation and transfers. He is not ambulatory due to leg weakness following a spinal cord injury. He is unable to sit in a chair due to a large Stage IV decubitus to the coccyx with muscle and bone visible. A bello catheter is patent to closed drainage due urinary incontinence and potential for further skin breakdown and wound contamination. Meal intakes have been good at 50-100%. Mr. Mendez is self feeding, but requires additional time to complete his meal. A stage IV decubitus is noted to the coccyx. A stage II decubitus is noted to the left buttock, left hip. A stage III decubitus is noted to the Left heel. The area has less redness and no noted drainage. Deshaun David MD Priyanka Coyne APRN
--- NOTE | 2017-05-02 13:00 | CONS ---
DATE OF CONSULTATION: 04/25/17 HISTORY OF PRESENT ILLNESS: Mr. Peña an 82 year old male patient of Dr. David was seen today by me this even, 7:00pm because of deep ulcerations. This patient had refused Wound Care previously. The patient is alert and responsive. I introduced myself to him and i shook hands with him. He allowed him to exam him. The examination is confined only to the ulcers. He has a very deep ulcer in the coccyx covered by dark skin or tissue and fluctuant fowl smelling. He also has an ulceration on left buttocks. He has a ulceration decubitus in the medial side of the left foot. Planned to debride the area more so on the coccyx and get a culture. He has already receiving an antibiotics. Debridement will also be carried out on the left buttock however the left foot appears to be with good granulation tissue. Further care will be guided upon the results of the debridement tomorrow or the next days. ASSESSMENT: 1. Deep decubitus ulcer coccyx maybe extending to the bone 2. Decubitus ulcer left buttock 3. Decubitus ulceration left foot medial PROGNOSIS: Poor Thank you very much for allowing me to care for the patient with you. DANIEL
--- NOTE | 2017-05-02 13:11 | CONS ---
DATE OF CONSULTATION: 04/28/17 HISTORY OF PRESENT ILLNESS: 82-year-old male who has a large deep decubitus in the coccygeal area. He is seen again for further debridement. There is some granulation tissue now. Debridement was carried out sharply using scissors as well as scalpel. It took more than 30 minutes shorter than the first debridement. The patient denied any pain through the course of the debridement. Most of the debrided tissue was necrotic. The cavity was then packed with 4 x 4's soaked in Betadine. Another debridement will be carried out tomorrow. Mr. Mendez today was alert and receptive to the idea of cleaning the wound. The decubitus in the left buttock is healing. The decubitus on the left foot medial is also healing with no necrotic tissue. Vital signs today at 6 p.m. showed a temperature 98.7, pulse 76, blood pressure 104/59, respiratory rate 18, oxygen saturation 99 on room air. Culture done on showed Proteus Mirabilis. Culture was done during the course of the debridement in the deeper ulcer. Proteus Mirabilis is sensitive to a host of medications except Cipro; sensitive to Penicillin, Ertapenem and cephalosporin. It is also sensitive to Gentamicin as well as Levofloxacin and Tobramycin, Bactrim is resistant. Proteus Mirabilis is also sensitive to Zosyn. The patient now is receiving Cleocin or Clindamycin, Vancomycin. It maybe time to consider changing one of the medications, Clindamycin to treat the Proteus Mirabilis. This patient needs supplementation, high protein supplement. His albumin is 1.4 , which probably would have some effects as to one healing. [facility]
--- NOTE | 2017-05-02 13:15 | CONS ---
DATE OF CONSULTATION: 04/29/17 HISTORY OF PRESENT ILLNESS: The patient is seen today for a followup. The patient has a large deep decubitus in the sacral coccygeal area. There is now an improvement of the granulation tissue. The necrotic tissue were removed using a scalpel as well as iris scissor. The patient denied any pain in the course of the debridement. This patient's Albumin is markedly low and so I did advise the nurse to write an order for skim milk 2 8oz glasses everyday. This might improve the protein of his individual. He is getting Boost also. We will see if that will improve. The cavity was then packed with two 4x4 soaked in Iodine followed by a dressing. This will be changed tomorrow with a 4x4 with sterile moist saline. DANIEL
--- NOTE | 2017-05-03 09:35 | CONS ---
DATE OF CONSULTATION: 05/01/17 HISTORY OF PRESENT ILLNESS: The patient is seen for followup for the decubitus which is a large deep one in the sacral coccygeal area. This had been debrided. Also now has better granulation tissues and doesn't smell as bad. No debridement was done today and the are was packed with gauze soaked with Betadine. We could be access the Dakin Solution half strength tonight since the pharmacy is already closed. Plan to do debridement tomorrow and dress with a 4x4 soaked in Dakin solution one half strength. This will be done once or twice a day. The patient tolerated the procedure well. DANIEL
--- NOTE | 2017-05-03 09:44 | CONS ---
DATE OF CONSULTATION: 05/02/17 HISTORY OF PRESENT ILLNESS: The patient is alert and receptive. I shook hands with him which I do every time I walk into his room. The Decubitus was inspected. It has a better granulation tissue. The decubitus was cleaned with Betadine and soaked 4x4 in Betadine. I needed two assistance one to hold the patient at the right lateral decubitus position and also pull to the skin to expose the ulcer and one to hold the light. Debridement was then carried using a Metzenbaum scissor and a good amount of necrotic tissue was removed. The cavity was then packed with 4x4 soaked in Dakin solution one hlad strength. The patient tolerated the procedure well and I understood that the patient will be discharged to the long-term today and has an appointment with Wound Care most likely in [place] since it is not on the Saturday. DANIEL
--- NOTE | 2017-05-03 10:49 | DS ---
DATE OF SERVICE: 05/02/17 FINAL DIAGNOSIS: 1. Anemia, Transfusion of 2 units packed cells 2. Decubitus ulcers, stage 4 (left Buttock) 3. Decubitus ulcer, stage 3 (left heel) 4. Decubitus ulcer, stage 2(left hip) 5. Malnutrition 6. Hypertension 7. CAD 8. Peripheral artery disease 9. Osteoarthritis 10.Hiatal hernia 11.Back surgery 12.Dyslipidemia LAST VITALS: Temperature 97.6, pulse 74, respiratory rate 18, blood pressure 89/52 and pulse ox 99%. DISCHARGE INSTRUCTIONS: Discharge to [facility]. Decrease Atenolol to 25mg daily. Vital signs daily for one week, then weekly . CBC and CMP on the and the . Terrell catheter care every shift. Appointment scheduled with [facility] at 08:30 on May 03. Follow wound care instructions given by [facility]. MEDICATIONS AT DISCHARGE: Tylenol 650mg PO Q 8 hours PRN [place] 7.5-325 one tablet PO four times ad ay Vitamin C 500mg PO twice a day Tenormin 25mg PO daily Klonopin 1mg PO bedtime Ferrous sulfate 324mg PO daily Lasix tablet 40mg PO QDAC Zestril 5mg PO daily Protonix 40mg PO twice a day Miralax 17gram PO twice a day K-Dur 20meq PO daily Zocor 40mg PO daily Zinc 220mg PO twice a day ALLERGIES: Morphine NEW PRESCRIPTIONS: Rocephin 1gram IM daily, beginning on the for 10 days [place] 7.5-325 take one tablet every four times a day around the clock Slivadene cream to the left heel twice a day, unless new orders by [facility] are received. Vitamin C 500mg twice a day Zinc Sulfate 220mg twice a day Clindamycin 150mg every 8 hours DIET INSTRUCTIONS: Regular diet, with extra protein at each meal. Milk twice daily. Molded Frames Assembler to see for optimal nutritional intake and wound healing. ACTIVITY: Turn every 1-2 hours. Avoid prolonged pressure to coccyx decubitus SMOKING: N/A DISEASE SPECIFIC EDUCATION: Importance of increasing protein sources Importance of turning frequently to avoid pressure to coccyx HOSPITAL COURSE: This is an 81 year old white male who has been residing at [facility] for rehabilitation. He has had decubitus ulcers on his ischium coccyx and left heel for some time now. He had those prior to his previous admission to the hospital and then he has those while sent to the group home. He had been referred to Wound Care at [facility] however he has been refusing the past several times to go to his Wound Care appointments. Subsequently the decubitus ulcer on his coccyx is now stage 4 or worse. On admission it had necrotic tissue and a very fowl odor. He was not running any fever. His WBC was not elevated however the ulcer was definitely worsening. He is noncompliant with the fact that he will not lay on his side. He is immobile and wheelchair bound. He was admitted and placed on IV Clindamycin 300mg Q 8 hours along with Vancomycin 500mg IV Q 12 hours. Wound Culture was done which showed Proteus and Klebsiella. He was then changed to Rocephin and Vancomycin. The Clindamycin was discontinued as both bacteria were susceptible to Rocephin. He was placed on Rocephin 1gram IV daily. Dr. Vizcaino was consulted due to the extensiveness of the wound. Again this is stage four and it was approximately 2 to 2.5 but 2cm and nearly an inch deep. Dr. Vizcaino has been debriding the wound, three times now. Bone was visible. An x-ray was done with no evidence of osteomyelitis. Again his white count has been normal. He has not had a fever. After debridement he did packing with Betadine and for the past 36 hours he has been doing Dakin solution. The wound does have some new pink granulomatous type tissue. The erythema has improved and all the necrotic tissue has been removed by Dr. Vizcaino. Due to his poor intake as he refuses to eat very much and the fact that he is rather immobile it is unlikely that the ulcer will ever heal completely although it is looking better and the odor has improved and there is not as much drainage. He is his own power of personal banking officer. He is alert and oriented times three and is of sound mind. He understands his condition and his prognosis. He states that he will start eating more high protein foods and he will no longer refuse to go to Wound Care. He refuses Hospice care at this time. We will send him back to the group home with Rocephin 1 gram IM daily for the next 10 days to complete a two week course. He has an appointment with [facility] tomorrow. We will also put him on Clindamycin 150mg PO three times a day for the next 7 days. His hgb did drop while he was here secondary to poor nutrition and he was transferred one unit and he has stable at 9.0 or above on his hgb. Today on day of discharge hgb 9.3, hct 29.1, WBC 9.3. He was started on [place] 7.5 three times a day for pain due to his wound. We will continue this at the group home. His blood pressure has been low around 100's /60's. We decreased his Tenormin to 12.5mg daily. We will send him back to the group home in stable condition although again his prognosis is poor. The patient is fully aware. I will followup with him there and the group home is instructed to take him to his Wound Care appointment tomorrow. TIME SPENT: More than 60 minutes. DANIEL
--- NOTE | 2017-05-03 11:10 | HP ---
DATE OF SERVICE: 04/25/17 REASON FOR HOSPITALIZATION/HISTORY OF PRESENT ILLNESS: This is an 81 year old white male who is residing at [facility] who has a worsening decubitus ulcer on his coccyx. He has been afebrile although just complaining of increased pain and it has a fowl odor, drainage and necrotic tissue. PAST MEDICAL HISTORY: Stage 4 Decubitus on his coccyx Stage 3 Decubitus on his left ischium Stage 3 Decubitus on left heel Weight loss Failure to thrive Hypertension Severe osteoarthritis Immobilization he is wheelchair bound Leg edema Anxiety Dyslipidemia GERD PAST SURGICAL HISTORY: Several back surgeries REVIEW OF SYSTEMS: CONSTITUTIONAL: No night sweats. No fatigue, malaise, lethargy. No fever or chills. HEENT: Eyes: No visual changes. No eye pain. No eye discharge. ENT: No runny nose. No epistaxis. No sinus pain. No sore throat. No odynophagia. No ear pain. No congestion. RESPIRATORY: No cough, no congestion. No hemoptysis. No shortness of breath. CARDIOVASCULAR: No angina symptoms. No CHF symptoms. No atypical chest pain for CAD. No palpitations. No orthopnea. GASTROINTESTINAL: No abdominal pain. No nausea or vomiting. No diarrhea or constipation. No hematemesis. No hematochezia. GENITOURINARY: No urgency. No frequency. No dysuria. No hematuria. No obstructive symptoms. No discharge. No pain. No significant abnormal bleeding. MUSCULOSKELETAL: No musculoskeletal pain. No joint swelling. No arthritis. Osteoarthritis pain. Swelling of the left leg. NEUROLOGICAL: No headache. No neck pain. No syncope. No seizures. No dizziness. Alert and oriented. PSYCHIATRIC: Not anxious. No depression. No suicidal thoughts. No homicidal thoughts. SKIN: No rash. No lesions. Wound on the bottom. ENDOCRINE: No unexplained weight loss. No weight gain. HEMATOLOGIC/LYMPHATIC: No anemia. No purpura. No petechiae. No prolonged or excessive bleeding. No palpable lymph nodes. PERSONAL/FAMILY/SOCIAL HISTORY: The patient is a resident of [facility]. Prior to this he lives at home with his sister. He is not , nonsmoker and no alcohol or illicit drug use. MEDICATIONS: Simvastatin 40mg PO daily Pantoprazole 40mg PO twice a day Ferrous Sulfate 325mg PO daily Klonopin 0.5mg PO bedtime Lasix 40mg PO QDAC K-Dur 40meq PO daily Calmoseptine one application TP twice a day Tenormin 50mg PO daily Tramadol 50mg PO twice a day Miralax 17gram PO twice a day Zestril 5mg PO daily Tylenol 650mg PO Q 8 hours PRN ALLERGIES: Morphine PHYSICAL EXAMINATION: GENERAL: The patient is alert and oriented. VITAL SIGNS: Temperature 97.4, heart rate 68, respirations 18, blood pressure 86/46, oxygen 91% on room air. HEENT: Head normocephalic, atraumatic. Eyes: Extraocular muscles are intact. Pupils are equal, round and reactive to light and accommodation. Ears: No lesions. Nose appeared normal. Throat: No exudate or erythema. NECK: Supple. No JVD, no carotid bruit. No lymphadenopathy or thyromegaly. LUNGS: Diminished breath sounds bilaterally. Percussion note normal. Chest symmetrical. HEART: S1, S2, no S3. No murmurs. No cyanosis or clubbing. No ascites. Pulses: Dorsalis pedis and posterior tibial pulses +1 to +2 both sides. ABDOMEN: Soft. Nontender. Bowel sounds active. No CVA tenderness. No mass felt. EXTREMITIES: No edema. Full range of motion of all extremities, equal. NEUROLOGIC: No focal deficit. Cranial nerves II through XII are grossly intact. No headache, no double vision or headache. SKIN: Not dry. Intact. Turgor - normal. Stage 3 decubitus on left heel with serous sanguineous drainage, stage 4 or worse decubitus on the coccyx approximately [id number] in diameter and 1 inch deep with black necrotic tissue with fowl odor purulent drainage. LYMPHATIC: No palpable lymph nodes/no lymphedema. MUSCULOSKELETAL: Normal joints with no swelling. Muscle tone is normal. LABS: WBC 9.23, hgb 8.6, hct 26.4, plt count 430, sodium 134, potassium 3.6, chloride 101, carbon dioxide 30, BUN 14, creatinine 0.74, Glucose 105, AST 40, ALT 36, Alkaline phosphatase 96, Albumin 1.6. ASSESSMENT: 1. Stage 4 Decubitus on coccyx 2. Anemia 3. Decreased mobility 4. Failure to thrive 5. Weight loss 6. Poor nutrition PLAN: 1. Will admit 2. IV Clindamycin 300mg Q 8 hours 3. Toradol 30mg IV Q 8 hours for pain 4. Wound Culture 5. Routine telemetry 6. Daily CBC and CMP 7. High Protein diet 8. Consult Dr. Vizcaino for wound care 9. [place] 7.5 three times a day scheduled for pain 10.Continue home medications TIME SPENT: More than 70 minutes. MTDD
--- NOTE | 2017-05-03 14:30 | PN ---
DATE OF SERVICE: 05/01/17 SUBJECTIVE: 81 year old white male was hospitalized with decubitus ulcer which is infected, stage 4 in coccygeal area. Also has stage 4 ulcer on the left heel both of them seems to be doing a little better. Dr. Vizcaino has been attending to it. The patient has an appointment for the Wound Care in [place] on Saturday. The patient is being given antibiotics IV Rocephin and Vancomycin and Clindamycin. The patient's nutritional status needs to improve and he has been told about it. His appetite has been poor. He has hypoproteinemia. He is practically bedridden. He hasn't walked since age 25 but now he is in the bed for past couple of years. [facility] in the [facility]. His prognosis for healing of stage 4 ulcers are poor. PHYSICAL EXAMINATION: VITAL SIGNS: Temperature 97.7, pulse 67, respiratory rate 18, blood pressure 105/60 and pulse ox 96%. HEENT: Head normocephalic, atraumatic. Eyes: Extraocular muscles are intact. Pupils are equal, round and reactive to light and accommodation. Ears: No lesions. Nose appeared normal. Throat: No exudate or erythema. NECK: Supple. No JVD, no carotid bruit. No lymphadenopathy or thyromegaly. LUNGS: Decreased breath sounds but clear to auscultation. Percussion note normal. Chest symmetrical. HEART: S1, S2, no S3. No murmurs. No cyanosis or clubbing. No ascites. Pulses: Dorsalis pedis and posterior tibial pulses +1 to +2 both sides. ABDOMEN: Soft. Nontender. Bowel sounds active. No CVA tenderness. No mass felt. EXTREMITIES: No edema. Full range of motion of all extremities, equal. NEUROLOGIC: No focal deficit. Cranial nerves II through XII are grossly intact. No headache, no double vision or headache. SKIN: Not dry. Intact. Turgor - normal. LYMPHATIC: No palpable lymph nodes/no lymphedema. MUSCULOSKELETAL: Normal joints with no swelling. Muscle tone is normal. LABS: Hgb 8.9, hct 28, WBC 8,000 normal differential. CONDITION: Stable PROGNOSIS: Guarded. TIME SPENT: More than 30 minutes. Plan and coordination of the patient's care discussed in the presence of nurse. DANIEL
--- NOTE | 2017-05-03 15:05 | PN ---
DATE OF SERVICE: 05/02/17 SUBJECTIVE: 81 year old white male was hospitalized with anemia given two units of packed red cell. His hgb and hct are stable. His nutritional status is poor. His appetite is not that good. He has low albumin and low proteins. Decubitus ulcers stage 4 coccygeal and left heel is very poor chance of healing because of his inability to cooperate and move and change side unless helped. Also poor appetite, malnutrition, shearing force and aging processes. The patient has been referred to Wound Care at [facility]. He is going to be seen tomorrow. He will have to depend on half-way to take him and bring him back. It will also depend on how well they keep him informed about his progress. The patient will be given Rocephin IM along with Clindamycin 10 days. The patient was seen by Dr. Vizcaino in the hospital. The patient was seen and examined with Nurse Practitioner. CONDITION: Stable. The patient had shown some improvement. The base of the ulcers are clean and there is no discharge. The left heel ulcer seems a lot better with not inflamed anymore. TIME SPENT: More than 30 minutes. Plan and coordination of the patient's care discussed in the presence of nurse. DANIEL
--- NOTE | 2017-05-03 15:07 | PN ---
04/25/17: Level 5 04/26/17: Intermediate 04/27/17: Intermediate 04/28/17: Intermediate 04/29/17: Intermediate 04/30/17: Intermediate 05/01/17: Brief 05/02/17: D as in discharge MTDD
== END 2017-05-02 13:45 | DRG 570 ==
LOC: MEDSURG A 13:03
PROVIDERS: ADMIT Internal Medicine; ATTEND Internal Medicine
PROC: 0JB70ZZ Excision of Back Subcutaneous Tissue and Fascia, Open Approach (ICD-10-PCS; principal; 2017-04-26)
PROC: 30233N1 Transfusion of Nonautologous Red Blood Cells into Peripheral Vein, Percutaneous Approach (ICD-10-PCS; 2017-04-26)
PROC: 30233N1 Transfusion of Nonautologous Red Blood Cells into Peripheral Vein, Percutaneous Approach (ICD-10-PCS; 2017-04-26)
PROC: 0JB70ZZ Excision of Back Subcutaneous Tissue and Fascia, Open Approach (ICD-10-PCS; 2017-04-28)
PROC: 0JB70ZZ Excision of Back Subcutaneous Tissue and Fascia, Open Approach (ICD-10-PCS; 2017-04-29)
PROC: 0HB6XZZ Excision of Back Skin, External Approach (ICD-10-PCS; 2017-05-02)
DX: L89.154 Pressure ulcer of sacral region, stage 4 (principal); E46 Unspecified protein-calorie malnutrition; L89.622 Pressure ulcer of left heel, stage 2; L89.623 Pressure ulcer of left heel, stage 3; L89.222 Pressure ulcer of left hip, stage 2; D50.0 Iron deficiency anemia secondary to blood loss (chronic); Z91.19 Patient's noncompliance with other medical treatment and regimen; Z99.3 Dependence on wheelchair; I10 Essential (primary) hypertension; I25.10 Atherosclerotic heart disease of native coronary artery without angina pectoris; I73.9 Peripheral vascular disease, unspecified; M19.90 Unspecified osteoarthritis, unspecified site; K44.9 Diaphragmatic hernia without obstruction or gangrene; E78.5 Hyperlipidemia, unspecified; R53.1 Weakness; E77.8 Other disorders of glycoprotein metabolism; F03.90 Unspecified dementia, unspecified severity, without behavioral disturbance, psychotic disturbance, mood disturbance, and anxiety; B96.1 Klebsiella pneumoniae [K. pneumoniae] as the cause of diseases classified elsewhere; B96.4 Proteus (mirabilis) (morganii) as the cause of diseases classified elsewhere; Z98.890 Other specified postprocedural states; Z16.11 Resistance to penicillins; Z16.39 Resistance to other specified antimicrobial drug; Z46.6 Encounter for fitting and adjustment of urinary device; Z96.0 Presence of urogenital implants; Z79.899 Other long term (current) drug therapy
CPT/HCPCS: 36415; 36430; 80053; 80202; 85025; 86850; 86900; 86922; 87070; 87081; 87186

== ENCOUNTER 2017-05-02 13:37 | Outpatient (CLI) | END 2017-05-02 13:38 | LOC: AMBL 13:37 | PROVIDERS: ATTEND Emergency Medicine | DX: L89.304 Pressure ulcer of unspecified buttock, stage 4 (principal) ==

== ENCOUNTER 2017-05-03 08:01 | Outpatient (CLI) | END 2017-05-03 08:02 | LOC: AMBL 08:01 | PROVIDERS: ATTEND Internal Medicine | DX: L89.90 Pressure ulcer of unspecified site, unspecified stage (principal) ==